=== PATIENT | male | born 1935 | race Caucasian/White ===

== ENCOUNTER 2018-01-30 15:30 | Inpatient (IN) | payer OTHER ==
--- NOTE | 2018-01-30 15:47 | PDOC ---
History of Present Illness - General Stated Complaint: DIFFICULTY BREATHING Time Seen by Provider: 01/30/18 15:40 - History of Present Illness Initial Comments: Osito Herring is an 83yo man with a PMH of HTN, DM2, CAD, CHF, a-fib on xarelto, gout, hypothyroid, BPH who presents from [facility] with 4-5 days of productive cough and difficulty breathing. He reports that he has been coughing up yellow sputum and cannot breath through his nose. EMS reports that he was given cough medicine but no antibiotics, and it unclear whether he was seen by a physician. There is no report of recent fevers. Mr Herring reports that he has felt very thirsty, and he has not been eating or drinking normally for a while. He endorses slight dysuria but no headache, known fever/chills, chest pain, significant SOB, nausea/vomiting, or change in bowel habits. He has not noticed any blood in his sputum. He has no known asthma or COPD but does report a history of smoking 7-8 pipes and cigars per day from age 18 until 2 years ago. EMS noted an O2 sat of 90% on room air when they arrived; other vitals were WNL. He was placed on a non-rebreather mask on route to the hospital due to difficulty breathing through his nose. He received a nebulizer treatment in the ambulance with no noticeable improvement in his breathing or cough. Past History - Past Medical History Allergies/Adverse Reactions: Allergies Allergy/AdvReac Type Severity Reaction Status Date / Time No Known Allergies Allergy Verified 01/30/18 16:59 Review of Systems - Review of Systems Comments:: General: No fevers, no chills, +poor PO intake HEENT: No changes in vision, no changes in hearing. CV: No chest pain, no palpitations, no LE edema Pulm: No SOB, no cough, no wheezing GI: No nausea or vomiting, no change in bowel habits, no melena : No frequency, no urgency, no dysuria Musc: No back pain, no joint swelling, no recent injury Skin: No rash, no lesions, no erythema Endo: No excessive thirst, no heat/cold intolerance Heme: No unusual bruising or bleeding, no swollen glands Neuro: No syncope, no numbness/tingling, no focal weakness Vasc: No claudication Psych: No recent change in mood, no SI or HI *Physical Exam - Physical Exam Comments: General: Comfortable, no acute distress HEENT: PERRL, EOMI, very dry tongue and mouth, mumbled speech, adentulous, normal neck ROM, no LAD. Yellow, crusted mucous in b/l nares. Yellow discharge and erythematous sclera in L eye. Cards: Irregular, normal rate Pulm: Productive cough. Diffuse wheezing, loud upper respiratory noise, no focal Abd: Soft, nontender, nondistended Ext: Atraumatic. Minimal LE edema. ROM intact. Strength 5/5 and equal bilaterally Vasc: Extremities WWP. Skin: Normal color, no rashes or lesions. Several small cuts w/o surrounding erythema or edema on BLE. Neuro: A&Ox3, CN grossly intact, motor/sensory grossly intact and symmetric Psych: Mood appropriate to situation ED Treatment Course - LABORATORY CBC & Chemistry Diagram: 01/30/18 16:40 01/30/18 16:40 Medical Decision Making - Medical Decision Making 01/30/18 17:34 Osito Herring is an 83yo man with a signifcant cardiac history who presents with 4-5 days of productive cough, thick rhinorrhea, and L eye discharge. - Suspected viral v bacterial URI or pneumonia - Sepsis order set initiated due to likely infection - CXR to evaluate for pneumonia - CBC, CMP, trop, lactate - EKG completed on arrival, rate-controlled a-fib, consistent with known cardiac history, no concerns - Appears dehydrated with extremely dry mucous membranes. 1L fluid bolus ordered - IV acetaminophen for mildly elevated rectal temp at 99F - Blood and urine cultures ordered - Erythromycin ointment for L eye conjunctivitis with yellow, thick discharge - Holding IV antibiotics until labs, CXR completed. 01/30/18 18:26 - Labs notable for lack of leukocytosis. - Cr 1.6, no baseline available. Suspected MT given clinical appearance of dehydration and no known kidney issues - Additional 1L IVF for dehydration - CXR without focal abnormalities. Working diagnosis mucopurulent bronchitis. Potential undiagnosed COPD with exacerbation as pt has significant smoking history. 1x dose azithromycin ordered. - Will page hospitalist for admission 01/30/18 19:25 - Discussed with Dr Mario. Will admit to Dr Mcmullen. Seen and discussed with Dr Alfaro. Stephenie Mcclain PGY1 *DC/Admit/Observation/Transfer Diagnosis at time of Disposition: Bronchitis - Discharge Dispostion Decision to Admit order: Yes - Referrals Referrals: Kevon Sibley MD [Primary Care Provider] - - Patient Instructions - Post Discharge Activity
--- NOTE | 2018-01-30 16:14 | PDOC ---
Attending Attestation - HPI HPI: 01/30/18 17:03 The patient is a 83 year old male, with a significant past medical history of HTN, DM, Afib (on Xarelto), CAD, hypothyroidism, and gout, who presents to the emergency department with, productive cough. Patient notes at the long term his cough has gotten progressively worse with associated difficulty breathing. He notes decreased PO intake over the past 2 days. He denies any nausea, vomiting, change in urinary/bowel movements. Flu shot not up to date. Allergies: NKA Past surgical history: None reported. Social history: Nonsmoker. Denies EtOH use and recreational drug use. Primary Care Physician: Dr. Sibley - Physicial Exam PE: 01/30/18 17:04 Constitutional: Awake, alert, oriented. No acute distress. Head: Normocephalic. Atraumatic +Eyes: Conjunctivitis of the left eye with erythema and discharge of the conjuctiva and sclera. +ENT: Mucous membranes are dry. Poor dentition. Neck: Supple. Full ROM. No lymphadenopathy. Cardiovascular: Regular rate. Regular rhythm. S1, S2 regular. Distal pulses are 2+ and symmetric. Pulmonary/Chest: Coarse breath sounds bilaterally with rhonchi on the right. +Abdominal: Mild suprapubic discomfort. Soft and non-distended. No rebound, guarding or rigidity. No organomegaly. No palpable masses. Good bowel sounds. Back: No CVA tenderness. Musculoskeletal: Trace lower extremity edema. No cyanosis. No clubbing. Full range of motion in all extremities. Nocalf tenderness. Radial/pedal pulses are intact and 2+ bilaterally Skin: Skin is warm and dry. No petechiae. No purpura. Neurological: Alert and oriented to person, place, and time. Cranial nerves II -XII are grossly intact. Normal speech. Strength is grossly symmetric. No sensory deficits. Psychiatric: Good eye contact. Normal interaction, affect and behavior. <Allie Kohli - Last Filed: 01/30/18 17:08> - Resident Resident Name: Stephenie Mcclain - ED Attending Attestation I have performed the following: I have examined & evaluated the patient, The case was reviewed & discussed with the resident, I agree w/resident's findings & plan, Exceptions are as noted - Medical Decision Making 01/30/18 16:14 I, Dr. Tashia Alfaro, DO, attest that this document has been prepared under my direction and personally reviewed by me in its entirety. I further attest, that it accurately reflects all work, treatment, procedures and medical decision -making performed by me. 01/30/18 16:36 a/p: 83yo male from [facility] -recently started to reside at [facility] at the beginning of december -docs in [place] -4 days of productive cough, decreased PO intake, no n/v/d -dysuria - seen by Urology at the Assisted living -low grade temp today -cough productive yellow sputum -concern for PNA -will send labs, cultures, will give ivf hydration, oral hydration -will monitor and reassess -pt will most likely need admission for dyspnea and cough 01/30/18 18:18 mucopurulent bronchitis and MT -will admit for ivf hydration 01/30/18 19:44 resident discussed the case with ROLY who accepts pt to service <Tashia Alfaro - Last Filed: 01/30/18 19:44> Heart Score/ECG Review - ECG Intrepretation Comment:: 01/30/18 17:38 afib at 66, rbbb, no acute st/t wave findings <Tashia Alfaro - Last Filed: 01/30/18 19:44> Attestations - Attestations 01/30/18 17:11 Documentation prepared by Allie Kohli, acting as medical record librarians teacher for Tashia Alfaro DO. <Allie Kohli - Last Filed: 01/30/18 17:08>
[2018-01-30] MEDS ORDERED: SODIUM CHLORIDE 0.9% 500 ML INFUS.BAG IV ONE (16:29)
[2018-01-30] MEDS ORDERED: ERYTHROMYCIN 0.5% OPHTHALMIC OINTMENT 3.5 GM TUBE OU ONE (16:30)
[2018-01-30] MEDS ORDERED: ACETAMINOPHEN INJECTION 100 ML IVPB ONE (16:49)
[2018-01-30 16:53] LABS: BASO % 0.6 % (0-2.0); HEMATOCRIT 38.6 % (35.4-49); HEMOGLOBIN 12.7 GM/dL (11.7-16.9); MCH 29.2 pg (25.7-33.7); MEAN CELL VOLUME 88.8 fl (80-96); RBC 4.35 M/mm3 (4.00-5.60)
[2018-01-30 16:55] LABS: EOS % 2.7 % (0-4.5); LYMPH % 19.9 % (8-40); MCHC 32.8 g/dl (32.0-35.9); NEUT % 60.8 % (42.8-82.8); PLATELET COUNT 190 K/MM3 (134-434); RDW 14.7 % (11.9-15.9); WHITE BLOOD COUNT 5.1 K/mm3 (4.0-10.0)
[2018-01-30] MEDS ORDERED: ACETAMINOPHEN 1000 MG/100 ML VIAL (NON FORMULARY) IVPB ONE (16:59)
[2018-01-30 17:05] LABS: INR 1.18 (0.83-1.09)
[2018-01-30 17:28] LABS: ALBUMIN 3.3 g/dl (3.4-5.0); ALK PHOS 76 U/L (45-117); BILIRUBIN,TOTAL 0.6 mg/dL (0.2-1); BLOOD UREA NITROGEN 39 mg/dL (7-18); CALCIUM 8.8 mg/dL (8.5-10.1); CHLORIDE 107 mmol/L (98-107); CO2 25 mmol/L (21-32); CREATININE 1.6 mg/dL (0.55-1.3); GLUCOSE,RANDOM 144 mg/dL (74-106); SGPT/ALT 26 U/L (13-61); SODIUM 140 mmol/L (136-145); TOT PROT 6.6 g/dl (6.4-8.2)
[2018-01-30 17:29] LABS: ANION GAP 9 MMOL/L (8-16); SGOT/AST 24 U/L (15-37)
[2018-01-30] MEDS ORDERED: AZITHROMYCIN IVPB 500 MG in DEXTROSE 5%-WATER - 250 ML IVPB ONE (18:18)
[2018-01-30] MEDS ORDERED: SODIUM CHLORIDE 0.9% 1000 ML INFUS.BAG IV ONE (18:18)
[2018-01-30] MEDS ORDERED: AZITHROMYCIN IVPB 500 MG/250 ML BAG IVPB ONE (19:22)
[2018-01-30] MEDS ORDERED: SODIUM CHLORIDE 1,000 ML IV SCH ×2 (19:30→20:21)
[2018-01-30 19:55] LABS: URINE APPEARANCE CLEAR; URINE BILIRUBIN NEGATIVE (<2.0 mg/dL); URINE COLOR LTYELLOW; URINE GLUCOSE (UA) NEGATIVE (NEGATIVE); URINE KETONE NEGATIVE (NEGATIVE); URINE LEUK ESTERASE NEGATIVE (NEGATIVE); URINE NITRITE NEGATIVE (NEGATIVE); URINE PROTEIN NEGATIVE (NEGATIVE); URINE UROBILINOGEN NEGATIVE mg/dL (0.2-1.0)
--- NOTE | 2018-01-30 20:25 | HP ---
CHIEF COMPLAINT: cough PCP: HISTORY OF PRESENT ILLNESS: 83 yo M with PMhx of CAD, CHF, HTN, DM, HLD,hypothyroidism, Afib(on AC) and gout [facility] with cough and SOB. He states that for the past 5 days he has been experiencing a progressive productive cough of greenish sputum. He states that he has also noticed some conjuctivitis for the same time. Cough is associated with SOB. Denies CP,MATTHEWS, abdominal pain, dysuria, fever, chills nausea or vomiting. ER course was notable for: (1)CXR-showed no acute pathology (2)MT seen on BMP (3)requiring supplemental O2 via [place] Recent Travel: NONE PAST MEDICAL HISTORY:CAD, CHF, HTN, DM, HLD, Afib(on AC) , hypothyroidism and gout PAST SURGICAL HISTORY: He was not sure of his surgical history Social History: Smoking:smoked pipes and cigars daily for most of his life. Alcohol:denies Drugs: denies. Family History: Allergies No Known Allergies Allergy (Verified 01/30/18 16:59) HOME MEDICATIONS: REVIEW OF SYSTEMS CONSTITUTIONAL: Absent: fever, chills, diaphoresis, generalized weakness, malaise, loss of appetite, weight change HEENT: Absent: rhinorrhea, nasal congestion, throat pain, throat swelling, difficulty swallowing, mouth swelling, ear pain, eye pain, visual changes CARDIOVASCULAR: Absent: chest pain, syncope, palpitations, irregular heart rate, lightheadedness , peripheral edema RESPIRATORY: cough, shortness of breath, dyspnea with exertion Absent: , orthopnea, wheezing, stridor, hemoptysis GASTROINTESTINAL: Absent: abdominal pain, abdominal distension, nausea, vomiting, diarrhea, constipation, melena, hematochezia GENITOURINARY: Absent: dysuria, frequency, urgency, hesitancy, hematuria, flank pain, genital pain MUSCULOSKELETAL: Absent: myalgia, arthralgia, joint swelling, back pain, neck pain SKIN: Absent: rash, itching, pallor HEMATOLOGIC/IMMUNOLOGIC: Absent: easy bleeding, easy bruising, lymphadenopathy, frequent infections ENDOCRINE: Absent: unexplained weight gain, unexplained weight loss, heat intolerance, cold intolerance NEUROLOGIC: Absent: headache, focal weakness or paresthesias, dizziness, unsteady gait, seizure, mental status changes, bladder or bowel incontinence PSYCHIATRIC: Absent: anxiety, depression, suicidal or homicidal ideation, hallucinations. PHYSICAL EXAMINATION Vital Signs - 24 hr 01/30/18 01/30/18 15:59 18:00 Temperature 99.2 F Pulse Rate 84 Respiratory 16 Rate Blood Pressure 143/99 O2 Sat by Pulse 100 97 Oximetry (%) GENERAL: awake and alert , Oriented to person and place, NAD HEAD: NCAT EYES: PERRLA, EOMI, green conjunctiva secretions. sclera anicteric, No lid lag. EARS, NOSE, THROAT: nares with green mucous , Dry mucous membranes. NECK: Supple without lymphadenopathy, JVD, or masses. LUNGS: course bilateral breath sounds with scattered Rhonchi. HEART: Irregular, normal S1 and S2 ABDOMEN: Soft, obese, nontender, mildly distended, NABS, no guarding, no rebound , no masses. MUSCULOSKELETAL: No CVA tenderness. UPPER EXTREMITIES: 2+ pulses, warm, well-perfused. No cyanosis. No clubbing. No peripheral edema. LOWER EXTREMITIES: 2+ pulses, warm, well-perfused. No calf tenderness.1+ peripheral edema. NEUROLOGICAL: Cranial nerves II-XII intact. Normal speech.gait not observed. PSYCHIATRIC: Cooperative. Good eye contact. Appropriate mood and affect. Laboratory Results - last 24 hr 01/30/18 01/30/18 01/30/18 16:40 16:40 16:40 WBC 5.1 RBC 4.35 Hgb 12.7 Hct 38.6 MCV 88.8 MCH 29.2 MCHC 32.8 RDW 14.7 Plt Count 190 MPV 9.0 Absolute Neuts (auto) 3.1 Neutrophils % 60.8 Lymphocytes % 19.9 Monocytes % 16.0 H Eosinophils % 2.7 Basophils % 0.6 Nucleated RBC % 0 PT with INR 14.00 H INR 1.18 H PTT (Actin FS) 29.0 Sodium 140 Potassium 5.0 Chloride 107 Carbon Dioxide 25 Anion Gap 9 BUN 39 H Creatinine 1.6 H Creat Clearance w eGFR 41.49 Random Glucose 144 H Lactic Acid Calcium 8.8 Total Bilirubin 0.6 AST 24 ALT 26 Alkaline Phosphatase 76 Troponin I Total Protein 6.6 Albumin 3.3 L Urine Color Urine Appearance Urine pH Ur Specific [place] Urine Protein Urine Glucose (UA) Urine Ketones Urine Blood Urine Nitrite Urine Bilirubin Urine Urobilinogen Ur Leukocyte Esterase 01/30/18 01/30/18 01/30/18 16:40 16:40 19:00 WBC RBC Hgb Hct MCV MCH MCHC RDW Plt Count MPV Absolute Neuts (auto) Neutrophils % Lymphocytes % Monocytes % Eosinophils % Basophils % Nucleated RBC % PT with INR INR PTT (Actin FS) Sodium Potassium Chloride Carbon Dioxide Anion Gap BUN Creatinine Creat Clearance w eGFR Random Glucose Lactic Acid 1.8 Calcium Total Bilirubin AST ALT Alkaline Phosphatase Troponin I < 0.02 Total Protein Albumin Urine Color Ltyellow Urine Appearance Clear Urine pH 5.0 Ur Specific [place] 1.016 Urine Protein Negative Urine Glucose (UA) Negative Urine Ketones Negative Urine Blood Negative Urine Nitrite Negative Urine Bilirubin Negative Urine Urobilinogen Negative Ur Leukocyte Esterase Negative ASSESSMENT/PLAN: 83 yo M with PMhx of CAD, CHF, HTN, DM, HLD,hypothyroidism, Afib(on AC) and gout [facility] from [facility] with cough and SOB. Found to have MT to med-surg for further management. Problem List - Problem (1) Bronchitis Assessment/Plan: * sputum culture * Azithromycin 500mg PO daily * Influenza swab (2) Conjunctivitis Assessment/Plan: most likely bacterial. * Erythromycin OU drops (3) MT (acute kidney injury) Assessment/Plan: Most likely secondary to volume depletion * IVF wiht NS @60ml/hr * repeat BMP in AM * Will check BNP for any component of hypoperfusion from CHF * Serum OSM (4) Afib Assessment/Plan: cont xarelto. (5) CHF (congestive heart failure) Assessment/Plan: continue lasix 20 mg PO. (6) HTN (hypertension) Assessment/Plan: * Amlodipine Besylate (Norvasc -) 5 mg PO DAILY * Metoprolol Succinate (Toprol Xl -) 100 mg PO DAILY (7) DM type 2 (diabetes mellitus, type 2) Assessment/Plan: ADA sodium controlled diet * BGM ACHS * ISS ACHS (8) BPH (benign prostatic hyperplasia) Assessment/Plan: Flomax 0.4mg po daily (9) Gout Visit type - Emergency Visit Emergency Visit: Yes ED Registration Date: 01/30/18 Care time: The patient presented to the Emergency Department on the above date and was hospitalized for further evaluation of their emergent condition. - New Patient This patient is new to me today: Yes Date on this admission: 01/31/18 - Critical Care Critical Care patient: No
[2018-01-30 23:05] LABS: N-TERMINAL BNP 1475.2 pg/ml (5-450)
[2018-01-31 00:51] VITALS: BMI 33.4
[2018-01-31] MEDS ORDERED: FUROSEMIDE 40 MG/4 ML INJECTABLE VIAL IVPUSH ONE (01:41)
--- NOTE | 2018-01-31 01:45 | PN ---
Teaching Attending Note Name of Resident: Kobe Mario ATTENDING PHYSICIAN STATEMENT I saw and evaluated the patient. I reviewed the resident's note and discussed the case with the resident. I agree with the resident's findings and plan as documented. SUBJECTIVE: Seen and examined at bedside; patient is an [facility] resident who is a poor historian. Phoned the [facility] and they state that he is here for SOB and hallucinations, though he cannot tell me why he is here. The individual spoke to at the [facility] by our resident did not know much else historical detail regarding vladimir. He is documented as having a history of Atrial fibrillation , gout, CHF, hypothyroidism, DM, HTN, BPH. He appears to at least have some MCI. He presented afebrile and hemodynamically stable. He was noted to have conjunctival injections with purulent discharge from both eyes; unknown how long that had been present. He was noted to be coughing as well. He has been at [facility] since December. Was accepted during the day by resident team. Will be on the medicine service Couldn't adequately obtain Social or family histories ROS negative aside from HPI PMH as documented PSH could not be obtained at this time OBJECTIVE: VSS, labs and imaging reviewed NAD, resting in bed on O2 via NC Normal HR, no aimee murmurs NT ND +BS What appears to be dependent edema, thick neck makes JVD assessment difficult Difficult body habitus. Upper airway sounds with ? crackles. AAOx2 with some confusion but able to have a conversation. Not actively hallucinating when I saw him. No old cardiovascular studies No old visits CXR with ?LLL PNA? ASSESSMENT AND PLAN: Mr. Da Silva is an 83 y/o CM with a PMH as stated who presents to the ER from [facility] with SOB, cough for nearly a week. We are told he was also hallucinating by the facility when we phoned them tonight. 1) Acute Shortness of Breath -Broad ddx having a generalized lack of history has made this difficult. We are reaching out to [facility] and will attempt to contact the PCP in the morning for old records. Right now we are considering a LLL PNA vs. URI vs. CHF exacerbation. Will be discussed in their respective sections -O2 via NC 2) Elevated BNP, ?CHF exacerbation -Elevated BNP noted; unknown baseline. Cardiomegaly seen on CXR and history of afib on home lasix 20 at [facility]. This would be a potential cause. Should note that when the patient originally was accepted during the daytime hours a BNP hadn't been done yet. He thus got what appears to be at least 1L of fluids in the ER and maintenance fluids by the time I got to adding on BNP. In that interval, according to the computer records, his O2 requirements did increase and his RR increased 2 breaths per minute. Would lead to one questioning if fluids worsened this. As noted, we don't have any echo or prior CV records -Monitor Is and Os, lytes, low Na diet and 2L fluid restrict per day -Giving 1x dose of lasix 40IV. His Cr is slightly elevated but given his multiple comorbidities and his age I feel that the patient does have reason to have CKD and we do not have a baseline Cr. Therefore we will monitor his Cr. He does not appear septic (normal HR, no WBC, no fever, normal BP). 3) ?LLL PNA -Seen on CXR. Difficult to call for certain. Would be a CAP. -Followup blood cultures, followup sputum cultures -Levaquin IV (not active so minimal risk of tendon issues). Consider further imaging with CT scan if not improved or if further data needed as he progresses. -Checking a influenza screen, monitoring for improvement. Wean off O2 as tolerated. 4) Hallucinations -Not actively hallucinating -Check QTc and can do Seroquel if needed. Obtain old records and see if there is any old reasons for him to have this. 5) Afib -Seen on tele and does have an irregular HR. On home metoprolol, no NOAC. ASA only 81. Rate is controlled. Can increase the ASA to 325 but given his fall risk I would not be inclined to place him on any further AC at this juncture. 6) DM -SSI, monitor 7) HTN -Keep <160 while inpatient. 8) BPH -No acute issues, monitor for retention 9) Gout -No flare, continue home meds 10) Hypothyroidism -Continue home meds Code Status is full; should discuss goals of care with family
[2018-01-31] MEDS: LEVOTHYROXINE NA 125 MCG TABLET (FP) PO SCH (06:08)
[2018-01-31] MEDS: HEPARIN NA (PORCINE) 5,000 UNITS/ML 1ML VIAL SQ SCH ×3 (06:09→21:46)
[2018-01-31] MEDS ORDERED: INSULIN (LEVEMIR) 100 UNITS/ML UNITS SQ ONE (06:48)
[2018-01-31 08:23] LABS: BASO % 0.4 % (0-2.0); HEMATOCRIT 37.9 % (35.4-49); HEMOGLOBIN 12.2 GM/dL (11.7-16.9); LYMPH % 17.4 % (8-40); MCH 28.6 pg (25.7-33.7); MCHC 32.3 g/dl (32.0-35.9); MEAN CELL VOLUME 88.7 fl (80-96); MEAN PLT VOLUME 8.6 fl (7.5-11.1); MONO % 15.1 % (3.8-10.2); NEUT % 64.1 % (42.8-82.8); PLATELET COUNT 170 K/MM3 (134-434); RBC 4.27 M/mm3 (4.00-5.60); RDW 14.4 % (11.9-15.9); WHITE BLOOD COUNT 5.3 K/mm3 (4.0-10.0)
[2018-01-31 08:27] LABS: ALBUMIN 3.2 g/dl (3.4-5.0); ALK PHOS 74 U/L (45-117); ANION GAP 9 MMOL/L (8-16); BILIRUBIN,TOTAL 0.7 mg/dL (0.2-1); BLOOD UREA NITROGEN 32 mg/dL (7-18); CALCIUM 8.2 mg/dL (8.5-10.1); CHLORIDE 106 mmol/L (98-107); CO2 27 mmol/L (21-32); CREATININE 1.3 mg/dL (0.55-1.3); GLUCOSE,RANDOM 130 mg/dL (74-106); MAGNESIUM 1.7 mg/dL (1.8-2.4); POTASSIUM 4.4 mmol/L (3.5-5.1); SGOT/AST 13 U/L (15-37); SGPT/ALT 22 U/L (13-61); SODIUM 143 mmol/L (136-145); TOT PROT 6.2 g/dl (6.4-8.2)
[2018-01-31] MEDS: TAMSULOSIN HCL 0.4 MG CAP PO SCH (08:35)
--- NOTE | 2018-01-31 09:34 | EKG ---
Test Reason : Blood Pressure : / mmHG Vent. Rate : 053 BPM Atrial Rate : 049 BPM P-R Int : 000 ms QRS Dur : 172 ms QT Int : 466 ms P-R-T Axes : 000 043 -31 degrees QTc Int : 437 ms ATRIAL FIBRILLATION WITH SLOW VENTRICULAR RESPONSE RIGHT BUNDLE BRANCH BLOCK T WAVE ABNORMALITY, CONSIDER INFERIOR ISCHEMIA ABNORMAL ECG WHEN COMPARED WITH ECG OF 30-JAN-2018 15:50, NO SIGNIFICANT CHANGE WAS FOUND Confirmed by MARLYS BARNEY MD ([id number]) on 01/31/2018 9:33:53 AM Referred By: Confirmed By:MARLYS BARNEY MD
--- NOTE | 2018-01-31 09:40 | EKG ---
Test Reason : Blood Pressure : / mmHG Vent. Rate : 066 BPM Atrial Rate : 234 BPM P-R Int : 000 ms QRS Dur : 166 ms QT Int : 422 ms P-R-T Axes : 000 032 -31 degrees QTc Int : 442 ms ATRIAL FIBRILLATION RIGHT BUNDLE BRANCH BLOCK ABNORMAL ECG NO PREVIOUS ECGS AVAILABLE Confirmed by MARLYS BARNEY MD ([id number]) on 01/31/2018 9:40:02 AM Referred By: Confirmed By:MARLYS BARNEY MD
[2018-01-31] MEDS ORDERED: FUROSEMIDE 20 MG TABLET (FP) PO SCH (10:00)
[2018-01-31] MEDS ORDERED: AZITHROMYCIN IVPB 500 MG/250 ML BAG IVPB SCH (10:00)
[2018-01-31] MEDS ORDERED: ACETAMINOPHEN 325 MG TABLET (FP) PO PRN (10:00)
[2018-01-31] MEDS ORDERED: PT OWN MED DRAWER 7, Y5N ONE (10:05)
[2018-01-31] MEDS: ASPIRIN 81 MG CHEWABLE TABLETS PO SCH (10:07)
[2018-01-31] MEDS: GABAPENTIN 300 MG CAPSULE (FP) PO SCH ×2 (10:07→21:47)
[2018-01-31] MEDS: amLODIPine BESYLATE 5 MG TABLET (FP) PO SCH (10:07)
[2018-01-31] MEDS: ERYTHROMYCIN 0.5% OPHTHALMIC OINTMENT 3.5 GM TUBE OU SCH (11:46)
--- NOTE | 2018-01-31 12:13 | ECHO ---
Name: CORNELIUS RAMIREZ Exam:Adult Echocardiogram Study Date: 01/31/2018 10:53 AM Age: 83 yrs Reason For Study: elevated BNP Height: 68 in Weight: 220 lb BSA: 2.1 m2 MMode/2D Measurements & Calculations IVSd: 1.0 cm Ao root diam: 4.3 cm LVIDd: 5.3 cm LA dimension: 2.8 cm LVIDs: 3.1 cm LVPWd: 0.93 cm IVSs: 1.5 cm LVPWs: 1.4 cm EDV(Teich): 135.3 ml ESV(Teich): 38.2 ml LVOT diam: 2.1 cm Doppler Measurements & Calculations Ao V2 max: 169.4 cm/sec AI max domingo: 477.4 cm/sec Ao max P.6 mmHg AI max P.2 mmHg Ao V2 mean: 117.7 cm/sec Ao mean P.2 mmHg AI dec slope: 189.0 cm/sec2 Ao V2 VTI: 29.2 cm MARU(I,D): 1.6 cm2 AI P1/2t: 739.9 msec MARU(V,D): 1.5 cm2 LV V1 max P.1 mmHg MR max domingo: 404.0 cm/sec LV V1 mean P.1 mmHg MR max P.3 mmHg LV V1 max: 72.5 cm/sec LV V1 mean: 49.5 cm/sec LV V1 VTI: 12.8 cm SV(LVOT): 45.3 ml TR max domingo: 270.3 cm/sec TR max P.4 mmHg Med Peak E' Domingo: 4.9 cm/sec Lat Peak E' Domingo: 10.4 cm/sec Left Ventricle Left ventricular systolic function is normal. Ejection Fraction = 50-55%. Right Ventricle The right ventricle is mildly dilated. The right ventricular systolic function is borderline reduced. Atria Normal left and right atrial size and function. Mitral Valve The mitral valve is grossly normal. There is no mitral valve stenosis. There is mild mitral regurgita tion. Tricuspid Valve The tricuspid valve is not well visualized, but is grossly normal. There is mild tricuspid regurgitat ion. Right ventricular systolic pressure is elevated at 30-40mmHg. Aortic Valve There is mild aortic sclerosis.;. No hemodynamically significant valvular aortic stenosis. Mild aorti c regurgitation. Pulmonic Valve The pulmonic valve is not well seen, but is grossly normal. There is no pulmonic valvular stenosis. T here is no pulmonic valvular regurgitation. Great Vessels The aortic root is normal size. Pericardium/Pleura There is no pericardial effusion. Interpretation Summary Left ventricular systolic function is normal. Ejection Fraction = 50-55%. The right ventricle is mildly dilated. The right ventricular systolic function is borderline reduced. There is mild mitral regurgitation. There is mild tricuspid regurgitation. Right ventricular systolic pressure is elevated at 30-40mmHg. There is mild aortic sclerosis.; Mild aortic regurgitation. There is no pericardial effusion. MD Del Angel *Wilber 01/31/2018 12:12 PM
--- NOTE | 2018-01-31 15:45 | PN ---
Physical Exam: SUBJECTIVE: Patient seen and examined at bedside. States that he is feeling ok minus the barking cough that he has, however, the cough is non-productive. He is no longer experiencing any of the hallucinations that he was previously experiencing in his assisted living facility. He denies any CP/SOB/N/V fevers or chills. OBJECTIVE: Vital Signs Period Temp Pulse Resp BP Sys/Denson Pulse Ox Last 24 Hr 97.5 F-99.2 F 67-87 16-18 122-154/61-99 95-100 GENERAL: The patient is awake, alert, in no acute distress. EYES: no scleral icterus NECK: no JVD appreciated LUNGS: CTA B/L; no rales, rhonchi or wheezing HEART: Regular rate and rhythm, S1, S2 without murmur, rub or gallop. ABDOMEN: Soft, nontender, nondistended, normoactive bowel sounds, no guarding, no rebound, no hepatosplenomegaly, no masses. EXTREMITIES: 2+ pulses, warm, well-perfused, no edema. NEUROLOGICAL: Cranial nerves II through XII grossly intact. Normal speech, gait not observed. PSYCH: Normal mood, normal affect. SKIN: Warm, dry, normal turgor, no rashes or lesions noted Laboratory Results - last 24 hr 01/30/18 01/30/18 01/30/18 16:40 16:40 16:40 WBC 5.1 RBC 4.35 Hgb 12.7 Hct 38.6 MCV 88.8 MCH 29.2 MCHC 32.8 RDW 14.7 Plt Count 190 MPV 9.0 Absolute Neuts (auto) 3.1 Neutrophils % 60.8 Lymphocytes % 19.9 Monocytes % 16.0 H Eosinophils % 2.7 Basophils % 0.6 Nucleated RBC % 0 PT with INR 14.00 H INR 1.18 H PTT (Actin FS) 29.0 Sodium 140 Potassium 5.0 Chloride 107 Carbon Dioxide 25 Anion Gap 9 BUN 39 H Creatinine 1.6 H Creat Clearance w eGFR 41.49 POC Glucometer Random Glucose 144 H Serum Osmolality Lactic Acid Calcium 8.8 Magnesium Total Bilirubin 0.6 AST 24 ALT 26 Alkaline Phosphatase 76 Creatine Kinase Troponin I B-Natriuretic Peptide 1475.2 H Total Protein 6.6 Albumin 3.3 L Prealbumin Urine Color Urine Appearance Urine pH Ur Specific Jeffers Urine Protein Urine Glucose (UA) Urine Ketones Urine Blood Urine Nitrite Urine Bilirubin Urine Urobilinogen Ur Leukocyte Esterase 01/30/18 01/30/18 01/30/18 16:40 16:40 16:40 WBC RBC Hgb Hct MCV MCH MCHC RDW Plt Count MPV Absolute Neuts (auto) Neutrophils % Lymphocytes % Monocytes % Eosinophils % Basophils % Nucleated RBC % PT with INR INR PTT (Actin FS) Sodium Potassium Chloride Carbon Dioxide Anion Gap BUN Creatinine Creat Clearance w eGFR POC Glucometer Random Glucose Serum Osmolality 307 H Lactic Acid 1.8 Calcium Magnesium Total Bilirubin AST ALT Alkaline Phosphatase Creatine Kinase Troponin I < 0.02 B-Natriuretic Peptide Total Protein Albumin Prealbumin Urine Color Urine Appearance Urine pH Ur Specific Jeffers Urine Protein Urine Glucose (UA) Urine Ketones Urine Blood Urine Nitrite Urine Bilirubin Urine Urobilinogen Ur Leukocyte Esterase 01/30/18 01/31/18 01/31/18 19:00 06:07 06:50 WBC RBC Hgb Hct MCV MCH MCHC RDW Plt Count MPV Absolute Neuts (auto) Neutrophils % Lymphocytes % Monocytes % Eosinophils % Basophils % Nucleated RBC % PT with INR INR PTT (Actin FS) Sodium Potassium Chloride Carbon Dioxide Anion Gap BUN Creatinine Creat Clearance w eGFR POC Glucometer 156 Random Glucose Serum Osmolality Lactic Acid Calcium Magnesium Total Bilirubin AST ALT Alkaline Phosphatase Creatine Kinase Troponin I B-Natriuretic Peptide Total Protein Albumin Prealbumin 16.1 L Urine Color Ltyellow Urine Appearance Clear Urine pH 5.0 Ur Specific Jeffers 1.016 Urine Protein Negative Urine Glucose (UA) Negative Urine Ketones Negative Urine Blood Negative Urine Nitrite Negative Urine Bilirubin Negative Urine Urobilinogen Negative Ur Leukocyte Esterase Negative 01/31/18 01/31/18 01/31/18 06:50 06:50 12:16 WBC 5.3 RBC 4.27 Hgb 12.2 Hct 37.9 MCV 88.7 MCH 28.6 MCHC 32.3 RDW 14.4 Plt Count 170 MPV 8.6 Absolute Neuts (auto) 3.4 Neutrophils % 64.1 Lymphocytes % 17.4 Monocytes % 15.1 H Eosinophils % 3.0 Basophils % 0.4 Nucleated RBC % 0 PT with INR INR PTT (Actin FS) Sodium 143 Potassium 4.4 Chloride 106 Carbon Dioxide 27 Anion Gap 9 BUN 32 H Creatinine 1.3 Creat Clearance w eGFR 52.72 POC Glucometer 179 Random Glucose 130 H Serum Osmolality Lactic Acid Calcium 8.2 L Magnesium 1.7 L Total Bilirubin 0.7 AST 13 L ALT 22 Alkaline Phosphatase 74 Creatine Kinase 59 Troponin I < 0.02 B-Natriuretic Peptide Total Protein 6.2 L Albumin 3.2 L Prealbumin Urine Color Urine Appearance Urine pH Ur Specific Jeffers Urine Protein Urine Glucose (UA) Urine Ketones Urine Blood Urine Nitrite Urine Bilirubin Urine Urobilinogen Ur Leukocyte Esterase Active Medications Generic Name Dose Route Start Last Admin Trade Name Freq PRN Reason Stop Dose Admin Acetaminophen 650 mg 01/31/18 10:00 Tylenol - PO Q6H PRN FEVER/PAIN LEVEL 1-5 Amlodipine Besylate 5 mg 01/31/18 10:00 01/31/18 10:07 Norvasc - PO 5 mg DAILY C[facility] Administration Aspirin 81 mg 01/31/18 10:00 01/31/18 10:07 Asa - PO 81 mg DAILY C[facility] Administration Atorvastatin Calcium 20 mg 01/31/18 22:00 Lipitor - PO HS CODY Erythromycin 1 applic 01/31/18 10:00 01/31/18 11:46 Erythromycin 0.5% Eye Ointment OU 1 applic DAILY [facility] Administration Gabapentin 300 mg 01/31/18 10:00 01/31/18 10:07 Neurontin - PO 300 mg BID CODY Administration Heparin Sodium (Porcine) 5,000 unit 01/31/18 06:00 01/31/18 14:18 Heparin - SQ 5,000 unit TID CODY Administration Levothyroxine Sodium 125 mcg 01/31/18 07:00 01/31/18 06:08 Synthroid - PO 125 mcg DAILY@0700 C[facility] Administration Metoprolol Succinate 100 mg 01/31/18 10:00 01/31/18 10:07 Toprol Xl - PO 100 mg DAILY [facility] Administration Tamsulosin HCl 0.4 mg 01/31/18 08:30 01/31/18 08:35 Flomax - PO 0.4 mg DAILY@0830 CODY Administration ASSESSMENT/PLAN: 83 y/o male with PMH of Afib, DM, HTN, BPH presents to the hospital with complaints of cough and shortness of breath found to have a possible LL lobe pneumonia on chest XRAY. #) Acute Bronchitis/possible PNA? patient going for chest CT to further evaluate for any underlying chest pathology -azithromycin 500 - robitussin for cough -cepacol lozenges PRN -follow upblood cx -follow up sputum cx -pending influzenza screen -follow up CT scan results #)Afib -on metoprolol 100 daily, no AC -ASA 81 #) DM -ISS -monitor BGMS #)HTN -amlodipine 5 daily #)Hypothyroidism -c/w synthroid 125mcg daily #) BPH -flomax 0.4 daily F/E/N not on standing fluids replete electrolytes when needed regualar diet DVT PPX: heaprin sq Problem List - Problems (1) BPH (benign prostatic hyperplasia) Code(s): N40.0 - BENIGN PROSTATIC HYPERPLASIA WITHOUT LOWER URINRY TRACT SYMP Qualifiers: Lower urinary tract symptom presence: unspecified whether lower urinary tract symptoms present Qualified Code(s): N40.0 - Benign prostatic hyperplasia without lower urinary tract symptoms (2) Bronchitis Code(s): J40 - BRONCHITIS, NOT SPECIFIED ACUTE OR CHRONIC (3) DM type 2 (diabetes mellitus, type 2) Code(s): E11.9 - TYPE 2 DIABETES MELLITUS WITHOUT COMPLICATIONS Qualifiers: Diabetes mellitus rn long term care insulin use: without rn long term care use Visit type - Emergency Visit Emergency Visit: Yes ED Registration Date: 01/30/18 Care time: The patient presented to the Emergency Department on the above date and was hospitalized for further evaluation of their emergent condition. - New Patient This patient is new to me today: Yes Date on this admission: 01/31/18 - Critical Care Critical Care patient: No
[2018-01-31] MEDS: AZITHROMYCIN 250 MG TABLET PO SCH (17:10)
[2018-01-31] MEDS: guaiFENesin 200 MG/10 ML 10 ML UNIT-DOSE CUPS PO PRN (17:10)
[2018-01-31] MEDS: BENZOCAINE/MENTH/CETYLPYRD CL 1 EACH LOZENGE MM PRN (17:10)
[2018-01-31] MEDS ORDERED: INSULIN (NOVOLOG) ASPART 100 UNITS/ML 10ML VIAL ONE (17:32)
[2018-01-31] MEDS: INSULIN SLIDING SCALE (NOVOLOG) 1 VIAL SQ SCH ×2 (17:34→21:46)
--- NOTE | 2018-01-31 18:04 | PN ---
Teaching Attending Note Name of Resident: Steff Reyes ATTENDING PHYSICIAN STATEMENT I saw and evaluated the patient. I reviewed the resident's note and discussed the case with the resident. I agree with the resident's findings and plan as documented. SUBJECTIVE: in no distress, still complains of cough worse at night, for 1 week OBJECTIVE: patient has been afebrile and saturation fine on RA he was mildly SOB while coming back from the bathroom. obese MMM No ocular discharge CVS:S1S2 LUNG; has mostly upper airways rales ABd: Soft Last Vital Signs Temp Pulse Resp BP Pulse Ox 97.9 F 66 20 141/79 95 01/31/18 17:20 01/31/18 17:20 01/31/18 17:20 01/31/18 17:20 01/31/18 09:00 CBCD WBC 5.3 K/mm3 (4.0-10.0) 01/31/18 06:50 RBC 4.27 M/mm3 (4.00-5.60) 01/31/18 06:50 Hgb 12.2 GM/dL (11.7-16.9) 01/31/18 06:50 Hct 37.9 % (35.4-49) 01/31/18 06:50 MCV 88.7 fl (80-96) 01/31/18 06:50 MCHC 32.3 g/dl (32.0-35.9) 01/31/18 06:50 RDW 14.4 % (11.9-15.9) 01/31/18 06:50 Plt Count 170 K/MM3 (134-434) 01/31/18 06:50 MPV 8.6 fl (7.5-11.1) 01/31/18 06:50 CMP Sodium 143 mmol/L (136-145) 01/31/18 06:50 Potassium 4.4 mmol/L (3.5-5.1) 01/31/18 06:50 Chloride 106 mmol/L (98-107) 01/31/18 06:50 Carbon Dioxide 27 mmol/L (21-32) 01/31/18 06:50 Anion Gap 9 MMOL/L (8-16) 01/31/18 06:50 BUN 32 mg/dL (7-18) H 01/31/18 06:50 Creatinine 1.3 mg/dL (0.55-1.3) 01/31/18 06:50 Creat Clearance w eGFR 52.72 (>60) 01/31/18 06:50 Calcium 8.2 mg/dL (8.5-10.1) L 01/31/18 06:50 Total Bilirubin 0.7 mg/dL (0.2-1) 01/31/18 06:50 AST 13 U/L (15-37) L 01/31/18 06:50 ALT 22 U/L (13-61) 01/31/18 06:50 Alkaline Phosphatase 74 U/L (45-117) 01/31/18 06:50 Total Protein 6.2 g/dl (6.4-8.2) L 01/31/18 06:50 Albumin 3.2 g/dl (3.4-5.0) L 01/31/18 06:50 ASSESSMENT AND PLAN: 83 y/o from assisted living facility walks with a walker,P/W cough and delirium , no other GI/ complaints other than chronic urinary frequency cough/ abnormal CXR: was treated for PNA has been afebrile and zapata no leukocytes and his complains mostly upper airway irritative symptoms PND related, will C/W axithro, Will get chest CT Will CW/ rest of his home medication Dispo: pending results of the chest ct.
[2018-01-31] MEDS: ATORVASTATIN CA 20 MG TABLET (FP) PO SCH (21:47)
[2018-02-01] MEDS: INSULIN SLIDING SCALE (NOVOLOG) 1 VIAL SQ SCH ×4 (06:57→21:54)
[2018-02-01] MEDS: HEPARIN NA (PORCINE) 5,000 UNITS/ML 1ML VIAL SQ SCH ×3 (06:58→21:53)
[2018-02-01] MEDS: LEVOTHYROXINE NA 125 MCG TABLET (FP) PO SCH (06:58)
[2018-02-01 07:30] LABS: HEMATOCRIT 38.5 % (35.4-49); HEMOGLOBIN 12.5 GM/dL (11.7-16.9); MCH 28.9 pg (25.7-33.7); MCHC 32.5 g/dl (32.0-35.9); MEAN CELL VOLUME 88.9 fl (80-96); MEAN PLT VOLUME 8.7 fl (7.5-11.1); PLATELET COUNT 182 K/MM3 (134-434); RBC 4.34 M/mm3 (4.00-5.60); RDW 14.6 % (11.9-15.9); WHITE BLOOD COUNT 4.6 K/mm3 (4.0-10.0)
[2018-02-01 07:57] LABS: ANION GAP 8 MMOL/L (8-16); BLOOD UREA NITROGEN 33 mg/dL (7-18); CALCIUM 8.3 mg/dL (8.5-10.1); CHLORIDE 111 mmol/L (98-107); CO2 26 mmol/L (21-32); CREATININE 1.4 mg/dL (0.55-1.3); GLUCOSE,RANDOM 115 mg/dL (74-106); MAGNESIUM 1.9 mg/dL (1.8-2.4); PHOSPHOROUS 3.6 mg/dL (2.5-4.9); POTASSIUM 4.3 mmol/L (3.5-5.1); SODIUM 145 mmol/L (136-145)
[2018-02-01] MEDS: ASPIRIN 81 MG CHEWABLE TABLETS PO SCH (09:01)
[2018-02-01] MEDS: GABAPENTIN 300 MG CAPSULE (FP) PO SCH ×2 (09:01→21:52)
[2018-02-01] MEDS: TAMSULOSIN HCL 0.4 MG CAP PO SCH (09:01)
[2018-02-01] MEDS: AZITHROMYCIN 250 MG TABLET PO SCH (09:01)
[2018-02-01] MEDS: amLODIPine BESYLATE 5 MG TABLET (FP) PO SCH (09:02)
[2018-02-01] MEDS: ERYTHROMYCIN 0.5% OPHTHALMIC OINTMENT 3.5 GM TUBE OU SCH (09:03)
--- NOTE | 2018-02-01 09:09 | PN ---
Physical Exam: SUBJECTIVE: Patient seen and examined at bedside. No acute events overnight- states that he is feeling better and that his cough/breathing is much better. He feels better with the lozenges and the robitussin. He denies any CP/SOB/N/V fevers or chills. OBJECTIVE: Vital Signs Period Temp Pulse Resp BP Sys/Denson Pulse Ox Last 24 Hr 97.6 F-98.3 F 66-87 18-20 122-147/61-79 95 GENERAL: The patient is awake, alert, resting comfortably, in no acute distress. EYES:no JVD appreciated NECK: Trachea midline, full range of motion, supple. LUNGS: Breath sounds equal, clear to auscultation bilaterally, no wheezes, no crackles, no accessory muscle use. HEART: Regular rate and rhythm, S1, S2 without murmur, rub or gallop. ABDOMEN: Soft, nontender, nondistended, normoactive bowel sounds, no guarding, no rebound, no hepatosplenomegaly, no masses. EXTREMITIES: 2+ pulses, warm, well-perfused, no edema. NEUROLOGICAL: Cranial nerves II through XII grossly intact. Normal speech, gait not observed. PSYCH: Normal mood, normal affect. SKIN: Warm, dry, normal turgor, no rashes or lesions noted Laboratory Results - last 24 hr 01/31/18 01/31/18 01/31/18 06:50 12:16 17:20 WBC RBC Hgb Hct MCV MCH MCHC RDW Plt Count MPV Sodium 143 Potassium 4.4 Chloride 106 Carbon Dioxide 27 Anion Gap 9 BUN 32 H Creatinine 1.3 Creat Clearance w eGFR 52.72 POC Glucometer 179 182 Random Glucose 130 H Calcium 8.2 L Phosphorus Magnesium 1.7 L Total Bilirubin 0.7 AST 13 L ALT 22 Alkaline Phosphatase 74 Creatine Kinase 59 Troponin I < 0.02 Total Protein 6.2 L Albumin 3.2 L 01/31/18 02/01/18 02/01/18 21:44 06:00 06:00 WBC 4.6 RBC 4.34 Hgb 12.5 Hct 38.5 MCV 88.9 MCH 28.9 MCHC 32.5 RDW 14.6 Plt Count 182 MPV 8.7 Sodium 145 Potassium 4.3 Chloride 111 H Carbon Dioxide 26 Anion Gap 8 BUN 33 H Creatinine 1.4 H Creat Clearance w eGFR 48.40 POC Glucometer 174 Random Glucose 115 H Calcium 8.3 L Phosphorus 3.6 Magnesium 1.9 Total Bilirubin AST ALT Alkaline Phosphatase Creatine Kinase Troponin I Total Protein Albumin 02/01/18 06:56 WBC RBC Hgb Hct MCV MCH MCHC RDW Plt Count MPV Sodium Potassium Chloride Carbon Dioxide Anion Gap BUN Creatinine Creat Clearance w eGFR POC Glucometer 129 Random Glucose Calcium Phosphorus Magnesium Total Bilirubin AST ALT Alkaline Phosphatase Creatine Kinase Troponin I Total Protein Albumin Active Medications Generic Name Dose Route Start Last Admin Trade Name Freq PRN Reason Stop Dose Admin Acetaminophen 650 mg 01/31/18 10:00 01/31/18 21:47 Tylenol - PO 650 mg Q6H PRN Administration FEVER/PAIN LEVEL 1-5 Amlodipine Besylate 5 mg 01/31/18 10:00 02/01/18 09:02 Norvasc - PO 5 mg DAILY CODY Administration Aspirin 81 mg 01/31/18 10:00 02/01/18 09:01 Asa - PO 81 mg DAILY [facility] Administration Atorvastatin Calcium 20 mg 01/31/18 22:00 01/31/18 21:47 Lipitor - PO 20 mg HS CODY Administration Azithromycin 500 mg 01/31/18 17:00 02/01/18 09:01 Zithromax - PO 500 mg DAILY CODY Administration Benzocaine/Menthol 1 each 01/31/18 16:31 01/31/18 17:10 Cepacol Lozenge - MM 1 each Q2H PRN Administration SORE THROAT Erythromycin 1 applic 01/31/18 10:00 02/01/18 09:03 Erythromycin 0.5% Eye Ointment OU 1 applic DAILY CODY Administration Gabapentin 300 mg 01/31/18 10:00 02/01/18 09:01 Neurontin - PO 300 mg BID CODY Administration Guaifenesin 10 ml 01/31/18 16:25 01/31/18 17:10 Robitussin - PO 10 ml Q6H PRN Administration COUGH Heparin Sodium (Porcine) 5,000 unit 01/31/18 06:00 02/01/18 06:58 Heparin - SQ 5,000 unit TID CODY Administration Insulin Aspart 1 vial 01/31/18 17:30 02/01/18 06:57 Novolog Vial Sliding Scale - SQ Not Given ACHS [facility] Protocol Levothyroxine Sodium 125 mcg 01/31/18 07:00 02/01/18 06:58 Synthroid - PO 125 mcg DAILY@0700 C[facility] Administration Metoprolol Succinate 100 mg 01/31/18 10:00 02/01/18 09:02 Toprol Xl - PO 100 mg DAILY CODY Administration Tamsulosin HCl 0.4 mg 01/31/18 08:30 02/01/18 09:01 Flomax - PO 0.4 mg DAILY@0830 CODY Administration ASSESSMENT/PLAN: 83 y/o male with PMH of Afib, DM, HTN, BPH presents to the hospital with complaints of cough and shortness of breath found to have a possible LL lobe pneumonia on chest XRAY. #) Acute Bronchitis/possible PNA? -chest CT results showed a left lower lobe consolidations likely atelectasis -azithromycin 500 - robitussin for cough -cepacol lozenges PRN -follow up blood cx -follow up sputum cx -pending influzenza screen #)Afib -on metoprolol 100 daily, no AC -ASA 81 #) DM -ISS -monitor BGMS #)HTN -amlodipine 5 daily #)Hypothyroidism -c/w synthroid 125mcg daily #) BPH -flomax 0.4 daily F/E/N not on standing fluids replete electrolytes when needed regualar diet DVT PPX: heaprin sq Problem List - Problems (1) BPH (benign prostatic hyperplasia) Code(s): N40.0 - BENIGN PROSTATIC HYPERPLASIA WITHOUT LOWER URINRY TRACT SYMP Qualifiers: Lower urinary tract symptom presence: unspecified whether lower urinary tract symptoms present Qualified Code(s): N40.0 - Benign prostatic hyperplasia without lower urinary tract symptoms (2) Bronchitis Code(s): J40 - BRONCHITIS, NOT SPECIFIED ACUTE OR CHRONIC (3) DM type 2 (diabetes mellitus, type 2) Code(s): E11.9 - TYPE 2 DIABETES MELLITUS WITHOUT COMPLICATIONS Qualifiers: Diabetes mellitus [facility] insulin use: without ferry terminal agent use Visit type - Emergency Visit Emergency Visit: Yes ED Registration Date: 01/30/18 Care time: The patient presented to the Emergency Department on the above date and was hospitalized for further evaluation of their emergent condition. - New Patient This patient is new to me today: No - Critical Care Critical Care patient: No
[2018-02-01] MEDS: BENZOCAINE/MENTH/CETYLPYRD CL 1 EACH LOZENGE MM PRN (11:41)
--- NOTE | 2018-02-01 12:58 | PN ---
Teaching Attending Note Name of Resident: Steff Reyes ATTENDING PHYSICIAN STATEMENT I saw and evaluated the patient. I reviewed the resident's note and discussed the case with the resident. I agree with the resident's findings and plan as documented. SUBJECTIVES; He still has the cough also has PND while talking to me. has no other complaints, has been afebrile. had chest CT done yesterday, most likely atelectasia. no more episode of delirium OBJECTIVE: Last Vital Signs Temp Pulse Resp BP Pulse Ox 98.3 F 69 20 147/72 95 02/01/18 05:00 02/01/18 05:00 02/01/18 05:00 02/01/18 05:00 01/31/18 21:00 patient has been afebrile, in exam has no sinus tenderness, has + PND CVS:S1S2 has clear lungs only has some upper airway rales which cleared with cough. Labs: . CBCD WBC 4.6 K/mm3 (4.0-10.0) 02/01/18 06:00 RBC 4.34 M/mm3 (4.00-5.60) 02/01/18 06:00 Hgb 12.5 GM/dL (11.7-16.9) 02/01/18 06:00 Hct 38.5 % (35.4-49) 02/01/18 06:00 MCV 88.9 fl (80-96) 02/01/18 06:00 MCHC 32.5 g/dl (32.0-35.9) 02/01/18 06:00 RDW 14.6 % (11.9-15.9) 02/01/18 06:00 Plt Count 182 K/MM3 (134-434) 02/01/18 06:00 MPV 8.7 fl (7.5-11.1) 02/01/18 06:00 CMP Sodium 145 mmol/L (136-145) 02/01/18 06:00 Potassium 4.3 mmol/L (3.5-5.1) 02/01/18 06:00 Chloride 111 mmol/L (98-107) H 02/01/18 06:00 Carbon Dioxide 26 mmol/L (21-32) 02/01/18 06:00 Anion Gap 8 MMOL/L (8-16) 02/01/18 06:00 BUN 33 mg/dL (7-18) H 02/01/18 06:00 Creatinine 1.4 mg/dL (0.55-1.3) H 02/01/18 06:00 Creat Clearance w eGFR 48.40 (>60) 02/01/18 06:00 Calcium 8.3 mg/dL (8.5-10.1) L 02/01/18 06:00 Total Bilirubin 0.7 mg/dL (0.2-1) 01/31/18 06:50 AST 13 U/L (15-37) L 01/31/18 06:50 ALT 22 U/L (13-61) 01/31/18 06:50 Alkaline Phosphatase 74 U/L (45-117) 01/31/18 06:50 Total Protein 6.2 g/dl (6.4-8.2) L 01/31/18 06:50 Albumin 3.2 g/dl (3.4-5.0) L 01/31/18 06:50 ASSESSMENT AND PLAN: 83 y/o from assisted living facility walks with a walker,P/W cough and delirium , no other GI/ complaints other than chronic urinary frequency cough/ abnormal CXR: was treated for PNA has been afebrile and has no leukocytes and his complains mostly upper airway imitative symptoms PND related , will C/W axithro, CT mpst likely atelectasia. will ask for nursing to help with chest PT. Will start on nasal NS will give flonase for couple of days. Will CW/ rest of his home medication Dispo: pending results of the chest ct.
[2018-02-01] MEDS ORDERED: PT OWN MED DRAWER 7, Y5N ONE (21:51)
[2018-02-01] MEDS: ATORVASTATIN CA 20 MG TABLET (FP) PO SCH (21:52)
[2018-02-01] MEDS: FLUTICASONE PROP 0.05% 16 GM NASAL SPRAY NS SCH (21:53)
[2018-02-02] MEDS: INSULIN SLIDING SCALE (NOVOLOG) 1 VIAL SQ SCH ×4 (06:44→22:19)
[2018-02-02] MEDS: HEPARIN NA (PORCINE) 5,000 UNITS/ML 1ML VIAL SQ SCH (06:44)
[2018-02-02] MEDS: LEVOTHYROXINE NA 125 MCG TABLET (FP) PO SCH (06:44)
[2018-02-02 07:00] LABS: HEMATOCRIT 39.1 % (35.4-49); HEMOGLOBIN 12.6 GM/dL (11.7-16.9); MCH 28.5 pg (25.7-33.7); MCHC 32.1 g/dl (32.0-35.9); MEAN CELL VOLUME 88.9 fl (80-96); PLATELET COUNT 198 K/MM3 (134-434); RDW 14.8 % (11.9-15.9)
[2018-02-02 09:01] LABS: ANION GAP 8 MMOL/L (8-16); BLOOD UREA NITROGEN 35 mg/dL (7-18); CALCIUM 8.8 mg/dL (8.5-10.1); CHLORIDE 110 mmol/L (98-107); CO2 27 mmol/L (21-32); CREATININE 1.6 mg/dL (0.55-1.3); GLUCOSE,RANDOM 125 mg/dL (74-106); MAGNESIUM 2.1 mg/dL (1.8-2.4); PHOSPHOROUS 3.4 mg/dL (2.5-4.9); POTASSIUM 4.5 mmol/L (3.5-5.1); SODIUM 145 mmol/L (136-145)
--- NOTE | 2018-02-02 09:53 | PN ---
Progress Note (short form) - Note Progress Note: states cough has improved. denies Cp, SOB, fever, chills, N /V/C/D Current Medications Generic Name Dose Route Start Last Admin Trade Name Freq PRN Reason Stop Dose Admin Acetaminophen 650 mg 01/31/18 10:00 01/31/18 21:47 Tylenol - PO 650 mg Q6H PRN Administration FEVER/PAIN LEVEL 1-5 Amlodipine Besylate 5 mg 01/31/18 10:00 02/01/18 09:02 Norvasc - PO 5 mg DAILY CODY Administration Aspirin 81 mg 01/31/18 10:00 02/01/18 09:01 Asa - PO 81 mg DAILY C[facility] Administration Aspirin 81 mg 02/02/18 10:00 Asa - PO DAILY CODY Atorvastatin Calcium 20 mg 01/31/18 22:00 02/01/18 21:52 Lipitor - PO 20 mg HS CODY Administration Azithromycin 500 mg 01/31/18 17:00 02/01/18 09:01 Zithromax - PO 500 mg DAILY [facility] Administration Benzocaine/Menthol 1 each 01/31/18 16:31 01/31/18 17:10 Cepacol Lozenge - MM 1 each Q2H PRN Administration SORE THROAT Digoxin 0.125 mg 02/02/18 10:00 Lanoxin - PO DAILY CODY Erythromycin 1 applic 01/31/18 10:00 02/01/18 09:03 Erythromycin 0.5% Eye Ointment OU 1 applic DAILY [facility] Administration Fluticasone Propionate 1 spray 02/01/18 22:00 02/01/18 21:53 Flonase - NS 1 spray BID CODY Administration Gabapentin 300 mg 01/31/18 10:00 02/01/18 21:52 Neurontin - PO 300 mg BID CODY Administration Guaifenesin 10 ml 01/31/18 16:25 01/31/18 17:10 Robitussin - PO 10 ml Q6H PRN Administration COUGH Insulin Aspart 1 vial 01/31/18 17:30 02/02/18 06:44 Novolog Vial Sliding Scale - SQ Not Given ACHS [facility] Protocol Levothyroxine Sodium 125 mcg 01/31/18 07:00 02/02/18 06:44 Synthroid - PO 125 mcg DAILY@0700 CODY Administration Lisinopril 5 mg 02/02/18 10:00 Prinivil PO DAILY CODY Metoprolol Succinate 100 mg 01/31/18 10:00 02/01/18 09:02 Toprol Xl - PO 100 mg DAILY [facility] Administration Rivaroxaban 15 mg 02/02/18 10:00 Xarelto - PO DAILY [facility] Tamsulosin HCl 0.4 mg 01/31/18 08:30 02/01/18 09:01 Flomax - PO 0.4 mg DAILY@0830 CODY Administration Last Vital Signs Temp Pulse Resp BP Pulse Ox 97.9 F 72 20 144/69 95 02/02/18 05:53 02/02/18 05:53 02/02/18 05:53 02/02/18 05:53 02/01/18 20:42 General NAD A&O x3 CV S1 S2 irregular Lungs CTA B/L poor inspiratory effort Abdomen soft NT/ND Extremities no pedal edema CBCD WBC 6.0 K/mm3 (4.0-10.0) 02/02/18 06:45 RBC 4.40 M/mm3 (4.00-5.60) 02/02/18 06:45 Hgb 12.6 GM/dL (11.7-16.9) 02/02/18 06:45 Hct 39.1 % (35.4-49) 02/02/18 06:45 MCV 88.9 fl (80-96) 02/02/18 06:45 MCHC 32.1 g/dl (32.0-35.9) 02/02/18 06:45 RDW 14.8 % (11.9-15.9) 02/02/18 06:45 Plt Count 198 K/MM3 (134-434) 02/02/18 06:45 MPV 8.0 fl (7.5-11.1) 02/02/18 06:45 CMP Sodium 145 mmol/L (136-145) 02/02/18 06:45 Potassium 4.5 mmol/L (3.5-5.1) 02/02/18 06:45 Chloride 110 mmol/L (98-107) H 02/02/18 06:45 Carbon Dioxide 27 mmol/L (21-32) 02/02/18 06:45 Anion Gap 8 MMOL/L (8-16) 02/02/18 06:45 BUN 35 mg/dL (7-18) H 02/02/18 06:45 Creatinine 1.6 mg/dL (0.55-1.3) H 02/02/18 06:45 Creat Clearance w eGFR 41.49 (>60) 02/02/18 06:45 Calcium 8.8 mg/dL (8.5-10.1) 02/02/18 06:45 Total Bilirubin 0.7 mg/dL (0.2-1) 01/31/18 06:50 AST 13 U/L (15-37) L 01/31/18 06:50 ALT 22 U/L (13-61) 01/31/18 06:50 Alkaline Phosphatase 74 U/L (45-117) 01/31/18 06:50 Total Protein 6.2 g/dl (6.4-8.2) L 01/31/18 06:50 Albumin 3.2 g/dl (3.4-5.0) L 01/31/18 06:50 A/P 83yo M with PMH afib on xarelto, DM, HTN, BPH and hypothyroid presented to the ER wtih cough and confusion and found to have LLL PNA 1. LLL PNA- clinically improved. saturating well on RA. on Azithro Day 3. cough suppressants prn. Flu negative 2. MT- unknown baseline. will obtain from facility tomorrow. avoid nephrotoxic agents 3. acute metabolic encephalopathy- currently A&O x3. no reports of hallunciation. liekly induced from infection. appears to be at baseline 4. Afib on Xarelto- unclear why it was held on presentation. re-started xarelto and digoxin. rate is controlled iwth betablocker 5. Elevated BNP - possible falsely elevated in setting of MT. appears euvolemic. cont home medications 6. DM- hold oral agents while hospitalized. cont iss and BGM 7. Hypothyroid- LT4 8. BPH- on flomax 9. DVT ppx- will d/c hep ggt as re-started on anticoagluation 10. PT eval. anticipate discharge in next 24-48H back to Assisted living facility Visit type - Emergency Visit Emergency Visit: Yes ED Registration Date: 01/30/18 Care time: The patient presented to the Emergency Department on the above date and was hospitalized for further evaluation of their emergent condition. - New Patient This patient is new to me today: Yes Date on this admission: 02/02/18 - Critical Care Critical Care patient: No - Discharge Referral Referred to [facility] No
[2018-02-02] MEDS ORDERED: RIVAROXABAN 15 MG TABLET PO SCH (10:00)
[2018-02-02] MEDS: amLODIPine BESYLATE 5 MG TABLET (FP) PO SCH (11:09)
[2018-02-02] MEDS: LISINOPRIL 5 MG TABLET (FP) PO SCH (11:09)
[2018-02-02] MEDS: GABAPENTIN 300 MG CAPSULE (FP) PO SCH ×2 (11:09→22:18)
[2018-02-02] MEDS: DIGOXIN 0.125 MG TABLET (FP) PO SCH (11:10)
[2018-02-02] MEDS: AZITHROMYCIN 250 MG TABLET PO SCH (11:10)
[2018-02-02] MEDS: TAMSULOSIN HCL 0.4 MG CAP PO SCH (11:10)
[2018-02-02] MEDS: ASPIRIN 81 MG CHEWABLE TABLETS PO SCH ×3 (11:10→11:11)
[2018-02-02] MEDS: FLUTICASONE PROP 0.05% 16 GM NASAL SPRAY NS SCH ×2 (11:12→22:19)
[2018-02-02] MEDS: ERYTHROMYCIN 0.5% OPHTHALMIC OINTMENT 3.5 GM TUBE OU SCH (11:12)
[2018-02-02] MEDS: BENZOCAINE/MENTH/CETYLPYRD CL 1 EACH LOZENGE MM PRN (14:40)
[2018-02-02] MEDS: ATORVASTATIN CA 20 MG TABLET (FP) PO SCH (22:18)
[2018-02-03] MEDS: guaiFENesin 200 MG/10 ML 10 ML UNIT-DOSE CUPS PO PRN (02:08)
[2018-02-03] MEDS: LEVOTHYROXINE NA 125 MCG TABLET (FP) PO SCH (06:27)
[2018-02-03 06:42] LABS: ANION GAP 4 MMOL/L (8-16); BLOOD UREA NITROGEN 37 mg/dL (7-18); CALCIUM 8.6 mg/dL (8.5-10.1); CHLORIDE 110 mmol/L (98-107); CO2 26 mmol/L (21-32); CREATININE 1.5 mg/dL (0.55-1.3); GLUCOSE,RANDOM 146 mg/dL (74-106); POTASSIUM 4.6 mmol/L (3.5-5.1); SODIUM 140 mmol/L (136-145)
[2018-02-03] MEDS ORDERED: PT OWN MED DRAWER 7, Y5N ONE ×4 (06:44→21:45)
[2018-02-03] MEDS: INSULIN SLIDING SCALE (NOVOLOG) 1 VIAL SQ SCH ×4 (07:09→21:11)
[2018-02-03] MEDS: ERYTHROMYCIN 0.5% OPHTHALMIC OINTMENT 3.5 GM TUBE OU SCH (10:29)
[2018-02-03] MEDS: ASPIRIN 81 MG CHEWABLE TABLETS PO SCH ×2 (10:29→12:27)
[2018-02-03] MEDS: TAMSULOSIN HCL 0.4 MG CAP PO SCH (10:29)
[2018-02-03] MEDS: FLUTICASONE PROP 0.05% 16 GM NASAL SPRAY NS SCH ×2 (10:30→21:44)
[2018-02-03] MEDS: DIGOXIN 0.125 MG TABLET (FP) PO SCH (10:30)
[2018-02-03] MEDS: GABAPENTIN 300 MG CAPSULE (FP) PO SCH ×2 (10:30→21:10)
[2018-02-03] MEDS: amLODIPine BESYLATE 5 MG TABLET (FP) PO SCH (10:31)
[2018-02-03] MEDS: LISINOPRIL 5 MG TABLET (FP) PO SCH (10:31)
[2018-02-03] MEDS: AZITHROMYCIN 250 MG TABLET PO SCH (10:31)
--- NOTE | 2018-02-03 13:38 | PN ---
Teaching Attending Note Name of Resident: Steff Reyes ATTENDING PHYSICIAN STATEMENT I saw and evaluated the patient. I reviewed the resident's note and discussed the case with the resident. I agree with the resident's findings and plan as documented. SUBJECTIVE:cough improved. denies CP, SOB, fever, chills, N/V/C/D OBJECTIVE: Last Vital Signs Temp Pulse Resp BP Pulse Ox 97.6 F 72 20 122/64 97 02/03/18 10:00 02/03/18 10:30 02/03/18 10:00 02/03/18 10:02/03/18 09:00 General NAD Lungs CTA B/L no wheezing/rales/rhonchi ASSESSMENT AND PLAN: 83yo M with PMH afib on xarelto, DM, HTN, BPH and hypothyroid presented to the ER wtih cough and confusion and found to have LLL PNA 1. LLL PNA- clinically improved. saturating well on RA. on Azithro Day 4. cough suppressants prn. Flu negative 2. MT-unknown baseline. slowly improving avoid nephrotoxic agents 3. acute metabolic encephalopathy- currently A&O x3. no reports of hallunciation. liekly induced from infection. appears to be at baseline 4. Afib on Xarelto-rate controlled. cont xarelto. 5. Elevated BNP - possible falsely elevated in setting of MT. appears euvolemic. cont home medications 6. DM- hold oral agents while hospitalized. cont iss and BGM 7. Hypothyroid- LT4 8. BPH- on flomax 9. DVT ppx- xarelto 10. PT eval ambulated 30 ft. may benefit from BYRON however pt is hesitant in going. wants to go home with home PT. will re-evaluate today and see if pt is requiring BYRON and agreeable to go. pt is medically cleared for discharge.
[2018-02-03] MEDS ORDERED: DOCUSATE SODIUM 100 MG CAPSULE (FP) PO ONE (14:25)
--- NOTE | 2018-02-03 17:40 | PN ---
Physical Exam: SUBJECTIVE: Patient seen and examined at bedside. states he is feeling better- feels his cough is subsiding. he denies any CP/SOB/N/V fevers or chills. OBJECTIVE: Vital Signs Period Temp Pulse Resp BP Sys/Denson Pulse Ox Last 24 Hr 97.3 F-98.5 F 52-72 20-20 119-126/58-71 95-97 GENERAL: The patient is awake, alert, and fully oriented, in no acute distress. EYES: no scleral icterus NECK: no JVD appreciated LUNGS: slight rales B/L HEART: Regular rate and rhythm, S1, S2 without murmur, rub or gallop. ABDOMEN: Soft, nontender, nondistended, normoactive bowel sounds, no guarding, no rebound, no hepatosplenomegaly, no masses. EXTREMITIES: 2+ pulses, warm, well-perfused, no edema. PSYCH: Normal mood, normal affect. SKIN: Warm, dry, normal turgor, no rashes or lesions noted Laboratory Results - last 24 hr 02/02/18 02/02/18 02/03/18 17:54 22:17 05:30 Sodium 140 Potassium 4.6 Chloride 110 H Carbon Dioxide 26 Anion Gap 4 L BUN 37 H Creatinine 1.5 H Creat Clearance w eGFR 44.69 POC Glucometer 215 250 Random Glucose 146 H Calcium 8.6 02/03/18 02/03/18 02/03/18 06:24 12:13 16:56 Sodium Potassium Chloride Carbon Dioxide Anion Gap BUN Creatinine Creat Clearance w eGFR POC Glucometer 159 303 249 Random Glucose Calcium Active Medications Generic Name Dose Route Start Last Admin Trade Name Freq PRN Reason Stop Dose Admin Acetaminophen 650 mg 01/31/18 10:00 01/31/18 21:47 Tylenol - PO 650 mg Q6H PRN Administration FEVER/PAIN LEVEL 1-5 Amlodipine Besylate 5 mg 01/31/18 10:00 02/03/18 10:31 Norvasc - PO 5 mg DAILY CODY Administration Aspirin 81 mg 02/02/18 10:00 02/03/18 12:27 Asa - PO Not Given DAILY CODY Atorvastatin Calcium 20 mg 01/31/18 22:00 02/02/18 22:18 Lipitor - PO 20 mg HS CODY Administration Benzocaine/Menthol 1 each 01/31/18 16:31 02/02/18 14:40 Cepacol Lozenge - MM 1 each Q2H PRN Administration SORE THROAT Digoxin 0.125 mg 02/02/18 10:00 02/03/18 10:30 Lanoxin - PO 0.125 mg DAILY CODY Administration Erythromycin 1 applic 01/31/18 10:00 02/03/18 10:29 Erythromycin 0.5% Eye Ointment OU 1 applic DAILY CODY Administration Fluticasone Propionate 1 spray 02/01/18 22:00 02/03/18 10:30 Flonase - NS 1 spray BID CODY Administration Gabapentin 300 mg 01/31/18 10:00 02/03/18 10:30 Neurontin - PO 300 mg BID CODY Administration Guaifenesin 10 ml 01/31/18 16:25 02/03/18 02:08 Robitussin - PO 10 ml Q6H PRN Administration COUGH Insulin Aspart 1 vial 01/31/18 17:30 02/03/18 16:58 Novolog Vial Sliding Scale - SQ 4 unit ACHS CODY Administration Protocol Levothyroxine Sodium 125 mcg 01/31/18 07:00 02/03/18 06:27 Synthroid - PO 125 mcg DAILY@0700 CODY Administration Lisinopril 5 mg 02/02/18 10:00 02/03/18 10:31 Prinivil PO 5 mg DAILY CODY Administration Metoprolol Succinate 100 mg 01/31/18 10:00 02/03/18 10:31 Toprol Xl - PO 100 mg DAILY CODY Administration Rivaroxaban 15 mg 02/03/18 18:00 02/03/18 17:03 Xarelto - PO 15 mg DAILY@1800 CODY Administration Tamsulosin HCl 0.4 mg 01/31/18 08:30 02/03/18 10:29 Flomax - PO 0.4 mg DAILY@0830 CODY Administration ASSESSMENT/PLAN: 83 y/o male with PMH of Afib, DM, HTN, BPH presents to the hospital with complaints of cough and shortness of breath found to have a possible LL lobe pneumonia on chest XRAY. #) Acute Bronchitis/possible PNA? -chest CT results showed a left lower lobe consolidations likely atelectasis -azithromycin 500 - robitussin for cough -cepacol lozenges PRN -follow up blood cx -follow up sputum cx -pending influzenza screen #)Afib on xarelto and digoxin #) DM -ISS -monitor BGMS #)HTN -amlodipine 5 daily -metoprololl 100 daily #)Hypothyroidism -c/w synthroid 125mcg daily #) BPH -flomax 0.4 daily F/E/N not on standing fluids replete electrolytes when needed regualar diet DVT PPX: xarelto Problem List - Problems (1) BPH (benign prostatic hyperplasia) Code(s): N40.0 - BENIGN PROSTATIC HYPERPLASIA WITHOUT LOWER URINRY TRACT SYMP Qualifiers: Lower urinary tract symptom presence: unspecified whether lower urinary tract symptoms present Qualified Code(s): N40.0 - Benign prostatic hyperplasia without lower urinary tract symptoms (2) Bronchitis Code(s): J40 - BRONCHITIS, NOT SPECIFIED ACUTE OR CHRONIC (3) DM type 2 (diabetes mellitus, type 2) Code(s): E11.9 - TYPE 2 DIABETES MELLITUS WITHOUT COMPLICATIONS Qualifiers: Diabetes mellitus watermelon harvesting supervisor insulin use: without watermelon harvesting supervisor use Visit type - Emergency Visit Emergency Visit: Yes ED Registration Date: 01/30/18 Care time: The patient presented to the Emergency Department on the above date and was hospitalized for further evaluation of their emergent condition. - New Patient This patient is new to me today: No - Critical Care Critical Care patient: No
[2018-02-03] MEDS ORDERED: RIVAROXABAN 15 MG TABLET PO SCH (18:00)
[2018-02-03] MEDS: ATORVASTATIN CA 20 MG TABLET (FP) PO SCH (21:10)
[2018-02-04] MEDS: INSULIN SLIDING SCALE (NOVOLOG) 1 VIAL SQ SCH ×2 (06:02→11:31)
[2018-02-04] MEDS: LEVOTHYROXINE NA 125 MCG TABLET (FP) PO SCH (06:12)
[2018-02-04] MEDS: TAMSULOSIN HCL 0.4 MG CAP PO SCH (08:32)
[2018-02-04] MEDS ORDERED: POLYETHYLENE GLYCOL 3350 119 GM BTL PO ONE (09:30)
[2018-02-04] MEDS ORDERED: PT OWN MED DRAWER 7, Y5N ONE ×2 (10:44→11:04)
[2018-02-04] MEDS: ERYTHROMYCIN 0.5% OPHTHALMIC OINTMENT 3.5 GM TUBE OU SCH (10:51)
[2018-02-04] MEDS: ASPIRIN 81 MG CHEWABLE TABLETS PO SCH (10:51)
[2018-02-04] MEDS: FLUTICASONE PROP 0.05% 16 GM NASAL SPRAY NS SCH (10:52)
[2018-02-04] MEDS: DIGOXIN 0.125 MG TABLET (FP) PO SCH (10:54)
[2018-02-04] MEDS: GABAPENTIN 300 MG CAPSULE (FP) PO SCH (10:55)
[2018-02-04] MEDS: LISINOPRIL 5 MG TABLET (FP) PO SCH (10:56)
[2018-02-04] MEDS: amLODIPine BESYLATE 5 MG TABLET (FP) PO SCH (10:56)
[2018-02-04] MEDS ORDERED: INSULIN (NOVOLOG) ASPART 100 UNITS/ML 10ML VIAL ONE (11:21)
--- NOTE | 2018-02-04 12:36 | PN ---
Teaching Attending Note Name of Resident: Steff Reyes ATTENDING PHYSICIAN STATEMENT I saw and evaluated the patient. I reviewed the resident's note and discussed the case with the resident. I agree with the resident's findings and plan as documented. SUBJECTIVE:clinically improved. denies PC, SOB, fever, chills, N/V/C/D OBJECTIVE: Last Vital Signs Temp Pulse Resp BP Pulse Ox 98.2 F 60 20 112/64 94 L 02/04/18 09:40 02/04/18 10:54 02/04/18 09:40 02/04/18 09:40 02/04/18 09:00 General NAD Lungs CTA B/L no wheezing/rales/rhonchi ASSESSMENT AND PLAN: 83yo M with PMH afib on xarelto, DM, HTN, BPH and hypothyroid presented to the ER wtih cough and confusion and found to have LLL PNA 1. LLL PNA- clinically improved. saturating well on RA. on Azithro Day 5. will complete course today. cough suppressants prn. Flu negative 2. MT-unknown baseline. slowly improving avoid nephrotoxic agents 3. acute metabolic encephalopathy- currently A&O x3. no reports of hallunciation. liekly induced from infection. appears to be at baseline 4. Afib on Xarelto-rate controlled. cont xarelto. 5. Elevated BNP - possible falsely elevated in setting of MT. appears euvolemic. cont home medications 6. DM- hold oral agents while hospitalized. cont iss and BGM 7. Hypothyroid- LT4 8. BPH- on flomax 9. DVT ppx- xarelto 10. PT eval ambulated 60 ft. can d/c back to assisted living advised to use RW
[2018-02-04 15:08] VITALS: BP 141/79; PULSE 63; TEMP 98
--- NOTE | 2018-02-04 16:16 | DS ---
Physical Exam: SUBJECTIVE: Patient seen and examined at bedside. He states that his cough is better and his breathing is better and he is ready to go home- he denies any chest pain/SOB/N/V fevers or chills. OBJECTIVE: Vital Signs Period Temp Pulse Resp BP Sys/Denson Pulse Ox Last 24 Hr 97.5 F-98.2 F 52-67 20-20 112-141/45-79 94-97 PHYSICAL EXAM GENERAL: The patient is awake, alert, in no acute distress. EYES: no scleral icterus NECK: no JVD, no lymphadenopathy LUNGS: slight rhonchi B/L but improving HEART: Regular rate and rhythm, S1, S2 without murmur, rub or gallop. ABDOMEN: Soft, nontender, nondistended, normoactive bowel sounds, no guarding, no rebound, no hepatosplenomegaly, no masses. EXTREMITIES: 2+ pulses, warm, well-perfused, no edema. SKIN: Warm, dry, normal turgor, no rashes or lesions noted. LABS Laboratory Results - last 24 hr 02/03/18 02/03/18 02/04/18 16:56 21:09 06:00 POC Glucometer 249 273 179 02/04/18 11:29 POC Glucometer 297 Microbiology 01/30/18 16:40 Blood - Peripheral Venous Blood Culture - Preliminary NO GROWTH OBTAINED AFTER 96 HOURS, INCUBATION TO CONTINUE FOR 1 DAYS. 01/30/18 16:40 Blood - Peripheral Venous Blood Culture - Preliminary NO GROWTH OBTAINED AFTER 96 HOURS, INCUBATION TO CONTINUE FOR 1 DAYS. Imaging: Chest XRAY: There are no prior studies for comparison. There is a weak inspiration with large heart, unfolded aorta, prominent neel and there may be some atelectasis or infiltrate at the left base. There is calcification seen by the right shoulder. There are degenerative spine and shoulder changes. Correlation recommended. Chest CT scan: IMPRESSION: 1. Area of consolidation/atelectasis within the left lower lobe. The possibility of acute pneumonia cannot be excluded. 2. Moderate chronic lung disease. 3. Mild mediastinal lymphadenopathy. Clinical correlation and follow-up recommended. Please see above discussion. Echo: LVEF 50-55% Mild mitral regurgitation Mild tricuspid regurgitation RV systolic pressure : 30-40 mmHg HOSPITAL COURSE: Date of Admission:01/30/18 83 y/o male with PMH of Afib, DM, HTN, hypothyroidism, BPH presents to the ER with shortness of breath, productive cough found to have a left lower pneumonia on chest XRAY. He was started on azithromycin 500 daily- in addition, patient was given robitussin and cepacol lozenges for his cough. We had physical therapy come and evaluate the patient daily. We had chest physiotherapy done for the patient daily. He completed his course of azithromycin and was stable for [facility] to a [facility]. Since he only walked 60 feet with the PT, it was recommended that the patient be discharged to rehab center. Date of Discharge: 02/04/18 Minutes to complete discharge: 39 Discharge Summary Reason For Visit: MT,BRONCHITIS Condition: Stable - Instructions Diet, Activity, Other Instructions: You came to the hospital with complaints of cough and shortness of breath. We performed an XRAY of your chest which showed a possible pnuemonia in your left lung base. We treated you with an antibiotic called azithromycin which you completed the course of while you were here. In addition, we gave you cough medicine to improve your cough, a spray for your sore throat and a nasal spray to improve your nasal congestion. Your symptoms improved and you were clinically stable for discharge. Ambulate with rolling walker only. Please resume all of your home medications in addition: -please take cepacol throat spray whenever you are experiencing a sore throat Referrals: - we advise you to please see your primary care physician in one week *if you begin to experience any chest pain, shortness of breath, nausea, vomiting fevers or chills please return to the emergency room immediately Referrals: Kevon Sibley MD [Primary Care Provider] - 1 Week [facility]position: [facility] - Home Medications Comprehensive Discharge Medication List: Ambulatory Orders Acetaminophen [Tylenol] 600 mg PO QID 01/30/18 Amlodipine Besylate 5 mg PO DAILY 01/30/18 Aspirin [ASA -] 81 mg PO DAILY 01/30/18 Atorvastatin Calcium [Lipitor] 20 mg PO DAILY 01/30/18 Benzonatate 100 mg PO TID 01/30/18 Cetirizine HCl [Zyrtec -] 10 mg PO DAILY 01/30/18 Cetirizine HCl [Zyrtec -] 10 mg PO DAILY 01/30/18 Colchicine 0.6 mg PO DAILY 01/30/18 Digoxin 125 mcg PO DAILY 01/30/18 Furosemide [Lasix] 20 mg PO DAILY 01/30/18 Gabapentin 300 mg PO BID 01/30/18 Glipizide 10 mg PO DAILY 01/30/18 Hydroxyzine HCl 25 mg PO PRN PRN 01/30/18 Lisinopril 5 mg PO DAILY 01/30/18 Loratadine 10 mg PO DAILY 01/30/18 Metformin HCl [Glucophage] 1,000 mg PO BID 01/30/18 Metoprolol Succinate 100 mg PO DAILY 01/30/18 Mirabegron [Myrbetriq] 25 mg PO DAILY 01/30/18 Rivaroxaban [Xarelto -] 15 mg PO DAILY 01/30/18 Tamsulosin HCl [Flomax] 0.4 mg PO DAILY 01/30/18 Cholecalciferol (Vitamin D3) [Vitamin D3] 2,000 unit PO DAILY 01/31/18 Dextromethorphan/Benzocaine [Cepacol Sorethroat-Cough Charlie] 1 each PO QID PRN Diclofenac Epolamine [Flector] 1 each TD DAILY 01/31/18 Lactulose 20 gm PO PRN PRN 01/31/18 Levothyroxine Sodium [Levoxyl] 125 mcg PO ACBK 01/31/18 Polyethylene Glycol 3350 [Miralax 119 gm Btl -] 17 gm PO DAILY PRN 01/31/18 Psyllium Husk (with Sugar) [Metamucil Packet] 3.4 gm PO HS 01/31/18 Benzocaine/Menth/Cetylpyrd Cl [Actisep Solution] 30 ml MM PRN #1 solution Tamsulosin HCl [Flomax -] 0.4 mg PO DAILY@0830 cap.er.24h 02/03/18 Problem List - Problems (1) BPH (benign prostatic hyperplasia) Code(s): N40.0 - BENIGN PROSTATIC HYPERPLASIA WITHOUT LOWER URINRY TRACT SYMP Qualifiers: Lower urinary tract symptom presence: unspecified whether lower urinary tract symptoms present Qualified Code(s): N40.0 - Benign prostatic hyperplasia without lower urinary tract symptoms (2) Bronchitis Code(s): J40 - BRONCHITIS, NOT SPECIFIED ACUTE OR CHRONIC (3) DM type 2 (diabetes mellitus, type 2) Code(s): E11.9 - TYPE 2 DIABETES MELLITUS WITHOUT COMPLICATIONS Qualifiers: Diabetes mellitus long distance operator insulin use: without long distance operator use This patient is new to me today: No Emergency Visit: Yes ED Registration Date: 01/30/18 Care time: The patient presented to the Emergency Department on the above date and was hospitalized for further evaluation of their emergent condition. Critical Care patient: No - Discharge Referral Referred to [facility] No
== END 2018-02-04 15:53 | DRG 194 ==
LOC: JER 15:30 → JERBED 18:32 → J8W 01-31 00:23
PROVIDERS: ADMIT Internal Medicine; ATTEND Internal Medicine
DX: J18.9 Pneumonia, unspecified organism (principal); N17.9 Acute kidney failure, unspecified; I50.30 Unspecified diastolic (congestive) heart failure; J98.11 Atelectasis; J20.9 Acute bronchitis, unspecified; H10.9 Unspecified conjunctivitis; I48.91 Unspecified atrial fibrillation; I11.0 Hypertensive heart disease with heart failure; E11.9 Type 2 diabetes mellitus without complications; N40.0 Benign prostatic hyperplasia without lower urinary tract symptoms; M10.9 Gout, unspecified; E03.9 Hypothyroidism, unspecified; I25.10 Atherosclerotic heart disease of native coronary artery without angina pectoris; E78.5 Hyperlipidemia, unspecified
CPT/HCPCS: 36415; 71045-TC-FY; 71250-TC; 80048; 80053; 81003; 82550; 82962; 83605; 83735; 83880; 83930; 84100; 84134; 84484; 85025; 85027; 85610; 85730; 87040; 87086; 87804; 93005; 93010; 93306-TC; 97116-GP; 97161-GP; 99284-25; J0131; J1644; J7030

== ENCOUNTER 2018-02-21 16:29 | Inpatient (IN) | payer OTHER ==
--- NOTE | 2018-02-21 16:34 | PDOC ---
History of Present Illness - General Chief Complaint: Bleeding from Anus Stated Complaint: GI BLEED Time Seen by Provider: 02/21/18 16:33 History Source: Patient Exam Limitations: No Limitations - History of Present Illness Initial Comments: 02/21/18 17:29 83 yo M with a hx of CAD, CHF, HTN, DM, HLD, hypothyroidism, afib (on xarelto), and gout who was recently discharged last month for pneumonia presents to the emergency department s/p painless bleeding episode this past afternoon at his nursing facility. Per the patient, he states he noticed blood alongside his stool. There was "more than a cup of red blood" in the bowel. He states he felt weak and flushed after the episode, but denies LOC. He has had these in the past before with the most recent 1 month ago. His last colonoscopy was 7 years ago ([facility] GI physician and results) and last EGD 10 years ago ([facility] physician and results). Per the patient, he is compliant with his medications. Denies the following: fevers, chills, SOB, nausea, vomiting, visual changes, abdominal pain , dysuria, hematuria, melena, and leg pain/swelling. Endorses constipation and performs self-disimpactiono (did not do this today). Pmhx: Refer to above Meds: xarelto, Aspirin 81 mg, amlodipine, digoxin, lasix, glipizide, lisinopril , metformin, levothyroxine, and flomax. atorvastatin. Allergies: NKDA Social: Denies tobacco (uses to smoke cigars up to 2 years ago), alcohol, and substance abuse. Past History - Past Medical History Allergies/Adverse Reactions: Allergies Allergy/AdvReac Type Severity Reaction Status Date / Time Fish Containing Products Allergy Verified 02/21/18 16:34 Home Medications: Ambulatory Orders Acetaminophen [Tylenol] 600 mg PO QID 01/30/18 Amlodipine Besylate 5 mg PO DAILY 01/30/18 Aspirin [ASA -] 81 mg PO DAILY 01/30/18 Atorvastatin Calcium [Lipitor] 20 mg PO DAILY 01/30/18 Benzonatate 100 mg PO TID 01/30/18 Cetirizine HCl [Zyrtec -] 10 mg PO DAILY 01/30/18 Colchicine 0.6 mg PO DAILY 01/30/18 Digoxin 125 mcg PO DAILY 01/30/18 Furosemide [Lasix] 20 mg PO DAILY 01/30/18 Gabapentin 300 mg PO BID 01/30/18 Glipizide 10 mg PO DAILY 01/30/18 Hydroxyzine HCl 25 mg PO PRN PRN 01/30/18 Lisinopril 5 mg PO DAILY 01/30/18 Loratadine 10 mg PO DAILY 01/30/18 Metformin HCl [Glucophage] 1,000 mg PO BID 01/30/18 Metoprolol Succinate 100 mg PO DAILY 01/30/18 Mirabegron [Myrbetriq] 25 mg PO DAILY 01/30/18 Rivaroxaban [Xarelto -] 15 mg PO DAILY 01/30/18 Cholecalciferol (Vitamin D3) [Vitamin D3] 2,000 unit PO DAILY 01/31/18 Dextromethorphan/Benzocaine [Cepacol Sorethroat-Cough Charlie] 1 each PO QID PRN Diclofenac Epolamine [Flector] 1 each TD DAILY 01/31/18 Lactulose 20 gm PO PRN PRN 01/31/18 Levothyroxine Sodium [Levoxyl] 125 mcg PO ACBK 01/31/18 Polyethylene Glycol 3350 [Miralax 119 gm Btl -] 17 gm PO DAILY PRN 01/31/18 Psyllium Husk (with Sugar) [Metamucil Packet] 3.4 gm PO HS 01/31/18 Benzocaine/Menth/Cetylpyrd Cl [Actisep Solution] 30 ml MM PRN #1 solution Tamsulosin HCl [Flomax -] 0.4 mg PO DAILY@0830 cap.er.24h 02/03/18 Cancer: Yes (benign prostate CA) Cardiac Disorders: Yes (atrial fibrillation, coronary artery disease) COPD: No CHF: Yes Diabetes: Yes GI Disorders: Yes (constipation) HTN: Yes Hypercholesterolemia: Yes Thyroid Disease: Yes (hypothyroididsm gout) - Surgical History Abdominal Surgery: No Appendectomy: No Cardiac Surgery: No Cholecystectomy: No Lung Surgery: No Neurologic Surgery: No - Suicide/Smoking/Psychosocial Hx Smoking History: Never smoked Have you smoked in the past 12 months: No Hx Alcohol Use: No Drug/Substance Use Hx: No Substance Use Type: None Review of Systems - Review of Systems Able to Perform ROS?: Yes Is the patient limited [place] proficient: No Constitutional: No: Chills, Diaphoresis, Fever HEENTM: No: Eye Pain, Recent change in vision, Nose Pain, Throat Pain, Mouth Pain Respiratory: No: Shortness of Breath Cardiac (ROS): No: Chest Pain, Lightheadedness, Palpitations, Syncope, Chest Tightness ABD/GI: Yes: Constipated, Rectal Bleeding. No: Diarrhea, Nausea, Vomiting, Abdominal cramping, Tarry Stools : No: Burning, Dysuria, Hematuria Musculoskeletal: No: Back Pain Integumentary: No: Rash Neurological: No: Headache, Numbness, Tingling, Tremors, Weakness, Ataxia Psychiatric: No: Stressors Endocrine: No: Excessive Sweating Hematologic/Lymphatic: No: Anemia *Physical Exam - Physical Exam General Appearance: Yes: Nourished, Appropriately Dressed HEENT: positive: EOMI, MARKY, Normal Voice, Other (dry mucous membranes) Neck: positive: Trachea midline. negative: Lymphadenopathy (R), Lymphadenopathy (L) Respiratory/Chest: positive: Lungs Clear, Normal Breath Sounds. negative: Chest Tender, Respiratory Distress, Accessory Muscle Use, Rhonchi, Stridor, Wheezing, Hyperresonant Cardiovascular: positive: S1, S2, Bradycardia (on exam, he had bradycardia, but would become normocardia and then tachycardia. ), Systolic Murmur (grade 2), Irregularly Irregular Gastrointestinal/Abdominal: positive: Normal Bowel Sounds, Tender (mild tenderness in the LLQ), Flat, Soft. negative: Pulsatile Mass, Rebound Rectal Exam: positive: NL Prostate, normal rectal tone, heme positive stool. negative: decreased tone, hemorrhoids Lymphatic: negative: Adenopathy Musculoskeletal: positive: Normal Inspection. negative: CVA Tenderness Extremity: positive: Normal Capillary Refill, Normal Inspection, Normal Range of Motion. negative: Tender Integumentary: positive: Normal Color, Dry, Warm Neurologic: positive: harness puller II-XII NML intact, Alert, Normal Mood/Affect, Normal Response, Motor Strength 5/5. negative: Fully Oriented (oriented to self and place. did not answer the date correctly (month and day correct)), EOM Palsy, Sensory Deficit Heart Score/ECG Review - ECG Intrepretation Comment:: EKG shows atrial fibrillation with bradycardia. T wave inversion in leads II, Avf, V1, V2, V3, V4. No ST elevations or depressions noted. ED Treatment Course - LABORATORY CBC & Chemistry Diagram: 02/21/18 17:50 02/21/18 20:17 Medical Decision Making - Medical Decision Making 83 yo M with a hx of CAD, CHF, HTN, DM, HLD, hypothyroidism, afib (on xarelto), and gout who was recently discharged last month for pneumonia presents to the emergency department s/p painless bleeding episode this past afternoon at his nursing facility. Initial vitals: Initial Vital Signs Temp Pulse Resp BP Pulse Ox 98 F 110 H 22 H 120/76 96 02/21/18 16:45 02/21/18 16:45 02/21/18 16:45 02/21/18 16:45 02/21/18 16:45 Work up: ddx: GI bleed: diverticulosis vs colonic ca vs internal/external hemorrhoids vs colitis (ischemic vs infectious) vs av malformation vs fissure a fib with bradycardia: digoxin toxicity? cbc, cmp, trops, digoxin levels, ts, pt/inr/aptt, ekg, ct abdomen pelvis with oral contrast (has MT in the past, likely will be present). Laboratory Tests 02/21/18 02/21/18 02/21/18 17:14 17:50 17:50 WBC 5.1 RBC 4.64 Hgb 13.4 Hct 41.2 MCV 88.9 MCH 28.9 MCHC 32.5 RDW 15.5 Plt Count 180 MPV 9.6 D Absolute Neuts (auto) 2.9 Neutrophils % 56.3 Lymphocytes % 27.3 D Monocytes % 11.2 H Eosinophils % 4.3 Basophils % 0.9 Nucleated RBC % 0 PT with INR 20.10 H INR 1.69 H PTT (Actin FS) 32.7 Sodium Potassium Chloride Carbon Dioxide Anion Gap BUN Creatinine Creat Clearance w eGFR Random Glucose Lactic Acid Calcium Total Bilirubin AST ALT Alkaline Phosphatase Creatine Kinase Troponin I Total Protein Albumin TSH Urine Color Urine Appearance Urine pH Ur Specific Thayer Urine Protein Urine Glucose (UA) Urine Ketones Urine Blood Urine Nitrite Urine Bilirubin Urine Urobilinogen Ur Leukocyte Esterase Urine WBC (Auto) Urine RBC (Auto) Ur Epithelial Cells Urine Mucus Stool Occult Blood Positive Digoxin Blood Type Antibody Screen 02/21/18 02/21/18 02/21/18 17:50 17:50 17:54 WBC RBC Hgb Hct MCV MCH MCHC RDW Plt Count MPV Absolute Neuts (auto) Neutrophils % Lymphocytes % Monocytes % Eosinophils % Basophils % Nucleated RBC % PT with INR INR PTT (Actin FS) Sodium Cancelled Potassium Cancelled Chloride Cancelled Carbon Dioxide Cancelled Anion Gap Cancelled BUN Cancelled Creatinine Cancelled Creat Clearance w eGFR Cancelled Random Glucose Cancelled Lactic Acid 1.3 Calcium Cancelled Total Bilirubin Cancelled AST Cancelled ALT Cancelled Alkaline Phosphatase Cancelled Creatine Kinase Cancelled Troponin I Cancelled Total Protein Cancelled Albumin Cancelled TSH Urine Color Urine Appearance Urine pH Ur Specific Thayer Urine Protein Urine Glucose (UA) Urine Ketones Urine Blood Urine Nitrite Urine Bilirubin Urine Urobilinogen Ur Leukocyte Esterase Urine WBC (Auto) Urine RBC (Auto) Ur Epithelial Cells Urine Mucus Stool Occult Blood Digoxin Cancelled Blood Type Cancelled Antibody Screen Cancelled 02/21/18 02/21/18 02/21/18 18:16 18:41 18:54 WBC RBC Hgb Hct MCV MCH MCHC RDW Plt Count MPV Absolute Neuts (auto) Neutrophils % Lymphocytes % Monocytes % Eosinophils % Basophils % Nucleated RBC % PT with INR INR PTT (Actin FS) Sodium Cancelled Potassium Cancelled Chloride Cancelled Carbon Dioxide Cancelled Anion Gap Cancelled BUN Cancelled Creatinine Cancelled Creat Clearance w eGFR Cancelled Random Glucose Cancelled Lactic Acid Calcium Cancelled Total Bilirubin Cancelled AST Cancelled ALT Cancelled Alkaline Phosphatase Cancelled Creatine Kinase Cancelled Troponin I Cancelled Total Protein Cancelled Albumin Cancelled TSH Urine Color Straw Urine Appearance Clear Urine pH 5.0 Ur Specific Thayer 1.010 Urine Protein Negative Urine Glucose (UA) Negative Urine Ketones Negative Urine Blood 2+ H Urine Nitrite Negative Urine Bilirubin Negative Urine Urobilinogen Negative Ur Leukocyte Esterase Negative Urine WBC (Auto) 1 Urine RBC (Auto) 2 Ur Epithelial Cells Rare Urine Mucus Rare Stool Occult Blood Digoxin Cancelled Blood Type O POSITIVE Antibody Screen Negative 02/21/18 02/21/18 20:17 20:17 WBC RBC Hgb Hct MCV MCH MCHC RDW Plt Count MPV Absolute Neuts (auto) Neutrophils % Lymphocytes % Monocytes % Eosinophils % Basophils % Nucleated RBC % PT with INR INR PTT (Actin FS) Sodium 143 Potassium 5.4 H Chloride 111 H Carbon Dioxide 26 Anion Gap 6 L BUN 46 H Creatinine 1.5 H Creat Clearance w eGFR 44.69 Random Glucose 69 L Lactic Acid Calcium 8.6 Total Bilirubin 0.5 AST 13 L ALT 21 Alkaline Phosphatase 67 Creatine Kinase 32 Troponin I < 0.02 Total Protein 6.3 L Albumin 3.5 TSH 1.73 Urine Color Urine Appearance Urine pH Ur Specific Thayer Urine Protein Urine Glucose (UA) Urine Ketones Urine Blood Urine Nitrite Urine Bilirubin Urine Urobilinogen Ur Leukocyte Esterase Urine WBC (Auto) Urine RBC (Auto) Ur Epithelial Cells Urine Mucus Stool Occult Blood Digoxin 1.20 Blood Type O POSITIVE Antibody Screen digoxin level was at an appropriate level. potassium slightly elevated at 5.4. Pt's stool occult was positive. CT abdomen shows "minimal to mild concentric wall thickening along the length of the descending colon - ? ischemic colitis" and "sigmoid diverticulosis without evidence of diverticulitis". Patient was given 1 L of NS. given pts hx, PE, and imaging, will admit to tele due to afib with slow ventricular rate and GI bleed. Dr. Joseph was consulted on phone and stated that the ischemic colitis should be dealt by gastroenterology and not his service. Dispo: Admit *DC/Admit/Observation/Transfer Diagnosis at time of Disposition: Atrial fibrillation with slow ventricular response GI bleed Qualifiers: GI bleed type/associated pathology: unspecified gastrointestinal hemorrhage type Qualified Code(s): K92.2 - Gastrointestinal hemorrhage, unspecified - Referrals - Patient Instructions - Post Discharge Activity
[2018-02-21 16:56] VITALS: BMI 32.8
[2018-02-21] MEDS ORDERED: SODIUM CHLORIDE 1,000 ML IV STA (17:51)
[2018-02-21 17:58] LABS: BASO % 0.9 % (0-2.0); EOS % 4.3 % (0-4.5); HEMATOCRIT 41.2 % (35.4-49); HEMOGLOBIN 13.4 GM/dL (11.7-16.9); LYMPH % 27.3 % (8-40); MCH 28.9 pg (25.7-33.7); MCHC 32.5 g/dl (32.0-35.9); MEAN CELL VOLUME 88.9 fl (80-96); MEAN PLT VOLUME 9.6 fl (7.5-11.1); MONO % 11.2 % (3.8-10.2); NEUT % 56.3 % (42.8-82.8); PLATELET COUNT 180 K/MM3 (134-434); RBC 4.64 M/mm3 (4.00-5.60); RDW 15.5 % (11.9-15.9); WHITE BLOOD COUNT 5.1 K/mm3 (4.0-10.0)
--- NOTE | 2018-02-21 18:07 | PDOC ---
Attending Attestation - HPI HPI: This patient is an 83 year old male with PMHx of CAD, CHF, HTN, DM, HLD, hypothyroidism, Afib(on Xarelto) and gout, presenting from SNF for blood per rectum. Patient was recently admitted and discharged from the hospital on 02/04 for MT and bronchitis. Patient states that today he was having a painless BM when he noticed bright red blood in the toilet. He states that this has happened multiple times in the past. He mentions that he has been having constipation lately and that he usually uses his digit to disimpact himself. He also mentions notable symptoms of being flushed and feeling weak. He states that he does not have a GI doctor. He denies any abdominal pain or tenderness and denies any pain upon defecating. PMD: Dr. Mason Valentine <Aurelia Leonard - Last Filed: 02/21/18 18:14> - Resident Resident Name: Mike Pitts - ED Attending Attestation I have performed the following: I have examined & evaluated the patient, The case was reviewed & discussed with the resident, I agree w/resident's findings & plan, Exceptions are as noted - HPI HPI: 02/21/18 18:02 02/21/18 18:04 - Physicial Exam PE: 02/21/18 18:04 awake alert dry mucous membranes. lungs clear bilaterally heart irreg bradycardia. abd soft mild llq ttp. ext wwp no edema. no calf tenderness. skin warm and dry no rash. - Medical Decision Making 02/21/18 18:04 83 yo male with h/o dm htn afib here from nursing rehab facility with c/o bright red blood per rectum. pt not c/o any abd phone. no cp no sob. denies feeling dizzy. no change to meds. no other complaints. abd soft mild llq ttp., rectal per resident dr. natasha guo. differential diverticular bleed, anemia, renal failure. pt wih afib with slow rate. possible dig toxicity, ischemia, colitis, plan ct a/p hold iv contrast due to concerns for renal failure, iv hydration ct a/p type and screen. will nayely require admission as pt on blood thinners. 02/21/18 23:[address] colitis on ct, possible ischemia. vs. infectious vs. inflammatory. will admit to medicine for repeat cbc, surgery consulted, d/w dr Joseph, d/w medicine resident. will admit to tele afib with svr, gi bleed. <Leticia Barfield - Last Filed: 02/22/18 00:01> Heart Score/ECG Review #1 Compared to previous ECG there are: Other (afib with bradycardia. TWI II, AVF, V1 - V4, no change compare 01/30) <Leticia Barfield - Last Filed: 02/22/18 00:01>
[2018-02-21 18:11] LABS: INR 1.69 (0.83-1.09); PROTHROMBIN TIME (PATIENT) 20.1 SEC (9.7-13.0)
[2018-02-21 18:14] LABS: ACTIVATED PTT 32.7 SECONDS (25.2-36.5)
[2018-02-21 19:17] LABS: URINE APPEARANCE CLEAR; URINE BILIRUBIN NEGATIVE (<2.0 mg/dL); URINE COLOR STRAW; URINE GLUCOSE (UA) NEGATIVE (NEGATIVE); URINE KETONE NEGATIVE (NEGATIVE); URINE LEUK ESTERASE NEGATIVE (NEGATIVE); URINE NITRITE NEGATIVE (NEGATIVE); URINE PROTEIN NEGATIVE (NEGATIVE); URINE UROBILINOGEN NEGATIVE mg/dL (0.2-1.0)
[2018-02-21 21:21] LABS: ANION GAP 6 MMOL/L (8-16); BILIRUBIN,TOTAL 0.5 mg/dL (0.2-1); CALCIUM 8.6 mg/dL (8.5-10.1); CHLORIDE 111 mmol/L (98-107); CO2 26 mmol/L (21-32); CREATININE 1.5 mg/dL (0.55-1.3); GLUCOSE,RANDOM 69 mg/dL (74-106); POTASSIUM 5.4 mmol/L (3.5-5.1); SGOT/AST 13 U/L (15-37); SGPT/ALT 21 U/L (13-61); SODIUM 143 mmol/L (136-145)
[2018-02-21 21:22] LABS: ALBUMIN 3.5 g/dl (3.4-5.0); ALK PHOS 67 U/L (45-117); BLOOD UREA NITROGEN 46 mg/dL (7-18); TOT PROT 6.3 g/dl (6.4-8.2)
[2018-02-21 22:24] LABS: EPI CELLS RARE /HPF (FEW); URINE MUCUS RARE
--- NOTE | 2018-02-22 00:36 | HP ---
CHIEF COMPLAINT: rectal bleed PCP: Dr. Wei from [facility] HISTORY OF PRESENT ILLNESS: patient is an 83 y.o male with PMH of Afib (on xarelto), CAD, CHF, HTN, DM, hypothyroidism, gout who presents to the emergency room after he had an episode of bleeding while going to the bathroom. Patient states that he has been constipated for the past few days, even attempted using his finger to disimpact himself, went to the bathroom and he noticed a little less than a cup of blood in the toilet. He did feel weak after the episode he states, he felt faint, but did not faint. He states that this has happened to him many times before but he never did anything about it. His last colonoscopy was around 7-8 years ago, but he does not remember where or who the doctor was and he had an EGD around 10 years ago. ER course was notable for: (1)vitals stable (2)H/H: 13.4/41.2; +FOBT (3)Ab/pelvis CT: mild concentric wall thickening ? ischemic colitis, sigmoid diverticulosis with no evidence of acute diverticulitis Recent Travel: none PAST MEDICAL HISTORY: see above PAST SURGICAL HISTORY: couldn't recall surgical history Social History: Smoking:use to smoke cigars occasionally; hasn't smoked a cigar in two years Alcohol:denies Drugs: denies Family History: denies Allergies Fish Containing Products Allergy (Verified 02/21/18 16:34) HOME MEDICATIONS: Home Medications Medication Instructions Recorded Acetaminophen [Tylenol] 600 mg PO QID 01/30/18 Amlodipine Besylate 5 mg PO DAILY 01/30/18 Aspirin [ASA -] 81 mg PO DAILY 01/30/18 Atorvastatin Calcium [Lipitor] 20 mg PO DAILY 01/30/18 Benzonatate 100 mg PO TID 01/30/18 Cetirizine HCl [Zyrtec -] 10 mg PO DAILY 01/30/18 Colchicine 0.6 mg PO DAILY 01/30/18 Digoxin 125 mcg PO DAILY 01/30/18 Furosemide [Lasix] 20 mg PO DAILY 01/30/18 Gabapentin 300 mg PO BID 01/30/18 Glipizide 10 mg PO DAILY 01/30/18 Hydroxyzine HCl 25 mg PO PRN PRN 01/30/18 Lisinopril 5 mg PO DAILY 01/30/18 Loratadine 10 mg PO DAILY 01/30/18 Metformin HCl [Glucophage] 1,000 mg PO BID 01/30/18 Metoprolol Succinate 100 mg PO DAILY 01/30/18 Mirabegron [Myrbetriq] 25 mg PO DAILY 01/30/18 Rivaroxaban [Xarelto -] 15 mg PO DAILY 01/30/18 Cholecalciferol (Vitamin D3) 2,000 unit PO DAILY 01/31/18 [Vitamin D3] Dextromethorphan/Benzocaine 1 each PO QID PRN 01/31/18 [Cepacol Sorethroat-Cough Charlie] Diclofenac Epolamine [Flector] 1 each TD DAILY 01/31/18 Lactulose 20 gm PO PRN PRN 01/31/18 Levothyroxine Sodium [Levoxyl] 125 mcg PO ACBK 01/31/18 Polyethylene Glycol 3350 [Miralax 17 gm PO DAILY PRN 01/31/18 119 gm Btl -] Psyllium Husk (with Sugar) 3.4 gm PO HS 01/31/18 [Metamucil Packet] Benzocaine/Menth/Cetylpyrd Cl 30 ml MM PRN #1 solution 02/03/18 [Actisep Solution] Tamsulosin HCl [Flomax -] 0.4 mg PO DAILY@0830 cap.er.24h 02/03/18 REVIEW OF SYSTEMS CONSTITUTIONAL: Present:generalized weakness Absent: fever, chills, diaphoresis,, malaise, loss of appetite, weight change HEENT: Absent: rhinorrhea, nasal congestion, throat pain, throat swelling, difficulty swallowing, mouth swelling, ear pain, eye pain, visual changes CARDIOVASCULAR: Absent: chest pain, syncope, palpitations, irregular heart rate, lightheadedness , peripheral edema RESPIRATORY: Absent: cough, shortness of breath, dyspnea with exertion, orthopnea, wheezing, stridor, hemoptysis GASTROINTESTINAL: Present: blood per rectum Absent: abdominal pain, abdominal distension, nausea, vomiting, diarrhea, constipation, melena, hematochezia GENITOURINARY: Absent: dysuria, frequency, urgency, hesitancy, hematuria, flank pain, genital pain MUSCULOSKELETAL: Absent: myalgia, arthralgia, joint swelling, back pain, neck pain SKIN: Absent: rash, itching, pallor HEMATOLOGIC/IMMUNOLOGIC: Absent: easy bleeding, easy bruising, lymphadenopathy, frequent infections ENDOCRINE: Absent: unexplained weight gain, unexplained weight loss, heat intolerance, cold intolerance NEUROLOGIC: Absent: headache, focal weakness or paresthesias, dizziness, unsteady gait, seizure, mental status changes, bladder or bowel incontinence PSYCHIATRIC: Absent: anxiety, depression, suicidal or homicidal ideation, hallucinations. PHYSICAL EXAMINATION Vital Signs - 24 hr 02/21/18 02/21/18 16:45 19:45 Temperature 98 F 98.0 F Pulse Rate 110 H Pulse Rate [ 43 L Apical] Respiratory 22 H 17 Rate Blood Pressure 120/76 Blood Pressure 123/92 [Left Arm] O2 Sat by Pulse 96 97 Oximetry (%) GENERAL: Awake, alert, and fully oriented, in no acute distress. EYES: no scleral icterus, . NECK: no JVD, no lymphadenopathy. LUNGS: coarse breath sounds, B/L HEART: irregularly irregular , normal S1 and S2 without murmur, rub or gallop. ABDOMEN: Soft, slight LLQ tenderness,, not distended, normoactive bowel sounds, no guarding, no rebound, no masses. No hepatomegaly or splenomegaly. MUSCULOSKELETAL: Normal range of motion at all joints. No bony deformities or tenderness. No CVA tenderness. EXTREMITIES: warm; well-perfused, no clubbing/cyanosis or edema PSYCHIATRIC: Cooperative. Good eye contact. Appropriate mood and affect. SKIN: Warm, dry, normal turgor, no rashes or lesions noted, normal capillary refill. Laboratory Results - last 24 hr 02/21/18 02/21/18 02/21/18 17:14 17:50 17:50 WBC 5.1 RBC 4.64 Hgb 13.4 Hct 41.2 MCV 88.9 MCH 28.9 MCHC 32.5 RDW 15.5 Plt Count 180 MPV 9.6 D Absolute Neuts (auto) 2.9 Neutrophils % 56.3 Lymphocytes % 27.3 D Monocytes % 11.2 H Eosinophils % 4.3 Basophils % 0.9 Nucleated RBC % 0 PT with INR 20.10 H INR 1.69 H PTT (Actin FS) 32.7 Sodium Potassium Chloride Carbon Dioxide Anion Gap BUN Creatinine Creat Clearance w eGFR Random Glucose Lactic Acid Calcium Total Bilirubin AST ALT Alkaline Phosphatase Creatine Kinase Troponin I Total Protein Albumin TSH Urine Color Urine Appearance Urine pH Ur Specific [place] Urine Protein Urine Glucose (UA) Urine Ketones Urine Blood Urine Nitrite Urine Bilirubin Urine Urobilinogen Ur Leukocyte Esterase Urine WBC (Auto) Urine RBC (Auto) Ur Epithelial Cells Urine Mucus Stool Occult Blood Positive Digoxin Blood Type Antibody Screen 02/21/18 02/21/18 02/21/18 17:50 17:50 17:54 WBC RBC Hgb Hct MCV MCH MCHC RDW Plt Count MPV Absolute Neuts (auto) Neutrophils % Lymphocytes % Monocytes % Eosinophils % Basophils % Nucleated RBC % PT with INR INR PTT (Actin FS) Sodium Cancelled Potassium Cancelled Chloride Cancelled Carbon Dioxide Cancelled Anion Gap Cancelled BUN Cancelled Creatinine Cancelled Creat Clearance w eGFR Cancelled Random Glucose Cancelled Lactic Acid 1.3 Calcium Cancelled Total Bilirubin Cancelled AST Cancelled ALT Cancelled Alkaline Phosphatase Cancelled Creatine Kinase Cancelled Troponin I Cancelled Total Protein Cancelled Albumin Cancelled TSH Urine Color Urine Appearance Urine pH Ur Specific [place] Urine Protein Urine Glucose (UA) Urine Ketones Urine Blood Urine Nitrite Urine Bilirubin Urine Urobilinogen Ur Leukocyte Esterase Urine WBC (Auto) Urine RBC (Auto) Ur Epithelial Cells Urine Mucus Stool Occult Blood Digoxin Cancelled Blood Type Cancelled Antibody Screen Cancelled 02/21/18 02/21/18 02/21/18 18:16 18:41 18:54 WBC RBC Hgb Hct MCV MCH MCHC RDW Plt Count MPV Absolute Neuts (auto) Neutrophils % Lymphocytes % Monocytes % Eosinophils % Basophils % Nucleated RBC % PT with INR INR PTT (Actin FS) Sodium Cancelled Potassium Cancelled Chloride Cancelled Carbon Dioxide Cancelled Anion Gap Cancelled BUN Cancelled Creatinine Cancelled Creat Clearance w eGFR Cancelled Random Glucose Cancelled Lactic Acid Calcium Cancelled Total Bilirubin Cancelled AST Cancelled ALT Cancelled Alkaline Phosphatase Cancelled Creatine Kinase Cancelled Troponin I Cancelled Total Protein Cancelled Albumin Cancelled TSH Urine Color Straw Urine Appearance Clear Urine pH 5.0 Ur Specific [place] 1.010 Urine Protein Negative Urine Glucose (UA) Negative Urine Ketones Negative Urine Blood 2+ H Urine Nitrite Negative Urine Bilirubin Negative Urine Urobilinogen Negative Ur Leukocyte Esterase Negative Urine WBC (Auto) 1 Urine RBC (Auto) 2 Ur Epithelial Cells Rare Urine Mucus Rare Stool Occult Blood Digoxin Cancelled Blood Type O POSITIVE Antibody Screen Negative 02/21/18 02/21/18 20:17 20:17 WBC RBC Hgb Hct MCV MCH MCHC RDW Plt Count MPV Absolute Neuts (auto) Neutrophils % Lymphocytes % Monocytes % Eosinophils % Basophils % Nucleated RBC % PT with INR INR PTT (Actin FS) Sodium 143 Potassium 5.4 H Chloride 111 H Carbon Dioxide 26 Anion Gap 6 L BUN 46 H Creatinine 1.5 H Creat Clearance w eGFR 44.69 Random Glucose 69 L Lactic Acid Calcium 8.6 Total Bilirubin 0.5 AST 13 L ALT 21 Alkaline Phosphatase 67 Creatine Kinase 32 Troponin I < 0.02 Total Protein 6.3 L Albumin 3.5 TSH 1.73 Urine Color Urine Appearance Urine pH Ur Specific [place] Urine Protein Urine Glucose (UA) Urine Ketones Urine Blood Urine Nitrite Urine Bilirubin Urine Urobilinogen Ur Leukocyte Esterase Urine WBC (Auto) Urine RBC (Auto) Ur Epithelial Cells Urine Mucus Stool Occult Blood Digoxin 1.20 Blood Type O POSITIVE Antibody Screen ASSESSMENT/PLAN: 83 y/o male with PMH of CAD, CHF, HTN, DM, afib (on xarelto), gout, hypothyroidism who presents to the ED after having an episode of painless bright red blood per rectum. #rectal bleeding possibly 2/2 trauma from disimpaction vs. lower GI bleed -FOBT sent -GI consulted- Dr. Junior -IV protonix 40 BID -NPO for now -holding Xarelto #Afib -holding xarelto in light of bleeding -c/w digoxin 125 mcg #HTN -decreasing metoprolol dose to 25 QID in light of GI bleed -holding lisinopril for now -holding amlodipine #CHF -holding patients lasix for the time being #Hypothyroidism -holding synthroid DVT PPX: SCD's GI PPX: IV protonix 40 BID Visit type - Emergency Visit Emergency Visit: Yes ED Registration Date: 02/21/18 Care time: The patient presented to the Emergency Department on the above date and was hospitalized for further evaluation of their emergent condition. - New Patient This patient is new to me today: Yes Date on this admission: 02/22/18 - Critical Care Critical Care patient: No
[2018-02-22] MEDS ORDERED: INSULIN REGULAR HUMAN 100 UNITS/ML *VIAL IVPUSH ONE (02:40)
--- NOTE | 2018-02-22 02:48 | PN ---
Teaching Attending Note Name of Resident: Stoney Fox ATTENDING PHYSICIAN STATEMENT I saw and evaluated the patient. I reviewed the resident's note and discussed the case with the resident. I agree with the resident's findings and plan as documented. CC: Brought in from long-term for blood in toilet. SUBJECTIVE: Seen and examined; please see resident note for further historical details. Patient is known to me from prior admission and is poor historian at baseline and is a resident of [facility]. Today they found blood in his toilet and sent him to the ER. Patient states that this happens constantly and he has had blood in his stools prior. He tells us that he is chronically constipated and that he tried laxatives sevral days ago to no relief so yesterday he tried to manually disimpact himself with his finger. He offers no other complaints tonight and denies any abdominal pain, nausea, hemetemesis, or vomitting non-bloody contents. He does not regularly see a GI doctor, estimating his last scope to be 8-9 years ago and his last EGD to be ~10 years ago. He is on Xarelto for his Afib. In the ER they obtained a CT which shows concentric wall thickening of the descending colon which was suspicious for colitis (?ischemic colitis). For this, surgery was called by the ER who informed our service that they state this is an GI issue. GI will be consulted and awaiting surgical note; monitor the patient on the medicine service. Earlier in the night he was less upset; when I went back to see him he is awake, alert, orientated, knows he is in a hospital and not his facility, now he is unsure of why he is here. Either he wont or he refuses to discuss the risks of leaving AMA and says he will alvin and take down everyone present and used extremely vulgar language and was not redirectable. The last time he was here there was quesiton of hallucinations, MCI, etc. Due to all the aforementioned I have a suspicion that this patient may lack competency to leave 10 sys ROS done and negative aside from HPI PMH significant for Afib on xarelto/dig, CAD, CHF, HTN, DM, Gout, Hypothyroidism. PSH per chart FH asked and noncontributory Social is positive for [facility] resident and likely MCI. No current EtOH or tobacco use. OBJECTIVE: VSS, labs and imaging reviewed NAD, AAO, abdomen was nontender but he became upset and wouldn't permit a full GI exam. He tells us that he has been in the ER "forever" He refused the rest of PE CT with concentric wall thickening along the length of the descending colon; ? ischemic colitis Labs show Hb at baseline of 12-13; INR 1.69, K 5.4, BUN/Cr 46/1.5, glucose 69. CBC unremarkable. ASSESSMENT AND PLAN: Mr. Herring is an 83 y/o CM presenting back to the hospital for bloody stool found to have bowel wall thickening in his descending colon. 1) Bloody Stool -Has been a recurring issue for patient with no recent colonoscopy/EGD. BUN slightly elevated off his baseline. Not tachycardic but on digoxin and metoprolol. Hb at his baseline; repeat is pending. Etiology can be diverticular vs. traumatic from the attempted self-manual disimpaction. He c/o constipation and hasn't had further BM but must of course consider brisk UGIB -IV BID Protonix, Q6H H/H, monitor for BM. Consulting GI -Hold antihypertensives, keep NPO, as he has a h/o documented CHF will hold his lasix and go very gently with fluids, DCing as soon as we can. -Hold Xarelto 2) Bowel Wall Thickening in Descending Colon -ER spoke with surgery who recommended GI see the paitent for this issue; the fact he has been on xarelto for some time and his exam is without abdominal pain out of proportion to findings alongside his negative lactate and CK argues against ischemic colitis. He has no WBC count and no fever; checking ESR/CRP and will empirically cover with metronidazole until further information regarding this can be ascertained. If clinically appears not infectious can DC abx. Will keep vigilant for surgical process with the original concern for ischemic gut and if anything starts suggesting this again will have a very low threshold to recall sugery. Recheck CK and lactate. 3) Elevated INR -1.69; slight elevations can be seen in patients taking Xarelto. Can repeat and monitor as OP. 4) Afib with RVR -Given the potential GIB we want to ensure we are not suppressing a tachycardic response, but his Afib appears to require large amount of medicaitons. Therefore we will fraction his MS to QID dosing with MT and we will proceed to continue the dig (level normal). Should he decompensate we will need to reevaluate. Hold his xarelto; discuss restarting it with GI. 5) CHF -No exacerbation; on 20 Lasix at home; echo reviewed from prior admit -Hold lasix for now and gently hydrate. As soon as off fluids restart his home lasix. He is NPO now. 6) Gout -No exacerbation, monitor 7) Hypoglycemia -Glucose 69 on admit; likely due to glipizide use in elderly. giving insulin/ d50 for the hyperK and rechecking. Check q4h fingersticks and replete with PRN IV glucose, starting on D5 containing fluid if needed. 8) Hyperkalemia -No EKG changes; did get LR after this value of 5.4. It is quite a low rise in the K but still will treat and repeat AM labs. 9) CKD -Cr at baseline; monitor UOP 10) Hyperlipidemia -Continue lipitor 11) DM -SSI; DC glipizide due to hypoglycemia and age and evidence PHILLIPS's are poor choice in these geriatric pateints. 12) Questionable lack of capacity/competency -Obtaining psych referral; I am concerned given his history of hallucinations, suspected cognative impairment, the fact he was unsure of where he was or why he was here followed by a very labile emotional affect concerns me that if he leaves AMA he may not be acting in his best interest. He was awake and alert. He says he plans to alvin the hospital as he was upset he was in the ER for so long. When I tried to ask him more questions to further ascertain competency he became extraordinarily vulgar with myself and the resident and refused to answer more. Pending psych; informed nurse apartment house manager regarding patient status and she will speak with him. DVT px: SCDs Consults: anton (called by ER), GI
[2018-02-22] MEDS ORDERED: DEXTROSE 50%-WATER - 25 GM/50 ML VIAL IVPUSH ONE (02:58)
[2018-02-22] MEDS ORDERED: DEXTROSE 50%-WATER 25 GM/50 ML DISP.SYRIN ONE (03:24)
[2018-02-22] MEDS ORDERED: PANTOPRAZOLE SODIUM 40 MG VIAL ONE (03:24)
[2018-02-22] MEDS ORDERED: INSULIN (NOVOLOG) ASPART 100 UNITS/ML 10ML VIAL ONE (03:26)
[2018-02-22] MEDS: PANTOPRAZOLE SODIUM 40 MG VIAL IVPUSH SCH ×3 (03:39→22:30)
[2018-02-22] MEDS: SODIUM CHLORIDE 1,000 ML IV SCH (03:48)
[2018-02-22] MEDS ORDERED: metoPROLOL SUCCINATE 25 MG TAB.SR.24H (FP) PO SCH ×2 (06:00→10:00)
[2018-02-22 07:26] LABS: HEMATOCRIT 39.4 % (35.4-49); HEMOGLOBIN 12.5 GM/dL (11.7-16.9); MCH 28.3 pg (25.7-33.7); MCHC 31.8 g/dl (32.0-35.9); MEAN CELL VOLUME 88.9 fl (80-96); PLATELET COUNT 154 K/MM3 (134-434); RBC 4.43 M/mm3 (4.00-5.60); RDW 15.1 % (11.9-15.9); WHITE BLOOD COUNT 6.1 K/mm3 (4.0-10.0)
[2018-02-22] MEDS: INSULIN SLIDING SCALE (NOVOLOG) 1 VIAL SQ SCH ×3 (07:35→17:22)
[2018-02-22 08:16] LABS: ALBUMIN 3.7 g/dl (3.4-5.0); ALK PHOS 67 U/L (45-117); ANION GAP 7 MMOL/L (8-16); BILIRUBIN,TOTAL 0.9 mg/dL (0.2-1); BLOOD UREA NITROGEN 41 mg/dL (7-18); CALCIUM 8.7 mg/dL (8.5-10.1); CHLORIDE 108 mmol/L (98-107); CO2 26 mmol/L (21-32); CREATININE 1.4 mg/dL (0.55-1.3); GLUCOSE,RANDOM 110 mg/dL (74-106); MAGNESIUM 2.1 mg/dL (1.8-2.4); PHOSPHOROUS 2.7 mg/dL (2.5-4.9); POTASSIUM 4.9 mmol/L (3.5-5.1); SGOT/AST 18 U/L (15-37); SGPT/ALT 21 U/L (13-61); SODIUM 141 mmol/L (136-145); TOT PROT 6.6 g/dl (6.4-8.2)
[2018-02-22] MEDS: METOPROLOL TARTRATE 25 MG TABLET (FP) PO SCH ×2 (10:10→22:30)
[2018-02-22] MEDS: DIGOXIN 0.125 MG TABLET (FP) PO SCH (10:10)
--- NOTE | 2018-02-22 13:06 | CON.GI ---
Consult Consult Specialty:: GI Referred by:: Dr Yates Reason for Consultation:: Lower GI bleed - History of Present Illness Chief Complaint: Lower GI bleed History of Present Illness: 83 y.o. man on dual antiplatelet therapy, also on diclofenac patch at [place], had episode of rectal bleeding prompting ER transfer. Pt cannot give a coherent history. CT scan reviewed, shows thickened sigmoid colon with diverticulosis, otherwise fairly unremarkable. Labs indicate well preservered Hgb: CBC, BMP 02/22/18 06:59 02/22/18 06:59 - History Source History Provided By: Medical Record - Past Medical History Cardio/Vascular: Yes: AFIB Gastrointestinal: Yes: Constipation Rheumatology: Yes: Gout Endocrine: Yes: Diabetes Mellitus, Hypothyroidism - Alcohol/Substance Use Hx Alcohol Use: No - Smoking History Smoking history: Never smoked Have you smoked in the past 12 months: No - Social History Usual [facility]ement[facility] Home Medications - Allergies Allergies/Adverse Reactions: Allergies Allergy/AdvReac Type Severity Reaction Status Date / Time Fish Containing Products Allergy Verified 02/21/18 16:34 - Home Medications Home Medications: Ambulatory Orders Acetaminophen [Tylenol] 600 mg PO QID 01/30/18 Amlodipine Besylate 5 mg PO DAILY 01/30/18 Aspirin [ASA -] 81 mg PO DAILY 01/30/18 Atorvastatin Calcium [Lipitor] 20 mg PO DAILY 01/30/18 Benzonatate 100 mg PO TID 01/30/18 Cetirizine HCl [Zyrtec -] 10 mg PO DAILY 01/30/18 Colchicine 0.6 mg PO DAILY 01/30/18 Digoxin 125 mcg PO DAILY 01/30/18 Furosemide [Lasix] 20 mg PO DAILY 01/30/18 Gabapentin 300 mg PO BID 01/30/18 Glipizide 10 mg PO DAILY 01/30/18 Hydroxyzine HCl 25 mg PO PRN PRN 01/30/18 Lisinopril 5 mg PO DAILY 01/30/18 Loratadine 10 mg PO DAILY 01/30/18 Metformin HCl [Glucophage] 1,000 mg PO BID 01/30/18 Metoprolol Succinate 100 mg PO DAILY 01/30/18 Mirabegron [Myrbetriq] 25 mg PO DAILY 01/30/18 Rivaroxaban [Xarelto -] 15 mg PO DAILY 01/30/18 Cholecalciferol (Vitamin D3) [Vitamin D3] 2,000 unit PO DAILY 01/31/18 Dextromethorphan/Benzocaine [Cepacol Sorethroat-Cough Charlie] 1 each PO QID PRN Diclofenac Epolamine [Flector] 1 each TD DAILY 01/31/18 Lactulose 20 gm PO PRN PRN 01/31/18 Levothyroxine Sodium [Levoxyl] 125 mcg PO ACBK 01/31/18 Polyethylene Glycol 3350 [Miralax 119 gm Btl -] 17 gm PO DAILY PRN 01/31/18 Psyllium Husk (with Sugar) [Metamucil Packet] 3.4 gm PO HS 01/31/18 Benzocaine/Menth/Cetylpyrd Cl [Actisep Solution] 30 ml MM PRN #1 solution Tamsulosin HCl [Flomax -] 0.4 mg PO DAILY@0830 cap.er.24h 02/03/18 Physical Exam-GI Vital Signs: Vital Signs Temperature 97.7 F 02/22/18 10:10 Pulse Rate 65 02/22/18 10:10 Respiratory Rate 18 02/22/18 10:10 Blood Pressure 145/68 02/22/18 10:10 O2 Sat by Pulse Oximetry (%) 98 02/22/18 10:10 Constitutional: Yes: Well Nourished ...Rectal Exam: Yes: Guaiac Positive Labs: CBC, BMP 02/22/18 06:59 02/22/18 06:59 INR, PTT INR 1.69 (0.83-1.09) H 02/21/18 17:50 Imaging - Results Cat Scan: Report Reviewed, Image Reviewed Problem List - Problems (1) GI bleed Code(s): K92.2 - GASTROINTESTINAL HEMORRHAGE, UNSPECIFIED Qualifiers: GI bleed type/associated pathology: unspecified gastrointestinal hemorrhage type Qualified Code(s): K92.2 - Gastrointestinal hemorrhage, unspecified Assessment/Plan Painless lower GI bleed without significant drop in Hgb. The most likely causes are either a diverticular bleed or ischemic colitis. Based on the CT images, ischemic colitis is more likely. Bleeding may have been made worse by the coadministration of an NSAID ( diclofenac patch) along with the two antiplatelet drugs. Recommend: Hold Xarelto. No need to continue antibiotics. Begin full liquid diet and advance if Hgb stable. Resume Xarelto at discharge. Avoid adding NSAIDs to his regimen at home. Consider colonoscopy in 6 weeks if patient will agree.
--- NOTE | 2018-02-22 13:35 | HOSP ---
Subjective - Review of Symptoms Subjective: currently endorses no symptoms. denies CP, SOB, fever, chills, N/V/C/D, BRBPR, melena Current Medications Generic Name Dose Route Start Last Admin Trade Name Cole PRN Reason Stop Dose Admin Digoxin 0.125 mg 02/22/18 10:00 02/22/18 10:10 Lanoxin - PO 0.125 mg DAILY CODY Administration Metronidazole 500 mg in 100 mls @ 100 mls/hr 02/22/18 03:00 02/22/18 10:10 Flagyl 500mg Premixed Ivpb - IVPB 100 mls/hr Q8H-IV CODY Administration Sodium Chloride 1,000 mls @ 60 mls/hr 02/22/18 03:00 02/22/18 03:48 Normal Saline - IV 60 mls/hr ASDIR CODY Administration Insulin Aspart 1 vial 02/22/18 07:00 02/22/18 11:25 Novolog Vial Sliding Scale - SQ Not Given TIDAC [facility] Protocol Metoprolol Tartrate 25 mg 02/22/18 10:00 02/22/18 10:10 Lopressor - PO 25 mg BID CODY Administration Pantoprazole Sodium 40 mg 02/22/18 02:41 02/22/18 10:23 Protonix Iv IVPUSH 40 mg BID CODY Administration Last Vital Signs Temp Pulse Resp BP Pulse Ox 97.7 F 65 18 145/68 98 02/22/18 10:10 02/22/18 10:10 02/22/18 10:10 02/22/18 10:10 02/22/18 10:10 General NAD A&O x3 however confused CV S1 s2 irregular Lungs CTA B/l no wheezing/rales/rhonchi Abdomen soft, slightly distended. dull to percussion. normoactive BS, obese Extremities no pedal edema refused rectal exam CBCD WBC 6.1 K/mm3 (4.0-10.0) 02/22/18 06:59 RBC 4.43 M/mm3 (4.00-5.60) 02/22/18 06:59 Hgb 12.5 GM/dL (11.7-16.9) 02/22/18 06:59 Hct 39.4 % (35.4-49) 02/22/18 06:59 MCV 88.9 fl (80-96) 02/22/18 06:59 MCHC 31.8 g/dl (32.0-35.9) L 02/22/18 06:59 RDW 15.1 % (11.9-15.9) 02/22/18 06:59 Plt Count 154 K/MM3 (134-434) 02/22/18 06:59 MPV 9.0 fl (7.5-11.1) 02/22/18 06:59 CMP Sodium 141 mmol/L (136-145) 02/22/18 06:59 Potassium 4.9 mmol/L (3.5-5.1) 02/22/18 06:59 Chloride 108 mmol/L (98-107) H 02/22/18 06:59 Carbon Dioxide 26 mmol/L (21-32) 02/22/18 06:59 Anion Gap 7 MMOL/L (8-16) L 02/22/18 06:59 BUN 41 mg/dL (7-18) H 02/22/18 06:59 Creatinine 1.4 mg/dL (0.55-1.3) H 02/22/18 06:59 Creat Clearance w eGFR 48.40 (>60) 02/22/18 06:59 Calcium 8.7 mg/dL (8.5-10.1) 02/22/18 06:59 Total Bilirubin 0.9 mg/dL (0.2-1) 02/22/18 06:59 AST 18 U/L (15-37) 02/22/18 06:59 ALT 21 U/L (13-61) 02/22/18 06:59 Alkaline Phosphatase 67 U/L (45-117) 02/22/18 06:59 Total Protein 6.6 g/dl (6.4-8.2) 02/22/18 06:59 Albumin 3.7 g/dl (3.4-5.0) 02/22/18 06:59 A/P 83yo M with PMH afib on xarelto, CHF, CKD, CAD, HTN, gout, hypothyroid presented to the ER with BRBPR and found to have ischemic colitis on imaging 1. BRBPR-possible hemrrhoids. unlikley upper GI as BUN is not elevated. on NOAC and multiple NSAID medications. hemodynamically stable. as per aid there has been no witnessed BRBPR or melena since arrival. Hgb has been stable. diet advance to liquids. cont PPI IV BID. would cont to hold diuretic. on low dose IVF. would monitor volume status closely for signs of volume overload. GI on board. hold NSAIDS and NOAC 2. Colitis- ischemic vs infectious. no signs of infections. lactate negative. will d/c abx at this time. as per surgeon not ischemic. no abdominal pain, no leukocytosis. will need colonoscopy in 6-8 weeks. 3. hyperkalemia- resolved 4. agitation- was placed on 1:1 observation overnight as pt was aggressive. pt is no longer aggressive. has attempted to get out of bed, can place matias vest for now for safetly. will d/c 1:1 5. Bradycardia- HR 55 at this time. unable to assess if improved with activity. metoprolol dose was decreased. will cont cardiac monitoring. check EKG for signs of heart block. troponins neg x2. 6. Hypogylcemia- now resolved. probably induced from oral agents. hold for now. bgm and iss 7. Afib 8. CHF 9. CKD- at baseline 10. HTN- currently normotensive 11. Hypothyroid 12. DVT ppx- SCD Physical Examination Vital Signs: Vital Signs Temperature 97.7 F 02/22/18 10:10 Pulse Rate 65 02/22/18 10:10 Respiratory Rate 18 02/22/18 10:10 Blood Pressure 145/68 02/22/18 10:10 O2 Sat by Pulse Oximetry (%) 98 02/22/18 10:10 Labs: CBC, BMP 02/22/18 06:59 02/22/18 06:59
[2018-02-22] MEDS ORDERED: HALOPERIDOL LACTATE 5 MG/ML IM PRN (17:00)
[2018-02-22] MEDS ORDERED: HALOPERIDOL LACTATE 5 MG/ML ONE (17:03)
[2018-02-23] MEDS: SODIUM CHLORIDE 1,000 ML IV SCH (03:11)
[2018-02-23] MEDS ORDERED: cloNIDine HCL 0.1 MG TABLET PO ONE (04:15)
[2018-02-23] MEDS ORDERED: ACETAMINOPHEN 500 MG TABLET (FP) PO ONE (04:15)
--- NOTE | 2018-02-23 04:20 | PN ---
Progress Note (short form) - Note Progress Note: Paged to Pt. for elevated BP to 150s/80s with HR in 50s. Decision was made to hold Lopressor given bradycardia. Rpt. BP was 163/80s. Manual BP was then taken and found to be 160/92. Pt. stated that he had a headache and was able to point to the bilateral temporal lobes as the area of pain. Pt. denied chest pain or sudden vision change. Decision was made to give 1g Tylenol PO for headache and 0.1mg Clonidine for BP.
[2018-02-23] MEDS: INSULIN SLIDING SCALE (NOVOLOG) 1 VIAL SQ SCH ×3 (06:52→17:04)
[2018-02-23 07:20] LABS: HEMATOCRIT 36.8 % (35.4-49); HEMOGLOBIN 11.9 GM/dL (11.7-16.9); MCH 28.8 pg (25.7-33.7); MCHC 32.3 g/dl (32.0-35.9); MEAN CELL VOLUME 89.1 fl (80-96); MEAN PLT VOLUME 8.8 fl (7.5-11.1); PLATELET COUNT 137 K/MM3 (134-434); RBC 4.13 M/mm3 (4.00-5.60); RDW 15.1 % (11.9-15.9); WHITE BLOOD COUNT 3.9 K/mm3 (4.0-10.0)
[2018-02-23 07:45] LABS: ANION GAP 8 MMOL/L (8-16); BLOOD UREA NITROGEN 23 mg/dL (7-18); CALCIUM 8.6 mg/dL (8.5-10.1); CHLORIDE 110 mmol/L (98-107); CO2 24 mmol/L (21-32); CREATININE 1.2 mg/dL (0.55-1.3); GLUCOSE,RANDOM 125 mg/dL (74-106); POTASSIUM 4.4 mmol/L (3.5-5.1); SODIUM 142 mmol/L (136-145)
--- NOTE | 2018-02-23 07:58 | PN ---
Physical Exam: SUBJECTIVE: Patient seen and examined at bedside. No overnight events. No new complaints. No bleeding. Wishes to go home. Denies CP,MATTHEWS, SOB, abdominal pain, nausea or vomiting. OBJECTIVE: Vital Signs Period Temp Pulse Resp BP Sys/Denson Pulse Ox Last 24 Hr 97.7 F-98.4 F 54-76 18-20 145-163/62-90 96-98 GENERAL:awake and alert. EYES: PERRL, EOMI, sclera anicteric, conjunctiva clear. No ptosis. ENT: moist mucous membranes. NECK: supple, no jvd or lad LUNGS:CTAB, no wheezing or rales. HEART: RRR, S1, S2 without murmur, rub or gallop. ABDOMEN: Soft, NTND,NABS, no guarding, no rebound, no hepatosplenomegaly, no masses. EXTREMITIES: 2+ pulses, warm, well-perfused, no edema. NEUROLOGICAL: Cranial nerves II through XII grossly intact. Normal speech, gait not observed. PSYCH: Normal mood, normal affect. SKIN: Warm, dry, normal turgor, no rashes or lesions noted Laboratory Results - last 24 hr 02/22/18 02/22/18 02/22/18 06:59 06:59 06:59 WBC RBC Hgb Hct MCV MCH MCHC RDW Plt Count MPV ESR 8 Sodium 141 Potassium 4.9 Chloride 108 H Carbon Dioxide 26 Anion Gap 7 L BUN 41 H Creatinine 1.4 H Creat Clearance w eGFR 48.40 POC Glucometer Random Glucose 110 H Lactic Acid 1.2 Calcium 8.7 Phosphorus 2.7 Magnesium 2.1 Total Bilirubin 0.9 AST 18 ALT 21 Alkaline Phosphatase 67 Creatine Kinase 40 Troponin I < 0.02 Total Protein 6.6 Albumin 3.7 Digoxin 1.09 02/22/18 02/23/18 02/23/18 17:19 05:30 05:30 WBC 3.9 L RBC 4.13 Hgb 11.9 Hct 36.8 MCV 89.1 MCH 28.8 MCHC 32.3 RDW 15.1 Plt Count 137 MPV 8.8 ESR Sodium 142 Potassium 4.4 Chloride 110 H Carbon Dioxide 24 Anion Gap 8 BUN 23 H Creatinine 1.2 Creat Clearance w eGFR 57.82 POC Glucometer [id number] Random Glucose 125 H Lactic Acid Calcium 8.6 Phosphorus Magnesium Total Bilirubin AST ALT Alkaline Phosphatase Creatine Kinase Troponin I Total Protein Albumin Digoxin 02/23/18 06:49 WBC RBC Hgb Hct MCV MCH MCHC RDW Plt Count MPV ESR Sodium Potassium Chloride Carbon Dioxide Anion Gap BUN Creatinine Creat Clearance w eGFR POC Glucometer 140 Random Glucose Lactic Acid Calcium Phosphorus Magnesium Total Bilirubin AST ALT Alkaline Phosphatase Creatine Kinase Troponin I Total Protein Albumin Digoxin Active Medications Generic Name Dose Route Start Last Admin Trade Name Freq PRN Reason Stop Dose Admin Digoxin 0.125 mg 02/22/18 10:00 02/22/18 10:10 Lanoxin - PO 0.125 mg DAILY CODY Administration Haloperidol 2 mg 02/22/18 17:00 02/22/18 17:15 Haldol Injection (Fast Acting) - IM 2 mg Q4H PRN Administration AGITATION Sodium Chloride 1,000 mls @ 60 mls/hr 02/22/18 03:00 02/23/18 03:11 Normal Saline - IV 60 mls/hr ASDIR CODY Administration Insulin Aspart 1 vial 02/22/18 07:00 02/23/18 06:52 Novolog Vial Sliding Scale - SQ Not Given TIDAC [facility] Protocol Metoprolol Tartrate 25 mg 02/22/18 10:00 02/22/18 22:30 Lopressor - PO Not Given BID CODY Pantoprazole Sodium 40 mg 02/22/18 02:41 02/22/18 22:30 Protonix Iv IVPUSH 40 mg BID CODY Administration ASSESSMENT/PLAN: 83yo M with PMH afib on xarelto, CHF, CKD, CAD, HTN, gout, hypothyroid presented to the ER with BRBPR and found to have colitis on imaging. Problem List - Problems (1) Bright red blood per rectum Assessment/Plan: possible hemrrhoids vs colitis. * No further bleeding. * Hgb is stable * advance to regular diet. * d/c PPI and IVF. * hold NSAIDS. * colonoscopy as outpatient. (2) Colitis Assessment/Plan: schemic vs infectious. * no signs of infections. * lactate negative. * as per surgeon not ischemic. * no abdominal pain, no leukocytosis. will need colonoscopy in 6-8 weeks (3) Acute on chronic kidney failure (4) CHF (congestive heart failure) Assessment/Plan: no signs of overload. * d/c IVF. * restart lasix tomorrow. * cont statin (5) DM type 2 (diabetes mellitus, type 2) Assessment/Plan: * ADA diet. * BGM ACHS * ISS ACHS (6) HTN (hypertension) Assessment/Plan: * Amlodipine Besylate (Norvasc -) 5 mg PO DAILY * Lisinopril (Prinivil) 5 mg PO DAILY (7) Hypothyroid Assessment/Plan: continue synthroid. (8) BPH (benign prostatic hyperplasia) Assessment/Plan: cont. flomax. Visit type - Emergency Visit Emergency Visit: Yes ED Registration Date: 02/21/18 Care time: The patient presented to the Emergency Department on the above date and was hospitalized for further evaluation of their emergent condition. - New Patient This patient is new to me today: Yes Date on this admission: 02/23/18 - Critical Care Critical Care patient: No
[2018-02-23] MEDS: DIGOXIN 0.125 MG TABLET (FP) PO SCH (09:53)
[2018-02-23] MEDS: PANTOPRAZOLE SODIUM 40 MG VIAL IVPUSH SCH (09:53)
[2018-02-23] MEDS: METOPROLOL TARTRATE 25 MG TABLET (FP) PO SCH ×2 (09:54→21:01)
--- NOTE | 2018-02-23 11:06 | PN ---
Teaching Attending Note Name of Resident: Kobe Mario ATTENDING PHYSICIAN STATEMENT I saw and evaluated the patient. I reviewed the resident's note and discussed the case with the resident. I agree with the resident's findings and plan as documented. SUBJECTIVE:asymptomatic. requesting to return home. denies Cp, SOB, fever, chills, N/V/C/D OBJECTIVE: Last Vital Signs Temp Pulse Resp BP Pulse Ox 98.4 F 67 18 145/80 98 02/23/18 05:57 02/23/18 09:53 02/23/18 05:57 02/23/18 05:57 02/22/18 18:55 General NAD, A&O x3 but easily confused, repeats questions CV S1 S2 RRR no murmur/rub/gallops Lungs CTA anteriorly Abdomen soft NT/ND ASSESSMENT AND PLAN: 83yo M with PMH afib on xarelto, CHF, CKD, CAD, HTN, gout, hypothyroid presented to the ER with BRBPR and found to have ischemic colitis on imaging 1. BRBPR-possible hemrrhoids vs colitis. as per RN no repeat episdoes. Hgb is stable. advance to regular diet. d/c PPI and IVF. hold NSAIDS. will need colonoscopy as outpatient. 2. Colitis- ischemic vs infectious. no signs of infections. lactate negative. as per surgeon not ischemic. no abdominal pain, no leukocytosis. will need colonoscopy in 6-8 weeks. 3. hyperkalemia- resolved 4. Acute on CKD- due to hypovolemia. npow resolved. d/c IVF. 5. agitation- is oriented but easily confused. attempted to get out of bed several times through the night. received haldol x1. matias vest for safety 6. Bradycardia- now improved. will reduce metoprolol 12.5mg BID. cont dig. f/u EKG 7. Hypogylcemia- now resolved. probably induced from oral agents. hold for now, may not require on discharge. bgm and iss 8. Afib- rate is slow, metoprolol reduced. dig level therapeutic. cont for now. will re-start xarelto tomorrow if hgb remains stable. 9. CHF- no signs of overload. willl d/c IVF. restart lasix tomorrow. cont statin. 10. CKD- at baseline. restart asa tomorrow 11. HTN- above goal. re-start antihypertensives. 12. Hypothyroid- cont LT4 13. DVT ppx- SCD 14. clinically stable. [facility] assisted [facility] unable to accept return today. will arrange for d/c tomorrow if Hgb stable
[2018-02-23] MEDS ORDERED: INSULIN (NOVOLOG) ASPART 100 UNITS/ML 10ML VIAL ONE (11:25)
[2018-02-23] MEDS: LISINOPRIL 5 MG TABLET (FP) PO SCH (11:40)
--- NOTE | 2018-02-23 12:51 | PN ---
Progress Note (short form) - Note Progress Note: Hgb down slightly today but no further bleeding noted. Denies abdominal pain, patient's only complaint is boredom. Abdomen soft, nontender. Pt tolerating diet. No objection to discharge tomorrow. Problem List - Problems (1) GI bleed Code(s): K92.2 - GASTROINTESTINAL HEMORRHAGE, UNSPECIFIED Qualifiers: GI bleed type/associated pathology: unspecified gastrointestinal hemorrhage type Qualified Code(s): K92.2 - Gastrointestinal hemorrhage, unspecified
[2018-02-23] MEDS ORDERED: ATORVASTATIN CA 20 MG TABLET (FP) PO SCH (22:00)
[2018-02-24] MEDS: INSULIN SLIDING SCALE (NOVOLOG) 1 VIAL SQ SCH ×3 (06:06→17:56)
[2018-02-24 06:52] LABS: BASO % 0.7 % (0-2.0); HEMATOCRIT 38.4 % (35.4-49); HEMOGLOBIN 12.2 GM/dL (11.7-16.9); LYMPH % 26.7 % (8-40); MCH 28.2 pg (25.7-33.7); MCHC 31.9 g/dl (32.0-35.9); MEAN CELL VOLUME 88.5 fl (80-96); MEAN PLT VOLUME 8.6 fl (7.5-11.1); MONO % 13.1 % (3.8-10.2); NEUT % 53.5 % (42.8-82.8); PLATELET COUNT 142 K/MM3 (134-434); RBC 4.34 M/mm3 (4.00-5.60); RDW 15.1 % (11.9-15.9)
[2018-02-24] MEDS ORDERED: LEVOTHYROXINE NA 125 MCG TABLET (FP) PO SCH (07:00)
[2018-02-24 07:26] LABS: ALBUMIN 3.6 g/dl (3.4-5.0); ALK PHOS 70 U/L (45-117); ANION GAP 9 MMOL/L (8-16); BILIRUBIN,TOTAL 0.8 mg/dL (0.2-1); BLOOD UREA NITROGEN 21 mg/dL (7-18); CALCIUM 9.2 mg/dL (8.5-10.1); CHLORIDE 107 mmol/L (98-107); CO2 26 mmol/L (21-32); CREATININE 1.3 mg/dL (0.55-1.3); GLUCOSE,RANDOM 140 mg/dL (74-106); POTASSIUM 4.4 mmol/L (3.5-5.1); SGOT/AST 17 U/L (15-37); SGPT/ALT 23 U/L (13-61); SODIUM 141 mmol/L (136-145); TOT PROT 6.3 g/dl (6.4-8.2)
[2018-02-24] MEDS ORDERED: TAMSULOSIN HCL 0.4 MG CAP PO SCH (08:30)
[2018-02-24] MEDS: DIGOXIN 0.125 MG TABLET (FP) PO SCH (09:17)
[2018-02-24] MEDS: LISINOPRIL 5 MG TABLET (FP) PO SCH (09:18)
[2018-02-24] MEDS: METOPROLOL TARTRATE 25 MG TABLET (FP) PO SCH (09:18)
[2018-02-24] MEDS ORDERED: amLODIPine BESYLATE 5 MG TABLET (FP) PO SCH (10:00)
[2018-02-24] MEDS ORDERED: RIVAROXABAN 15 MG TABLET PO ONE (12:43)
[2018-02-24] MEDS ORDERED: FUROSEMIDE 20 MG TABLET (FP) PO ONE (12:48)
--- NOTE | 2018-02-24 12:48 | PN ---
Teaching Attending Note Name of Resident: Steff Reyes ATTENDING PHYSICIAN STATEMENT I saw and evaluated the patient. I reviewed the resident's note and discussed the case with the resident. I agree with the resident's findings and plan as documented. SUBJECTIVE:asymptomatic. denies Cp, SOB, fever, chills, N/V/C/D, no melena or BRBPR OBJECTIVE: Last Vital Signs Temp Pulse Resp BP Pulse Ox 98.0 F 70 20 165/65 96 02/24/18 05:19 02/24/18 09:17 02/24/18 05:19 02/24/18 05:19 02/24/18 09:00 General NAD, A&O x3 but easily confused, repeats questions CV S1 S2 RRR no murmur/rub/gallops Lungs CTA anteriorly Abdomen soft NT/ND ASSESSMENT AND PLAN: 83yo M with PMH afib on xarelto, CHF, CKD, CAD, HTN, gout, hypothyroid presented to the ER with BRBPR and found to have ischemic colitis on imaging 1. BRBPR-possible hemrrhoids vs colitis. Hgb is stable. tolerating diet. hold NSAIDS. will need colonoscopy as outpatient. 2. Colitis- ischemic vs infectious. no signs of infections. lactate negative. as per surgeon not ischemic. no abdominal pain, no leukocytosis. will need colonoscopy in 6-8 weeks. 3. hyperkalemia- resolved 4. Acute on CKD- due to hypovolemia. now resolved. 5. agitation- is oriented but easily confused. has not required chemical/ physical restraints 6. Bradycardia- now improved. cont metoprolol at reduced dose. cont dig. 7. Hypogylcemia- now resolved. probably induced from oral agents. would hold hypoglycemics on dischrage. cont to monitor sugars. can re-start if needed. 8. Afib- rate is slow, metoprolol reduced. dig level therapeutic. cont for now. will re-start xarelto today 9. CHF- no signs of overload. restart lasix today. cont statin. 10. CKD- at baseline. restart asa today 11. HTN- above goal. re-starting lasix. resume home medications. 12. Hypothyroid- cont LT4 13. DVT ppx- SCD 14. clinically stable. was actually at [facility] prior to arrival not [place]. will return to [place]
--- NOTE | 2018-02-24 13:24 | CON.PSY ---
Psychiatry Consult Chief Complaint: 83 year old white male seen for psych eval for confusion. History of Many medical conditiond. apparanrly became agitated onm Saturday but beenm better since then. Symptoms: reports: Irritability - Previous Psychiatric Treatment Outpatient: None Inpatient: None - Previous Substance Abuse Treatment Outpatient: None Inpatient: None - Current Medications Current Medications: Active Medications Amlodipine Besylate (Norvasc -) 5 mg PO DAILY [facility] Last Admin: 02/24/18 09:18 Dose: 5 mg Atorvastatin Calcium (Lipitor -) 20 mg PO HS [facility] Last Admin: 02/23/18 21:01 Dose: 20 mg Digoxin (Lanoxin -) 0.125 mg PO DAILY [facility] Last Admin: 02/24/18 09:17 Dose: 0.125 mg Haloperidol (Haldol Injection (Fast Acting) -) 2 mg IM Q4H PRN PRN Reason: AGITATION Last Admin: 02/22/18 17:15 Dose: 2 mg Insulin Aspart (Novolog Vial Sliding Scale -) 1 vial SQ TIDAC [facility]; Protocol Last Admin: 02/24/18 12:21 Dose: 4 units Levothyroxine Sodium (Synthroid -) 125 mcg PO ACBK [facility] Last Admin: 02/24/18 06:06 Dose: 125 mcg Lisinopril (Prinivil) 5 mg PO DAILY [facility] Last Admin: 02/24/18 09:18 Dose: 5 mg Metoprolol Tartrate (Lopressor -) 12.5 mg PO BID [facility] Last Admin: 02/24/18 09:18 Dose: 12.5 mg Tamsulosin HCl (Flomax -) 0.4 mg PO DAILY@0830 [facility] Last Admin: 02/24/18 09:17 Dose: 0.4 mg - Allergies Allergies: Allergies Allergy/AdvReac Type Severity Reaction Status Date / Time Fish Containing Products Allergy Verified 02/21/18 16:34 - Current Living Status Usual Living Arrangement: Alone - Current Mental Status Evaluation Appearance: Disheveled Attitude: Cooperative - Affect Affect: Constrictive Appropriateness: Appropriate to Content - Speech/Language Expressive: Delayed - Psychomotor Activity Psychomotor Activity: Slowed - Thought Process Thought Process: Intact - Thought Content Hallucinations: Absent Delusions: Absent - Self Perception Self Perception: No Impairment - Cognition Attention: Alert Orientation: Time Memory, Immediate Recall: Intact Memory, Short Term: 2/3 Memory, Remote with Promptin/3 - Concentration Serial Sevens Intact: No Simple Calculations Intact: Yes - Abstraction Proverb Interpretation: Intact Judgement: Minimally Impaired - Insight Insight: Intact - Impulse Control Impulse Control: Minimally Impaired - Suicidal Ideation Suicidal Ideation: No - Homicidal Ideation Homicidal Ideation: No Assessment/Plan 1) No need for ongoing Psych meds. 2) Give Haldol PRN
[2018-02-24 14:50] VITALS: BP 131/60; PULSE 82; TEMP 98
--- NOTE | 2018-02-24 17:25 | DS ---
Physical Exam: SUBJECTIVE: Patient seen and examined at bedside.no acute events overnight- patient is no longer having any bloody bowel movements- he denies any CP/SOB/N/ V fevers or chills OBJECTIVE: Vital Signs Period Temp Pulse Resp BP Sys/Denson Pulse Ox Last 24 Hr 97.7 F-98.3 F 46-82 18-20 131-171/60-80 96-96 PHYSICAL EXAM GENERAL: The patient is awake, alert, and fully oriented, in no acute distress. EYES: no scleral icterus NECK: no JVD, no lypmhadenopathy LUNGS: CTA B/L; no rales, rhonchi or wheezing. HEART: irregularly irregular, S1, S2 without murmur, rub or gallop. ABDOMEN: Soft, nontender, nondistended, normoactive bowel sounds, no guarding, no rebound, no hepatosplenomegaly, no masses. EXTREMITIES: 2+ pulses, warm, well-perfused, no edema. PSYCH: Normal mood, normal affect. SKIN: Warm, dry, normal turgor, no rashes or lesions noted. LABS Laboratory Results - last 24 hr 02/24/18 02/24/18 02/24/18 05:27 05:30 05:30 WBC 5.0 RBC 4.34 Hgb 12.2 Hct 38.4 MCV 88.5 MCH 28.2 MCHC 31.9 L RDW 15.1 Plt Count 142 MPV 8.6 Absolute Neuts (auto) 2.7 Neutrophils % 53.5 Lymphocytes % 26.7 Monocytes % 13.1 H Eosinophils % 6.0 H Basophils % 0.7 Nucleated RBC % 0 Sodium 141 Potassium 4.4 Chloride 107 Carbon Dioxide 26 Anion Gap 9 BUN 21 H Creatinine 1.3 Creat Clearance w eGFR 52.72 POC Glucometer 153 Random Glucose 140 H Calcium 9.2 Total Bilirubin 0.8 AST 17 ALT 23 Alkaline Phosphatase 70 Total Protein 6.3 L Albumin 3.6 02/24/18 02/24/18 10:43 16:48 WBC RBC Hgb Hct MCV MCH MCHC RDW Plt Count MPV Absolute Neuts (auto) Neutrophils % Lymphocytes % Monocytes % Eosinophils % Basophils % Nucleated RBC % Sodium Potassium Chloride Carbon Dioxide Anion Gap BUN Creatinine Creat Clearance w eGFR POC Glucometer 228 198 Random Glucose Calcium Total Bilirubin AST ALT Alkaline Phosphatase Total Protein Albumin Imaging: AB/pelvis CT There is apparent minimal to mild concentric wall thickening along the length of the descending colon - ? ischemic colitis. Sigmoid diverticulosis without CT evidence of acute diverticulitis. Cardiomegaly. Dilated main pulmonary artery suggestive of increased pulmonary arterial pressure. Mild left lower lobe bronchiectasis with associated bronchial wall thickening and adjacent mild atelectasis/scarring. HOSPITAL COURSE: Date of Admission:02/21/18 83 y/o male with PMH of afib, CHF, HTN, hypothyroidism presented [facility] the ED [facility] they noticed blood per rectum. Patient had been constipated for a few days and tried to manually disimpact himself and the next day noticed that there was blood in the toilet and when he wiped. He felt dizzy after he saw the blood in the toilet, and then was sent here. ON arrival his Hgb was stable at 13 his FOBT was positive. They did an abdominal/pelvis CT which showed some ? colitis . Surgery was consulted and no intervention was necessary- GI saw the patient and did not think any intervention was necessary ad that he should follow up in 6-8 weeks for colonoscopy. Patients hemoglobin remained stable throughtut his admission and he was discharged back to the rehab facility with strict follow-up to see a gastroenterologsit . Date of Discharge: 02/24/18 Minutes to complete discharge: 39 Discharge Summary Reason For Visit: A FIB GASTROINTESTINAL HEMORRHAGE Condition: Stable - Instructions Diet, Activity, Other Instructions: You came to the emergency room after you were found to have bleeding when you went to the bathroom so you were sent [facility] the [facility] your [facility]. We had the wet cotton feeder come and evaluate you who suggested that you get a colonoscopy as an outpatient in 6 weeks; he did not think there was anything emergent that needed to be done while you were in the hospital. We measured your blood hemoglobin levels each day that you were here and your number stayed stable. We also held your xarelto ,the blood thinner, while you were here, in addition to your anti-inflammatory medications. You improved and were stable enough to be discharged back to the rehab facility, and we will be restarting you back on the xarelto. Please resume all home medications except: -please do not take any NSAIDs such as: the diclofenac patch, advil, ibuprofen, in addition to your oral hypoglycemic medications. -we are reducing your metoprolol to 12.5 Referrals: -we advise that you follow up with your primary care physician in one week -we advise that you follow up with the wet cotton feeder, Dr. Junior in two weeks. You should have a colonosocpy done *if you begin to experience anymore bleeding episodes, any chest pain, shortness of breath, fevers or vomiting please return to the emergency room immediately. Referrals: Osbaldo Junior MD [Staff Physician] - Disposition: [facility]ILITY - Home Medications Comprehensive Discharge Medication List: Ambulatory Orders Acetaminophen [Tylenol] 600 mg PO QID 01/30/18 Amlodipine Besylate 5 mg PO DAILY 01/30/18 Aspirin [ASA -] 81 mg PO DAILY 01/30/18 Atorvastatin Calcium [Lipitor] 20 mg PO DAILY 01/30/18 Benzonatate 100 mg PO TID 01/30/18 Cetirizine HCl [Zyrtec -] 10 mg PO DAILY 01/30/18 Colchicine 0.6 mg PO DAILY 01/30/18 Digoxin 125 mcg PO DAILY 01/30/18 Furosemide [Lasix] 20 mg PO DAILY 01/30/18 Gabapentin 300 mg PO BID 01/30/18 Hydroxyzine HCl 25 mg PO PRN PRN 01/30/18 Lisinopril 5 mg PO DAILY 01/30/18 Loratadine 10 mg PO DAILY 01/30/18 Metoprolol Succinate 100 mg PO DAILY 01/30/18 Mirabegron [Myrbetriq] 25 mg PO DAILY 01/30/18 Rivaroxaban [Xarelto -] 15 mg PO DAILY 01/30/18 Cholecalciferol (Vitamin D3) [Vitamin D3] 2,000 unit PO DAILY 01/31/18 Dextromethorphan/Benzocaine [Cepacol Sorethroat-Cough Charlie] 1 each PO QID PRN Lactulose 20 gm PO PRN PRN 01/31/18 Levothyroxine Sodium [Levoxyl] 125 mcg PO ACBK 01/31/18 Polyethylene Glycol 3350 [Miralax 119 gm Btl -] 17 gm PO DAILY PRN 01/31/18 Psyllium Husk (with Sugar) [Metamucil Packet] 3.4 gm PO HS 01/31/18 Benzocaine/Menth/Cetylpyrd Cl [Actisep Solution] 30 ml MM PRN #1 solution Tamsulosin HCl [Flomax -] 0.4 mg PO DAILY@0830 cap.er.24h 02/03/18 Metoprolol Tartrate [Lopressor -] 12.5 mg PO BID 30 Days #60 tablet 02/24/18 Problem List - Problems (1) Afib Code(s): I48.91 - UNSPECIFIED ATRIAL FIBRILLATION Qualifiers: Atrial fibrillation type: unspecified Qualified Code(s): I48.91 - Unspecified atrial fibrillation (2) BPH (benign prostatic hyperplasia) Code(s): N40.0 - BENIGN PROSTATIC HYPERPLASIA WITHOUT LOWER URINRY TRACT SYMP Qualifiers: Lower urinary tract symptom presence: unspecified whether lower urinary tract symptoms present Qualified Code(s): N40.0 - Benign prostatic hyperplasia without lower urinary tract symptoms (3) Bright red blood per rectum Code(s): K62.5 - HEMORRHAGE OF ANUS AND RECTUM This patient is new to me today: No Emergency Visit: Yes ED Registration Date: 02/21/18 Care time: The patient presented to the Emergency Department on the above date and was hospitalized for further evaluation of their emergent condition. Critical Care patient: No - Discharge Referral Referred to [facility] Yes Physician Referral: Mohit Aponte DO (GI)
--- NOTE | 2018-02-24 18:36 | EKG ---
Test Reason : Blood Pressure : / mmHG Vent. Rate : 045 BPM Atrial Rate : 045 BPM P-R Int : 000 ms QRS Dur : 170 ms QT Int : 482 ms P-R-T Axes : 000 047 000 degrees QTc Int : 416 ms UNDETERMINED RHYTHM PROBABLE ATRIAL FIBRILLATION WITH SLOW VENTRICULAR RESPONSE RIGHT BUNDLE BRANCH BLOCK ABNORMAL ECG WHEN COMPARED WITH ECG OF 30-JAN-2018 20:19, VENT. RATE HAS DECREASED Confirmed by GREGORIO ENG MD ([id number]) on 02/24/2018 6:35:57 PM Referred By: Confirmed By:GREGORIO ENG MD
== END 2018-02-24 16:55 | DRG 394 ==
LOC: JER 16:29 → JERBED 23:31 → UNDOADMIN 02-22 00:57 → J4W 02-22 19:16
PROVIDERS: ADMIT Internal Medicine; ATTEND Internal Medicine
DX: K55.9 Vascular disorder of intestine, unspecified (principal); K92.2 Gastrointestinal hemorrhage, unspecified; I13.0 Hypertensive heart and chronic kidney disease with heart failure and stage 1 through stage 4 chronic kidney disease, or unspecified chronic kidney disease; N17.9 Acute kidney failure, unspecified; J98.11 Atelectasis; I25.10 Atherosclerotic heart disease of native coronary artery without angina pectoris; E03.9 Hypothyroidism, unspecified; I48.91 Unspecified atrial fibrillation; M10.9 Gout, unspecified; E78.5 Hyperlipidemia, unspecified; E87.5 Hyperkalemia; K57.30 Diverticulosis of large intestine without perforation or abscess without bleeding; K59.00 Constipation, unspecified; R00.1 Bradycardia, unspecified; R45.1 Restlessness and agitation; E11.22 Type 2 diabetes mellitus with diabetic chronic kidney disease; N18.9 Chronic kidney disease, unspecified; I50.9 Heart failure, unspecified; J47.9 Bronchiectasis, uncomplicated; K64.9 Unspecified hemorrhoids; K52.9 Noninfective gastroenteritis and colitis, unspecified; E11.649 Type 2 diabetes mellitus with hypoglycemia without coma
CPT/HCPCS: 36415; 71045-TC-FY; 74176-TC; 80048; 80053; 80162; 81003; 81015; 82272; 82550; 82962; 83605; 83735; 84100; 84443; 84484; 85025; 85027; 85610; 85651; 85730; 86140; 86850; 86900; 86901; 87086; 93005; 93010; 99285-25; J0735; J7030; Q9967

== ENCOUNTER 2018-04-07 21:20 | Inpatient (IN) | payer OTHER ==
--- NOTE | 2018-04-07 21:34 | PDOC ---
History of Present Illness - General Chief Complaint: Injury Stated Complaint: FALL Time Seen by Provider: 04/07/18 21:34 History Source: Patient Exam Limitations: No Limitations - History of Present Illness Initial Comments: 04/07/18 22:00 83 year old male with PMH atrial fibrillation on xarelto, CHF, HTN, BPH, GIB, hypothyroidism sent to ED from [facility] for mechanical fall. Pt stated he was leaning forward, lost his balance, and fell forward onto his knees and left face. He denied LOC or vomiting. He stated he remembered all events leading up to fall. He denied chest pain, shortness of breath, palpitations, lightheadedness, fever, chills, nausea, vomiting, diarrhea, abdominal pain. Allergies: NKDA Past History - Past Medical History Allergies/Adverse Reactions: Allergies Allergy/AdvReac Type Severity Reaction Status Date / Time Fish Containing Products Allergy Verified 02/21/18 16:34 Home Medications: Ambulatory Orders Acetaminophen [Tylenol] 600 mg PO QID 01/30/18 Amlodipine Besylate 5 mg PO DAILY 01/30/18 Aspirin [ASA -] 81 mg PO DAILY 01/30/18 Atorvastatin Calcium [Lipitor] 20 mg PO DAILY 01/30/18 Cetirizine HCl [Zyrtec -] 10 mg PO DAILY 01/30/18 Colchicine 0.6 mg PO DAILY 01/30/18 Digoxin 125 mcg PO DAILY 01/30/18 Furosemide [Lasix] 20 mg PO DAILY 01/30/18 Gabapentin 300 mg PO BID 01/30/18 Lisinopril 5 mg PO DAILY 01/30/18 Rivaroxaban [Xarelto] 15 mg PO DAILY 01/30/18 Cholecalciferol (Vitamin D3) [Vitamin D3] 2,000 unit PO DAILY 01/31/18 Lactulose 20 gm PO PRN PRN 01/31/18 Levothyroxine Sodium [Levoxyl] 125 mcg PO ACBK 01/31/18 Polyethylene Glycol 3350 [Miralax 119 gm Btl -] 17 gm PO DAILY PRN 01/31/18 Psyllium Husk (with Sugar) [Metamucil Packet] 3.4 gm PO HS 01/31/18 Tamsulosin HCl [Flomax -] 0.4 mg PO DAILY@0830 cap.er.24h 02/03/18 Metoprolol Tartrate [Lopressor -] 12.5 mg PO BID 30 Days #60 tablet 02/24/18 Metoprolol Tartrate 12.5 mg PO BID 04/08/18 Oxybutynin Chloride [Oxybutynin Chloride ER] 10 mg PO DAILY 04/08/18 Pantoprazole Sodium [Protonix] 40 mg PO DAILY 04/08/18 Cancer: Yes (benign prostate CA) Cardiac Disorders: Yes (atrial fibrillation, coronary artery disease) COPD: No CHF: Yes Diabetes: Yes GI Disorders: Yes (constipation) HTN: Yes Hypercholesterolemia: Yes Thyroid Disease: Yes (hypothyroididsm gout) - Surgical History Abdominal Surgery: No Appendectomy: No Cardiac Surgery: No Cholecystectomy: No Lung Surgery: No Neurologic Surgery: No - Suicide/Smoking/Psychosocial Hx Smoking History: Unknown if ever smoked Have you smoked in the past 12 months: No Cigars Per Day: 1 Hx Alcohol Use: No Drug/Substance Use Hx: No Substance Use Type: None Review of Systems - Review of Systems Able to Perform ROS?: Yes Comments:: 04/07/18 22:13 General: denied fever, chills, night sweats, generalized weakness. HEENT: admitted to left infraorbital facial pain. denied sore throat, rhinorrhea , ear pain. Heart: denied chest pain, palpitations, syncope, lower extremity swelling, diaphoresis. Respiratory: denied shortness of breath, cough, sputum production, hemoptysis. Abdomen: denied abdominal pain, nausea, vomiting, diarrhea, constipation, blood in stool. : denied dysuria, increased urinary frequency, hematuria, urinary incontinence , flank pain. Back: denied back pain. Hips: denied hip pain Musculoskeletal: admitted to bilateral knee pain. Neurological: denied headache, dizziness, numbness, tingling, weakness. Skin: admitted to abrasion to bilateral knee. *Physical Exam - Vital Signs Last Vital Signs Temp Pulse Resp BP Pulse Ox 97.4 F L 52 L 20 145/75 99 04/07/18 21:21 04/07/18 21:21 04/07/18 21:21 04/07/18 21:21 04/07/18 21:21 - Physical Exam Comments: 04/07/18 22:15 Constitutional: Well-nourished, Well-developed, appearing stated age. HEENT: head is normocephalic. no scalp hematomas. ecchymoses and swelling to left infraorbital area. EOMI. PERRLA. Neck: supple. Full ROM. Heart: regular rhythm. no murmurs, rubs or gallops. Lungs: clear to auscultation bilaterally. no crackles, rhonchi or wheezing. no stridor. Abdomen: soft, nontender. normal bowel sounds. no rebound, guarding, masses. Knees: abrasions bilaterally. mild tenderness to palpation of right patella. no tenderness to palpation of left patella. no swelling bilaterally. Back: no midline c-spine/t-spine/L-spine tenderness. Hips: no hip tenderness bilaterally. pelvis stable. LE equal in length. Extremities: Peripheral pulses intact. No lower extremity edema. Neurological: CN 2-12 grossly intact. Moves all four extremities. Psych: awake, alert, oriented x3. Follows commands. Answers questions appropriately. Skin: no heel diabetic ulcers bilaterally. Moderate Sedation - Procedure Monitoring Vital Signs: Procedure Monitoring Vital Signs Temperature 97.4 F L 04/07/18 21:21 Pulse Rate 52 L 04/07/18 21:21 Respiratory Rate 20 04/07/18 21:21 Blood Pressure 145/75 04/07/18 21:21 O2 Sat by Pulse Oximetry (%) 99 04/07/18 21:21 ED Treatment Course - LABORATORY CBC & Chemistry Diagram: 04/09/18 12:45 04/09/18 12:45 Medical Decision Making - Medical Decision Making 04/07/18 22:18 83 year old male with above PMH sent to ED from [place] for fall. Pt complained of bilateral knee pain, left facial pain. Initial Vital Signs Temp Pulse Resp BP Pulse Ox 97.4 F L 52 L 20 145/75 99 04/07/18 21:21 04/07/18 21:21 04/07/18 21:21 04/07/18 21:21 04/07/18 21:21 Afebrile. Mild bradycardia. No tachypnea. Mild hypertension. - History of HTN No hypoxia on room air. EKG performed at Imaging ordered: CT head, CT c-spine, CXR, pelvis XR, right knee XR Labs ordered: CBC, CMP, troponin Medications ordered: tylenol 04/07/18 22:35 CBC WBC 4.0 K/mm3 (4.0-10.0) 04/07/18 21:50 RBC 4.52 M/mm3 (4.00-5.60) 04/07/18 21:50 Hgb 12.6 GM/dL (11.7-16.9) 04/07/18 21:50 Hct 39.6 % (35.4-49) 04/07/18 21:50 MCV 87.8 fl (80-96) 04/07/18 21:50 MCH 28.0 pg (25.7-33.7) 04/07/18 21:50 MCHC 31.8 g/dl (32.0-35.9) L 04/07/18 21:50 RDW 14.9 % (11.9-15.9) 04/07/18 21:50 Plt Count 172 K/MM3 (134-434) D 04/07/18 21:50 MPV 8.8 fl (7.5-11.1) 04/07/18 21:50 Absolute Neuts (auto) 2.5 K/mm3 (1.5-8.0) 04/07/18 21:50 Neutrophils % 62.5 % (42.8-82.8) 04/07/18 21:50 Lymphocytes % 22.2 % (8-40) 04/07/18 21:50 Monocytes % 12.4 % (3.8-10.2) H 04/07/18 21:50 Eosinophils % 2.3 % (0-4.5) 04/07/18 21:50 Basophils % 0.6 % (0-2.0) 04/07/18 21:50 Nucleated RBC % 2 % (0-0) H 04/07/18 21:50 No leukocytosis. No anemia. CMP Sodium 133 mmol/L (136-145) L 04/07/18 21:50 Potassium 4.8 mmol/L (3.5-5.1) 04/07/18 21:50 Chloride 98 mmol/L (98-107) 04/07/18 21:50 Carbon Dioxide 26 mmol/L (21-32) 04/07/18 21:50 Anion Gap 9 MMOL/L (8-16) 04/07/18 21:50 BUN 36 mg/dL (7-18) H 04/07/18 21:50 Creatinine 2.3 mg/dL (0.55-1.3) H 04/07/18 21:50 Creat Clearance w eGFR 27.29 (>60) 04/07/18 21:50 Random Glucose 518 mg/dL (74-106) H* 04/07/18 21:50 Calcium 8.7 mg/dL (8.5-10.1) 04/07/18 21:50 Total Bilirubin 0.7 mg/dL (0.2-1) 04/07/18 21:50 AST 27 U/L (15-37) 04/07/18 21:50 ALT 47 U/L (13-61) 04/07/18 21:50 Alkaline Phosphatase 155 U/L (45-117) H 04/07/18 21:50 Troponin I < 0.02 ng/ml (0.00-0.05) 04/07/18 21:50 Total Protein 6.7 g/dl (6.4-8.2) 04/07/18 21:50 Albumin 3.8 g/dl (3.4-5.0) 04/07/18 21:50 Corrected sodium = 140 BUN/Cr = 15 - MT Hyperglycemia Mild elevation of ALP. Normal troponin Medications ordered: - 500 cc bolus normal saline 04/07/18 22:59 CT head report report: no acute intracranial pathology. Ct cervical spine report: no acute pathology. CT facial bones report: subcutaneous edema along left mid face. no fracture identified. 0.7 cm perforation of cartiliginous nasal septum. 04/07/18 23:36 Pt signed out to Dr. Reich. Pending XR reads, EKG, disposition. 04/10/18 06:54 Imaging reports reviewed: no evidence of acute pathology. *DC/Admit/Observation/Transfer Diagnosis at time of Disposition: MT (acute kidney injury), Fall - Discharge Dispostion Condition at time of disposition: Improved - Referrals - Patient Instructions - Post Discharge Activity
[2018-04-07] MEDS ORDERED: ACETAMINOPHEN 325 MG TABLET (FP) PO ONE (21:59)
--- NOTE | 2018-04-07 22:02 | PDOC ---
Attending Attestation - HPI HPI: 04/07/18 23:16 The patient is a 83 year old male with a significant past medical history of CAD , CHF, hypertension, diabetes, hyperlipidemia, hyperthyroidism, afib( on Xarelto ), and Gout who presents to the emergency department via EMS from [facility] s /p a fall earlier this evening. The patient reports that he was at home earlier this evening when he was leaning forward and lost his balance. The patient states that he fell to his knees and then hit his face on the floor. He reports some associated left cheek bruising and pain. The patient denies any loc. He states that he usually ambulates with a walker at baseline. He states that when he fell, he was unable to get up on his own. The patient denies any other symptoms. He denies any fever, chills, nausea, vomiting, diarrhea, constipation or urinary symptoms. He denies any chest pain shortness of breath headache or dizziness. The patient denies any other complaints. Documentation prepared by Chance Tang, acting as medical services manager for May Linares MD. <Chance Tang - Last Filed: 04/07/18 23:16> - Resident Resident Name: Berna Steele - ED Attending Attestation I have performed the following: I have examined & evaluated the patient, The case was reviewed & discussed with the resident, I agree w/resident's findings & plan, Exceptions are as noted - Physicial Exam PE: 04/08/18 01:15 elderly 83 yo male presents after falling forward while bending over he is alert and conversant upon arrival 04/08/18 01:18 head : no scalp lacerations,no scalp hematomas Facial exam: left zygomatic ecchymosis , no facial lacerations no mandibular pinpoint tenderness,reproducible occlusion,no dental fractures eyes :wesley eomi neck no cervical midline tenderness lungs cta b/l cvs [id number] abd protuberant,nontender no cva tenderness extremities b/l knee abrasions, rt knee has mild tenderness, left knee has no patellar ballotment,no hip pain neuro alert and conversant,can move all extremities,able to lift both legs off the gurney skin warm and dry musculoskeletal :no lumbar or thoracic midline tenderness 04/08/18 01:42 04/08/18 01:43 - Medical Decision Making 04/07/18 23:41 CAT scan of his facial bones without contrast shows no fracture, subcutaneous edema along the left mid face and a 0.7 cm perforation within the cartilaginous nasal septum CAT scan of the C-spine is negative for any fracture or malalignment, there is degenerative disc disease. CAT scan of the head without contrast no evidence of any acute intracranial pathology. Small bowel mucosal thickening and possibly fluid within the right sphenoid sinus 04/08/18 01:50 pt has MT Prior cr=1.08 Feb 2018 today's kny=286 when previous lxh=574 . No acidosis pt has mechanical and sustained facial;l trauma while on anticoag,ct head negative pt to be admitted <May Linares - Last Filed: 04/08/18 01:53>
[2018-04-07 22:03] LABS: BASO % 0.6 % (0-2.0); EOS % 2.3 % (0-4.5); HEMATOCRIT 39.6 % (35.4-49); HEMOGLOBIN 12.6 GM/dL (11.7-16.9); LYMPH % 22.2 % (8-40); MCHC 31.8 g/dl (32.0-35.9); MEAN CELL VOLUME 87.8 fl (80-96); MEAN PLT VOLUME 8.8 fl (7.5-11.1); MONO % 12.4 % (3.8-10.2); NEUT % 62.5 % (42.8-82.8); PLATELET COUNT 172 K/MM3 (134-434); RBC 4.52 M/mm3 (4.00-5.60); RDW 14.9 % (11.9-15.9)
[2018-04-07 22:11] LABS: INR 1.3 (0.83-1.09); PROTHROMBIN TIME (PATIENT) 15.4 SEC (9.7-13.0)
[2018-04-07 22:13] LABS: ACTIVATED PTT 30.5 SECONDS (25.2-36.5)
[2018-04-07 22:29] LABS: ALBUMIN 3.8 g/dl (3.4-5.0); ALK PHOS 155 U/L (45-117); ANION GAP 9 MMOL/L (8-16); BILIRUBIN,TOTAL 0.7 mg/dL (0.2-1); BLOOD UREA NITROGEN 36 mg/dL (7-18); CALCIUM 8.7 mg/dL (8.5-10.1); CHLORIDE 98 mmol/L (98-107); CO2 26 mmol/L (21-32); CREATININE 2.3 mg/dL (0.55-1.3); POTASSIUM 4.8 mmol/L (3.5-5.1); SGOT/AST 27 U/L (15-37); SGPT/ALT 47 U/L (13-61); SODIUM 133 mmol/L (136-145); TOT PROT 6.7 g/dl (6.4-8.2)
[2018-04-07 22:34] LABS: GLUCOSE,RANDOM 518 mg/dL (74-106)
[2018-04-07] MEDS ORDERED: SODIUM CHLORIDE 1,000 ML IV STA (22:38)
[2018-04-07] MEDS ORDERED: ACETAMINOPHEN 325 MG TABLET (FP) ONE (23:17)
--- NOTE | 2018-04-08 01:14 | PDOC ---
*Physical Exam - Vital Signs Last Vital Signs Temp Pulse Resp BP Pulse Ox 97.5 F L 60 20 145/75 99 04/07/18 21:35 04/07/18 21:35 04/07/18 21:35 04/07/18 21:35 04/07/18 21:35 - Physical Exam Comments: 04/08/18 01:13 GENERAL: Awake, alert, and fully oriented, in no acute distress HEAD: No signs of trauma, normocephalic, atraumatic EYES: PERRLA, EOMI, sclera anicteric, conjunctiva clear ENT: Auricles normal inspection, hearing grossly normal, nares patent, oropharynx clear without exudates. Moist mucosa NECK: Normal ROM, supple, no lymphadenopathy, JVD, or masses LUNGS: No distress, speaks full sentences, clear to auscultation bilaterally HEART: Regular rate and rhythm, normal S1 and S2, no murmurs, rubs or gallops, peripheral pulses normal and equal bilaterally. ABDOMEN: Soft, nontender, normoactive bowel sounds. No guarding, no rebound. No masses EXTREMITIES : + BL Knee abrasions. Normal inspection, Normal range of motion, no edema. No clubbing or cyanosis. NEUROLOGICAL: Cranial nerves II through XII grossly intact. No focal sensorimotor deficits SKIN: Warm, Dry, normal turgor, no rashes or lesions noted ED Treatment Course - LABORATORY CBC & Chemistry Diagram: 04/07/18 21:50 04/07/18 21:50 - ADDITIONAL ORDERS Additional order review: Laboratory Results 04/07/18 04/07/18 04/07/18 21:50 21:50 21:50 PT with INR 15.40 H INR 1.30 H PTT (Actin FS) 30.5 Sodium 133 L Potassium 4.8 Chloride 98 Carbon Dioxide 26 Anion Gap 9 BUN 36 H Creatinine 2.3 H Creat Clearance w eGFR 27.29 Random Glucose 518 H* Calcium 8.7 Total Bilirubin 0.7 AST 27 ALT 47 Alkaline Phosphatase 155 H Troponin I < 0.02 Total Protein 6.7 Albumin 3.8 Blood Type O POSITIVE Antibody Screen Negative 04/07/18 21:50 RBC 4.52 MCV 87.8 MCHC 31.8 L RDW 14.9 MPV 8.8 Neutrophils % 62.5 Lymphocytes % 22.2 Monocytes % 12.4 H Eosinophils % 2.3 Basophils % 0.6 - RADIOLOGY Radiology Studies Ordered: Category Date Time Status KNEE 3 POS-LEFT [RAD] Stat Radiology 04/07/18 23:40 Taken - Medications Given in the ED: ED Medications Discontinued Medications Generic Name Dose Route Start Last Admin Trade Name Cole PRN Reason Stop Dose Admin Acetaminophen 975 mg 04/07/18 21:59 04/07/18 22:00 Tylenol - PO 04/07/18 22:00 975 mg ONCE ONE Administration Sodium Chloride 1,000 mls @ 500 mls/hr 04/07/18 22:38 04/07/18 22:30 Normal Saline - IV 04/08/18 00:37 500 mls/hr ASDIR STA Administration Medical Decision Making - Medical Decision Making 04/08/18 01:09 83 yo M with h/o A-fib ( on Xarelto), CHF, HTN, GIB, BIBA from [facility] ( [facility] ) s/p fall when leaning forward. Fell on BL hands and knees, and face. Now with facial and BL knee pain. HR 52, vitals otherwise wnl. Denies LOC.Received signout from Dr. Steele. Patient with unremarkable CTH, C-SPINE CT. CT FACIAL BONES: Left midface subcutaneous edema. Pending BL KNEE RAD, EKG. Glu: 518, nml anion gap, and HCO3. BUN/CR: 36/2.3 (1.6 ), labs otherwise wnl. ED Course: 04/08/18 01:13 EKG: A-fib with HR 45, absent acute ZENAIDA, STD. + RBBB .Nml Qt/Qtc interval. Nml axis. 04/08/18 01:14 trop: Neg NS 500 ml 04/08/18 01:26 Will admit to med/surg MT 04/08/18 02:20 Patient admitted to med/surg Ifudu Endorsed to medicine *DC/Admit/Observation/Transfer Diagnosis at time of Disposition: MT (acute kidney injury) Fall Qualifiers: Encounter type: initial encounter Qualified Code(s): W19.XXXA - Unspecified fall, initial encounter - Discharge Dispostion Condition at time of disposition: Stable Decision to Admit order: Yes - Referrals - Patient Instructions - Post Discharge Activity
--- NOTE | 2018-04-08 03:20 | PN ---
Teaching Attending Note Name of Resident: Williams Uriostegui ATTENDING PHYSICIAN STATEMENT I saw and evaluated the patient. I reviewed the resident's note and discussed the case with the resident. I agree with the resident's findings and plan as documented. SUBJECTIVE: Patient is an 83 year old man with PMH of atrial fibrillation on xarelto, CHF, diet controlled DM, HTN, BPH, GIB, hypothyroidism sent to ER from [facility] for mechanical fall. Says he was leaning forward, lost his balance, and fell forward onto his knees and left face. He denied LOC or vomiting. He has an unclear recall of events surrounding his fall. He denied chest pain, shortness of breath, palpitations, lightheadedness, fever, chills, nausea, vomiting, diarrhea or abdominal pain. OBJECTIVE: Alert but sluggish and intermittently confused Vital Signs Period Temp Pulse Resp BP Sys/Denson Pulse Ox Last 24 Hr 97.4 F-97.5 F 52-60 20-20 145-145/75-75 99-99 HEENT: No Jaundice, eye redness or discharge, Facial asymmetry with right side droop; PERRLA, EOMI. Ecchymoses and swelling in left infraorbital area; Normocephalic, atraumatic. External ears are normal and hearing is grossly intact. No nasal discharge. Neck: Supple, nontender. No palpable adenopathy or thyromegaly. No JVD Chest: Good effort. Clear to auscultation and percussion. Heart: Bradycardia. No S3, rub or murmur Abdomen: Not distended, soft, nontender and no HSM. No rebound or guarding. Normoactive bowel sounds. Ext: Peripheral pulses intact. No leg edema. Knee abrasions and tender knees. Skin: Warm and dry. No petechiae, rash or ecchymosis. Neuro: Alert. Oriented to person and place. CN 2-12 grossly intact. Sensation grossly intact in all four extremities and DTR are symmetric. Home Medications Medication Instructions Recorded Acetaminophen [Tylenol] 600 mg PO QID 01/30/18 Amlodipine Besylate 5 mg PO DAILY 01/30/18 Aspirin [ASA -] 81 mg PO DAILY 01/30/18 Atorvastatin Calcium [Lipitor] 20 mg PO DAILY 01/30/18 Benzonatate 100 mg PO TID 01/30/18 Cetirizine HCl [Zyrtec -] 10 mg PO DAILY 01/30/18 Colchicine 0.6 mg PO DAILY 01/30/18 Digoxin 125 mcg PO DAILY 01/30/18 Furosemide [Lasix] 20 mg PO DAILY 01/30/18 Gabapentin 300 mg PO BID 01/30/18 Hydroxyzine HCl 25 mg PO PRN PRN 01/30/18 Lisinopril 5 mg PO DAILY 01/30/18 Loratadine 10 mg PO DAILY 01/30/18 Metoprolol Succinate 100 mg PO DAILY 01/30/18 Mirabegron [Myrbetriq] 25 mg PO DAILY 01/30/18 Rivaroxaban [Xarelto] 15 mg PO DAILY 01/30/18 Cholecalciferol (Vitamin D3) 2,000 unit PO DAILY 01/31/18 [Vitamin D3] Dextromethorphan/Benzocaine 1 each PO QID PRN 01/31/18 [Cepacol Sorethroat-Cough Charlie] Lactulose 20 gm PO PRN PRN 01/31/18 Levothyroxine Sodium [Levoxyl] 125 mcg PO ACBK 01/31/18 Polyethylene Glycol 3350 [Miralax 17 gm PO DAILY PRN 01/31/18 119 gm Btl -] Psyllium Husk (with Sugar) 3.4 gm PO HS 01/31/18 [Metamucil Packet] Benzocaine/Menth/Cetylpyrd Cl 30 ml MM PRN #1 solution 02/03/18 [Actisep Solution] Tamsulosin HCl [Flomax -] 0.4 mg PO DAILY@0830 cap.er.24h 02/03/18 Metoprolol Tartrate [Lopressor -] 12.5 mg PO BID 30 Days #60 tablet 02/24/18 Abnormal Lab Results 04/07/18 04/07/18 04/07/18 21:50 21:50 21:50 MCHC 31.8 L Monocytes % 12.4 H Nucleated RBC % 2 H PT with INR 15.40 H INR 1.30 H Sodium 133 L BUN 36 H Creatinine 2.3 H Random Glucose 518 H* Alkaline Phosphatase 155 H ASSESSMENT AND PLAN: 1. Mechanical fall - Severe bradycardia and poor glycemic control may be contributing to what is described as "Mechanical" fall. EKG shows bradycardia with nonspecific ST-T wave changes. Will hold metoprolol, monitor on telemetry and consult cardiology. Radiologic studies show nasal septum perforation but no new intracranial pathology or bone fracture. Get urine toxicology. Bradycardia was a concern during his recent admission Feb 2018 - beta locker dose was reduced then but unclear if the facility is giving him the new dose. Will monitor on telemetry. Will continue Xarelto for Afib, check digoxin level, and hold digoxin until serum level is known. Continue fall precautions and neurochecks (facial droop chronic?) and repeat head CT in 24 to 36 hours. Will address polypharmacy with his caregivers at the Assisted Living Facility. 2. MT - Has risk factors for CKD, but may be dehydrated from osmotic diureses induced by hyperglycemia. Will get UA, CPK and kidney sonogram. Correct hyperglycemia, hold lasix/ACEI and hydrate gently. Avoid nephrotoxic agents such as NSAIDS, aminoglycosides, contrast dyes and certain Alternative medicine products. 3. Diet controlled DM - Was on glipizide which was discontinued during his recent admission on 02/22/18 for possible symptomatic hypoglycemia. Will implement sliding scale insulin regimen and consult Endocrine to craft the optimal diabetes regimen for him. Provide comprehensive diabetes care with patient teaching and counseling about the importance of euglycemia, eye care and foot care. 4. Obesity - Will provide patient all the necessary assistance, counseling and positive reinforcement to facilitate weight loss. Consult cable tower operator. 5. DVT prophylaxis - On Xarelto 6. Advance directives - Full code
--- NOTE | 2018-04-08 03:44 | HP ---
CHIEF COMPLAINT: PCP: HISTORY OF PRESENT ILLNESS: pt may be unreliable historian 83 yo M PMH atrial fibrillation on xarelto, CAD, CHF, HTN, DM, HLD, BPH, GIB , hypothyroidism sent to ED from [facility] for mechanical fall earlier this evening. Pt stated he was at home earlier this evening when he was leaning forward, lost his balance, and fell forward onto his knees and left face, was unable to get up on his own after the fall. He reports some associated left cheek bruising and pain. He denied LOC or vomiting. He stated he remembered all events leading up to fall. He states that he usually ambulates with a walker at baseline. He denied cp, sob, MATTHEWS, palpitations, lightheadedness, fever, chills, n/v/d, abdominal pain, urinary sxs pt says he takes whatever meds he is given my [facility]. does not recall if he went to f/u w/ GI doc about GIB ER course was notable for: (1)CT head, CT c-spine, CXR, pelvis XR, right knee XR (2)tylenol, 500 cc bolus normal saline (3) BUN/Cr 36/2.3, glucose 518 Recent Travel: none PAST MEDICAL HISTORY: see above echo 01/2018: EF 50-55%, RV 30-40mmHg PAST SURGICAL HISTORY: couldn't recall surgical history Social History: Smoking:use to smoke cigars occasionally; hasn't smoked a cigar in two years Alcohol:denies Drugs: denies Family History: denies Allergies Fish Containing Products Allergy (Verified 02/21/18 16:34) HOME MEDICATIONS: Home Medications Medication Instructions Recorded Acetaminophen [Tylenol] 600 mg PO QID 01/30/18 Amlodipine Besylate 5 mg PO DAILY 01/30/18 Aspirin [ASA -] 81 mg PO DAILY 01/30/18 Atorvastatin Calcium [Lipitor] 20 mg PO DAILY 01/30/18 Benzonatate 100 mg PO TID 01/30/18 Cetirizine HCl [Zyrtec -] 10 mg PO DAILY 01/30/18 Colchicine 0.6 mg PO DAILY 01/30/18 Digoxin 125 mcg PO DAILY 01/30/18 Furosemide [Lasix] 20 mg PO DAILY 01/30/18 Gabapentin 300 mg PO BID 01/30/18 Hydroxyzine HCl 25 mg PO PRN PRN 01/30/18 Lisinopril 5 mg PO DAILY 01/30/18 Loratadine 10 mg PO DAILY 01/30/18 Metoprolol Succinate 100 mg PO DAILY 01/30/18 Mirabegron [Myrbetriq] 25 mg PO DAILY 01/30/18 Rivaroxaban [Xarelto] 15 mg PO DAILY 01/30/18 Cholecalciferol (Vitamin D3) 2,000 unit PO DAILY 01/31/18 [Vitamin D3] Dextromethorphan/Benzocaine 1 each PO QID PRN 01/31/18 [Cepacol Sorethroat-Cough Charlie] Lactulose 20 gm PO PRN PRN 01/31/18 Levothyroxine Sodium [Levoxyl] 125 mcg PO ACBK 01/31/18 Polyethylene Glycol 3350 [Miralax 17 gm PO DAILY PRN 01/31/18 119 gm Btl -] Psyllium Husk (with Sugar) 3.4 gm PO HS 01/31/18 [Metamucil Packet] Benzocaine/Menth/Cetylpyrd Cl 30 ml MM PRN #1 solution 02/03/18 [Actisep Solution] Tamsulosin HCl [Flomax -] 0.4 mg PO DAILY@0830 cap.er.24h 02/03/18 Metoprolol Tartrate [Lopressor -] 12.5 mg PO BID 30 Days #60 tablet 02/24/18 REVIEW OF SYSTEMS as per hpi PHYSICAL EXAMINATION Vital Signs - 24 hr 04/07/18 04/07/18 21:21 21:35 Temperature 97.4 F L 97.5 F L Pulse Rate 52 L Pulse Rate [ 60 Left Radial] Respiratory 20 20 Rate Blood Pressure 145/75 Blood Pressure 145/75 [Left Arm] O2 Sat by Pulse 99 99 Oximetry (%) GENERAL: AOX3, NAD HEAD: no scalp lacerations,no scalp hematomas. left zygomatic ecchymosis , no facial lacerations EYES: extraocular movements intact, sclera anicteric, conjunctiva clear. No lid lag. EARS, NOSE, THROAT: Ears normal, nares patent, oropharynx clear without exudates. MMM NECK: Normal range of motion, supple without lymphadenopathy, JVD, or masses. LUNGS: CTAB HEART: Bradycardia. , normal S1 and S2 without murmur, rub or gallop. ABDOMEN: Soft, ntnd, normoactive bowel sounds, no guarding, no rebound, no masses. MUSCULOSKELETAL: Normal range of motion at all joints. No bony deformities or tenderness. UPPER EXTREMITIES: 2+ pulses, warm, well-perfused. No cyanosis. No clubbing. No peripheral edema. LOWER EXTREMITIES: 2+ pulses, warm, well-perfused. No calf tenderness. No peripheral edema. b/l knee abrasions, rt knee has mild tenderness NEUROLOGICAL: Cranial nerves II-XII intact. Normal speech. can move all extremities,able to lift both legs PSYCHIATRIC: Cooperative. Good eye contact. Appropriate mood and affect. SKIN: Warm, dry, normal turgor, no rashes or lesions noted, normal capillary refill. Laboratory Results - last 24 hr 04/07/18 04/07/18 04/07/18 21:50 21:50 21:50 WBC 4.0 RBC 4.52 Hgb 12.6 Hct 39.6 MCV 87.8 MCH 28.0 MCHC 31.8 L RDW 14.9 Plt Count 172 D MPV 8.8 Absolute Neuts (auto) 2.5 Neutrophils % 62.5 Lymphocytes % 22.2 Monocytes % 12.4 H Eosinophils % 2.3 Basophils % 0.6 Nucleated RBC % 2 H PT with INR 15.40 H INR 1.30 H PTT (Actin FS) 30.5 Sodium Potassium Chloride Carbon Dioxide Anion Gap BUN Creatinine Creat Clearance w eGFR Random Glucose Calcium Total Bilirubin AST ALT Alkaline Phosphatase Troponin I Total Protein Albumin Blood Type O POSITIVE Antibody Screen Negative 04/07/18 21:50 WBC RBC Hgb Hct MCV MCH MCHC RDW Plt Count MPV Absolute Neuts (auto) Neutrophils % Lymphocytes % Monocytes % Eosinophils % Basophils % Nucleated RBC % PT with INR INR PTT (Actin FS) Sodium 133 L Potassium 4.8 Chloride 98 Carbon Dioxide 26 Anion Gap 9 BUN 36 H Creatinine 2.3 H Creat Clearance w eGFR 27.29 Random Glucose 518 H* Calcium 8.7 Total Bilirubin 0.7 AST 27 ALT 47 Alkaline Phosphatase 155 H Troponin I < 0.02 Total Protein 6.7 Albumin 3.8 Blood Type Antibody Screen CT head report report: no acute intracranial pathology. Ct cervical spine report: no acute pathology. there is degenerative disc disease. CT facial bones report: subcutaneous edema along left mid face. no fracture identified. 0.7 cm perforation of cartiliginous nasal septum. ASSESSMENT/PLAN: 83 yo M PMH atrial fibrillation on xarelto, CAD, CHF, HTN, DM, HLD, BPH, GIB , gout, hypothyroidism sent to ED from [facility] for mechanical fall, found to have MT and hyperglycemia to 518 Mechanical fall - pt is now jovon HR 45 on EKG, may have contribute to fall. Bradycardia was a concern during his recent admission Feb 2018 - beta locker dose was reduced then but unclear if the facility is giving him the new dose. Will address polypharmacy with his care givers at the [facility]. check digoxin level, and hold digoxin until serum level is known telemetry CT head report report: no acute intracranial pathology. Ct cervical spine report: no acute pathology. there is degenerative disc disease. CT facial bones report: subcutaneous edema along left mid face. no fracture identified. 0.7 cm perforation of cartiliginous nasal septum. knee XR appear to show no frx on my read. f/u on official read pain ctl PT eval fall precautions neurochecks repeat head CT in 24 to 36 hours Utox hold BB consider cardio consult EKG: A-fib with HR 45, absent acute ZENAIDA. + RBBB .Nml Qt interval. Qtc 413. TWI V5-6, changed from last EKG 02/2018 MT - likely prerenal 2/2 hyperglycemic osmotic diureses. Also has risk factors for CKD. s/p 500cc NS in ED Order UA, CPK and kidney U/S ISS for hyperglycemia hold lasix, ACEi in setting of MT monitor BMPs and response to fluid challenge hydrate gently w/ PO Avoid nephrotoxic agents such as NSAIDS, aminoglycosides, contrast dyes gout home dose colchicine hypothyroidism home dose synthroid CAD,HLD statin ASA HTN amlodipine BPH home dose meds A-fib continue Xarelto for Afib hold bb in setting bradycardia hold dig until level drawn DM - Unctl, hyperglycemic 500s. Was on glipizide which was discontinue during his recent admission on 02/22/18 for possible symptomatic hypoglycemia. BGM ACHS ISS endo consult for labile sugars FEN s/p 500cc NS, c/w PO hydration replete prn low sodium DM, low choles diet ppx On Xarelto Full code Dispo tele obs Visit type - Emergency Visit Emergency Visit: Yes ED Registration Date: 04/08/18 Care time: The patient presented to the Emergency Department on the above date and was hospitalized for further evaluation of their emergent condition. - New Patient This patient is new to me today: Yes Date on this admission: 04/08/18 - Critical Care Critical Care patient: No
[2018-04-08] MEDS ORDERED: ACETAMINOPHEN 325 MG TABLET (FP) PO PRN (04:53)
[2018-04-08] MEDS ORDERED: hydrOXYzine HCL 25 MG TABLET (FP) PO PRN (05:06)
[2018-04-08] MEDS ORDERED: [UNRECOGNIZED DRUG - OTHER] MM SCH (05:15)
[2018-04-08] MEDS ORDERED: MENTHOL MM SCH (05:15)
[2018-04-08] MEDS ORDERED: BENZOCAINE MM SCH (05:15)
[2018-04-08] MEDS ORDERED: PHENOL 177 ML SPRAY BOTTLE MM PRN (05:30)
[2018-04-08] MEDS ORDERED: PATIENT'S OWN MEDICATION (NON-FORMULARY) (Benzonatate [Benzonatate] 100 MG) PO SCH (06:00)
[2018-04-08] MEDS: INSULIN SLIDING SCALE (NOVOLOG) 1 VIAL SQ SCH ×4 (06:07→21:11)
[2018-04-08] MEDS: LEVOTHYROXINE NA 125 MCG TABLET (FP) PO SCH (06:07)
[2018-04-08 06:22] LABS: ALBUMIN 3.7 g/dl (3.4-5.0); ALK PHOS 141 U/L (45-117); ANION GAP 8 MMOL/L (8-16); BILIRUBIN,TOTAL 0.8 mg/dL (0.2-1); BLOOD UREA NITROGEN 32 mg/dL (7-18); CALCIUM 8.5 mg/dL (8.5-10.1); CHLORIDE 101 mmol/L (98-107); CO2 26 mmol/L (21-32); CREATININE 1.9 mg/dL (0.55-1.3); PHOSPHOROUS 3.3 mg/dL (2.5-4.9); POTASSIUM 4.3 mmol/L (3.5-5.1); SGOT/AST 27 U/L (15-37); SGPT/ALT 46 U/L (13-61); SODIUM 135 mmol/L (136-145); TOT PROT 6.6 g/dl (6.4-8.2)
[2018-04-08 06:28] LABS: GLUCOSE,RANDOM 400 mg/dL (74-106)
[2018-04-08 06:47] VITALS: BMI 31.2
[2018-04-08 06:53] LABS: BASO % 0.7 % (0-2.0); EOS % 3.5 % (0-4.5); HEMATOCRIT 39.9 % (35.4-49); HEMOGLOBIN 12.7 GM/dL (11.7-16.9); LYMPH % 32.5 % (8-40); MCH 27.9 pg (25.7-33.7); MCHC 31.9 g/dl (32.0-35.9); MEAN CELL VOLUME 87.6 fl (80-96); MEAN PLT VOLUME 9.2 fl (7.5-11.1); MONO % 12.3 % (3.8-10.2); PLATELET COUNT 179 K/MM3 (134-434); RBC 4.56 M/mm3 (4.00-5.60); RDW 14.9 % (11.9-15.9); WHITE BLOOD COUNT 4.8 K/mm3 (4.0-10.0)
[2018-04-08] MEDS: TAMSULOSIN HCL 0.4 MG CAP PO SCH (08:07)
[2018-04-08] MEDS ORDERED: INSULIN (LEVEMIR) 100 UNITS/ML UNITS SQ ONE (08:51)
[2018-04-08] MEDS: COLCHICINE 0.6 MG TABLET (FP) PO SCH (09:03)
[2018-04-08] MEDS: amLODIPine BESYLATE 5 MG TABLET (FP) PO SCH (09:03)
[2018-04-08] MEDS: GABAPENTIN 300 MG CAPSULE (FP) PO SCH ×2 (09:03→21:11)
[2018-04-08] MEDS: CHOLECALCIFEROL (VITAMIN D3) 1,000 UNIT TABLET (FP) PO SCH (09:04)
[2018-04-08] MEDS: LORATADINE 10 MG TABLET PO SCH (09:05)
[2018-04-08] MEDS ORDERED: ASPIRIN 81 MG CHEWABLE TABLETS PO SCH (10:00)
[2018-04-08] MEDS ORDERED: PATIENT'S OWN MEDICATION (NON-FORMULARY) (Cetirizine Hcl 10 MG) PO SCH (10:00)
[2018-04-08 10:03] LABS: URINE APPEARANCE CLEAR; URINE BILIRUBIN NEGATIVE (<2.0 mg/dL); URINE COLOR LTYELLOW; URINE GLUCOSE (UA) 3+ (NEGATIVE); URINE KETONE NEGATIVE (NEGATIVE); URINE LEUK ESTERASE NEGATIVE (NEGATIVE); URINE NITRITE NEGATIVE (NEGATIVE); URINE PROTEIN NEGATIVE (NEGATIVE); URINE UROBILINOGEN NEGATIVE mg/dL (0.2-1.0)
[2018-04-08 10:13] LABS: COCAINE, UR NEGATIVE ng/ml (CUTOFF=300); METHADONE, UR NEGATIVE ng/ml (CUTOFF=300); OPIATES, URI NEGATIVE ng/ml (CUTOFF=300); PHENCYCLIDINE,URINE NEGATIVE ng/ml (CUTOFF=25); URINE AMPHETAMINES NEGATIVE ng/ml (CUTOFF=500); URINE BARBITURATES NEGATIVE ng/ml (CUTOFF=200); URINE BENZODIAZEPINES NEGATIVE ng/ml (CUTOFF=200)
--- NOTE | 2018-04-08 12:21 | CONSULT ---
Consult Consult Specialty:: Endocrinology Referred by:: Williams Uriostegui MD Reason for Consultation:: Hyperglycemia - History of Present Illness Chief Complaint: Fall History of Present Illness: This is an 83 y/o man with h/o atrial fibrillation on xarelto, CAD, CHF, HTN, T2DM for about 15 years, never on Insulin, HLD, BPH, GIB, hypothyroidism sent to ED from [facility] for mechanical fall. Pt stated he was at home earlier this evening when he was leaning forward, lost his balance, and fell forward onto his knees and left face, was unable to get up on his own after the fall. He reports some associated left cheek bruising and pain. He denied LOC or vomiting. He stated he remembered all events leading up to fall. He stated that he usually ambulates with a walker at baseline. He denied cp, sob , MATTHEWS, palpitations, lightheadedness, fever, chills, n/v/d, abdominal pain,. Has nocturia 3 to 4 times. No visual symptoms. No paresthesia of feet. No family h/ o DM. Pt found to have hyperglycemia and referred for management. Pt was on Glipizide during last admission in February. He did get Novolog coverage during the period. - History Source History Provided By: Patient, Medical Record Limitations to Obtaining History: Poor Historian - Past Medical History Cardio/Vascular: Yes: AFIB Gastrointestinal: Yes: Constipation Rheumatology: Yes: Gout Endocrine: Yes: Diabetes Mellitus, Hypothyroidism - Alcohol/Substance Use Hx Alcohol Use: No - Smoking History Smoking history: Unknown if ever smoked Have you smoked in the past 12 months: No - Social History Usual Living Arrangement: Alone Home Medications - Allergies Allergies/Adverse Reactions: Allergies Allergy/AdvReac Type Severity Reaction Status Date / Time Fish Containing Products Allergy Verified 02/21/18 16:34 - Home Medications Home Medications: Ambulatory Orders Acetaminophen [Tylenol] 600 mg PO QID 01/30/18 Amlodipine Besylate 5 mg PO DAILY 01/30/18 Aspirin [ASA -] 81 mg PO DAILY 01/30/18 Atorvastatin Calcium [Lipitor] 20 mg PO DAILY 01/30/18 Benzonatate 100 mg PO TID 01/30/18 Cetirizine HCl [Zyrtec -] 10 mg PO DAILY 01/30/18 Colchicine 0.6 mg PO DAILY 01/30/18 Digoxin 125 mcg PO DAILY 01/30/18 Furosemide [Lasix] 20 mg PO DAILY 01/30/18 Gabapentin 300 mg PO BID 01/30/18 Hydroxyzine HCl 25 mg PO PRN PRN 01/30/18 Lisinopril 5 mg PO DAILY 01/30/18 Loratadine 10 mg PO DAILY 01/30/18 Metoprolol Succinate 100 mg PO DAILY 01/30/18 Mirabegron [Myrbetriq] 25 mg PO DAILY 01/30/18 Rivaroxaban [Xarelto] 15 mg PO DAILY 01/30/18 Cholecalciferol (Vitamin D3) [Vitamin D3] 2,000 unit PO DAILY 01/31/18 Dextromethorphan/Benzocaine [Cepacol Sorethroat-Cough Charlie] 1 each PO QID PRN Lactulose 20 gm PO PRN PRN 01/31/18 Levothyroxine Sodium [Levoxyl] 125 mcg PO ACBK 01/31/18 Polyethylene Glycol 3350 [Miralax 119 gm Btl -] 17 gm PO DAILY PRN 01/31/18 Psyllium Husk (with Sugar) [Metamucil Packet] 3.4 gm PO HS 01/31/18 Benzocaine/Menth/Cetylpyrd Cl [Actisep Solution] 30 ml MM PRN #1 solution Tamsulosin HCl [Flomax -] 0.4 mg PO DAILY@0830 cap.er.24h 02/03/18 Metoprolol Tartrate [Lopressor -] 12.5 mg PO BID 30 Days #60 tablet 02/24/18 Family Disease History - Family Disease History Other Family History: No family h/o DM Review of Systems - Review of Systems Constitutional: reports: Malaise Eyes: reports: No Symptoms HENT: reports: No Symptoms Neck: reports: No Symptoms Cardiovascular: reports: No Symptoms Respiratory: reports: No Symptoms Gastrointestinal: reports: No Symptoms Genitourinary: reports: Other (Nocturia) Musculoskeletal: reports: No Symptoms Neurological: reports: No Symptoms Endocrine: reports: No Symptoms Physical Exam Vital Signs: Vital Signs Temperature 97.9 F 04/08/18 11:25 Pulse Rate 52 L 04/08/18 11:25 Respiratory Rate 20 04/08/18 11:25 Blood Pressure 128/66 04/08/18 11:25 O2 Sat by Pulse Oximetry (%) 96 04/08/18 10:53 Constitutional: Yes: No Distress, Calm Eyes: Yes: Conjunctiva Clear, EOM Intact HENT: Yes: Atraumatic, Normocephalic Neck: Yes: Supple, Trachea Midline Respiratory: Yes: Regular, CTA Bilaterally Gastrointestinal: Yes: Normal Bowel Sounds, Soft Musculoskeletal: Yes: WNL Extremities: Yes: WNL Edema: No Neurological: Yes: Alert, Facial Droop Labs: CBC, BMP 04/08/18 05:13 04/08/18 05:13 Imaging - Results Cat Scan: Report Reviewed Assessment/Plan AP; S/P Fall T2DM Uncontrolled MT Gout Hypothyroidism CAD,HLD HTN A-fib BGM QACHS Continue Novolog SS coverage Monitor Renal function: Cr 1.2 to 1.6 during previous admissions, 2.3 and 1.9 during this admission Will start oral hypoglycemics once renal funtion is stable. Continue LT4 125mcg QD HbA1c Will f/u
--- NOTE | 2018-04-08 13:00 | HOSP ---
Subjective - Review of Symptoms Events since last encounter: Pt seen and examined. No fever or chills. no cp or SOB. No abd pain. exam : VS reviewed. NAD . awake CV:: RRR. 3/6 sm at [facility] Lngs: [facility] abd: sfot, NT, ND , NL BS Ext : no edema plan : 83 y/o man with h/p afib, CHF, CKD, CAD, HTN, gout, hypothyroid, ischemic colitis , and RBBB, and bradycardia who presented to the ER after a mechanical fall 1- Mechanical fall : no fractures 2- bradycardia. hold metoprolol and dig . monitor . 3- Dm with severe hyperglycemia. not on any meds at [facility]. - suagar 500 , I gave levemir and SSI . - will check A1c . if very high will continue insulin treatment ( long and short acting) . if acceptable, can do out patient po meds 4- A fib with bradycardia . per MT records he is on dig and lopressor. will hold now , card eval. cont xarelto 5- MT : likely prerenal. start IVF. renal us reviewed. Physical Examination Vital Signs: Vital Signs Temperature 97.9 F 04/08/18 11:25 Pulse Rate 52 L 04/08/18 11:25 Respiratory Rate 20 04/08/18 11:25 Blood Pressure 128/66 04/08/18 11:25 O2 Sat by Pulse Oximetry (%) 96 04/08/18 10:53 Labs: CBC, BMP 04/08/18 05:13 04/08/18 05:13
[2018-04-08] MEDS ORDERED: SODIUM CHLORIDE 1,000 ML IV SCH (13:15)
--- NOTE | 2018-04-08 13:54 | CON.CARD ---
Consult Consult Specialty:: Cardiology Referred by:: Hospitalist service Reason for Consultation:: Cardiac evaluation - History of Present Illness Chief Complaint: Mechanical fall History of Present Illness: Patient is an 83 year old male with underlying history of AF on NOAC (Xarelto), history of LV dysfunction and CHF, DM, HTN, BPH, hypothyroidism and GI bleed who presents from [facility] after a mechanical fall. As he was trying to reach for the walker, he fell forward after losing balance and fell onto his knees and left side of his face. He denies LOC. He denies chest pain, SOB or palpitations. He denies paroxysmal nocturnal dyspnea or orthopnea. He denies fever or chills. He denies headache or lightheadedness. He denies nausea, vomiting, diarrhea or abdominal pain. - History Source History Provided By: Patient, Medical Record Limitations to Obtaining History: No Limitations - Past Medical History Cardio/Vascular: Yes: AFIB, HTN Gastrointestinal: Yes: Constipation Rheumatology: Yes: Gout Endocrine: Yes: Diabetes Mellitus, Hypothyroidism - Past Surgical History Past Surgical History: Yes: Hernia Repair - Alcohol/Substance Use Hx Alcohol Use: No - Smoking History Smoking history: Former smoker Have you smoked in the past 12 months: No - Social History Usual Living Arrangement: Alone Home Medications - Allergies Allergies/Adverse Reactions: Allergies Allergy/AdvReac Type Severity Reaction Status Date / Time Fish Containing Products Allergy Verified 02/21/18 16:34 - Home Medications Home Medications: Ambulatory Orders Acetaminophen [Tylenol] 600 mg PO QID 01/30/18 Amlodipine Besylate 5 mg PO DAILY 01/30/18 Aspirin [ASA -] 81 mg PO DAILY 01/30/18 Atorvastatin Calcium [Lipitor] 20 mg PO DAILY 01/30/18 Cetirizine HCl [Zyrtec -] 10 mg PO DAILY 01/30/18 Colchicine 0.6 mg PO DAILY 01/30/18 Digoxin 125 mcg PO DAILY 01/30/18 Furosemide [Lasix] 20 mg PO DAILY 01/30/18 Gabapentin 300 mg PO BID 01/30/18 Hydroxyzine HCl 25 mg PO PRN PRN 01/30/18 Lisinopril 5 mg PO DAILY 01/30/18 Rivaroxaban [Xarelto] 15 mg PO DAILY 01/30/18 Cholecalciferol (Vitamin D3) [Vitamin D3] 2,000 unit PO DAILY 01/31/18 Lactulose 20 gm PO PRN PRN 01/31/18 Levothyroxine Sodium [Levoxyl] 125 mcg PO ACBK 01/31/18 Polyethylene Glycol 3350 [Miralax 119 gm Btl -] 17 gm PO DAILY PRN 01/31/18 Psyllium Husk (with Sugar) [Metamucil Packet] 3.4 gm PO HS 01/31/18 Tamsulosin HCl [Flomax -] 0.4 mg PO DAILY@0830 cap.er.24h 02/03/18 Metoprolol Tartrate [Lopressor -] 12.5 mg PO BID 30 Days #60 tablet 02/24/18 Metoprolol Tartrate 12.5 mg PO BID 04/08/18 Oxybutynin Chloride [Oxybutynin Chloride ER] 10 mg PO DAILY 04/08/18 Pantoprazole Sodium [Protonix] 40 mg PO DAILY 04/08/18 Family Disease History - Family Disease History Other Family History: No family h/o DM Review of Systems - Review of Systems Constitutional: denies: Chills, Fever Cardiovascular: denies: Chest Pain, Palpitations, Shortness of Breath Respiratory: denies: Cough, Hemoptysis, Orthopnea, PND, SOB, SOB on Exertion Gastrointestinal: denies: Abdominal Pain, Constipation, Diarrhea, Melena, Nausea , Rectal Bleeding, Vomiting Genitourinary: denies: Dysuria, Hematuria Musculoskeletal: reports: Joint Pain Neurological: denies: Dizziness, Headache, Seizure, Syncope Vital Signs: Vital Signs Temperature 97.9 F 04/08/18 11:25 Pulse Rate 52 L 04/08/18 11:25 Respiratory Rate 20 04/08/18 11:25 Blood Pressure 128/66 04/08/18 11:25 O2 Sat by Pulse Oximetry (%) 96 04/08/18 10:53 HENT: Yes: Atraumatic Neck: Yes: Supple Respiratory: Yes: CTA Bilaterally Gastrointestinal: Yes: Normal Bowel Sounds, Soft. No: Tenderness Cardiovascular: Yes: Pulse Irregular JVD: No Carotid Bruit: No PMI: Non-Displaced Heart Sounds: Yes: S1, S2 Murmur: Yes: Systolic Murmur, Grade 1 Edema: No - Other Data Labs, Other Data: CBC, BMP 04/08/18 05:13 04/08/18 05:13 INR, PTT INR 1.30 (0.83-1.09) H 04/07/18 21:50 Troponin, BNP 04/07/18 21:50 Troponin I < 0.02 Laboratory Results - last 24 hr 04/07/18 04/07/18 04/07/18 21:50 21:50 21:50 WBC 4.0 RBC 4.52 Hgb 12.6 Hct 39.6 MCV 87.8 MCH 28.0 MCHC 31.8 L RDW 14.9 Plt Count 172 D MPV 8.8 Absolute Neuts (auto) 2.5 Neutrophils % 62.5 Lymphocytes % 22.2 Monocytes % 12.4 H Eosinophils % 2.3 Basophils % 0.6 Nucleated RBC % 2 H PT with INR 15.40 H INR 1.30 H PTT (Actin FS) 30.5 Sodium Potassium Chloride Carbon Dioxide Anion Gap BUN Creatinine Creat Clearance w eGFR POC Glucometer Random Glucose Calcium Phosphorus Magnesium Total Bilirubin AST ALT Alkaline Phosphatase Creatine Kinase Troponin I Total Protein Albumin Urine Color Urine Appearance Urine pH Ur Specific [place] Urine Protein Urine Glucose (UA) Urine Ketones Urine Blood Urine Nitrite Urine Bilirubin Urine Urobilinogen Ur Leukocyte Esterase Digoxin Opiates Screen Methadone Screen Barbiturate Screen Phencyclidine Screen Ur Amphetamines Screen MDMA (Ecstasy) Screen Benzodiazepines Screen Cocaine Screen U Marijuana (THC) Screen Blood Type O POSITIVE Antibody Screen Negative 04/07/18 04/08/18 04/08/18 21:50 05:13 05:13 WBC RBC Hgb Hct MCV MCH MCHC RDW Plt Count MPV Absolute Neuts (auto) Neutrophils % Lymphocytes % Monocytes % Eosinophils % Basophils % Nucleated RBC % PT with INR INR PTT (Actin FS) Sodium 133 L 135 L Potassium 4.8 4.3 Chloride 98 101 Carbon Dioxide 26 26 Anion Gap 9 8 BUN 36 H 32 H Creatinine 2.3 H 1.9 H Creat Clearance w eGFR 27.29 34.02 POC Glucometer Random Glucose 518 H* 400 H* Calcium 8.7 8.5 Phosphorus 3.3 Magnesium 2.0 Total Bilirubin 0.7 0.8 AST 27 27 ALT 47 46 Alkaline Phosphatase 155 H 141 H Creatine Kinase 41 Troponin I < 0.02 Total Protein 6.7 6.6 Albumin 3.8 3.7 Urine Color Urine Appearance Urine pH Ur Specific [place] Urine Protein Urine Glucose (UA) Urine Ketones Urine Blood Urine Nitrite Urine Bilirubin Urine Urobilinogen Ur Leukocyte Esterase Digoxin 1.14 Opiates Screen Methadone Screen Barbiturate Screen Phencyclidine Screen Ur Amphetamines Screen MDMA (Ecstasy) Screen Benzodiazepines Screen Cocaine Screen U Marijuana (THC) Screen Blood Type Antibody Screen 04/08/18 04/08/18 04/08/18 05:13 05:13 09:06 WBC 4.8 RBC 4.56 Hgb 12.7 Hct 39.9 MCV 87.6 MCH 27.9 MCHC 31.9 L RDW 14.9 Plt Count 179 MPV 9.2 Absolute Neuts (auto) 2.5 Neutrophils % 51.0 Lymphocytes % 32.5 D Monocytes % 12.3 H Eosinophils % 3.5 Basophils % 0.7 Nucleated RBC % 0 PT with INR INR PTT (Actin FS) Sodium Cancelled Potassium Cancelled Chloride Cancelled Carbon Dioxide Cancelled Anion Gap Cancelled BUN Cancelled Creatinine Cancelled Creat Clearance w eGFR Cancelled POC Glucometer Random Glucose Cancelled Calcium Cancelled Phosphorus Cancelled Magnesium Cancelled Total Bilirubin Cancelled AST Cancelled ALT Cancelled Alkaline Phosphatase Cancelled Creatine Kinase Troponin I Total Protein Cancelled Albumin Cancelled Urine Color Ltyellow Urine Appearance Clear Urine pH 5.0 Ur Specific [place] 1.016 Urine Protein Negative Urine Glucose (UA) 3+ H Urine Ketones Negative Urine Blood Negative Urine Nitrite Negative Urine Bilirubin Negative Urine Urobilinogen Negative Ur Leukocyte Esterase Negative Digoxin Opiates Screen Methadone Screen Barbiturate Screen Phencyclidine Screen Ur Amphetamines Screen MDMA (Ecstasy) Screen Benzodiazepines Screen Cocaine Screen U Marijuana (THC) Screen Blood Type Antibody Screen Atrial fibrillation RBBB, T abnormality Imaging - Results Chest X-ray: Report Reviewed (Lungs Clear) X-ray: Report Reviewed (Knee Xray no fracture) Cat Scan: Report Reviewed (Head CT unremarkable Facial CT no fracture) EKG: Report Reviewed Problem List - Problems (1) Hypercholesterolemia Code(s): E78.00 - PURE HYPERCHOLESTEROLEMIA, UNSPECIFIED (2) Fall Code(s): W19.XXXA - UNSPECIFIED FALL, INITIAL ENCOUNTER Qualifiers: Encounter type: initial encounter Qualified Code(s): W19.XXXA - Unspecified fall, initial encounter (3) Acute on chronic kidney failure Code(s): N17.9 - ACUTE KIDNEY FAILURE, UNSPECIFIED; N18.9 - CHRONIC KIDNEY DISEASE, UNSPECIFIED (4) Atrial fibrillation with slow ventricular response Code(s): I48.91 - UNSPECIFIED ATRIAL FIBRILLATION (5) BPH (benign prostatic hyperplasia) Code(s): N40.0 - BENIGN PROSTATIC HYPERPLASIA WITHOUT LOWER URINRY TRACT SYMP Qualifiers: Lower urinary tract symptom presence: unspecified whether lower urinary tract symptoms present Qualified Code(s): N40.0 - Benign prostatic hyperplasia without lower urinary tract symptoms (6) DM type 2 (diabetes mellitus, type 2) Code(s): E11.9 - TYPE 2 DIABETES MELLITUS WITHOUT COMPLICATIONS Qualifiers: Diabetes mellitus group home insulin use: without group home use Diabetes mellitus complication status: with unspecified complications Qualified Code(s) : E11.8 - Type 2 diabetes mellitus with unspecified complications (7) HTN (hypertension) Code(s): I10 - ESSENTIAL (PRIMARY) HYPERTENSION Qualifiers: Hypertension type: essential hypertension Qualified Code(s): I10 - Essential (primary) hypertension (8) Hypothyroid Code(s): E03.9 - HYPOTHYROIDISM, UNSPECIFIED Qualifiers: Hypothyroidism type: acquired Qualified Code(s): E03.9 - Hypothyroidism, unspecified Assessment/Plan 1. Mechanical fall with no LOC 2. HTN 3. AF on NOAC 4. Hypercholesterolemia 5. DM 6. Acute on chronic LV failure ? systolic +/- diastolic 7. Hypothyroidism 8. CKD PLAN: 1. Transthoracic echocardiography to assess LV/RV and valvular function 2. Continue Amlodipine 3. Continue Xarelto 15 mg QD 4. Consider stopping ASA 5. Metoprolol at a low dose may be considered once HR permissible. Agree stopping Digoxin Further plans are to follow Wero Shelby MD
[2018-04-08] MEDS: RIVAROXABAN 15 MG TABLET PO SCH (17:42)
[2018-04-08] MEDS ORDERED: INSULIN (NOVOLOG) ASPART 100 UNITS/ML 10ML VIAL ONE (21:05)
[2018-04-08] MEDS: ATORVASTATIN CA 20 MG TABLET (FP) PO SCH (21:11)
[2018-04-09] MEDS: LEVOTHYROXINE NA 125 MCG TABLET (FP) PO SCH (06:24)
[2018-04-09] MEDS: INSULIN SLIDING SCALE (NOVOLOG) 1 VIAL SQ SCH ×4 (06:24→21:28)
[2018-04-09] MEDS ORDERED: INSULIN (LEVEMIR) 100 UNITS/ML UNITS SQ SCH (07:00)
[2018-04-09] MEDS: TAMSULOSIN HCL 0.4 MG CAP PO SCH (08:02)
[2018-04-09] MEDS: GABAPENTIN 300 MG CAPSULE (FP) PO SCH ×2 (10:15→21:25)
[2018-04-09] MEDS: LORATADINE 10 MG TABLET PO SCH (10:15)
[2018-04-09] MEDS: CHOLECALCIFEROL (VITAMIN D3) 1,000 UNIT TABLET (FP) PO SCH (10:15)
[2018-04-09] MEDS: COLCHICINE 0.6 MG TABLET (FP) PO SCH (10:15)
[2018-04-09] MEDS: amLODIPine BESYLATE 5 MG TABLET (FP) PO SCH (10:15)
--- NOTE | 2018-04-09 10:48 | PN ---
Physical Exam: SUBJECTIVE: Patient seen and examined at bedside. No acute events overnight. Pt seen comfortable. OBJECTIVE: Vital Signs Temperature 98.0 F 04/09/18 06:00 Pulse Rate 75 04/09/18 10:00 Respiratory Rate 20 04/09/18 10:00 Blood Pressure 144/87 04/09/18 10:00 O2 Sat by Pulse Oximetry (%) 95 04/09/18 04:00 GENERAL: AOX3, NAD HEAD: no scalp lacerations,no scalp hematomas. left zygomatic ecchymosis , no facial lacerations EYES: EOMI, sclera anicteric, conjunctiva clear. No lid lag. EARS, NOSE, THROAT: Ears normal, nares patent, oropharynx clear without exudates. MMM NECK: Normal range of motion, supple without lymphadenopathy, JVD, or masses. LUNGS: CTAB HEART: Irregularly irregular. Normal S1 and S2 without murmur, rub or gallop. ABDOMEN: Soft, ntnd, normoactive bowel sounds, no guarding, no rebound, no masses. MUSCULOSKELETAL: Normal range of motion at all joints. No bony deformities or tenderness. UPPER EXTREMITIES: 2+ pulses, warm, well-perfused. No cyanosis. No clubbing. No peripheral edema. LOWER EXTREMITIES: 2+ pulses, warm, well-perfused. No calf tenderness. No peripheral edema. b/l knee abrasions, rt knee has mild tenderness NEUROLOGICAL: Cranial nerves II-XII intact. Normal speech. can move all extremities,able to lift both legs PSYCHIATRIC: Cooperative. Good eye contact. Appropriate mood and affect. SKIN: Warm, dry, normal turgor, no rashes or lesions noted, normal capillary refill. CBCD WBC 4.8 K/mm3 (4.0-10.0) 04/08/18 05:13 RBC 4.56 M/mm3 (4.00-5.60) 04/08/18 05:13 Hgb 12.7 GM/dL (11.7-16.9) 04/08/18 05:13 Hct 39.9 % (35.4-49) 04/08/18 05:13 MCV 87.6 fl (80-96) 04/08/18 05:13 MCHC 31.9 g/dl (32.0-35.9) L 04/08/18 05:13 RDW 14.9 % (11.9-15.9) 04/08/18 05:13 Plt Count 179 K/MM3 (134-434) 04/08/18 05:13 MPV 9.2 fl (7.5-11.1) 04/08/18 05:13 CMP Sodium 135 mmol/L (136-145) L 04/08/18 05:13 Potassium 4.3 mmol/L (3.5-5.1) 04/08/18 05:13 Chloride 101 mmol/L (98-107) 04/08/18 05:13 Carbon Dioxide 26 mmol/L (21-32) 04/08/18 05:13 Anion Gap 8 MMOL/L (8-16) 04/08/18 05:13 BUN 32 mg/dL (7-18) H 04/08/18 05:13 Creatinine 1.9 mg/dL (0.55-1.3) H 04/08/18 05:13 Creat Clearance w eGFR 34.02 (>60) 04/08/18 05:13 Calcium 8.5 mg/dL (8.5-10.1) 04/08/18 05:13 Total Bilirubin 0.8 mg/dL (0.2-1) 04/08/18 05:13 AST 27 U/L (15-37) 04/08/18 05:13 ALT 46 U/L (13-61) 04/08/18 05:13 Alkaline Phosphatase 141 U/L (45-117) H 04/08/18 05:13 Total Protein 6.6 g/dl (6.4-8.2) 04/08/18 05:13 Albumin 3.7 g/dl (3.4-5.0) 04/08/18 05:13 Active Medications Acetaminophen (Tylenol -) 650 mg PO Q4H PRN PRN Reason: PAIN LEVEL 6-10 Last Admin: 04/08/18 09:04 Dose: 650 mg Amlodipine Besylate (Norvasc -) 5 mg PO DAILY [facility] Last Admin: 04/09/18 10:15 Dose: 5 mg Atorvastatin Calcium (Lipitor -) 20 mg PO HS [facility] Last Admin: 04/08/18 21:11 Dose: 20 mg Cholecalciferol (Vitamin D3 -) 2,000 unit PO DAILY [facility] Last Admin: 04/09/18 10:15 Dose: 2,000 unit Colchicine (Colcrys -) 0.6 mg PO DAILY [facility] Last Admin: 04/09/18 10:15 Dose: 0.6 mg Gabapentin (Neurontin -) 300 mg PO BID [facility] Last Admin: 04/09/18 10:15 Dose: 300 mg Hydroxyzine HCl (Atarax -) 25 mg PO Q8H PRN PRN Reason: FOR ITCHING Sodium Chloride (Normal Saline -) 1,000 mls @ 75 mls/hr IV ASDIR [facility] Last Admin: 04/08/18 14:04 Dose: 75 mls/hr Insulin Aspart (Novolog Vial Sliding Scale -) 1 vial SQ HS [facility]; Protocol Last Admin: 04/08/18 21:11 Dose: Not Given Insulin Aspart (Novolog Vial Sliding Scale -) 1 vial SQ TIDAC [facility]; Protocol Last Admin: 04/09/18 06:24 Dose: 2 units Insulin Detemir (Levemir Vial) 15 units SQ AM [facility] Last Admin: 04/09/18 06:23 Dose: 15 units Levothyroxine Sodium (Synthroid -) 125 mcg PO ACBK [facility] Last Admin: 04/09/18 06:24 Dose: 125 mcg Loratadine (Claritin -) 10 mg PO DAILY [facility] Last Admin: 04/09/18 10:15 Dose: 10 mg Phenol/Menthol (Chloraseptic -) 2 spray MM Q6H PRN PRN Reason: SORE THROAT Rivaroxaban (Xarelto) 15 mg PO DAILY@1800 [facility] Last Admin: 04/08/18 17:42 Dose: 15 mg Tamsulosin HCl (Flomax -) 0.4 mg PO DAILY@0830 [facility] Last Admin: 04/09/18 08:02 Dose: 0.4 mg IMAGING: * Head CT (04/07/18): no acute intracranial pathology. * CT C-spine: no acute pathology. there is degenerative disc disease. * CT facial bones: subcutaneous edema along left mid face. No fracture identified. 0.7 cm perforation of cartiliginous nasal septum. * CXR: Lungs are clear. Acute process not seen. * L/R knee xray: No acute pathology. * Renal U/S: B/l renal cysts. No hydronephrosis or acute pathology. * Head CT (04/08/18): No acute pathology. * Kidney U/S: B/L renal cysts with no hydronephrosis. * Echo: pending ASSESSMENT/PLAN: 83 yo M PMH atrial fibrillation on xarelto, CAD, CHF, HTN, DM, HLD, BPH, GIB , gout, hypothyroidism sent to ED from [facility] for mechanical fall, found to have MT and hyperglycemia to 518 #S/P Mechanical fall; On initial exam, pt jovon at 45 on EKG. -EKG: A-fib with HR 45, absent acute ZENAIDA. + RBBB. Nml Qt interval. Qtc 413. TWI V5-6, changed from last EKG 02/2018 -Head CT neg x2 -Will address polypharmacy with his care givers at the [facility]isted [facility]. -Per cardio, stop digoxin. (Digoxin 1.14) Low dose Metoprolol may be considered once HR permissible. -Echo ordered -PT/fall precautions/neuro checks -Acetaminophen 650 Q4H PRN Cont home meds: -Amlodipine 5 mg PO QD -Xarelto 15 mg PO QD #MT - likely prerenal 2/2 hyperglycemic osmotic diureses. Also has risk factors for CKD. -Monitor renal fxn: on previous admission Cr 1.2 to 1.6, now 1.9 to 2.3 on this admission. -Hydrate gently with PO fluids -NS @ 50 -U/A 3+ Glu, CPK normal, Kidney U/S showed no evidence of hydronephrosis -Hold Lasix, PAMELA inhibitor -monitor BMPs and response to fluid challenge -Avoid nephrotoxic agents such as NSAIDS, aminoglycosides, contrast dyes #DM; hyperglycemic 500s. Was on glipizide which was discontinue during his recent admission on 02/22/18 for possible symptomatic hypoglycemia. -Levemir 15U AM, ISS HS, ISS TIDAC -BGMs ACHS -Hgb A1c 11.5 -Per endo, will start oral hypoglycemics once renal fxn is stable. #Pharyngitis -Phenol spray Q6H PRN #Gout Cont home med: -Colchicine 0.6 mg PO QD #Hypothyroidism Cont home med: -Synthroid 125 mcg PO QD #CAD, HLD Cont home meds: -Lipitor 20 mg PO HS #HTN Cont home meds: -Amlodipine 5 mg PO QD #BPH Cont home meds: -Flomax 0.4 mg PO QD #A-fib -hold BB in setting bradycardia -Stop Digoxin Cont home med: -Xarelto 15 mg PO QD #Ppx -DVT: Xarelto 15 mg PO QD #FEN -NS @ 75 -recheck lytes in AM, replete PRN -low sodium/low chol/diabetic diet Dispo -cont to monitor med-surg -full code Visit type - Emergency Visit Emergency Visit: Yes ED Registration Date: 04/09/18 Care time: The patient presented to the Emergency Department on the above date and was hospitalized for further evaluation of their emergent condition. - New Patient This patient is new to me today: No - Critical Care Critical Care patient: No
[2018-04-09] MEDS ORDERED: INSULIN (NOVOLOG) ASPART 100 UNITS/ML 10ML VIAL ONE ×2 (11:10→21:14)
--- NOTE | 2018-04-09 12:09 | CONSULT ---
Consultation: REQUESTING PROVIDER: CONSULT REQUEST: We have been asked to medically evaluate this patient for MT on CKD. HISTORY OF PRESENT ILLNESS: Pt was uncooperative for H&P. Limited hist from patient supplemented by chart. Pt is an 83 y/o M with PMH atrial fibrillation on xarelto, CAD, CHF, HTN, DM , HLD, BPH, GIB, hypothyroidism who was sent from [place] [facility] because of a fall. Pt stated he got up quickly, felt dizzy, and fell on his face. He states he remembered the fall. Denies loc. Denies loss of bowel/bladder control , confusion. No other complaints. Pt denies any medical history. Admits to hernia surgery. Denies family history. Denies medications. Denies allergies. Denies smoking/drinking/drugs. Chart review reveals he used to smoke cigars. Nephrology was called to assess for MT on CKD. REVIEW OF SYSTEMS: CONSTITUTIONAL: Absent: fever, chills, diaphoresis, generalized weakness, malaise, loss of appetite, weight change HEENT: Absent: rhinorrhea, nasal congestion, throat pain, throat swelling, difficulty swallowing, mouth swelling, ear pain, eye pain, visual changes CARDIOVASCULAR: ?syncope Absent: chest pain, , palpitations, irregular heart rate, lightheadedness, peripheral edema RESPIRATORY: Absent: cough, shortness of breath, dyspnea with exertion, orthopnea, wheezing, stridor, hemoptysis GASTROINTESTINAL: Absent: abdominal pain, abdominal distension, nausea, vomiting, diarrhea, constipation, melena, hematochezia GENITOURINARY: Absent: dysuria, frequency, urgency, hesitancy, hematuria, flank pain, genital pain MUSCULOSKELETAL: Absent: myalgia, arthralgia, joint swelling, back pain, neck pain SKIN: Absent: rash, itching, pallor HEMATOLOGIC/IMMUNOLOGIC: Absent: easy bleeding, easy bruising, lymphadenopathy, frequent infections ENDOCRINE: Absent: unexplained weight gain, unexplained weight loss, heat intolerance, cold intolerance NEUROLOGIC: Absent: headache, focal weakness or paresthesias, dizziness, unsteady gait, seizure, mental status changes, bladder or bowel incontinence PSYCHIATRIC: Absent: anxiety, depression, suicidal or homicidal ideation, hallucinations. PHYSICAL EXAMINATION Vital Signs - 24 hr 04/08/18 04/08/18 04/08/18 14:54 20:00 22:00 Temperature 98.1 F 98 F Pulse Rate 56 L 56 L Respiratory 20 20 20 Rate Blood Pressure 125/65 128/66 O2 Sat by Pulse 96 Oximetry (%) 04/08/18 04/09/18 04/09/18 23:24 04:00 05:00 Temperature 97.8 F 97.9 F Pulse Rate 51 L 70 Respiratory 20 20 20 Rate Blood Pressure 135/77 143/68 O2 Sat by Pulse 95 Oximetry (%) 04/09/18 04/09/18 06:00 10:00 Temperature 98.0 F Pulse Rate 74 75 Respiratory 20 20 Rate Blood Pressure 165/69 144/87 O2 Sat by Pulse Oximetry (%) Unable to perform exam as pt refused. Laboratory Results - last 24 hr 04/08/18 04/08/18 04/08/18 05:56 11:45 16:02 POC Glucometer 436 322 190 Hemoglobin A1c % 04/08/18 04/09/18 04/09/18 21:10 06:22 06:30 POC Glucometer 180 184 Hemoglobin A1c % 11.5 H 04/09/18 11:07 POC Glucometer 276 Hemoglobin A1c % Active Medications Generic Name Dose Route Start Last Admin Trade Name Freq PRN Reason Stop Dose Admin Acetaminophen 650 mg 04/08/18 04:53 04/08/18 09:04 Tylenol - PO 650 mg Q4H PRN Administration PAIN LEVEL 6-10 Amlodipine Besylate 5 mg 04/08/18 10:00 04/09/18 10:15 Norvasc - PO 5 mg DAILY [facility] Administration Atorvastatin Calcium 20 mg 04/08/18 22:00 04/08/18 21:11 Lipitor - PO 20 mg HS [facility] Administration Cholecalciferol 2,000 unit 04/08/18 10:00 04/09/18 10:15 Vitamin D3 - PO 2,000 unit DAILY [facility] Administration Colchicine 0.6 mg 04/08/18 10:00 04/09/18 10:15 Colcrys - PO 0.6 mg DAILY [facility] Administration Gabapentin 300 mg 04/08/18 10:00 04/09/18 10:15 Neurontin - PO 300 mg BID [facility] Administration Hydroxyzine HCl 25 mg 04/08/18 05:06 Atarax - PO Q8H PRN FOR ITCHING Sodium Chloride 1,000 mls @ 75 mls/hr 04/08/18 13:15 04/08/18 14:04 Normal Saline - IV 75 mls/hr ASDIR [facility] Administration Insulin Aspart 1 vial 04/08/18 22:00 04/08/18 21:11 Novolog Vial Sliding Scale - SQ Not Given HS [facility] Protocol Insulin Aspart 1 vial 04/08/18 16:30 04/09/18 11:15 Novolog Vial Sliding Scale - SQ 6 units TIDAC [facility] Administration Protocol Insulin Detemir 15 units 04/09/18 07:00 04/09/18 06:23 Levemir Vial SQ 15 units AM [facility] Administration Levothyroxine Sodium 125 mcg 04/08/18 07:00 04/09/18 06:24 Synthroid - PO 125 mcg ACBK [facility] Administration Loratadine 10 mg 04/08/18 10:00 04/09/18 10:15 Claritin - PO 10 mg DAILY [facility] Administration Phenol/Menthol 2 spray 04/08/18 05:30 Chloraseptic - MM Q6H PRN SORE THROAT Rivaroxaban 15 mg 04/08/18 18:00 04/08/18 17:42 Xarelto PO 15 mg DAILY@1800 [facility] Administration Tamsulosin HCl 0.4 mg 04/08/18 08:30 04/09/18 08:02 Flomax - PO 0.4 mg DAILY@0830 [facility] Administration ASSESSMENT/PLAN: Pt is an 83 y/o M with PMH atrial fibrillation on xarelto, CAD, CHF, HTN, DM , HLD, BPH, GIB (on xarelto), hypothyroidism who was sent from [facility] facility for a fall. Nephrology was consulted to assess for MT on CKD. #MT -Hospitalist Physician 1.2 on 02/23. 2.3 this visit -monitor BMP -UA -Urine lytes -urine protein:Hospitalist Physician -renal u/s shows b/l renal cysts #AF -c/w xarelto #CAD -f/u outpt #CHF -unable to assess volume status of the patient -cardio planning for possible echo #HTN -c/w norvasc #DM -poorly controlled -A1C 11 -c/w ISS -seen by endocrine #HLD -c/w lipitor #BPH -c/w flomax #Hypothyroid -c/w synthroid Armand Mckee MD PGY-2 IM - Nephrology Dispo: We will continue to follow the patient. Thank you for this consultative opportunity. Visit type - Emergency Visit Emergency Visit: No - New Patient This patient is new to me today: Yes Date on this admission: 04/09/18 - Critical Care Critical Care patient: No
[2018-04-09 13:04] LABS: BASO % 0.6 % (0-2.0); HEMATOCRIT 38.6 % (35.4-49); HEMOGLOBIN 12.3 GM/dL (11.7-16.9); LYMPH % 19.3 % (8-40); MCH 28.1 pg (25.7-33.7); MCHC 31.9 g/dl (32.0-35.9); MEAN CELL VOLUME 88.2 fl (80-96); MEAN PLT VOLUME 8.5 fl (7.5-11.1); NEUT % 68.1 % (42.8-82.8); PLATELET COUNT 162 K/MM3 (134-434); RBC 4.37 M/mm3 (4.00-5.60); RDW 14.9 % (11.9-15.9); WHITE BLOOD COUNT 4.3 K/mm3 (4.0-10.0)
[2018-04-09 13:39] LABS: ALBUMIN 3.2 g/dl (3.4-5.0); ALK PHOS 116 U/L (45-117); ANION GAP 7 MMOL/L (8-16); BILIRUBIN,TOTAL 0.5 mg/dL (0.2-1); BLOOD UREA NITROGEN 21 mg/dL (7-18); CALCIUM 8.3 mg/dL (8.5-10.1); CHLORIDE 109 mmol/L (98-107); CO2 24 mmol/L (21-32); CREATININE 1.6 mg/dL (0.55-1.3); MAGNESIUM 1.7 mg/dL (1.8-2.4); PHOSPHOROUS 2.8 mg/dL (2.5-4.9); POTASSIUM 4.6 mmol/L (3.5-5.1); SGOT/AST 28 U/L (15-37); SGPT/ALT 44 U/L (13-61); SODIUM 140 mmol/L (136-145); TOT PROT 5.9 g/dl (6.4-8.2)
--- NOTE | 2018-04-09 13:49 | PN ---
Teaching Attending Note Name of Resident: Armand Mckee (Nephrology) ATTENDING PHYSICIAN STATEMENT I saw and evaluated the patient. I reviewed the resident's note and discussed the case with the resident. I agree with the resident's findings and plan as documented. Nephrology Pt is an 83 year old male with pmhx of chf, a-fib, dm, htn, and hypothyroidism. He presented after a fall. he was found to be in renal failure. He remembers falling but is a poor historian. pmhx htn dm chf hypothyroidism allergies fish family hx denies ros denies Laboratory Tests 02/24/18 04/07/18 04/08/18 05:30 21:50 05:13 Creatinine 1.3 2.3 H 1.9 H 04/09/18 12:45 Creatinine 1.6 H Current Medications Generic Name Dose Route Start Last Admin Trade Name Freq PRN Reason Stop Dose Admin Acetaminophen 650 mg 04/08/18 04:53 04/08/18 09:04 Tylenol - PO 650 mg Q4H PRN Administration PAIN LEVEL 6-10 Amlodipine Besylate 5 mg 04/08/18 10:00 04/09/18 10:15 Norvasc - PO 5 mg DAILY [facility] Administration Atorvastatin Calcium 20 mg 04/08/18 22:00 04/08/18 21:11 Lipitor - PO 20 mg HS [facility] Administration Cholecalciferol 2,000 unit 04/08/18 10:00 04/09/18 10:15 Vitamin D3 - PO 2,000 unit DAILY [facility] Administration Colchicine 0.6 mg 04/08/18 10:00 04/09/18 10:15 Colcrys - PO 0.6 mg DAILY [facility] Administration Gabapentin 300 mg 04/08/18 10:00 04/09/18 10:15 Neurontin - PO 300 mg BID [facility] Administration Hydroxyzine HCl 25 mg 04/08/18 05:06 Atarax - PO Q8H PRN FOR ITCHING Sodium Chloride 1,000 mls @ 75 mls/hr 04/08/18 13:15 04/08/18 14:04 Normal Saline - IV 75 mls/hr ASDIR [facility] Administration Insulin Aspart 1 vial 04/08/18 22:00 04/08/18 21:11 Novolog Vial Sliding Scale - SQ Not Given HS [facility] Protocol Insulin Aspart 1 vial 04/08/18 16:30 04/09/18 11:15 Novolog Vial Sliding Scale - SQ 6 units TIDAC [facility] Administration Protocol Insulin Detemir 15 units 04/09/18 07:00 04/09/18 06:23 Levemir Vial SQ 15 units AM [facility] Administration Levothyroxine Sodium 125 mcg 04/08/18 07:00 04/09/18 06:24 Synthroid - PO 125 mcg ACBK [facility] Administration Loratadine 10 mg 04/08/18 10:00 04/09/18 10:15 Claritin - PO 10 mg DAILY [facility] Administration Phenol/Menthol 2 spray 04/08/18 05:30 Chloraseptic - MM Q6H PRN SORE THROAT Rivaroxaban 15 mg 04/08/18 18:00 04/08/18 17:42 Xarelto PO 15 mg DAILY@1800 [facility] Administration Tamsulosin HCl 0.4 mg 04/08/18 08:30 04/09/18 08:02 Flomax - PO 0.4 mg DAILY@0830 [facility] Administration Last Vital Signs Temp Pulse Resp BP Pulse Ox 98.5 F 76 18 125/57 L 95 04/09/18 13:37 04/09/18 13:37 04/09/18 13:37 04/09/18 13:37 04/09/18 04:00 cardio s1s2 pulm clear GI soft ext neg edema neuro awake Impression 1. MT resolving 2. likely ckd 3. dm 4. htn 5. s/p fall 6. hypothryoidism 7. bilateral renal cyts 8. CHF Plan - check ua - renal function is improving - elevated blood sugar likely contibuted to dehydration - repeat labs in am - can start to decrease amount of saline as he has history of chf
[2018-04-09 13:53] LABS: GLUCOSE,RANDOM 308 mg/dL (74-106)
[2018-04-09] MEDS: SODIUM CHLORIDE 1,000 ML IV SCH (15:24)
[2018-04-09 15:46] LABS: URINE APPEARANCE CLEAR; URINE BILIRUBIN NEGATIVE (<2.0 mg/dL); URINE COLOR LTYELLOW; URINE GLUCOSE (UA) 3+ (NEGATIVE); URINE KETONE NEGATIVE (NEGATIVE); URINE LEUK ESTERASE NEGATIVE (NEGATIVE); URINE NITRITE NEGATIVE (NEGATIVE); URINE PROTEIN NEGATIVE (NEGATIVE); URINE UROBILINOGEN NEGATIVE mg/dL (0.2-1.0)
[2018-04-09] MEDS: RIVAROXABAN 15 MG TABLET PO SCH (17:04)
--- NOTE | 2018-04-09 17:43 | PN ---
Progress Note (short form) - Note Progress Note: Denies any complaints Ate half of food on his plate Vital Signs Period Temp Pulse Resp BP Sys/Denson Pulse Ox Last 24 Hr 97.8 F-98.5 F 51-76 18-20 125-165/57-87 95-96 PE: Awake, alert Neck: Supple, No JVD HEENT: EOMI Lungs: CTA CVS: S1S2 Abd: Benign Ext: No edema CMP Sodium 140 mmol/L (136-145) 04/09/18 12:45 Potassium 4.6 mmol/L (3.5-5.1) 04/09/18 12:45 Chloride 109 mmol/L (98-107) H 04/09/18 12:45 Carbon Dioxide 24 mmol/L (21-32) 04/09/18 12:45 Anion Gap 7 MMOL/L (8-16) L 04/09/18 12:45 BUN 21 mg/dL (7-18) H 04/09/18 12:45 Creatinine 1.6 mg/dL (0.55-1.3) H 04/09/18 12:45 Creat Clearance w eGFR 41.49 (>60) 04/09/18 12:45 POC Glucometer 235 UNITS (80-120) 04/09/18 17:02 Random Glucose 308 mg/dL (74-106) H* 04/09/18 12:45 Hemoglobin A1c % 11.5 % (4.2-6.3) H 04/09/18 06:30 Calcium 8.3 mg/dL (8.5-10.1) L 04/09/18 12:45 Phosphorus 2.8 mg/dL (2.5-4.9) 04/09/18 12:45 Magnesium 1.7 mg/dL (1.8-2.4) L 04/09/18 12:45 Total Bilirubin 0.5 mg/dL (0.2-1) 04/09/18 12:45 AST 28 U/L (15-37) 04/09/18 12:45 ALT 44 U/L (13-61) 04/09/18 12:45 Alkaline Phosphatase 116 U/L (45-117) 04/09/18 12:45 Creatine Kinase 41 IU/L (26-308) 04/08/18 05:13 Troponin I < 0.02 ng/ml (0.00-0.05) 04/07/18 21:50 Total Protein 5.9 g/dl (6.4-8.2) L 04/09/18 12:45 Albumin 3.2 g/dl (3.4-5.0) L 04/09/18 12:45 Current Medications Generic Name Dose Route Start Last Admin Trade Name Freq PRN Reason Stop Dose Admin Acetaminophen 650 mg 04/08/18 04:53 04/08/18 09:04 Tylenol - PO 650 mg Q4H PRN Administration PAIN LEVEL 6-10 Amlodipine Besylate 5 mg 04/08/18 10:00 04/09/18 10:15 Norvasc - PO 5 mg DAILY [facility] Administration Atorvastatin Calcium 20 mg 04/08/18 22:00 04/08/18 21:11 Lipitor - PO 20 mg HS [facility] Administration Cholecalciferol 2,000 unit 04/08/18 10:00 04/09/18 10:15 Vitamin D3 - PO 2,000 unit DAILY [facility] Administration Colchicine 0.6 mg 04/08/18 10:00 04/09/18 10:15 Colcrys - PO 0.6 mg DAILY [facility] Administration Gabapentin 300 mg 04/08/18 10:00 04/09/18 10:15 Neurontin - PO 300 mg BID [facility] Administration Hydroxyzine HCl 25 mg 04/08/18 05:06 Atarax - PO Q8H PRN FOR ITCHING Sodium Chloride 1,000 mls @ 50 mls/hr 04/09/18 13:49 04/09/18 15:24 Normal Saline - IV 50 mls/hr ASDIR [facility] Administration Insulin Aspart 1 vial 04/08/18 22:00 04/08/18 21:11 Novolog Vial Sliding Scale - SQ Not Given HS [facility] Protocol Insulin Aspart 1 vial 04/08/18 16:30 04/09/18 17:04 Novolog Vial Sliding Scale - SQ 4 units TIDAC [facility] Administration Protocol Insulin Detemir 15 units 04/09/18 07:00 04/09/18 06:23 Levemir Vial SQ 15 units AM [facility] Administration Levothyroxine Sodium 125 mcg 04/08/18 07:00 04/09/18 06:24 Synthroid - PO 125 mcg ACBK [facility] Administration Loratadine 10 mg 04/08/18 10:00 04/09/18 10:15 Claritin - PO 10 mg DAILY [facility] Administration Phenol/Menthol 2 spray 04/08/18 05:30 Chloraseptic - MM Q6H PRN SORE THROAT Rivaroxaban 15 mg 04/08/18 18:00 04/09/18 17:04 Xarelto PO 15 mg DAILY@1800 [facility] Administration Tamsulosin HCl 0.4 mg 04/08/18 08:30 04/09/18 08:02 Flomax - PO 0.4 mg DAILY@0830 [facility] Administration AP; S/P Fall T2DM Uncontrolled MT Gout Hypothyroidism CAD,HLD HTN A-fib BGM QACHS Continue Novolog SS coverage Increase Levemir 18 units daily Monitor Renal function: Cr 1.2 to 1.6 during previous admissions, 2.3 and 1.9 during this admission. 1.6 today Will start oral hypoglycemics once renal funtion is stable. Continue LT4 125mcg QD HbA1c 11.5 Will f/u
[2018-04-09 17:46] LABS: RATIO URIN PROTEIN/URIN CREAT 0.222 MG/DL
--- NOTE | 2018-04-09 19:07 | EKG ---
Test Reason : Blood Pressure : / mmHG Vent. Rate : 045 BPM Atrial Rate : 045 BPM P-R Int : 000 ms QRS Dur : 164 ms QT Int : 478 ms P-R-T Axes : 000 039 -37 degrees QTc Int : 413 ms UNDETERMINED RHYTHM RIGHT BUNDLE BRANCH BLOCK T WAVE ABNORMALITY, CONSIDER INFEROLATERAL ISCHEMIA ABNORMAL ECG WHEN COMPARED WITH ECG OF 21-FEB-2018 16:54, CURRENT UNDETERMINED RHYTHM PRECLUDES RHYTHM COMPARISON, NEEDS REVIEW T WAVE INVERSION MORE EVIDENT IN INFERIOR LEADS T WAVE INVERSION MORE EVIDENT IN ANTERIOR LEADS Confirmed by JESSICA CARTY MD ([id number]) on 04/09/2018 7:07:41 PM Referred By: Confirmed By:JESSICA CARTY MD
--- NOTE | 2018-04-09 19:52 | PN ---
Teaching Attending Note Name of Resident: Lolita Baker ATTENDING PHYSICIAN STATEMENT I saw and evaluated the patient. I reviewed the resident's note and discussed the case with the resident. I agree with the resident's findings and plan as documented. SUBJECTIVE: Patient is comfortable with no acute distress. OBJECTIVE: Vital Signs Temperature 98.5 F 04/09/18 13:37 Pulse Rate 76 04/09/18 13:37 Respiratory Rate 18 04/09/18 13:37 Blood Pressure 125/57 L 04/09/18 13:37 O2 Sat by Pulse Oximetry (%) 95 04/09/18 04:00 GENERAL: AOX3, NAD HEAD: no scalp lacerations or scalp hematomas. left zygomatic ecchymosis , no facial lacerations EYES: EOMI, sclera anicteric, conjunctiva clear. EARS, NOSE, THROAT: Ears normal,oropharynx clear without exudates. MMM NECK: supple, no JVD, or masses. LUNGS: CTAB HEART: Irregularly irregular. Normal S1 and S2 without murmur, rub or gallop. ABDOMEN: Soft, nt, nd, normoactive bowel sounds, no guarding, no rebound, no masses. MUSCULOSKELETAL: Normal range of motion at all joints. No bony deformities or tenderness. EXTREMITIES: 2+ pulses, warm, well-perfused. No calf tenderness. No peripheral edema. b/l knee abrasions, rt knee has mild tenderness NEUROLOGICAL: Cranial nerves II-XII intact. Normal speech. can move all extremities, able to lift both legs PSYCHIATRIC: Cooperative. Good eye contact. Appropriate mood and affect. SKIN: Warm, dry, normal turgor, no rashes or lesions noted, normal capillary refill. CBCD WBC 4.3 K/mm3 (4.0-10.0) 04/09/18 12:45 RBC 4.37 M/mm3 (4.00-5.60) 04/09/18 12:45 Hgb 12.3 GM/dL (11.7-16.9) 04/09/18 12:45 Hct 38.6 % (35.4-49) 04/09/18 12:45 MCV 88.2 fl (80-96) 04/09/18 12:45 MCHC 31.9 g/dl (32.0-35.9) L 04/09/18 12:45 RDW 14.9 % (11.9-15.9) 04/09/18 12:45 Plt Count 162 K/MM3 (134-434) 04/09/18 12:45 MPV 8.5 fl (7.5-11.1) 04/09/18 12:45 CMP Sodium 140 mmol/L (136-145) 04/09/18 12:45 Potassium 4.6 mmol/L (3.5-5.1) 04/09/18 12:45 Chloride 109 mmol/L (98-107) H 04/09/18 12:45 Carbon Dioxide 24 mmol/L (21-32) 04/09/18 12:45 Anion Gap 7 MMOL/L (8-16) L 04/09/18 12:45 BUN 21 mg/dL (7-18) H 04/09/18 12:45 Creatinine 1.6 mg/dL (0.55-1.3) H 04/09/18 12:45 Creat Clearance w eGFR 41.49 (>60) 04/09/18 12:45 Random Glucose 308 mg/dL (74-106) H* 04/09/18 12:45 Calcium 8.3 mg/dL (8.5-10.1) L 04/09/18 12:45 Total Bilirubin 0.5 mg/dL (0.2-1) 04/09/18 12:45 AST 28 U/L (15-37) 04/09/18 12:45 ALT 44 U/L (13-61) 04/09/18 12:45 Alkaline Phosphatase 116 U/L (45-117) 04/09/18 12:45 Total Protein 5.9 g/dl (6.4-8.2) L 04/09/18 12:45 Albumin 3.2 g/dl (3.4-5.0) L 04/09/18 12:45 CARDIAC ENZYMES Creatine Kinase 41 IU/L (26-308) 04/08/18 05:13 Troponin I < 0.02 ng/ml (0.00-0.05) 04/07/18 21:50 Current Medications Generic Name Dose Route Start Last Admin Trade Name Freq PRN Reason Stop Dose Admin Acetaminophen 650 mg 04/08/18 04:53 04/08/18 09:04 Tylenol - PO 650 mg Q4H PRN Administration PAIN LEVEL 6-10 Amlodipine Besylate 5 mg 04/08/18 10:00 04/09/18 10:15 Norvasc - PO 5 mg DAILY [facility] Administration Atorvastatin Calcium 20 mg 04/08/18 22:00 04/08/18 21:11 Lipitor - PO 20 mg HS C[facility] Administration Cholecalciferol 2,000 unit 04/08/18 10:00 04/09/18 10:15 Vitamin D3 - PO 2,000 unit DAILY [facility] Administration Colchicine 0.6 mg 04/08/18 10:00 04/09/18 10:15 Colcrys - PO 0.6 mg DAILY [facility] Administration Gabapentin 300 mg 04/08/18 10:00 04/09/18 10:15 Neurontin - PO 300 mg BID C[facility] Administration Hydroxyzine HCl 25 mg 04/08/18 05:06 Atarax - PO Q8H PRN FOR ITCHING Sodium Chloride 1,000 mls @ 50 mls/hr 04/09/18 13:49 04/09/18 15:24 Normal Saline - IV 50 mls/hr ASDIR [facility] Administration Insulin Aspart 1 vial 04/08/18 22:00 04/08/18 21:11 Novolog Vial Sliding Scale - SQ Not Given HS REPLACED BY [facility] Protocol Insulin Aspart 1 vial 04/08/18 16:30 04/09/18 17:04 Novolog Vial Sliding Scale - SQ 4 units TIDAC REPLACED BY [facility] Administration Protocol Insulin Detemir 18 units 04/10/18 07:00 Levemir Vial SQ AM REPLACED BY [facility] Levothyroxine Sodium 125 mcg 04/08/18 07:00 04/09/18 06:24 Synthroid - PO 125 mcg ACBK [facility] Administration Loratadine 10 mg 04/08/18 10:00 04/09/18 10:15 Claritin - PO 10 mg DAILY REPLACED BY [facility] Administration Phenol/Menthol 2 spray 04/08/18 05:30 Chloraseptic - MM Q6H PRN SORE THROAT Rivaroxaban 15 mg 04/08/18 18:00 04/09/18 17:04 Xarelto PO 15 mg DAILY@1800 REPLACED BY [facility] Administration Tamsulosin HCl 0.4 mg 04/08/18 08:30 04/09/18 08:02 Flomax - PO 0.4 mg DAILY@0830 [facility] Administration Home Medications Medication Instructions Recorded Acetaminophen [Tylenol] 600 mg PO QID 01/30/18 Amlodipine Besylate 5 mg PO DAILY 01/30/18 Aspirin [ASA -] 81 mg PO DAILY 01/30/18 Atorvastatin Calcium [Lipitor] 20 mg PO DAILY 01/30/18 Cetirizine HCl [Zyrtec -] 10 mg PO DAILY 01/30/18 Colchicine 0.6 mg PO DAILY 01/30/18 Digoxin 125 mcg PO DAILY 01/30/18 Furosemide [Lasix] 20 mg PO DAILY 01/30/18 Gabapentin 300 mg PO BID 01/30/18 Lisinopril 5 mg PO DAILY 01/30/18 Rivaroxaban [Xarelto] 15 mg PO DAILY 01/30/18 Cholecalciferol (Vitamin D3) 2,000 unit PO DAILY 01/31/18 [Vitamin D3] Lactulose 20 gm PO PRN PRN 01/31/18 Levothyroxine Sodium [Levoxyl] 125 mcg PO ACBK 01/31/18 Polyethylene Glycol 3350 [Miralax 17 gm PO DAILY PRN 01/31/18 119 gm Btl -] Psyllium Husk (with Sugar) 3.4 gm PO HS 01/31/18 [Metamucil Packet] Tamsulosin HCl [Flomax -] 0.4 mg PO DAILY@0830 cap.er.24h 02/03/18 Metoprolol Tartrate [Lopressor -] 12.5 mg PO BID 30 Days #60 tablet 02/24/18 Metoprolol Tartrate 12.5 mg PO BID 04/08/18 Oxybutynin Chloride [Oxybutynin 10 mg PO DAILY 04/08/18 Chloride ER] Pantoprazole Sodium [Protonix] 40 mg PO DAILY 04/08/18 Laboratory Tests 04/07/18 04/08/18 04/09/18 21:50 05:13 12:45 Creatinine 2.3 H 1.9 H 1.6 H ASSESSMENT AND PLAN: Patient is a 83 y/o man with h/p afib, CHF, CKD, CAD, HTN, gout, hypothyroid, ischemic colitis , and RBBB, and bradycardia who presented to the ED after a mechanical fall # S/p Mechanical fall wit no fractures # T2DM uncontrolled with ss with coverage , on Levemir continue , hypoglycemics are on hold due to ARF. Hash Slinger on the case appreciated. # Acute Bradycardia. will hold metoprolol and dig for now, cardio consult appreciated. # A fib with slow ventricular rate : dig and lopressor on hold. on xarelto, cardio on consults appreciated. # MT : will monitor, improving. DVt px: xarelto
[2018-04-09] MEDS: ATORVASTATIN CA 20 MG TABLET (FP) PO SCH (21:25)
[2018-04-10] MEDS: LEVOTHYROXINE NA 125 MCG TABLET (FP) PO SCH (06:31)
[2018-04-10] MEDS: INSULIN SLIDING SCALE (NOVOLOG) 1 VIAL SQ SCH ×4 (06:31→22:40)
[2018-04-10] MEDS ORDERED: INSULIN (LEVEMIR) 100 UNITS/ML UNITS SQ SCH (07:00)
--- NOTE | 2018-04-10 09:46 | PN ---
Teaching Attending Note Name of Resident: Lolita Baker ATTENDING PHYSICIAN STATEMENT I saw and evaluated the patient. I reviewed the resident's note and discussed the case with the resident. I agree with the resident's findings and plan as documented. SUBJECTIVE: Patient is feeling better. OBJECTIVE: Vital Signs Temperature 98.1 F 04/10/18 06:20 Pulse Rate 75 04/10/18 06:20 Respiratory Rate 20 04/10/18 06:20 Blood Pressure 154/72 04/10/18 06:20 O2 Sat by Pulse Oximetry (%) 95 04/10/18 04:00 GENERAL: AOX3, NAD HEAD: no scalp lacerations or scalp hematomas. left zygomatic ecchymosis , no facial lacerations EYES: EOMI, sclera anicteric, conjunctiva clear. No lid lag. EARS, NOSE, THROAT: Ears normal, nares patent, oropharynx clear without exudates. MMM NECK: supple, no JVD, or masses. LUNGS: CTAB HEART: Irregularly irregular. Normal S1 and S2 without murmur, rub or gallop. ABDOMEN: Soft, ntnd, normoactive bowel sounds, no guarding, no rebound, no masses. MUSCULOSKELETAL: Normal range of motion at all joints. No bony deformities or tenderness. UPPER EXTREMITIES: 2+ pulses, warm, well-perfused. No cyanosis. No clubbing. No peripheral edema. LOWER EXTREMITIES: 2+ pulses, warm, well-perfused. No calf tenderness. No peripheral edema. b/l knee abrasions, rt knee has mild tenderness NEUROLOGICAL: Cranial nerves II-XII intact. Normal speech. can move all extremities,able to lift both legs PSYCHIATRIC: Cooperative. Good eye contact. Appropriate mood and affect. SKIN: Warm, dry, normal turgor, no rashes or lesions noted, normal capillary refill. CBCD WBC 4.3 K/mm3 (4.0-10.0) 04/09/18 12:45 RBC 4.37 M/mm3 (4.00-5.60) 04/09/18 12:45 Hgb 12.3 GM/dL (11.7-16.9) 04/09/18 12:45 Hct 38.6 % (35.4-49) 04/09/18 12:45 MCV 88.2 fl (80-96) 04/09/18 12:45 MCHC 31.9 g/dl (32.0-35.9) L 04/09/18 12:45 RDW 14.9 % (11.9-15.9) 04/09/18 12:45 Plt Count 162 K/MM3 (134-434) 04/09/18 12:45 MPV 8.5 fl (7.5-11.1) 04/09/18 12:45 CMP Sodium 140 mmol/L (136-145) 04/09/18 12:45 Potassium 4.6 mmol/L (3.5-5.1) 04/09/18 12:45 Chloride 109 mmol/L (98-107) H 04/09/18 12:45 Carbon Dioxide 24 mmol/L (21-32) 04/09/18 12:45 Anion Gap 7 MMOL/L (8-16) L 04/09/18 12:45 BUN 21 mg/dL (7-18) H 04/09/18 12:45 Creatinine 1.6 mg/dL (0.55-1.3) H 04/09/18 12:45 Creat Clearance w eGFR 41.49 (>60) 04/09/18 12:45 Random Glucose 308 mg/dL (74-106) H* 04/09/18 12:45 Calcium 8.3 mg/dL (8.5-10.1) L 04/09/18 12:45 Total Bilirubin 0.5 mg/dL (0.2-1) 04/09/18 12:45 AST 28 U/L (15-37) 04/09/18 12:45 ALT 44 U/L (13-61) 04/09/18 12:45 Alkaline Phosphatase 116 U/L (45-117) 04/09/18 12:45 Total Protein 5.9 g/dl (6.4-8.2) L 04/09/18 12:45 Albumin 3.2 g/dl (3.4-5.0) L 04/09/18 12:45 CARDIAC ENZYMES Creatine Kinase 41 IU/L (26-308) 04/08/18 05:13 Troponin I < 0.02 ng/ml (0.00-0.05) 04/07/18 21:50 Current Medications Generic Name Dose Route Start Last Admin Trade Name Freq PRN Reason Stop Dose Admin Acetaminophen 650 mg 04/08/18 04:53 04/08/18 09:04 Tylenol - PO 650 mg Q4H PRN Administration PAIN LEVEL 6-10 Amlodipine Besylate 5 mg 04/08/18 10:00 04/09/18 10:15 Norvasc - PO 5 mg DAILY [facility] Administration Atorvastatin Calcium 20 mg 04/08/18 22:00 04/09/18 21:25 Lipitor - PO 20 mg HS CODY Administration Cholecalciferol 2,000 unit 04/08/18 10:00 04/09/18 10:15 Vitamin D3 - PO 2,000 unit DAILY [facility] Administration Colchicine 0.6 mg 04/08/18 10:00 04/09/18 10:15 Colcrys - PO 0.6 mg DAILY [facility] Administration Gabapentin 300 mg 04/08/18 10:00 04/09/18 21:25 Neurontin - PO 300 mg BID [facility] Administration Hydroxyzine HCl 25 mg 04/08/18 05:06 Atarax - PO Q8H PRN FOR ITCHING Sodium Chloride 1,000 mls @ 50 mls/hr 04/09/18 13:49 04/09/18 15:24 Normal Saline - IV 50 mls/hr ASDIR [facility] Administration Insulin Aspart 1 vial 04/08/18 22:00 04/09/18 21:28 Novolog Vial Sliding Scale - SQ 6 units HS [facility] Administration Protocol Insulin Aspart 1 vial 04/08/18 16:30 04/10/18 06:31 Novolog Vial Sliding Scale - SQ 4 units TIDAC [facility] Administration Protocol Insulin Detemir 18 units 04/10/18 07:00 04/10/18 06:30 Levemir Vial SQ 18 unit AM [facility] Administration Levothyroxine Sodium 125 mcg 04/08/18 07:00 04/10/18 06:31 Synthroid - PO 125 mcg ACBK [facility] Administration Loratadine 10 mg 04/08/18 10:00 04/09/18 10:15 Claritin - PO 10 mg DAILY [facility] Administration Phenol/Menthol 2 spray 04/08/18 05:30 Chloraseptic - MM Q6H PRN SORE THROAT Rivaroxaban 15 mg 04/08/18 18:00 04/09/18 17:04 Xarelto PO 15 mg DAILY@1800 [facility] Administration Tamsulosin HCl 0.4 mg 04/08/18 08:30 04/09/18 08:02 Flomax - PO 0.4 mg DAILY@0830 [facility] Administration Home Medications Medication Instructions Recorded Acetaminophen [Tylenol] 600 mg PO QID 01/30/18 Amlodipine Besylate 5 mg PO DAILY 01/30/18 Aspirin [ASA -] 81 mg PO DAILY 01/30/18 Atorvastatin Calcium [Lipitor] 20 mg PO DAILY 01/30/18 Cetirizine HCl [Zyrtec -] 10 mg PO DAILY 01/30/18 Colchicine 0.6 mg PO DAILY 01/30/18 Digoxin 125 mcg PO DAILY 01/30/18 Furosemide [Lasix] 20 mg PO DAILY 01/30/18 Gabapentin 300 mg PO BID 01/30/18 Lisinopril 5 mg PO DAILY 01/30/18 Rivaroxaban [Xarelto] 15 mg PO DAILY 01/30/18 Cholecalciferol (Vitamin D3) 2,000 unit PO DAILY 01/31/18 [Vitamin D3] Lactulose 20 gm PO PRN PRN 01/31/18 Levothyroxine Sodium [Levoxyl] 125 mcg PO ACBK 01/31/18 Polyethylene Glycol 3350 [Miralax 17 gm PO DAILY PRN 01/31/18 119 gm Btl -] Psyllium Husk (with Sugar) 3.4 gm PO HS 01/31/18 [Metamucil Packet] Tamsulosin HCl [Flomax -] 0.4 mg PO DAILY@0830 cap.er.24h 02/03/18 Metoprolol Tartrate [Lopressor -] 12.5 mg PO BID 30 Days #60 tablet 02/24/18 Metoprolol Tartrate 12.5 mg PO BID 04/08/18 Oxybutynin Chloride [Oxybutynin 10 mg PO DAILY 04/08/18 Chloride ER] Pantoprazole Sodium [Protonix] 40 mg PO DAILY 04/08/18 ASSESSMENT AND PLAN: Patient is a 83 y/o man with h/p afib, CHF, CKD, CAD, HTN, gout, hypothyroid, ischemic colitis , and RBBB, and bradycardia who presented to the ER after a mechanical fall. # S/p Mechanical fall wit no fractures # T2DM uncontrolled with ss with coverage , on Levemir continue, hypoglycemics are on hold due to ARF. will monitor kidney function, once improves will place the patient back to oral hypoglycemics. Polystyrene Bead Molder on the case appreciated. # Acute Bradycardia improved post holding metoprolol and digoxin , jony check with cardio to place the patient back on low dose BB. # A fib with slow ventricular rate :improved post holding dig and lopressor, on xarelto, cardio on consults appreciated. # MT : will monitor, improving. DVt px: xarelto
[2018-04-10] MEDS: TAMSULOSIN HCL 0.4 MG CAP PO SCH (10:03)
[2018-04-10] MEDS: CHOLECALCIFEROL (VITAMIN D3) 1,000 UNIT TABLET (FP) PO SCH (10:03)
[2018-04-10] MEDS: GABAPENTIN 300 MG CAPSULE (FP) PO SCH ×2 (10:03→22:39)
[2018-04-10] MEDS: LORATADINE 10 MG TABLET PO SCH (10:03)
[2018-04-10] MEDS: amLODIPine BESYLATE 5 MG TABLET (FP) PO SCH (10:03)
[2018-04-10] MEDS: COLCHICINE 0.6 MG TABLET (FP) PO SCH (10:03)
[2018-04-10 11:11] LABS: ANION GAP 4 MMOL/L (8-16); BLOOD UREA NITROGEN 17 mg/dL (7-18); CALCIUM 8.4 mg/dL (8.5-10.1); CHLORIDE 107 mmol/L (98-107); CO2 28 mmol/L (21-32); CREATININE 1.4 mg/dL (0.55-1.3); GLUCOSE,RANDOM 253 mg/dL (74-106); POTASSIUM 4.3 mmol/L (3.5-5.1); SODIUM 139 mmol/L (136-145)
[2018-04-10] MEDS ORDERED: INSULIN (NOVOLOG) ASPART 100 UNITS/ML 10ML VIAL ONE ×2 (11:17→17:30)
--- NOTE | 2018-04-10 14:04 | ECHO ---
Name: CORNELIUS RAMIREZ Exam:Adult Echocardiogram Study Date: 04/10/2018 07:50 AM Age: 83 yrs Reason For Study: HTN Height: 68 in Weight: 205 lb BSA: 2.1 m2 MMode/2D Measurements & Calculations IVSd: 1.1 cm Ao root diam: 3.8 cm LVIDd: 5.0 cm LA dimension: 4.8 cm LVIDs: 2.8 cm LVPWd: 1.3 cm EDV(Teich): 119.8 ml LVOT diam: 2.0 cm ESV(Teich): 30.0 ml LAV (MOD-bp): 91.0 ml Doppler Measurements & Calculations MV E max dennis: 113.0 cm/sec AI P1/2t: 1269 msec MV dec time: 0.09 sec AI max dennis: 416.0 cm/sec MR max dennis: 417.7 cm/sec AI max P.2 mmHg MR max P.2 mmHg AI dec slope: 96.0 cm/sec2 TR max dennis: 277.0 cm/sec Med Peak E' Dennis: 6.5 cm/sec TR max P.0 mmHg Med E/e': 17.3 Lat Peak E' Dennis: 9.1 cm/sec Lat E/e': 12.4 Procedure A complete two-dimensional transthoracic echocardiogram was performed (2D, M-mode, Doppler and color flow Doppler). Left Ventricle The left ventricular size, thickness and function are normal. The left ventricular ejection fraction is normal. Ejection Fraction = 60-65%. The left ventricular wall motion is normal. Right Ventricle The right ventricle is normal in size and function. Atria The left atrium is mildly dilated. Right atrial size is normal. Mitral Valve There is mild mitral regurgitation. Tricuspid Valve There is mild tricuspid regurgitation. Right ventricular systolic pressure is normal. Aortic Valve No hemodynamically significant valvular aortic stenosis. Mild aortic regurgitation. Pulmonic Valve There is no pulmonic valvular regurgitation. Great Vessels Mild aortic root dilatation. Pericardium/Pleura There is no pericardial effusion. Interpretation Summary The left ventricular size, thickness and function are normal The right ventricle is normal in size and function. The left atrium is mildly dilated. There is mild mitral regurgitation. There is mild tricuspid regurgitation. Mild aortic regurgitation. Mild aortic root dilatation. MD Urbano Doll 04/10/2018 02:03 PM
--- NOTE | 2018-04-10 14:48 | PN ---
Progress Note (short form) - Note Progress Note: Denies any complaints Vital Signs Period Temp Pulse Resp BP Sys/Denson Pulse Ox Last 24 Hr 98.0 F-98.7 F 71-80 18-20 140-154/67-87 92-95 PE: Awake, alert Neck: Supple, No JVD HEENT: EOMI Lungs: CTA CVS: S1S2 Abd: Benign Ext: No edema CMP Sodium 139 mmol/L (136-145) 04/10/18 10:36 Potassium 4.3 mmol/L (3.5-5.1) 04/10/18 10:36 Chloride 107 mmol/L (98-107) 04/10/18 10:36 Carbon Dioxide 28 mmol/L (21-32) 04/10/18 10:36 Anion Gap 4 MMOL/L (8-16) L 04/10/18 10:36 BUN 17 mg/dL (7-18) 04/10/18 10:36 Creatinine 1.4 mg/dL (0.55-1.3) H 04/10/18 10:36 Creat Clearance w eGFR 48.40 (>60) 04/10/18 10:36 POC Glucometer 286 UNITS (80-120) 04/10/18 11:10 Random Glucose 253 mg/dL (74-106) H 04/10/18 10:36 Hemoglobin A1c % 11.5 % (4.2-6.3) H 04/09/18 06:30 Calcium 8.4 mg/dL (8.5-10.1) L 04/10/18 10:36 Phosphorus 2.8 mg/dL (2.5-4.9) 04/09/18 12:45 Magnesium 1.7 mg/dL (1.8-2.4) L 04/09/18 12:45 Total Bilirubin 0.5 mg/dL (0.2-1) 04/09/18 12:45 AST 28 U/L (15-37) 04/09/18 12:45 ALT 44 U/L (13-61) 04/09/18 12:45 Alkaline Phosphatase 116 U/L (45-117) 04/09/18 12:45 Creatine Kinase 41 IU/L (26-308) 04/08/18 05:13 Troponin I < 0.02 ng/ml (0.00-0.05) 04/07/18 21:50 Total Protein 5.9 g/dl (6.4-8.2) L 04/09/18 12:45 Albumin 3.2 g/dl (3.4-5.0) L 04/09/18 12:45 Current Medications Generic Name Dose Route Start Last Admin Trade Name Freq PRN Reason Stop Dose Admin Acetaminophen 650 mg 04/08/18 04:53 04/08/18 09:04 Tylenol - PO 650 mg Q4H PRN Administration PAIN LEVEL 6-10 Amlodipine Besylate 5 mg 04/08/18 10:00 04/10/18 10:03 Norvasc - PO 5 mg DAILY [facility] Administration Atorvastatin Calcium 20 mg 04/08/18 22:00 04/09/18 21:25 Lipitor - PO 20 mg HS [facility] Administration Cholecalciferol 2,000 unit 04/08/18 10:00 04/10/18 10:03 Vitamin D3 - PO 2,000 unit DAILY [facility] Administration Colchicine 0.6 mg 04/08/18 10:00 04/10/18 10:03 Colcrys - PO 0.6 mg DAILY [facility] Administration Gabapentin 300 mg 04/08/18 10:00 04/10/18 10:03 Neurontin - PO 300 mg BID [facility] Administration Hydroxyzine HCl 25 mg 04/08/18 05:06 Atarax - PO Q8H PRN FOR ITCHING Sodium Chloride 1,000 mls @ 50 mls/hr 04/09/18 13:49 04/09/18 15:24 Normal Saline - IV 50 mls/hr ASDIR [facility] Administration Insulin Aspart 1 vial 04/08/18 22:00 04/09/18 21:28 Novolog Vial Sliding Scale - SQ 6 units HS [facility] Administration Protocol Insulin Aspart 1 vial 04/08/18 16:30 04/10/18 11:21 Novolog Vial Sliding Scale - SQ 6 units TIDAC [facility] Administration Protocol Insulin Detemir 18 units 04/10/18 07:00 04/10/18 06:30 Levemir Vial SQ 18 unit AM [facility] Administration Levothyroxine Sodium 125 mcg 04/08/18 07:00 04/10/18 06:31 Synthroid - PO 125 mcg ACBK [facility] Administration Loratadine 10 mg 04/08/18 10:00 04/10/18 10:03 Claritin - PO 10 mg DAILY [facility] Administration Phenol/Menthol 2 spray 04/08/18 05:30 Chloraseptic - MM Q6H PRN SORE THROAT Rivaroxaban 15 mg 04/08/18 18:00 04/09/18 17:04 Xarelto PO 15 mg DAILY@1800 [facility] Administration Tamsulosin HCl 0.4 mg 04/08/18 08:30 04/10/18 10:03 Flomax - PO 0.4 mg DAILY@0830 [facility] Administration AP; S/P Fall T2DM Uncontrolled MT Gout Hypothyroidism CAD,HLD HTN A-fib BGM QACHS Increase Novolog SS coverage Increase Levemir 20 units daily Monitor Renal function: Cr 1.2 to 1.6 during previous admissions, 2.3 and 1.9 during this admission. 1.6 today Will start oral hypoglycemics once renal funtion is stable. Continue LT4 125mcg QD HbA1c 11.5 Will f/u
--- NOTE | 2018-04-10 15:43 | PN ---
Progress Note, Physician Chief Complaint: Not in distress History of Present Illness: Patient was seen and examined. Awake and alert. Chart was reviewed Denies chest pain, SOB or palpitations - Current Medication List Current Medications: Active Medications Acetaminophen (Tylenol -) 650 mg PO Q4H PRN PRN Reason: PAIN LEVEL 6-10 Last Admin: 04/08/18 09:04 Dose: 650 mg Amlodipine Besylate (Norvasc -) 5 mg PO DAILY [facility] Last Admin: 04/10/18 10:03 Dose: 5 mg Atorvastatin Calcium (Lipitor -) 20 mg PO HS [facility] Last Admin: 04/09/18 21:25 Dose: 20 mg Cholecalciferol (Vitamin D3 -) 2,000 unit PO DAILY [facility] Last Admin: 04/10/18 10:03 Dose: 2,000 unit Colchicine (Colcrys -) 0.6 mg PO DAILY [facility] Last Admin: 04/10/18 10:03 Dose: 0.6 mg Gabapentin (Neurontin -) 300 mg PO BID [facility] Last Admin: 04/10/18 10:03 Dose: 300 mg Hydroxyzine HCl (Atarax -) 25 mg PO Q8H PRN PRN Reason: FOR ITCHING Sodium Chloride (Normal Saline -) 1,000 mls @ 50 mls/hr IV ASDIR [facility] Last Admin: 04/09/18 15:24 Dose: 50 mls/hr Insulin Aspart (Novolog Vial Sliding Scale -) 1 vial SQ HS [facility]; Protocol Last Admin: 04/09/18 21:28 Dose: 6 units Insulin Aspart (Novolog Vial Sliding Scale -) 1 vial SQ TIDAC [facility]; Protocol Insulin Detemir (Levemir Vial) 20 units SQ AM [facility] Levothyroxine Sodium (Synthroid -) 125 mcg PO ACBK [facility] Last Admin: 04/10/18 06:31 Dose: 125 mcg Loratadine (Claritin -) 10 mg PO DAILY [facility] Last Admin: 04/10/18 10:03 Dose: 10 mg Phenol/Menthol (Chloraseptic -) 2 spray MM Q6H PRN PRN Reason: SORE THROAT Rivaroxaban (Xarelto) 15 mg PO DAILY@1800 [facility] Last Admin: 04/09/18 17:04 Dose: 15 mg Tamsulosin HCl (Flomax -) 0.4 mg PO DAILY@0830 [facility] Last Admin: 04/10/18 10:03 Dose: 0.4 mg - Objective Vital Signs: Vital Signs Temperature 98.5 F 04/10/18 14:16 Pulse Rate 71 04/10/18 14:16 Respiratory Rate 18 04/10/18 10:00 Blood Pressure 147/87 04/10/18 14:16 O2 Sat by Pulse Oximetry (%) 92 L 04/10/18 12:00 Eyes: Yes: PERRL HENT: Yes: Atraumatic Neck: Yes: Supple Cardiovascular: Yes: Pulse Irregular, S1, S2 Respiratory: Yes: CTA Bilaterally Gastrointestinal: Yes: Normal Bowel Sounds, Soft. No: Tenderness Edema: No Labs: CBC, BMP 04/09/18 12:45 04/10/18 10:36 Problem List - Problems (1) Hypercholesterolemia Code(s): E78.00 - PURE HYPERCHOLESTEROLEMIA, UNSPECIFIED (2) Fall Code(s): W19.XXXA - UNSPECIFIED FALL, INITIAL ENCOUNTER Qualifiers: Encounter type: initial encounter Qualified Code(s): W19.XXXA - Unspecified fall, initial encounter (3) Acute on chronic kidney failure Code(s): N17.9 - ACUTE KIDNEY FAILURE, UNSPECIFIED; N18.9 - CHRONIC KIDNEY DISEASE, UNSPECIFIED (4) Atrial fibrillation with slow ventricular response Code(s): I48.91 - UNSPECIFIED ATRIAL FIBRILLATION (5) BPH (benign prostatic hyperplasia) Code(s): N40.0 - BENIGN PROSTATIC HYPERPLASIA WITHOUT LOWER URINRY TRACT SYMP Qualifiers: Lower urinary tract symptom presence: unspecified whether lower urinary tract symptoms present Qualified Code(s): N40.0 - Benign prostatic hyperplasia without lower urinary tract symptoms (6) DM type 2 (diabetes mellitus, type 2) Code(s): E11.9 - TYPE 2 DIABETES MELLITUS WITHOUT COMPLICATIONS Qualifiers: Diabetes mellitus assisted insulin use: without exterminator helper use Diabetes mellitus complication status: with unspecified complications Qualified Code(s) : E11.8 - Type 2 diabetes mellitus with unspecified complications (7) HTN (hypertension) Code(s): I10 - ESSENTIAL (PRIMARY) HYPERTENSION Qualifiers: Hypertension type: essential hypertension Qualified Code(s): I10 - Essential (primary) hypertension (8) Hypothyroid Code(s): E03.9 - HYPOTHYROIDISM, UNSPECIFIED Qualifiers: Hypothyroidism type: acquired Qualified Code(s): E03.9 - Hypothyroidism, unspecified Assessment/Plan 1. Mechanical fall with no LOC 2. HTN 3. AF on NOAC 4. Hypercholesterolemia 5. DM 6. Acute on chronic LV failure ? systolic +/- diastolic 7. Hypothyroidism 8. CKD PLAN: 1. Transthoracic echocardiography to assess LV/RV and valvular function 2. Continue Amlodipine 3. Continue Xarelto 15 mg QD 4. Metoprolol at a low dose may be considered once HR permissible. Off Digoxin Further plans are to follow Wero Shelby MD
--- NOTE | 2018-04-10 16:32 | PN ---
Physical Exam: SUBJECTIVE: Patient seen and examined at bedside. No acute events overnight. Pt has no complaints and would like to go back home. OBJECTIVE: Vital Signs Temperature 98.5 F 04/10/18 14:16 Pulse Rate 71 04/10/18 14:16 Respiratory Rate 18 04/10/18 10:00 Blood Pressure 147/87 04/10/18 14:16 O2 Sat by Pulse Oximetry (%) 92 L 04/10/18 12:00 GENERAL: AOX3, NAD HEAD: no scalp lacerations,no scalp hematomas. left zygomatic ecchymosis , no facial lacerations EYES: EOMI, sclera anicteric, conjunctiva clear. No lid lag. EARS, NOSE, THROAT: Ears normal, nares patent, oropharynx clear without exudates. MMM NECK: Normal range of motion, supple without lymphadenopathy, JVD, or masses. LUNGS: CTAB HEART: Irregularly irregular. Normal S1 and S2 without murmur, rub or gallop. ABDOMEN: Soft, ntnd, normoactive bowel sounds, no guarding, no rebound, no masses. MUSCULOSKELETAL: Normal range of motion at all joints. No bony deformities or tenderness. UPPER EXTREMITIES: 2+ pulses, warm, well-perfused. No cyanosis. No clubbing. No peripheral edema. LOWER EXTREMITIES: 2+ pulses, warm, well-perfused. No calf tenderness. No peripheral edema. b/l knee abrasions, rt knee has mild tenderness NEUROLOGICAL: Cranial nerves II-XII intact. Normal speech. can move all extremities,able to lift both legs PSYCHIATRIC: Cooperative. Good eye contact. Appropriate mood and affect. SKIN: Warm, dry, normal turgor, no rashes or lesions noted, normal capillary refill. CBCD WBC 4.3 K/mm3 (4.0-10.0) 04/09/18 12:45 RBC 4.37 M/mm3 (4.00-5.60) 04/09/18 12:45 Hgb 12.3 GM/dL (11.7-16.9) 04/09/18 12:45 Hct 38.6 % (35.4-49) 04/09/18 12:45 MCV 88.2 fl (80-96) 04/09/18 12:45 MCHC 31.9 g/dl (32.0-35.9) L 04/09/18 12:45 RDW 14.9 % (11.9-15.9) 04/09/18 12:45 Plt Count 162 K/MM3 (134-434) 04/09/18 12:45 MPV 8.5 fl (7.5-11.1) 04/09/18 12:45 CMP Sodium 139 mmol/L (136-145) 04/10/18 10:36 Potassium 4.3 mmol/L (3.5-5.1) 04/10/18 10:36 Chloride 107 mmol/L (98-107) 04/10/18 10:36 Carbon Dioxide 28 mmol/L (21-32) 04/10/18 10:36 Anion Gap 4 MMOL/L (8-16) L 04/10/18 10:36 BUN 17 mg/dL (7-18) 04/10/18 10:36 Creatinine 1.4 mg/dL (0.55-1.3) H 04/10/18 10:36 Creat Clearance w eGFR 48.40 (>60) 04/10/18 10:36 Calcium 8.4 mg/dL (8.5-10.1) L 04/10/18 10:36 Total Bilirubin 0.5 mg/dL (0.2-1) 04/09/18 12:45 AST 28 U/L (15-37) 04/09/18 12:45 ALT 44 U/L (13-61) 04/09/18 12:45 Alkaline Phosphatase 116 U/L (45-117) 04/09/18 12:45 Total Protein 5.9 g/dl (6.4-8.2) L 04/09/18 12:45 Albumin 3.2 g/dl (3.4-5.0) L 04/09/18 12:45 Active Medications Acetaminophen (Tylenol -) 650 mg PO Q4H PRN PRN Reason: PAIN LEVEL 6-10 Last Admin: 04/08/18 09:04 Dose: 650 mg Amlodipine Besylate (Norvasc -) 5 mg PO DAILY [facility] Last Admin: 04/10/18 10:03 Dose: 5 mg Atorvastatin Calcium (Lipitor -) 20 mg PO HS [facility] Last Admin: 04/09/18 21:25 Dose: 20 mg Cholecalciferol (Vitamin D3 -) 2,000 unit PO DAILY [facility] Last Admin: 04/10/18 10:03 Dose: 2,000 unit Colchicine (Colcrys -) 0.6 mg PO DAILY [facility] Last Admin: 04/10/18 10:03 Dose: 0.6 mg Gabapentin (Neurontin -) 300 mg PO BID [facility] Last Admin: 04/10/18 10:03 Dose: 300 mg Hydroxyzine HCl (Atarax -) 25 mg PO Q8H PRN PRN Reason: FOR ITCHING Sodium Chloride (Normal Saline -) 1,000 mls @ 50 mls/hr IV ASDIR [facility] Last Admin: 04/09/18 15:24 Dose: 50 mls/hr Insulin Aspart (Novolog Vial Sliding Scale -) 1 vial SQ HS [facility]; Protocol Last Admin: 04/09/18 21:28 Dose: 6 units Insulin Aspart (Novolog Vial Sliding Scale -) 1 vial SQ TIDAC [facility]; Protocol Insulin Detemir (Levemir Vial) 20 units SQ AM [facility] Levothyroxine Sodium (Synthroid -) 125 mcg PO ACBK [facility] Last Admin: 04/10/18 06:31 Dose: 125 mcg Loratadine (Claritin -) 10 mg PO DAILY [facility] Last Admin: 04/10/18 10:03 Dose: 10 mg Metoprolol Succinate (Toprol Xl -) 25 mg PO DAILY [facility] Phenol/Menthol (Chloraseptic -) 2 spray MM Q6H PRN PRN Reason: SORE THROAT Rivaroxaban (Xarelto) 15 mg PO DAILY@1800 [facility] Last Admin: 04/09/18 17:04 Dose: 15 mg Tamsulosin HCl (Flomax -) 0.4 mg PO DAILY@0830 [facility] Last Admin: 04/10/18 10:03 Dose: 0.4 mg IMAGING: * Head CT (04/07/18): no acute intracranial pathology. * CT C-spine: no acute pathology. there is degenerative disc disease. * CT facial bones: subcutaneous edema along left mid face. No fracture identified. 0.7 cm perforation of cartiliginous nasal septum. * CXR: Lungs are clear. Acute process not seen. * L/R knee xray: No acute pathology. * Renal U/S: B/l renal cysts. No hydronephrosis or acute pathology. * Head CT (04/08/18): No acute pathology. * Kidney U/S: B/L renal cysts with no hydronephrosis. * Echo: LA mildly dilated. Mild MR/TR. Mild aortic regurg. Mild aortic root dilatation. EF 60-65%. ASSESSMENT/PLAN: 83 yo M PMH atrial fibrillation on xarelto, CAD, CHF, HTN, DM, HLD, BPH, GIB , gout, hypothyroidism sent to ED from [facility] for mechanical fall, found to have MT and hyperglycemia to 518. #S/P Mechanical fall; On initial exam, pt jovon at 45 on EKG. -EKG: A-fib with HR 45, absent acute ZENAIDA. + RBBB. Nml Qt interval. Qtc 413. TWI V5-6, changed from last EKG 02/2018 -Head CT neg x2 -Will address polypharmacy with his care givers at the Assisted Living [facility]. -Per cardio, stop digoxin. (Digoxin 1.14) May continue with Metoprolol 25 mg PO QD. -Echo noted above. Per cardio, may follow up outpatient. -PT/fall precautions/neuro checks -Acetaminophen 650 Q4H PRN Cont home meds: -Amlodipine 5 mg PO QD -Xarelto 15 mg PO QD #MT - likely prerenal 2/2 hyperglycemic osmotic diureses. Also has risk factors for CKD. -Monitor renal fxn: on previous admission Cr 1.2 to 1.6, now 1.9 to 2.3 on this admission. -Hydrate gently with PO fluids -NS @ 50 -U/A 3+ Glu, CPK normal, Kidney U/S showed no evidence of hydronephrosis -Hold Lasix, PAMELA inhibitor -monitor BMPs and response to fluid challenge -Avoid nephrotoxic agents such as NSAIDS, aminoglycosides, contrast dyes #DM; hyperglycemic 500s. Was on glipizide which was discontinued during his recent admission on 02/22/18 for possible symptomatic hypoglycemia. -Per endo, increase Levemir to 20U AM, ISS HS, ISS TIDAC -BGMs ACHS -Hgb A1c 11.5 -Per endo, will start oral hypoglycemics once renal fxn is stable. F/u endo recs. #Pharyngitis -Phenol spray Q6H PRN #Gout Cont home med: -Colchicine 0.6 mg PO QD #Hypothyroidism Cont home med: -Synthroid 125 mcg PO QD #CAD, HLD Cont home meds: -Lipitor 20 mg PO HS #HTN Cont home meds: -Amlodipine 5 mg PO QD #BPH Cont home meds: -Flomax 0.4 mg PO QD #A-fib -Per cardio, may continue with Metoprolol Succinate 25 mg PO QD -Stop Digoxin Cont home med: -Xarelto 15 mg PO QD #Ppx -DVT: Xarelto 15 mg PO QD #FEN -NS @ 75 -recheck lytes in AM, replete PRN -low sodium/low chol/diabetic diet Dispo -cont to monitor med-surg -full code -dc planning back to [facility] assisted living facility Visit type - Emergency Visit Emergency Visit: Yes ED Registration Date: 04/09/18 Care time: The patient presented to the Emergency Department on the above date and was hospitalized for further evaluation of their emergent condition. - New Patient This patient is new to me today: No - Critical Care Critical Care patient: No
--- NOTE | 2018-04-10 16:50 | PN ---
Progress Note, Physician History of Present Illness: Pt seen and examined. He is agitated. - Current Medication List Current Medications: Active Medications Acetaminophen (Tylenol -) 650 mg PO Q4H PRN PRN Reason: PAIN LEVEL 6-10 Last Admin: 04/08/18 09:04 Dose: 650 mg Amlodipine Besylate (Norvasc -) 5 mg PO DAILY [facility] Last Admin: 04/10/18 10:03 Dose: 5 mg Atorvastatin Calcium (Lipitor -) 20 mg PO HS [facility] Last Admin: 04/09/18 21:25 Dose: 20 mg Cholecalciferol (Vitamin D3 -) 2,000 unit PO DAILY [facility] Last Admin: 04/10/18 10:03 Dose: 2,000 unit Colchicine (Colcrys -) 0.6 mg PO DAILY [facility] Last Admin: 04/10/18 10:03 Dose: 0.6 mg Gabapentin (Neurontin -) 300 mg PO BID [facility] Last Admin: 04/10/18 10:03 Dose: 300 mg Hydroxyzine HCl (Atarax -) 25 mg PO Q8H PRN PRN Reason: FOR ITCHING Sodium Chloride (Normal Saline -) 1,000 mls @ 50 mls/hr IV ASDIR [facility] Last Admin: 04/09/18 15:24 Dose: 50 mls/hr Insulin Aspart (Novolog Vial Sliding Scale -) 1 vial SQ HS [facility]; Protocol Last Admin: 04/09/18 21:28 Dose: 6 units Insulin Aspart (Novolog Vial Sliding Scale -) 1 vial SQ TIDAC [facility]; Protocol Insulin Detemir (Levemir Vial) 20 units SQ AM [facility] Levothyroxine Sodium (Synthroid -) 125 mcg PO ACBK [facility] Last Admin: 04/10/18 06:31 Dose: 125 mcg Loratadine (Claritin -) 10 mg PO DAILY [facility] Last Admin: 04/10/18 10:03 Dose: 10 mg Metoprolol Succinate (Toprol Xl -) 25 mg PO DAILY [facility] Phenol/Menthol (Chloraseptic -) 2 spray MM Q6H PRN PRN Reason: SORE THROAT Rivaroxaban (Xarelto) 15 mg PO DAILY@1800 [facility] Last Admin: 04/09/18 17:04 Dose: 15 mg Tamsulosin HCl (Flomax -) 0.4 mg PO DAILY@0830 [facility] Last Admin: 04/10/18 10:03 Dose: 0.4 mg - Objective Vital Signs: Vital Signs Temperature 98.5 F 04/10/18 14:16 Pulse Rate 71 04/10/18 14:16 Respiratory Rate 18 04/10/18 10:00 Blood Pressure 147/87 04/10/18 14:16 O2 Sat by Pulse Oximetry (%) 92 L 04/10/18 12:00 Eyes: Yes: Conjunctiva Clear Cardiovascular: Yes: S1, S2 Respiratory: Yes: CTA Bilaterally Gastrointestinal: Yes: Soft Genitourinary: Yes: WNL Edema: No Neurological: Yes: Confusion Psychiatric: Yes: Agitated Labs: CBC, BMP 04/09/18 12:45 04/10/18 10:36 INR, PTT INR 1.30 (0.83-1.09) H 04/07/18 21:50 Assessment/Plan Current Medications Generic Name Dose Route Start Last Admin Trade Name Freq PRN Reason Stop Dose Admin Acetaminophen 650 mg 04/08/18 04:53 04/08/18 09:04 Tylenol - PO 650 mg Q4H PRN Administration PAIN LEVEL 6-10 Amlodipine Besylate 5 mg 04/08/18 10:00 04/10/18 10:03 Norvasc - PO 5 mg DAILY [facility] Administration Atorvastatin Calcium 20 mg 04/08/18 22:00 04/09/18 21:25 Lipitor - PO 20 mg HS [facility] Administration Cholecalciferol 2,000 unit 04/08/18 10:00 04/10/18 10:03 Vitamin D3 - PO 2,000 unit DAILY [facility] Administration Colchicine 0.6 mg 04/08/18 10:00 04/10/18 10:03 Colcrys - PO 0.6 mg DAILY [facility] Administration Gabapentin 300 mg 04/08/18 10:00 04/10/18 10:03 Neurontin - PO 300 mg BID [facility] Administration Hydroxyzine HCl 25 mg 04/08/18 05:06 Atarax - PO Q8H PRN FOR ITCHING Sodium Chloride 1,000 mls @ 50 mls/hr 04/09/18 13:49 04/09/18 15:24 Normal Saline - IV 50 mls/hr ASDIR [facility] Administration Insulin Aspart 1 vial 04/08/18 22:00 04/09/18 21:28 Novolog Vial Sliding Scale - SQ 6 units HS [facility] Administration Protocol Insulin Aspart 1 vial 04/10/18 14:48 Novolog Vial Sliding Scale - SQ TIDAC [facility] Protocol Insulin Detemir 20 units 04/11/18 07:00 Levemir Vial SQ AM [facility] Levothyroxine Sodium 125 mcg 04/08/18 07:00 04/10/18 06:31 Synthroid - PO 125 mcg ACBK [facility] Administration Loratadine 10 mg 04/08/18 10:00 04/10/18 10:03 Claritin - PO 10 mg DAILY [facility] Administration Metoprolol Succinate 25 mg 04/10/18 15:45 Toprol Xl - PO DAILY [facility] Phenol/Menthol 2 spray 04/08/18 05:30 Chloraseptic - MM Q6H PRN SORE THROAT Rivaroxaban 15 mg 04/08/18 18:00 04/09/18 17:04 Xarelto PO 15 mg DAILY@1800 [facility] Administration Tamsulosin HCl 0.4 mg 04/08/18 08:30 04/10/18 10:03 Flomax - PO 0.4 mg DAILY@0830 [facility] Administration Impression 1. MT resolving 2. likely ckd 3. dm 4. htn 5. s/p fall 6. hypothryoidism 7. bilateral renal cyts 8. CHF Plan - ua neg for blood or protein - mt likely from dehydration - cont fluids - repeat labs in am - renal function is improving
[2018-04-10] MEDS ORDERED: PT OWN MED DRAWER 7, Y5N ONE (17:20)
[2018-04-10] MEDS: RIVAROXABAN 15 MG TABLET PO SCH (17:25)
[2018-04-10] MEDS: metoPROLOL SUCCINATE 25 MG TAB.SR.24H (FP) PO SCH (17:25)
[2018-04-10] MEDS: SODIUM CHLORIDE 1,000 ML IV SCH (17:25)
[2018-04-10 20:53] VITALS: TEMP 98.3
[2018-04-10] MEDS: ATORVASTATIN CA 20 MG TABLET (FP) PO SCH (22:39)
[2018-04-11] MEDS: LEVOTHYROXINE NA 125 MCG TABLET (FP) PO SCH (06:44)
[2018-04-11] MEDS: INSULIN SLIDING SCALE (NOVOLOG) 1 VIAL SQ SCH ×3 (06:44→16:38)
[2018-04-11] MEDS ORDERED: INSULIN (LEVEMIR) 100 UNITS/ML UNITS SQ SCH (07:00)
[2018-04-11] MEDS ORDERED: PT OWN MED DRAWER 7, Y5N ONE ×2 (09:01→18:00)
[2018-04-11] MEDS: LORATADINE 10 MG TABLET PO SCH (09:24)
[2018-04-11] MEDS: GABAPENTIN 300 MG CAPSULE (FP) PO SCH (09:25)
[2018-04-11] MEDS: COLCHICINE 0.6 MG TABLET (FP) PO SCH (09:25)
[2018-04-11] MEDS: CHOLECALCIFEROL (VITAMIN D3) 1,000 UNIT TABLET (FP) PO SCH (09:25)
[2018-04-11] MEDS: amLODIPine BESYLATE 5 MG TABLET (FP) PO SCH (09:25)
[2018-04-11] MEDS: TAMSULOSIN HCL 0.4 MG CAP PO SCH (09:25)
[2018-04-11] MEDS: metoPROLOL SUCCINATE 25 MG TAB.SR.24H (FP) PO SCH (09:25)
[2018-04-11] MEDS ORDERED: LISINOPRIL 5 MG TABLET (FP) PO SCH (10:00)
[2018-04-11] MEDS ORDERED: FUROSEMIDE 20 MG TABLET (FP) PO SCH (10:00)
--- NOTE | 2018-04-11 10:55 | DS ---
Physical Exam: SUBJECTIVE: Patient seen and examined OBJECTIVE: Vital Signs Temperature 98.3 F 04/11/18 05:57 Pulse Rate 54 L 04/11/18 05:57 Respiratory Rate 20 04/10/18 21:00 Blood Pressure 156/78 04/11/18 05:57 O2 Sat by Pulse Oximetry (%) 95 04/10/18 21:00 PHYSICAL EXAM GENERAL: The patient is awake, alert, and fully oriented, in no acute distress. HEAD: Normal with no signs of trauma. EYES: PERRL, extraocular movements intact, sclera anicteric, conjunctiva clear. ENT: Ears normal, oropharynx clear without exudates, moist mucous membranes. NECK: Trachea midline, full range of motion, supple. LUNGS: Breath sounds equal, clear to auscultation bilaterally, no wheezes, no crackles, no accessory muscle use. HEART: Regular rate and rhythm, S1, S2 without murmur, rub or gallop. ABDOMEN: Soft, nontender, nondistended, normoactive bowel sounds, no guarding, no rebound, no hepatosplenomegaly, no masses. EXTREMITIES: 2+ pulses, warm, well-perfused, no edema. NEUROLOGICAL: Cranial nerves II through XII grossly intact. Normal speech, gait not observed. PSYCH: Normal mood, normal affect. SKIN: Warm, dry, normal turgor, no rashes or lesions noted. LABS Laboratory Results - last 24 hr 04/10/18 04/10/18 04/10/18 10:36 11:10 17:24 Sodium 139 Potassium 4.3 Chloride 107 Carbon Dioxide 28 Anion Gap 4 L BUN 17 Creatinine 1.4 H Creat Clearance w eGFR 48.40 POC Glucometer 286 209 Random Glucose 253 H Calcium 8.4 L 04/10/18 04/11/18 20:52 05:59 Sodium Potassium Chloride Carbon Dioxide Anion Gap BUN Creatinine Creat Clearance w eGFR POC Glucometer 228 165 Random Glucose Calcium HOSPITAL COURSE: Date of Admission:04/09/18 IMAGING: * Head CT (04/07/18): no acute intracranial pathology. * CT C-spine: no acute pathology. there is degenerative disc disease. * CT facial bones: subcutaneous edema along left mid face. No fracture identified. 0.7 cm perforation of cartiliginous nasal septum. * CXR: Lungs are clear. Acute process not seen. * L/R knee xray: No acute pathology. * Renal U/S: B/l renal cysts. No hydronephrosis or acute pathology. * Head CT (04/08/18): No acute pathology. * Kidney U/S: B/L renal cysts with no hydronephrosis. * Echo: LA mildly dilated. Mild MR/TR. Mild aortic regurg. Mild aortic root dilatation. EF 60-65%. 83M PMH atrial fibrillation on xarelto, CAD, CHF, HTN, DM, HLD, BPH, GIB, gout, hypothyroidism sent to ED from [facility] for mechanical fall, found to have MT and hyperglycemia to 518. Head CT, CT C-spine, b/l knee x-ray , CT facial bones were done that showed no acute pathology related the fall. Pt was seen and evaluated by cardio with recommendation to stop taking digoxin and aspirin. An echo was done that showed mildly dilated LA, mild MR/TR, mild aortic regurg, mild aortic root dilatation, and an EF 60-65%. Upon cardiac eval , pt was found to have no acute cardiac condition. Date of Discharge: 04/11/18 Discharge Summary Reason For Visit: ACUTE RENAL FAILURESUPERIMPOSES ON CHRONIC KIDNEY Condition: Improved - Instructions Diet, Activity, Other Instructions: You were seen in the hospital after a fall at home. In the hospital, imaging studies were done that did not show any acute condition related to the fall. Additionally, you were seen by a oyster bed worker and an echocardiogram was done. You were not to found to have an acute heart condition. Blood work was done and you were found to have high blood sugars. You were seen by an marketing operations analyst due to your fluctuating blood sugar levels. During your hospital stay, your symptoms improved. You are being discharged home. MEDICAL RECOMMENDATIONS Please start taking Levemir 20U by subcutaneous injection once in the morning. Please STOP taking Digoxin. Please continue taking the rest of your home medications as directed. CONSULT RECOMMENDATIONS Please follow up with your marketing operations analyst, Dr. Olivas, within 1 week. Please also follow up with your oyster bed worker, Dr. Shelby, within 1 week. If you experience worsening shortness of breath, chest pain, difficulty breathing, difficulty walking, mental status changes, another fall or lower extremity weakness, please proceed to your nearest emergency room immediately. Referrals: Wero Shelby MD [Staff Physician] - 1 Week Marleni Olivas MD [Staff Physician] - 1 Week Disposition: HOME - Home Medications Comprehensive Discharge Medication List: Ambulatory Orders Amlodipine Besylate 5 mg PO DAILY 01/30/18 Aspirin [ASA -] 81 mg PO DAILY 01/30/18 Atorvastatin Calcium [Lipitor] 20 mg PO DAILY 01/30/18 Cetirizine HCl [Zyrtec -] 10 mg PO DAILY 01/30/18 Colchicine 0.6 mg PO DAILY 01/30/18 Furosemide [Lasix] 20 mg PO DAILY 01/30/18 Gabapentin 300 mg PO BID 01/30/18 Lisinopril 5 mg PO DAILY 01/30/18 Rivaroxaban [Xarelto] 15 mg PO DAILY 01/30/18 Cholecalciferol (Vitamin D3) [Vitamin D3] 2,000 unit PO DAILY 01/31/18 Lactulose 20 gm PO PRN PRN 01/31/18 Levothyroxine Sodium [Levoxyl] 125 mcg PO ACBK 01/31/18 Polyethylene Glycol 3350 [Miralax 119 gm Btl -] 17 gm PO DAILY PRN 01/31/18 Psyllium Husk (with Sugar) [Metamucil Packet] 3.4 gm PO HS 01/31/18 Tamsulosin HCl [Flomax -] 0.4 mg PO DAILY@0830 cap.er.24h 02/03/18 Oxybutynin Chloride [Oxybutynin Chloride ER] 10 mg PO DAILY 04/08/18 Pantoprazole Sodium [Protonix] 40 mg PO DAILY 04/08/18 Insulin (Levemir) [Levemir Vial] 20 unit SQ AM #1 vial 04/10/18 Metoprolol Succinate [Toprol XL -] 25 mg PO DAILY tab.sr.24h 04/10/18
[2018-04-11] MEDS ORDERED: INSULIN (NOVOLOG) ASPART 100 UNITS/ML 10ML VIAL ONE (11:40)
--- NOTE | 2018-04-11 12:24 | PN ---
Progress Note (short form) - Note Progress Note: Denies any complaints Vital Signs Period Temp Pulse Resp BP Sys/Denson Pulse Ox Last 24 Hr 98.3 F-98.5 F 54-71 18-21 147-156/78-87 94-95 PE: Awake, alert Neck: Supple, No JVD HEENT: EOMI Lungs: CTA CVS: S1S2 Abd: Benign Ext: No edema CMP Sodium 139 mmol/L (136-145) 04/10/18 10:36 Potassium 4.3 mmol/L (3.5-5.1) 04/10/18 10:36 Chloride 107 mmol/L (98-107) 04/10/18 10:36 Carbon Dioxide 28 mmol/L (21-32) 04/10/18 10:36 Anion Gap 4 MMOL/L (8-16) L 04/10/18 10:36 BUN 17 mg/dL (7-18) 04/10/18 10:36 Creatinine 1.4 mg/dL (0.55-1.3) H 04/10/18 10:36 Creat Clearance w eGFR 48.40 (>60) 04/10/18 10:36 POC Glucometer 237 UNITS (80-120) 04/11/18 11:34 Random Glucose 253 mg/dL (74-106) H 04/10/18 10:36 Hemoglobin A1c % 11.5 % (4.2-6.3) H 04/09/18 06:30 Calcium 8.4 mg/dL (8.5-10.1) L 04/10/18 10:36 Phosphorus 2.8 mg/dL (2.5-4.9) 04/09/18 12:45 Magnesium 1.7 mg/dL (1.8-2.4) L 04/09/18 12:45 Total Bilirubin 0.5 mg/dL (0.2-1) 04/09/18 12:45 AST 28 U/L (15-37) 04/09/18 12:45 ALT 44 U/L (13-61) 04/09/18 12:45 Alkaline Phosphatase 116 U/L (45-117) 04/09/18 12:45 Creatine Kinase 41 IU/L (26-308) 04/08/18 05:13 Troponin I < 0.02 ng/ml (0.00-0.05) 04/07/18 21:50 Total Protein 5.9 g/dl (6.4-8.2) L 04/09/18 12:45 Albumin 3.2 g/dl (3.4-5.0) L 04/09/18 12:45 Current Medications Generic Name Dose Route Start Last Admin Trade Name Freq PRN Reason Stop Dose Admin Acetaminophen 650 mg 04/08/18 04:53 04/08/18 09:04 Tylenol - PO 650 mg Q4H PRN Administration PAIN LEVEL 6-10 Amlodipine Besylate 5 mg 04/08/18 10:00 04/11/18 09:25 Norvasc - PO 5 mg DAILY [facility] Administration Atorvastatin Calcium 20 mg 04/08/18 22:00 04/10/18 22:39 Lipitor - PO 20 mg HS [facility] Administration Cholecalciferol 2,000 unit 04/08/18 10:00 04/11/18 09:25 Vitamin D3 - PO 2,000 unit DAILY [facility] Administration Colchicine 0.6 mg 04/08/18 10:00 04/11/18 09:25 Colcrys - PO 0.6 mg DAILY [facility] Administration Furosemide 20 mg 04/11/18 10:00 04/11/18 09:25 Lasix - PO 20 mg DAILY [facility] Administration Gabapentin 300 mg 04/08/18 10:00 04/11/18 09:25 Neurontin - PO 300 mg BID [facility] Administration Hydroxyzine HCl 25 mg 04/08/18 05:06 Atarax - PO Q8H PRN FOR ITCHING Sodium Chloride 1,000 mls @ 50 mls/hr 04/09/18 13:49 04/10/18 17:25 Normal Saline - IV 50 mls/hr ASDIR [facility] Administration Insulin Aspart 1 vial 04/08/18 22:00 04/10/18 22:40 Novolog Vial Sliding Scale - SQ 2 units HS [facility] Administration Protocol Insulin Aspart 1 vial 04/10/18 14:48 04/11/18 11:43 Novolog Vial Sliding Scale - SQ 6 units TIDAC [facility] Administration Protocol Insulin Detemir 20 units 04/11/18 07:00 04/11/18 06:44 Levemir Vial SQ 20 units AM [facility] Administration Levothyroxine Sodium 125 mcg 04/08/18 07:00 04/11/18 06:44 Synthroid - PO 125 mcg ACBK [facility] Administration Lisinopril 5 mg 04/11/18 10:00 04/11/18 09:25 Prinivil PO 5 mg DAILY [facility] Administration Loratadine 10 mg 04/08/18 10:00 04/11/18 09:24 Claritin - PO 10 mg DAILY [facility] Administration Metoprolol Succinate 25 mg 04/10/18 15:45 04/11/18 09:25 Toprol Xl - PO 25 mg DAILY [facility] Administration Phenol/Menthol 2 spray 04/08/18 05:30 Chloraseptic - MM Q6H PRN SORE THROAT Rivaroxaban 15 mg 04/08/18 18:00 04/10/18 17:25 Xarelto PO 15 mg DAILY@1800 [facility] Administration Tamsulosin HCl 0.4 mg 04/08/18 08:30 04/11/18 09:25 Flomax - PO 0.4 mg DAILY@0830 [facility] Administration AP; S/P Fall T2DM Uncontrolled MT Gout Hypothyroidism CAD,HLD HTN A-fib BGM QACHS Novolog SS coverage Continue Levemir 20 units daily Monitor Renal function: Cr 1.2 to 1.6 during previous admissions, 2.3 and 1.9 during this admission. 1.6 today No oral hypoglycemics for now. May add as outpt if creatinine remains stable and blood sugar is suboptimal on Levemir Continue LT4 125mcg QD HbA1c 11.5 Will f/u
--- NOTE | 2018-04-11 14:22 | DS ---
Physical Exam: SUBJECTIVE: Patient seen and examined. No acute events overnight. OBJECTIVE: Vital Signs Period Temp Pulse Resp BP Sys/Denson Pulse Ox Last 24 Hr 98.3 F-98.3 F 54-66 18-21 156-156/78-83 94-95 PHYSICAL EXAM GENERAL: AOX3, NAD HEAD: no scalp lacerations,no scalp hematomas. left zygomatic ecchymosis , no facial lacerations EYES: EOMI, sclera anicteric, conjunctiva clear. No lid lag. EARS, NOSE, THROAT: Ears normal, nares patent, oropharynx clear without exudates. MMM NECK: Normal range of motion, supple without lymphadenopathy, JVD, or masses. LUNGS: CTAB HEART: Irregularly irregular. Normal S1 and S2 without murmur, rub or gallop. ABDOMEN: Soft, ntnd, normoactive bowel sounds, no guarding, no rebound, no masses. MUSCULOSKELETAL: Normal range of motion at all joints. No bony deformities or tenderness. UPPER EXTREMITIES: 2+ pulses, warm, well-perfused. No cyanosis. No clubbing. No peripheral edema. LOWER EXTREMITIES: 2+ pulses, warm, well-perfused. No calf tenderness. No peripheral edema. b/l knee abrasions, rt knee has mild tenderness NEUROLOGICAL: Cranial nerves II-XII intact. Normal speech. can move all extremities,able to lift both legs PSYCHIATRIC: Cooperative. Good eye contact. Appropriate mood and affect. SKIN: Warm, dry, normal turgor, no rashes or lesions noted, normal capillary refill. LABS Laboratory Results - last 24 hr 04/10/18 04/10/18 04/11/18 17:24 20:52 05:59 POC Glucometer 209 228 165 04/11/18 11:34 POC Glucometer 237 HOSPITAL COURSE: Date of Admission:04/09/18 IMAGING: * Head CT (04/07/18): no acute intracranial pathology. * CT C-spine: no acute pathology. there is degenerative disc disease. * CT facial bones: subcutaneous edema along left mid face. No fracture identified. 0.7 cm perforation of cartiliginous nasal septum. * CXR: Lungs are clear. Acute process not seen. * L/R knee xray: No acute pathology. * Renal U/S: B/l renal cysts. No hydronephrosis or acute pathology. * Head CT (04/08/18): No acute pathology. * Kidney U/S: B/L renal cysts with no hydronephrosis. * Echo: LA mildly dilated. Mild MR/TR. Mild aortic regurg. Mild aortic root dilatation. EF 60-65%. 83M PMH atrial fibrillation on xarelto, CAD, CHF, HTN, DM, HLD, BPH, GIB, gout, hypothyroidism sent to ED from [facility] for mechanical fall, found to have MT and hyperglycemia to 518. Head CT, CT C-spine, b/l knee x-ray , CT facial bones were done that showed no acute pathology related the fall. Pt was seen and evaluated by cardio with recommendation to stop taking digoxin and aspirin. An echo was done that showed mildly dilated LA, mild MR/TR, mild aortic regurg, mild aortic root dilatation, and an EF 60-65%. Upon cardiac eval , pt was found to have no acute cardiac condition. Additionally, urine culture was done that was + for Strep agalactiae group B. Pt had no symptoms throughout hospital stay and was discharged home to assisted living facility with recommendation to stop taking Digoxin and Aspirin and to continue taking all home meds as directed. Pt was also prescribed Levaquin for treatment of his UTI. Date of Discharge: 04/11/18 Minutes to complete discharge: 40 Discharge Summary Reason For Visit: ACUTE RENAL FAILURESUPERIMPOSES ON CHRONIC KIDNEY Condition: Improved - Instructions Diet, Activity, Other Instructions: You were seen in the hospital after a fall at home. In the hospital, imaging studies were done that did not show any acute condition related to the fall. Additionally, you were seen by a fastener sewing machine operator and an echocardiogram was done. You were not to found to have an acute heart condition. Blood work was done and you were found to have high blood sugars. You were seen by an clean out driller due to your fluctuating blood sugar levels. During your hospital stay, your symptoms improved. You are being discharged home. MEDICAL RECOMMENDATIONS Please start taking Levemir 20U by subcutaneous injection once in the morning. Please STOP taking Digoxin. Please STOP taking Aspirin. Please also take Levaquin 250 mg by mouth once a day for 5 days for your positive UTI found on your urine culture. Please continue taking the rest of your home medications as directed. CONSULT RECOMMENDATIONS Please follow up with your clean out driller, Dr. Olivas, within 1 week. Please also follow up with your fastener sewing machine operator, Dr. Shelby, within 1 week. If you experience worsening shortness of breath, chest pain, difficulty breathing, difficulty walking, mental status changes, another fall or lower extremity weakness, please proceed to your nearest emergency room immediately. Referrals: Wero Shelby MD [Staff Physician] - 1 Week Marleni Olivas MD [Staff Physician] - 1 Week Disposition: HOME - Home Medications Comprehensive Discharge Medication List: Ambulatory Orders Amlodipine Besylate 5 mg PO DAILY 01/30/18 Atorvastatin Calcium [Lipitor] 20 mg PO DAILY 01/30/18 Cetirizine HCl [Zyrtec -] 10 mg PO DAILY 01/30/18 Colchicine 0.6 mg PO DAILY 01/30/18 Furosemide [Lasix] 20 mg PO DAILY 01/30/18 Gabapentin 300 mg PO BID 01/30/18 Lisinopril 5 mg PO DAILY 01/30/18 Rivaroxaban [Xarelto] 15 mg PO DAILY 01/30/18 Cholecalciferol (Vitamin D3) [Vitamin D3] 2,000 unit PO DAILY 01/31/18 Lactulose 20 gm PO PRN PRN 01/31/18 Levothyroxine Sodium [Levoxyl] 125 mcg PO ACBK 01/31/18 Polyethylene Glycol 3350 [Miralax 119 gm Btl -] 17 gm PO DAILY PRN 01/31/18 Psyllium Husk (with Sugar) [Metamucil Packet] 3.4 gm PO HS 01/31/18 Tamsulosin HCl [Flomax -] 0.4 mg PO DAILY@0830 cap.er.24h 02/03/18 Pantoprazole Sodium [Protonix] 40 mg PO DAILY 04/08/18 Insulin (Levemir) [Levemir Vial] 20 unit SQ AM #1 vial 04/10/18 Metoprolol Tartrate [Lopressor] 12.5 mg PO BID 04/11/18 This patient is new to me today: No Emergency Visit: Yes ED Registration Date: 04/09/18 Care time: The patient presented to the Emergency Department on the above date and was hospitalized for further evaluation of their emergent condition. Critical Care patient: No - Discharge Referral Referred to [facility] Med P.C.: No
--- NOTE | 2018-04-11 14:31 | PN ---
Progress Note, Physician History of Present Illness: Pt agitated. He is refusing exam. - Current Medication List Current Medications: Active Medications Acetaminophen (Tylenol -) 650 mg PO Q4H PRN PRN Reason: PAIN LEVEL 6-10 Last Admin: 04/08/18 09:04 Dose: 650 mg Amlodipine Besylate (Norvasc -) 5 mg PO DAILY [facility] Last Admin: 04/11/18 09:25 Dose: 5 mg Atorvastatin Calcium (Lipitor -) 20 mg PO HS [facility] Last Admin: 04/10/18 22:39 Dose: 20 mg Cholecalciferol (Vitamin D3 -) 2,000 unit PO DAILY [facility] Last Admin: 04/11/18 09:25 Dose: 2,000 unit Colchicine (Colcrys -) 0.6 mg PO DAILY [facility] Last Admin: 04/11/18 09:25 Dose: 0.6 mg Furosemide (Lasix -) 20 mg PO DAILY [facility] Last Admin: 04/11/18 09:25 Dose: 20 mg Gabapentin (Neurontin -) 300 mg PO BID [facility] Last Admin: 04/11/18 09:25 Dose: 300 mg Hydroxyzine HCl (Atarax -) 25 mg PO Q8H PRN PRN Reason: FOR ITCHING Sodium Chloride (Normal Saline -) 1,000 mls @ 50 mls/hr IV ASDIR [facility] Last Admin: 04/10/18 17:25 Dose: 50 mls/hr Insulin Aspart (Novolog Vial Sliding Scale -) 1 vial SQ HS [facility]; Protocol Last Admin: 04/10/18 22:40 Dose: 2 units Insulin Aspart (Novolog Vial Sliding Scale -) 1 vial SQ TIDAC [facility]; Protocol Last Admin: 04/11/18 11:43 Dose: 6 units Insulin Detemir (Levemir Vial) 20 units SQ AM [facility] Last Admin: 04/11/18 06:44 Dose: 20 units Levothyroxine Sodium (Synthroid -) 125 mcg PO ACBK [facility] Last Admin: 04/11/18 06:44 Dose: 125 mcg Lisinopril (Prinivil) 5 mg PO DAILY [facility] Last Admin: 04/11/18 09:25 Dose: 5 mg Loratadine (Claritin -) 10 mg PO DAILY [facility] Last Admin: 04/11/18 09:24 Dose: 10 mg Metoprolol Succinate (Toprol Xl -) 25 mg PO DAILY [facility] Last Admin: 04/11/18 09:25 Dose: 25 mg Phenol/Menthol (Chloraseptic -) 2 spray MM Q6H PRN PRN Reason: SORE THROAT Rivaroxaban (Xarelto) 15 mg PO DAILY@1800 [facility] Last Admin: 04/10/18 17:25 Dose: 15 mg Tamsulosin HCl (Flomax -) 0.4 mg PO DAILY@0830 [facility] Last Admin: 04/11/18 09:25 Dose: 0.4 mg - Objective Vital Signs: Vital Signs Temperature 98.3 F 04/11/18 05:57 Pulse Rate 54 L 04/11/18 05:57 Respiratory Rate 20 04/10/18 21:00 Blood Pressure 156/78 04/11/18 05:57 O2 Sat by Pulse Oximetry (%) 95 04/10/18 21:00 Constitutional: Yes: Well Nourished, Anxious Labs: CBC, BMP 04/09/18 12:45 04/10/18 10:36 INR, PTT INR 1.30 (0.83-1.09) H 04/07/18 21:50 Assessment/Plan Current Medications Generic Name Dose Route Start Last Admin Trade Name Freq PRN Reason Stop Dose Admin Acetaminophen 650 mg 04/08/18 04:53 04/08/18 09:04 Tylenol - PO 650 mg Q4H PRN Administration PAIN LEVEL 6-10 Amlodipine Besylate 5 mg 04/08/18 10:00 04/11/18 09:25 Norvasc - PO 5 mg DAILY [facility] Administration Atorvastatin Calcium 20 mg 04/08/18 22:00 04/10/18 22:39 Lipitor - PO 20 mg HS [facility] Administration Cholecalciferol 2,000 unit 04/08/18 10:00 04/11/18 09:25 Vitamin D3 - PO 2,000 unit DAILY [facility] Administration Colchicine 0.6 mg 04/08/18 10:00 04/11/18 09:25 Colcrys - PO 0.6 mg DAILY [facility] Administration Furosemide 20 mg 04/11/18 10:00 04/11/18 09:25 Lasix - PO 20 mg DAILY [facility] Administration Gabapentin 300 mg 04/08/18 10:00 04/11/18 09:25 Neurontin - PO 300 mg BID [facility] Administration Hydroxyzine HCl 25 mg 04/08/18 05:06 Atarax - PO Q8H PRN FOR ITCHING Sodium Chloride 1,000 mls @ 50 mls/hr 04/09/18 13:49 04/10/18 17:25 Normal Saline - IV 50 mls/hr ASDIR [facility] Administration Insulin Aspart 1 vial 04/08/18 22:00 04/10/18 22:40 Novolog Vial Sliding Scale - SQ 2 units HS [facility] Administration Protocol Insulin Aspart 1 vial 04/10/18 14:48 04/11/18 11:43 Novolog Vial Sliding Scale - SQ 6 units TIDAC [facility] Administration Protocol Insulin Detemir 20 units 04/11/18 07:00 04/11/18 06:44 Levemir Vial SQ 20 units AM [facility] Administration Levothyroxine Sodium 125 mcg 04/08/18 07:00 04/11/18 06:44 Synthroid - PO 125 mcg ACBK [facility] Administration Lisinopril 5 mg 04/11/18 10:00 04/11/18 09:25 Prinivil PO 5 mg DAILY [facility] Administration Loratadine 10 mg 04/08/18 10:00 04/11/18 09:24 Claritin - PO 10 mg DAILY [facility] Administration Metoprolol Succinate 25 mg 04/10/18 15:45 04/11/18 09:25 Toprol Xl - PO 25 mg DAILY [facility] Administration Phenol/Menthol 2 spray 04/08/18 05:30 Chloraseptic - MM Q6H PRN SORE THROAT Rivaroxaban 15 mg 04/08/18 18:00 04/10/18 17:25 Xarelto PO 15 mg DAILY@1800 [facility] Administration Tamsulosin HCl 0.4 mg 04/08/18 08:30 04/11/18 09:25 Flomax - PO 0.4 mg DAILY@0830 [facility] Administration Impression 1. MT resolving 2. likely ckd 3. dm 4. htn 5. s/p fall 6. hypothryoidism 7. bilateral renal cyts 8. CHF Plan - monitor renal function - will need tighter glucose control - check labs if he agrees - mt likely from dehydration - will follow PRN
[2018-04-11] MEDS: SODIUM CHLORIDE 1,000 ML IV SCH (15:28)
[2018-04-11 15:41] VITALS: BP 159/92; PULSE 71
--- NOTE | 2018-04-11 16:28 | PN ---
Teaching Attending Note Name of Resident: Lolita Baker ATTENDING PHYSICIAN STATEMENT I saw and evaluated the patient. I reviewed the resident's note and discussed the case with the resident. I agree with the resident's findings and plan as documented. SUBJECTIVE: Patient is feeling better. NAD. OBJECTIVE: Vital Signs Temperature 98.3 F 04/11/18 15:39 Pulse Rate 71 04/11/18 15:39 Respiratory Rate 20 04/11/18 15:39 Blood Pressure 159/92 04/11/18 15:39 O2 Sat by Pulse Oximetry (%) 95 04/11/18 08:00 GENERAL: AOX3, NAD HEAD: no scalp lacerations or scalp hematomas. left zygomatic ecchymosis , no facial lacerations EYES: EOMI, sclera anicteric, conjunctiva clear. EARS, NOSE, THROAT: Ears normal, oropharynx clear without exudates. MMM NECK: supple, no JVD, or masses. LUNGS: CTAB HEART: Irregularly irregular. Normal S1 and S2 without murmur, rub or gallop. ABDOMEN: Soft, nt, nd, normoactive bowel sounds, no guarding, no rebound, no masses. EXTREMITIES: 2+ pulses, warm, well-perfused. No calf tenderness. No peripheral edema. b/l knee abrasions. NEUROLOGICAL: Cranial nerves II-XII intact. Normal speech. can move all extremities, able to lift both legs PSYCHIATRIC: Cooperative. Good eye contact. Appropriate mood and affect. SKIN: Warm, dry, normal turgor, no rashes or lesions noted, normal capillary refill. CBCD WBC 4.3 K/mm3 (4.0-10.0) 04/09/18 12:45 RBC 4.37 M/mm3 (4.00-5.60) 04/09/18 12:45 Hgb 12.3 GM/dL (11.7-16.9) 04/09/18 12:45 Hct 38.6 % (35.4-49) 04/09/18 12:45 MCV 88.2 fl (80-96) 04/09/18 12:45 MCHC 31.9 g/dl (32.0-35.9) L 04/09/18 12:45 RDW 14.9 % (11.9-15.9) 04/09/18 12:45 Plt Count 162 K/MM3 (134-434) 04/09/18 12:45 MPV 8.5 fl (7.5-11.1) 04/09/18 12:45 CMP Sodium 139 mmol/L (136-145) 04/10/18 10:36 Potassium 4.3 mmol/L (3.5-5.1) 04/10/18 10:36 Chloride 107 mmol/L (98-107) 04/10/18 10:36 Carbon Dioxide 28 mmol/L (21-32) 04/10/18 10:36 Anion Gap 4 MMOL/L (8-16) L 04/10/18 10:36 BUN 17 mg/dL (7-18) 04/10/18 10:36 Creatinine 1.4 mg/dL (0.55-1.3) H 04/10/18 10:36 Creat Clearance w eGFR 48.40 (>60) 04/10/18 10:36 Random Glucose 253 mg/dL (74-106) H 04/10/18 10:36 Calcium 8.4 mg/dL (8.5-10.1) L 04/10/18 10:36 Total Bilirubin 0.5 mg/dL (0.2-1) 04/09/18 12:45 AST 28 U/L (15-37) 04/09/18 12:45 ALT 44 U/L (13-61) 04/09/18 12:45 Alkaline Phosphatase 116 U/L (45-117) 04/09/18 12:45 Total Protein 5.9 g/dl (6.4-8.2) L 04/09/18 12:45 Albumin 3.2 g/dl (3.4-5.0) L 04/09/18 12:45 CARDIAC ENZYMES Creatine Kinase 41 IU/L (26-308) 04/08/18 05:13 Troponin I < 0.02 ng/ml (0.00-0.05) 04/07/18 21:50 Current Medications Generic Name Dose Route Start Last Admin Trade Name Freq PRN Reason Stop Dose Admin Acetaminophen 650 mg 04/08/18 04:53 04/08/18 09:04 Tylenol - PO 650 mg Q4H PRN Administration PAIN LEVEL 6-10 Amlodipine Besylate 5 mg 04/08/18 10:00 04/11/18 09:25 Norvasc - PO 5 mg DAILY [facility] Administration Atorvastatin Calcium 20 mg 04/08/18 22:00 04/10/18 22:39 Lipitor - PO 20 mg HS [facility] Administration Cholecalciferol 2,000 unit 04/08/18 10:00 04/11/18 09:25 Vitamin D3 - PO 2,000 unit DAILY [facility] Administration Colchicine 0.6 mg 04/08/18 10:00 04/11/18 09:25 Colcrys - PO 0.6 mg DAILY [facility] Administration Furosemide 20 mg 04/11/18 10:00 04/11/18 09:25 Lasix - PO 20 mg DAILY [facility] Administration Gabapentin 300 mg 04/08/18 10:00 04/11/18 09:25 Neurontin - PO 300 mg BID [facility] Administration Hydroxyzine HCl 25 mg 04/08/18 05:06 Atarax - PO Q8H PRN FOR ITCHING Sodium Chloride 1,000 mls @ 50 mls/hr 04/09/18 13:49 04/11/18 15:28 Normal Saline - IV Not Given [facility] Insulin Aspart 1 vial 04/08/18 22:00 04/10/18 22:40 Novolog Vial Sliding Scale - SQ 2 units HS [facility] Administration Protocol Insulin Aspart 1 vial 04/10/18 14:48 04/11/18 11:43 Novolog Vial Sliding Scale - SQ 6 units TIDAC [facility] Administration Protocol Insulin Detemir 20 units 04/11/18 07:00 04/11/18 06:44 Levemir Vial SQ 20 units AM [facility] Administration Levothyroxine Sodium 125 mcg 04/08/18 07:00 04/11/18 06:44 Synthroid - PO 125 mcg ACBK [facility] Administration Lisinopril 5 mg 04/11/18 10:00 04/11/18 09:25 Prinivil PO 5 mg DAILY [facility] Administration Loratadine 10 mg 04/08/18 10:00 04/11/18 09:24 Claritin - PO 10 mg DAILY [facility] Administration Metoprolol Succinate 25 mg 04/10/18 15:45 04/11/18 09:25 Toprol Xl - PO 25 mg DAILY [facility] Administration Phenol/Menthol 2 spray 04/08/18 05:30 Chloraseptic - MM Q6H PRN SORE THROAT Rivaroxaban 15 mg 04/08/18 18:00 04/10/18 17:25 Xarelto PO 15 mg DAILY@1800 [facility] Administration Tamsulosin HCl 0.4 mg 04/08/18 08:30 04/11/18 09:25 Flomax - PO 0.4 mg DAILY@0830 [facility] Administration Home Medications Medication Instructions Recorded Amlodipine Besylate 5 mg PO DAILY 01/30/18 Atorvastatin Calcium [Lipitor] 20 mg PO DAILY 01/30/18 Cetirizine HCl [Zyrtec -] 10 mg PO DAILY 01/30/18 Colchicine 0.6 mg PO DAILY 01/30/18 Furosemide [Lasix] 20 mg PO DAILY 01/30/18 Gabapentin 300 mg PO BID 01/30/18 Lisinopril 5 mg PO DAILY 01/30/18 Rivaroxaban [Xarelto] 15 mg PO DAILY 01/30/18 Cholecalciferol (Vitamin D3) 2,000 unit PO DAILY 01/31/18 [Vitamin D3] Lactulose 20 gm PO PRN PRN 01/31/18 Levothyroxine Sodium [Levoxyl] 125 mcg PO ACBK 01/31/18 Polyethylene Glycol 3350 [Miralax 17 gm PO DAILY PRN 01/31/18 119 gm Btl -] Psyllium Husk (with Sugar) 3.4 gm PO HS 01/31/18 [Metamucil Packet] Tamsulosin HCl [Flomax -] 0.4 mg PO DAILY@0830 cap.er.24h 02/03/18 Pantoprazole Sodium [Protonix] 40 mg PO DAILY 04/08/18 Insulin (Levemir) [Levemir Vial] 20 unit SQ AM #1 vial 04/10/18 Metoprolol Tartrate [Lopressor] 12.5 mg PO BID 04/11/18 levoFLOXacin [Levaquin -] 250 mg PO DAILY #5 tablet 04/11/18 Microbiology 04/08/18 09:06 Urine - Urine Clean Catch Urine Culture - Final Strep Agalactiae Group B Lactobacillus Species ASSESSMENT AND PLAN: Patient is a 83 y/o man with h/p afib, CHF, CKD, CAD, HTN, gout, hypothyroid, ischemic colitis , and RBBB, and bradycardia who presented to the ER after a mechanical fall. # s/p Mechanical fall with no fractures # T2DM better controlled needs to follow up with concrete block plant supervisor , continue Levemir . Gas Compressor Operator on the case appreciated. # Acute Bradycardia improved , will continue to hold digoxin but continue metoprolol. # A fib with slow ventricular rate :improved post holding dig and lopressor, stable now on xarelto continue # MT : improved . # urine culture growing Strep Agalactiae Group B sensitive to levaquin , will treat him for 5 days renally dosed. DVt px: xarelto
--- NOTE | 2018-04-11 16:45 | PN ---
Progress Note, Physician History of Present Illness: HR response improved, denies chest pain, dyspnea, palpitations. - Current Medication List Current Medications: Active Medications Acetaminophen (Tylenol -) 650 mg PO Q4H PRN PRN Reason: PAIN LEVEL 6-10 Last Admin: 04/08/18 09:04 Dose: 650 mg Amlodipine Besylate (Norvasc -) 5 mg PO DAILY [facility] Last Admin: 04/11/18 09:25 Dose: 5 mg Atorvastatin Calcium (Lipitor -) 20 mg PO HS [facility] Last Admin: 04/10/18 22:39 Dose: 20 mg Cholecalciferol (Vitamin D3 -) 2,000 unit PO DAILY [facility] Last Admin: 04/11/18 09:25 Dose: 2,000 unit Colchicine (Colcrys -) 0.6 mg PO DAILY [facility] Last Admin: 04/11/18 09:25 Dose: 0.6 mg Furosemide (Lasix -) 20 mg PO DAILY [facility] Last Admin: 04/11/18 09:25 Dose: 20 mg Gabapentin (Neurontin -) 300 mg PO BID [facility] Last Admin: 04/11/18 09:25 Dose: 300 mg Hydroxyzine HCl (Atarax -) 25 mg PO Q8H PRN PRN Reason: FOR ITCHING Sodium Chloride (Normal Saline -) 1,000 mls @ 50 mls/hr IV ASDIR [facility] Last Admin: 04/11/18 15:28 Dose: Not Given Insulin Aspart (Novolog Vial Sliding Scale -) 1 vial SQ HS [facility]; Protocol Last Admin: 04/10/18 22:40 Dose: 2 units Insulin Aspart (Novolog Vial Sliding Scale -) 1 vial SQ TIDAC [facility]; Protocol Last Admin: 04/11/18 16:38 Dose: 4 units Insulin Detemir (Levemir Vial) 20 units SQ AM [facility] Last Admin: 04/11/18 06:44 Dose: 20 units Levothyroxine Sodium (Synthroid -) 125 mcg PO ACBK [facility] Last Admin: 04/11/18 06:44 Dose: 125 mcg Lisinopril (Prinivil) 5 mg PO DAILY [facility] Last Admin: 04/11/18 09:25 Dose: 5 mg Loratadine (Claritin -) 10 mg PO DAILY [facility] Last Admin: 04/11/18 09:24 Dose: 10 mg Metoprolol Succinate (Toprol Xl -) 25 mg PO DAILY [facility] Last Admin: 04/11/18 09:25 Dose: 25 mg Phenol/Menthol (Chloraseptic -) 2 spray MM Q6H PRN PRN Reason: SORE THROAT Rivaroxaban (Xarelto) 15 mg PO DAILY@1800 [facility] Last Admin: 04/10/18 17:25 Dose: 15 mg Tamsulosin HCl (Flomax -) 0.4 mg PO DAILY@0830 [facility] Last Admin: 04/11/18 09:25 Dose: 0.4 mg - Objective Vital Signs: Vital Signs Temperature 98.3 F 04/11/18 15:39 Pulse Rate 71 04/11/18 15:39 Respiratory Rate 20 04/11/18 15:39 Blood Pressure 159/92 04/11/18 15:39 O2 Sat by Pulse Oximetry (%) 95 04/11/18 08:00 Constitutional: Yes: No Distress, Calm Neck: Yes: Supple Cardiovascular: Yes: Pulse Irregular Respiratory: Yes: Regular, CTA Bilaterally Gastrointestinal: Yes: Normal Bowel Sounds, Soft Edema: No Labs: CBC, BMP 04/09/18 12:45 04/10/18 10:36 INR, PTT INR 1.30 (0.83-1.09) H 04/07/18 21:50 Assessment/Plan Problem List - Problems (1) Hypercholesterolemia Code(s): E78.00 - PURE HYPERCHOLESTEROLEMIA, UNSPECIFIED (2) Fall Code(s): W19.XXXA - UNSPECIFIED FALL, INITIAL ENCOUNTER Qualifiers: Encounter type: initial encounter Qualified Code(s): W19.XXXA - Unspecified fall, initial encounter (3) Acute on chronic kidney failure Code(s): N17.9 - ACUTE KIDNEY FAILURE, UNSPECIFIED; N18.9 - CHRONIC KIDNEY DISEASE, UNSPECIFIED (4) Atrial fibrillation with slow ventricular response Code(s): I48.91 - UNSPECIFIED ATRIAL FIBRILLATION (5) BPH (benign prostatic hyperplasia) Code(s): N40.0 - BENIGN PROSTATIC HYPERPLASIA WITHOUT LOWER URINRY TRACT SYMP Qualifiers: Lower urinary tract symptom presence: unspecified whether lower urinary tract symptoms present Qualified Code(s): N40.0 - Benign prostatic hyperplasia without lower urinary tract symptoms (6) DM type 2 (diabetes mellitus, type 2) Code(s): E11.9 - TYPE 2 DIABETES MELLITUS WITHOUT COMPLICATIONS Qualifiers: Diabetes mellitus nursing home insulin use: without terminal superintendent use Diabetes mellitus complication status: with unspecified complications Qualified Code(s) : E11.8 - Type 2 diabetes mellitus with unspecified complications (7) HTN (hypertension) Code(s): I10 - ESSENTIAL (PRIMARY) HYPERTENSION Qualifiers: Hypertension type: essential hypertension Qualified Code(s): I10 - Essential (primary) hypertension (8) Hypothyroid Code(s): E03.9 - HYPOTHYROIDISM, UNSPECIFIED Qualifiers: Hypothyroidism type: acquired Qualified Code(s): E03.9 - Hypothyroidism, unspecified Assessment/Plan 04/10/2018 Echo: Normal biventricular size and fxn, mild LAE, mild MR, TR, AR 1. Mechanical fall with no LOC 2. HTN 3. AF on NOAC 4. Hypercholesterolemia 5. DM 6. Diastolic dysfunction 7. Hypothyroidism 8. Acute on CKD improved 9. Strep Agalactiae Group B UTI PLAN: 1. Continue Amlodipine 5 qd, Lipitor 20 qd, Lasix 20 qd, lisinopril 5 qd, Toprol XL 25 qd 2. Continue Xarelto 15 mg QD 3. Complete empiric abx course
[2018-04-11] MEDS: RIVAROXABAN 15 MG TABLET PO SCH (18:04)
--- NOTE | 2018-04-13 17:00 | EKG ---
Test Reason : Blood Pressure : / mmHG Vent. Rate : 048 BPM Atrial Rate : 326 BPM P-R Int : 000 ms QRS Dur : 166 ms QT Int : 508 ms P-R-T Axes : 000 056 -42 degrees QTc Int : 453 ms ATRIAL FIBRILLATION WITH SLOW VENTRICULAR RESPONSE RIGHT BUNDLE BRANCH BLOCK T WAVE ABNORMALITY, CONSIDER INFERIOR ISCHEMIA OLD SEPTAL INFARCT ABNORMAL ECG Confirmed by MD TORRES MOYSES ([id number]) on 04/13/2018 5:00:19 PM Referred By: Confirmed By:ANTOLIN TORRES MD
== END 2018-04-11 18:23 | disposition home or self-care (01) | DRG 683 ==
LOC: JER 21:20 → JERBED 04-08 01:17 → J6S 04-08 05:24 → OBSVTOIN 04-09 10:44
PROVIDERS: ADMIT Internal Medicine; ATTEND Internal Medicine
DX: N17.9 Acute kidney failure, unspecified (principal); I13.0 Hypertensive heart and chronic kidney disease with heart failure and stage 1 through stage 4 chronic kidney disease, or unspecified chronic kidney disease; N39.0 Urinary tract infection, site not specified; I50.30 Unspecified diastolic (congestive) heart failure; E11.65 Type 2 diabetes mellitus with hyperglycemia; E66.9 Obesity, unspecified; E86.0 Dehydration; R00.1 Bradycardia, unspecified; Z68.31 Body mass index [BMI] 31.0-31.9, adult; I48.91 Unspecified atrial fibrillation; Z79.01 Long term (current) use of anticoagulants; I25.10 Atherosclerotic heart disease of native coronary artery without angina pectoris; N40.0 Benign prostatic hyperplasia without lower urinary tract symptoms; E03.9 Hypothyroidism, unspecified; E78.5 Hyperlipidemia, unspecified; M10.9 Gout, unspecified; I45.10 Unspecified right bundle-branch block; E11.22 Type 2 diabetes mellitus with diabetic chronic kidney disease; N18.9 Chronic kidney disease, unspecified; J02.9 Acute pharyngitis, unspecified; N28.1 Cyst of kidney, acquired; I36.1 Nonrheumatic tricuspid (valve) insufficiency; I34.0 Nonrheumatic mitral (valve) insufficiency; I35.1 Nonrheumatic aortic (valve) insufficiency; B95.1 Streptococcus, group B, as the cause of diseases classified elsewhere; Z79.4 Long term (current) use of insulin
CPT/HCPCS: 36415; 70450-TC; 70486-TC; 71046-TC-FY; 72125-TC; 73562-TC-LT-FY; 73562-TC-RT-FY; 76775-TC; 80048; 80053; 80162; 80307; 81003; 82436; 82550; 82570; 82962; 83036; 83735; 84100; 84133; 84156; 84300; 84484; 85025; 85610; 85730; 86850; 86900; 86901; 87077; 87086; 87186; 93005; 93010; 93306-TC; 97116-GP; 97162-GP; 99283-25; G0378; J7030

== ENCOUNTER 2018-05-23 13:25 | Emergency (ER) | payer OTHER ==
[2018-05-23 13:43] VITALS: BMI 27.8
--- NOTE | 2018-05-23 14:17 | PDOC ---
History of Present Illness - General Chief Complaint: Rash Stated Complaint: SCABIES Time Seen by Provider: 05/23/18 14:17 History Source: Patient, Old Records Exam Limitations: No Limitations - History of Present Illness Initial Comments: HPI: 83 y/o male presenting to [facility] ER from [facility] complaining of rash to forearms and lower legs. Pt reports the rash started about a month ago on both of his shins and spread to his forearms a few days ago. Rash described as red and pruritic, which is worse at night. Pt endorses scratching to the point of bleeding. Caregivers at center have applied unknown creams and lotions that have not provided any relief. Pt is unable to identify eliciting factor. Denies history of previous symptoms. Denies recent travel. PCP: Dr. Sibley Social Hx: - Former smoker, quit 2 years ago - Non-drinker Medical Hx: - Atrial fibrillation on xarelto - CAD - CHF - HTN - DM - HLD - BPH - GIB - Gout - Hypothyroidism Past History - Past Medical History Allergies/Adverse Reactions: Allergies Allergy/AdvReac Type Severity Reaction Status Date / Time Fish Containing Products Allergy Verified 05/23/18 14:57 Home Medications: Ambulatory Orders Amlodipine Besylate 5 mg PO DAILY 01/30/18 Atorvastatin Calcium [Lipitor] 20 mg PO DAILY 01/30/18 Cetirizine HCl [Zyrtec -] 10 mg PO DAILY 01/30/18 Colchicine 0.6 mg PO DAILY 01/30/18 Furosemide [Lasix] 20 mg PO DAILY 01/30/18 Gabapentin 300 mg PO BID 01/30/18 Lisinopril 5 mg PO DAILY 01/30/18 Rivaroxaban [Xarelto] 15 mg PO DAILY 01/30/18 Cholecalciferol (Vitamin D3) [Vitamin D3] 2,000 unit PO DAILY 01/31/18 Lactulose 20 gm PO PRN PRN 01/31/18 Levothyroxine Sodium [Levoxyl] 125 mcg PO ACBK 01/31/18 Polyethylene Glycol 3350 [Miralax 119 gm Btl -] 17 gm PO DAILY PRN 01/31/18 Psyllium Husk (with Sugar) [Metamucil Packet] 3.4 gm PO HS 01/31/18 Tamsulosin HCl [Flomax -] 0.4 mg PO DAILY@0830 cap.er.24h 02/03/18 Pantoprazole Sodium [Protonix] 40 mg PO DAILY 04/08/18 Insulin (Levemir) [Levemir Vial] 20 unit SQ AM #1 vial 04/10/18 Metoprolol Tartrate [Lopressor] 12.5 mg PO BID 04/11/18 levoFLOXacin [Levaquin -] 250 mg PO DAILY #5 tablet 04/11/18 Cancer: Yes (benign prostate CA) Cardiac Disorders: Yes (atrial fibrillation, coronary artery disease) COPD: No CHF: Yes Diabetes: Yes GI Disorders: Yes (constipation) HTN: Yes Hypercholesterolemia: Yes Thyroid Disease: Yes (hypothyroididsm gout) - Surgical History Abdominal Surgery: No Appendectomy: No Cardiac Surgery: No Cholecystectomy: No Lung Surgery: No Neurologic Surgery: No - Suicide/Smoking/Psychosocial Hx Smoking History: Never smoked Have you smoked in the past 12 months: No Cigars Per Day: 1 Hx Alcohol Use: No Drug/Substance Use Hx: No Substance Use Type: None Hx Substance Use Treatment: No Review of Systems - Review of Systems Able to Perform ROS?: Yes Comments:: In addition to that documented in the HPI above, the additional ROS was obtained : Constitutional: Denies fevers or chills ENMT: Denies sore throat CV: Denies chest pain Resp: Denies SOB GI: Denies vomiting or diarrhea Skin: Per HPI *Physical Exam - Vital Signs Last Vital Signs Temp Pulse Resp BP Pulse Ox 98.8 F 83 16 160/100 98 05/23/18 13:37 05/23/18 13:37 05/23/18 13:37 05/23/18 13:37 05/23/18 13:37 - Physical Exam Comments: Constitutional: Non-toxic obese elderly adult male in no acute distress or obvious discomfort. Found semi-fowlers on hospital bed. Alert and oriented x4. Answered all questions appropriately and completely. Speech was non-labored, non -pressured. Head: Normocephalic. No obvious external signs of trauma. Eyes: Sclerae white. Ears: Hearing grossly intact. Nose: No nasal discharge. Throat: Oral cavity and pharynx normal. No inflammation, swelling, exudate, or lesions. Neck: Supple, trachea is midline. Cardiovascular / Chest: Regular rate and regular rhythm. No murmur, rubs, clicks, or gallops. Peripheral pulses: radial pulses full. Respiratory: Breathing unlabored. Equal chest rise and fall. Clear to auscultation bilaterally. No stridor, no wheezing, no rhonchi. Gastrointestinal: abdomen is soft, non-tender, non-distended. Neuro: Alert and oriented. Moving all four extremities spontaneously. Skin: Warm and dry. Non-raised, excoriated lesion overlying mild erythema more prominent on bilateral lower extremities and forearms. Few lesions to abdomen. Spares palms, chest, and back. No intra-oral lesions. No cellulitic lesions. No purulent discharge. Psych: Affect: appropriate. Mood: normal. Moderate Sedation - Procedure Monitoring Vital Signs: Procedure Monitoring Vital Signs Temperature 98.8 F 05/23/18 13:37 Pulse Rate 83 05/23/18 13:37 Respiratory Rate 16 05/23/18 13:37 Blood Pressure 160/100 05/23/18 13:37 O2 Sat by Pulse Oximetry (%) 98 05/23/18 13:37 Medical Decision Making - Medical Decision Making *Reviewed vital signs, nursing notes, and prior visit documentation (if available). 83 y/o male with pruritic rash for one month. Distribution, duration, and worsening at night suggestive for scabies. Ordered Benadryl for symptom relief. Will prescribe outpatient prescription for both PO ivermectin and topical permethrin. ED Attending provided verbal instructions to [facility] correctional case manager. *DC/Admit/Observation/Transfer Diagnosis at time of Disposition: Scabies - Discharge Dispostion Disposition: HOME Condition at time of disposition: Good Decision to Admit order: No - Referrals Referrals: Kevon Sibley MD [Primary Care Provider] - - Patient Instructions Printed Discharge Instructions: DI for Scabies Additional Instructions: Your rash is likely Scabies based on the distribution and your other symptoms. I have sent a prescription for both Ivermectin and Permethrin. The Ivermectin is a pill you should take once. The Permethrin is a cream. Apply as directed on the bottle. You can use over the counter Benadryl to help with itching. Wash sheets and bedding. You will not be contagious after 24 hours following application of the Permethrin cream. Follow up with your primary care doctor within the next 3-4 days. Go to the nearest emergency department if your condition worsens or you feel like you need additional emergency evaluation. - Post Discharge Activity
[2018-05-23] MEDS ORDERED: diphenhydrAMINE HCL 25 MG CAPSULE (FP) PO ONE ×2 (15:28→15:58)
[2018-05-23] MEDS ORDERED: HYDROCORTISONE 2.5% LOTION - 1 BOTTLE TP ONE (15:29)
[2018-05-23] MEDS ORDERED: PERMETHRIN 5% TOPICAL CREAM 60 GM TUBE TP ONE (15:51)
[2018-05-23] MEDS ORDERED: IVERMECTIN 3 MG TABLET PO ONE (15:53)
--- NOTE | 2018-05-23 17:52 | PDOC ---
Attending Attestation - Resident Resident Name: [facility], [place], [facility] ED Attending Attestation I have performed the following: I have examined & evaluated the patient, The case was reviewed & discussed with the resident, I agree w/resident's findings & plan, Exceptions are as noted - HPI HPI: 05/23/18 17:51 Reviewed Residents HPI - Physicial Exam PE: 05/23/18 17:51 Reviewed Residents PE - Medical Decision Making 05/23/18 17:51 History and examination consistent with scabies we'll treat with permethrin and ivermectin by mouth findings isolation precautions and needed treatment discussed with patient's resident facility Findings, the need for follow-up and strict return instructions discussed with patient. 05/23/18 18:53
[2018-05-23 19:04] VITALS: BP 123/78; PULSE 82; TEMP 98.3
== END 2018-05-23 20:37 ==
LOC: JER 13:25
DX: B86 Scabies (principal); I25.10 Atherosclerotic heart disease of native coronary artery without angina pectoris; I11.0 Hypertensive heart disease with heart failure; I50.9 Heart failure, unspecified; I48.91 Unspecified atrial fibrillation; Z79.01 Long term (current) use of anticoagulants; E78.00 Pure hypercholesterolemia, unspecified; M10.9 Gout, unspecified; Z85.46 Personal history of malignant neoplasm of prostate; E03.9 Hypothyroidism, unspecified; K59.00 Constipation, unspecified
CPT/HCPCS: 99282-25

== ENCOUNTER 2018-06-20 15:47 | Emergency (ER) | payer OTHER ==
[2018-06-20 16:29] VITALS: BMI 30.1
--- NOTE | 2018-06-20 17:00 | PDOC ---
History of Present Illness - General Chief Complaint: Injury Stated Complaint: FALL Time Seen by Provider: 06/20/18 16:56 - History of Present Illness Initial Comments: 06/20/18 16:57 83 yo M with h/o HTN, DM, BPH, CAD, CHF, HLD, GOUT, Hypothyroidism [facility] from [facility] ( [facility]) with closed head injury s/p fall. Patient reports having BM in bathroom and attempting to stand up on tile floor with his walker when he slipped and fell backwards landing onto toilet seat and hitting the back of his head on the toilet. Denies LOC, MATTHEWS, neck stiffness/injury, or back pain. Patient was ambulatory following event. States that floor was wet because the staff had mopped the floor. Denies AC use. Patient denies MATTHEWS, vision change, palpitations, cough, wheezing, orthopena, PND , leg swelling/pain, N/V, F,C, CP, SOB, urinary complaints, hematuria, BPR, abdominal pain, diarrhea, constipation, lightheadedness, weakness, sensory changes. PMHx: as noted above ROS: as noted SHx: Fromer smoker ( cessation x 2 years ago). Denies Etoh Allergies: NKDA PMD: Dr. Sibley Past History - Past Medical History Allergies/Adverse Reactions: Allergies Allergy/AdvReac Type Severity Reaction Status Date / Time Fish Containing Products Allergy Verified 05/23/18 14:57 Home Medications: Ambulatory Orders Amlodipine Besylate 5 mg PO DAILY 01/30/18 Atorvastatin Calcium [Lipitor] 20 mg PO DAILY 01/30/18 Cetirizine HCl [Zyrtec -] 10 mg PO DAILY 01/30/18 Colchicine 0.6 mg PO DAILY 01/30/18 Furosemide [Lasix] 20 mg PO DAILY 01/30/18 Gabapentin 300 mg PO BID 01/30/18 Lisinopril 5 mg PO DAILY 01/30/18 Rivaroxaban [Xarelto] 15 mg PO DAILY 01/30/18 Cholecalciferol (Vitamin D3) [Vitamin D3] 2,000 unit PO DAILY 01/31/18 Lactulose 20 gm PO PRN PRN 01/31/18 Levothyroxine Sodium [Levoxyl] 125 mcg PO ACBK 01/31/18 Polyethylene Glycol 3350 [Miralax 119 gm Btl -] 17 gm PO DAILY PRN 01/31/18 Psyllium Husk (with Sugar) [Metamucil Packet] 3.4 gm PO HS 01/31/18 Tamsulosin HCl [Flomax -] 0.4 mg PO DAILY@0830 cap.er.24h 02/03/18 Pantoprazole Sodium [Protonix] 40 mg PO DAILY 04/08/18 Insulin (Levemir) [Levemir Vial] 20 unit SQ AM #1 vial 04/10/18 Metoprolol Tartrate [Lopressor] 12.5 mg PO BID 04/11/18 levoFLOXacin [Levaquin -] 250 mg PO DAILY #5 tablet 04/11/18 Ivermectin [Stromectol [NF] -] 18 mg PO ONCE #6 tablet 05/23/18 Permethrin 5% Topical Cream [Elimite -] 2 applic TP ASDIR #1 tube 05/23/18 Cancer: Yes (benign prostate CA) Cardiac Disorders: Yes (atrial fibrillation, coronary artery disease) COPD: No CHF: Yes Diabetes: Yes GI Disorders: Yes (constipation) HTN: Yes Hypercholesterolemia: Yes Thyroid Disease: Yes (hypothyroididsm gout) - Surgical History Abdominal Surgery: No Appendectomy: No Cardiac Surgery: No Cholecystectomy: No Lung Surgery: No Neurologic Surgery: No - Suicide/Smoking/Psychosocial Hx Smoking History: Unknown if ever smoked Have you smoked in the past 12 months: No Cigars Per Day: 1 Hx Alcohol Use: No Drug/Substance Use Hx: No Substance Use Type: None Hx Substance Use Treatment: No Review of Systems - Review of Systems Comments:: 06/20/18 16:58 GENERAL/CONSTITUTIONAL: No fever or chills. No weakness. HEAD, EYES, EARS, NOSE AND THROAT: No change in vision. No ear pain or discharge. No sore throat. CARDIOVASCULAR: No chest pain or shortness of breath RESPIRATORY: No cough, wheezing, or hemoptysis. GASTROINTESTINAL: No nausea, vomiting, diarrhea or constipation. GENITOURINARY: No dysuria, frequency, or change in urination. MUSCULOSKELETAL: No joint or muscle swelling or pain. No neck or back pain. SKIN: No rash NEUROLOGIC: No headache, vertigo, loss of consciousness, or change in strength/ sensation. ENDOCRINE: No increased thirst. No abnormal weight change HEMATOLOGIC/LYMPHATIC: No anemia, easy bleeding, or history of blood clots. ALLERGIC/IMMUNOLOGIC: No hives or skin allergy. *Physical Exam - Vital Signs Last Vital Signs Temp Pulse Resp BP Pulse Ox 97.8 F 85 16 141/76 99 06/20/18 16:26 06/20/18 16:26 06/20/18 16:26 06/20/18 16:26 06/20/18 16:26 - Physical Exam Comments: 06/20/18 16:59 GENERAL: Awake, alert, and fully oriented, in no acute distress HEAD: No signs of trauma, normocephalic, atraumatic EYES: PERRLA, EOMI, sclera anicteric, conjunctiva clear ENT: Auricles normal inspection, hearing grossly normal, nares patent, oropharynx clear without exudates. Moist mucosa NECK: Normal ROM, supple, no lymphadenopathy, JVD, or masses LUNGS: No distress, speaks full sentences, clear to auscultation bilaterally HEART: Regular rate and rhythm, normal S1 and S2, no murmurs, rubs or gallops, peripheral pulses normal and equal bilaterally. ABDOMEN: Soft, nontender, normoactive bowel sounds. No guarding, no rebound. No masses EXTREMITIES : Normal inspection, Normal range of motion, no edema. No clubbing or cyanosis. NEUROLOGICAL: Slurred speech ( baseline). Cranial nerves II through XII grossly intact. Gait nml with assistive device, no focal sensorimotor deficits SKIN: Warm, Dry, normal turgor, no rashes or lesions noted Moderate Sedation - Procedure Monitoring Vital Signs: Procedure Monitoring Vital Signs Temperature 97.8 F 06/20/18 16:26 Pulse Rate 85 06/20/18 16:26 Respiratory Rate 16 06/20/18 16:26 Blood Pressure 141/76 06/20/18 16:26 O2 Sat by Pulse Oximetry (%) 99 06/20/18 16:26 Medical Decision Making - Medical Decision Making 06/20/18 16:59 83 yo M with h/o HTN, DM, BPH, CAD, CHF, HLD, GOUT, Hypothyroidism BIBA from [facility] ( [facility]) with closed head injury s/p mechanical slip and fall. Vitals wnl, AF, A&Ox3, GCS 15. No LOC. Denies MATTHEWS, vision change, N/V, F,C , CP, SOB, urinary complaints, hematuria, BPR, abdominal pain, diarrhea, constipation, lightheadedness, weakness, sensory changes.Physical exam unremarkable. C-spine neg per NEXUS. No evidence of basilar skull fracture. No obvious bony deformity or evidence of blunt/penetrating trauma. CTH r/o hemorrhage, hematoma, skull fracture. Pt. does not endorse pain. Ed Course: 06/20/18 18:47 CTH: No acute change, chronic microvascular changes noted. Stable for d/c with return precautions. *DC/Admit/Observation/Transfer Diagnosis at time of Disposition: Fall Qualifiers: Encounter type: initial encounter Qualified Code(s): W19.XXXA - Unspecified fall, initial encounter Closed head injury Qualifiers: Encounter type: initial encounter Qualified Code(s): S09.90XA - Unspecified injury of head, initial encounter - Referrals Referrals: Summer Edwards MD [Primary Care Provider] - - Patient Instructions Printed Discharge Instructions: How to Prevent Falls, DI for Closed Head Injury Additional Instructions: Please return to the emergency department with any new or worsening symptoms or concerns. Please follow up with your primary care physician within 72 hours. - Post Discharge Activity - Attestations Physician Attestion: 06/20/18 16:59 I attest to the information provided in this note.
--- NOTE | 2018-06-20 19:03 | PDOC ---
Attending Attestation - Medical Decision Making EXAM#: TYPE/EXAM: RESULT: [id number] CT/HEAD CT WITHOUT CONTRAST Cranial CT without contrast Clinical information: status post fall, head injury Impression: No CT evidence of acute intracranial pathology. Mild to moderate periventricular and subcortical chronic microvascular changes are noted. There has been no definite interval change in comparison to a prior CT study of 2018. Reported By: Aashish Blevins MD 06/20/18 18:36 Documentation prepared by KENNY Dyson, acting as medical receptionist assistant for Mary Gomez MD. 06/20/18 19:59 <Jeanne Zeng - Last Filed: 06/20/18 19:59> - Resident Resident Name: Nicholas Reich - ED Attending Attestation I have performed the following: I have examined & evaluated the patient, The case was reviewed & discussed with the resident, I agree w/resident's findings & plan, Exceptions are as noted - HPI HPI: 06/20/18 19:03 Mr. Herring is an 83 yo M h/o HTN, DM, BPH, CAD, CHF, HLD, GOUT, Hypothyroidism BIBA from [facility]) with closed head injury s/p fall. Pt states that he was having a bowel movement in the bathroom, he stood up, slipped falling onto the toilet and struck the back of his head. Denies LOC, MATTHEWS, neck stiffness/injury, or back pain. Patient was ambulatory following event. No AC use per medication list Pt is very upset that he is still in the ER - Physicial Exam PE: 06/20/18 19:14 GENERAL: Awake, alert, angry that he is still in the ER HEAD: No signs of trauma, atraumatic EYES: PERRLA, EOMI, sclera anicteric, conjunctiva clear ENT: Auricles normal inspection, hearing grossly normal, nares patent, oropharynx clear without exudates. Moist mucosa, edentuous NECK: Normal ROM, supple,no midline tenderness to palpation LUNGS: No distress, speaks full sentences, clear to auscultation bilaterally HEART: Regular rate and rhythm, normal S1 and S2, no murmurs, rubs or gallops, peripheral pulses normal and equal bilaterally. ABDOMEN: Soft, nontender, normoactive bowel sounds. EXTREMITIES : Normal inspection, Normal range of motion NEUROLOGICAL: Cranial nerves II through XII grossly intact. No focal sensorimotor deficits SKIN: Warm, Dry, normal turgor, no rashes or lesions noted Bleeding noted at right thumb around the nail bed - Medical Decision Making 06/20/18 19:16 82 yo M s/p mechanical fall Presenting to the ER for evaluation s/p fall Pt is awake and alert Angry and demanding to return home CT demonstrates no acute intracranial pathology Will plan to discharge to home <Mary Gomez - Last Filed: 06/22/18 00:03>
[2018-06-20 19:34] VITALS: BP 142/74; PULSE 78; TEMP 98.2
== END 2018-06-20 21:44 ==
LOC: JER 15:47
DX: S09.8XXA Other specified injuries of head, initial encounter (principal); W18.12XA Fall from or off toilet with subsequent striking against object, initial encounter; Y93.89 Activity, other specified; Y92.121 Bathroom in nursing home as the place of occurrence of the external cause; Y99.8 Other external cause status; I25.10 Atherosclerotic heart disease of native coronary artery without angina pectoris; I11.0 Hypertensive heart disease with heart failure; E11.9 Type 2 diabetes mellitus without complications; Z79.4 Long term (current) use of insulin; E03.9 Hypothyroidism, unspecified; E78.00 Pure hypercholesterolemia, unspecified; M10.9 Gout, unspecified; I48.91 Unspecified atrial fibrillation; Z79.01 Long term (current) use of anticoagulants; N40.0 Benign prostatic hyperplasia without lower urinary tract symptoms
CPT/HCPCS: 70450-TC; 99281-25

== ENCOUNTER 2018-07-12 12:54 | Inpatient (IN) | payer OTHER ==
--- NOTE | 2018-07-12 13:19 | PDOC ---
History of Present Illness - General Chief Complaint: Rectal Bleed Stated Complaint: RECTAL BLEEDING Time Seen by Provider: 07/12/18 12:58 History Source: Patient, Old Records Exam Limitations: No Limitations - History of Present Illness Initial Comments: HPI: 83 y/o male BIBEMS to [facility] ER from [facility] complaining of painless rectal bleeding since this morning. Noticed the blood after having a bowel movement. Estimates approx. 9oz of blood in the toilet. Denies straining. Denies lightheadedness, dizziness, chest pain, or SOB. Pt is anticoagulated on Rivaroxaban (Xarelto). Also takes ASA daily. Pt has a h/o of similar symptoms. Pt was discharged on 02/2018 for painless GI bleed. Dr. Junior was consulted. Suspected diverticular bleed or ischemic colitis. Recommended outpatient colonoscopy. Pt is unable to recall if this was performed. PCP: Dr. Sibley Social Hx: - Former smoker, quit 2 years ago - Non-drinker Medical Hx: - Atrial fibrillation on xarelto - CAD - CHF - HTN - DM - HLD - BPH - GIB - Gout - Hypothyroidism Past History - Past Medical History Allergies/Adverse Reactions: Allergies Allergy/AdvReac Type Severity Reaction Status Date / Time Fish Containing Products Allergy Verified 07/12/18 13:15 Home Medications: Ambulatory Orders Amlodipine Besylate 5 mg PO DAILY 01/30/18 Atorvastatin Calcium [Lipitor] 20 mg PO DAILY 01/30/18 Cetirizine HCl [Zyrtec -] 10 mg PO DAILY 01/30/18 Colchicine 0.6 mg PO DAILY 01/30/18 Furosemide [Lasix] 20 mg PO DAILY 01/30/18 Gabapentin 300 mg PO BID 01/30/18 Lisinopril 5 mg PO DAILY 01/30/18 Rivaroxaban [Xarelto] 15 mg PO DAILY 01/30/18 Cholecalciferol (Vitamin D3) [Vitamin D3] 2,000 unit PO DAILY 01/31/18 Lactulose 20 gm PO PRN PRN 01/31/18 Levothyroxine Sodium [Levoxyl] 125 mcg PO ACBK 01/31/18 Polyethylene Glycol 3350 [Miralax 119 gm Btl -] 17 gm PO DAILY PRN 01/31/18 Tamsulosin HCl [Flomax -] 0.4 mg PO DAILY@0830 cap.er.24h 02/03/18 Pantoprazole Sodium [Protonix] 40 mg PO DAILY 04/08/18 Metoprolol Tartrate [Lopressor] 12.5 mg PO BID 04/11/18 Aspirin [ASA -] 81 mg PO DAILY 07/12/18 Glimepiride [Amaryl -] 1 mg PO DAILY 07/12/18 Insulin (Levemir) [Levemir Vial] 28 unit SQ AM 07/12/18 Oxybutynin Chloride [Ditropan Xl] 10 mg PO DAILY 07/12/18 Repaglinide [Prandin -] 1 mg PO TID 07/12/18 Cancer: Yes (benign prostate CA) Cardiac Disorders: Yes (atrial fibrillation, coronary artery disease) COPD: No CHF: Yes Diabetes: Yes GI Disorders: Yes (constipation) HTN: Yes Hypercholesterolemia: Yes Thyroid Disease: Yes (hypothyroididsm gout) - Surgical History Abdominal Surgery: No Appendectomy: No Cardiac Surgery: No Cholecystectomy: No Lung Surgery: No Neurologic Surgery: No - Immunization History Immunization Up to Date: (Unknown) - Suicide/Smoking/Psychosocial Hx Smoking History: Former smoker Have you smoked in the past 12 months: No Cigars Per Day: 1 Information on smoking cessation initiated: No Hx Alcohol Use: No Drug/Substance Use Hx: No Substance Use Type: None Hx Substance Use Treatment: No Review of Systems - Review of Systems Able to Perform ROS?: Yes Comments:: In addition to that documented in the HPI above, the additional ROS was obtained : Constitutional: Denies fevers or chills Head: Denies vision changes ENMT: Denies sore throat CV: Denies chest pain Resp: Denies SOB GI: Denies vomiting or diarrhea : Denies painful urination or hematuria MSK: Denies recent trauma Skin: Denies new rashes Neuro: Denies new numbness or tingling or weakness Endocrine: Denies polyuria Heme: Per HPI *Physical Exam - Vital Signs Last Vital Signs Temp Pulse Resp BP Pulse Ox 98.7 F 83 18 152/82 97 07/12/18 13:11 07/12/18 13:11 07/12/18 13:11 07/12/18 13:11 07/12/18 13:11 - Physical Exam Comments: Constitutional: Well-developed, well-nourished, nontoxic elderly adult male in no acute distress or obvious discomfort. Obese body habitus. Found semi-fowlers on hospital bed. Alert and oriented x4. Answered all questions appropriately and completely. Speech was non-labored, non-pressured. Head: Normocephalic. No obvious external signs of trauma. Eyes: Sclerae white. Conjunctiva pink and moist. Ears: Hearing grossly intact. Nose: No nasal discharge. Neck: Supple, trachea is midline. Cardiovascular / Chest: Regular rate and regular rhythm. No murmur, rubs, clicks, or gallops. Peripheral pulses: radial pulses full. Respiratory: Breathing unlabored. Equal chest rise and fall. Clear to auscultation bilaterally. No stridor, no wheezing, no rhonchi. Gastrointestinal: abdomen is soft, non-tender, non-distended. Exam technically limited by large pannus. Neuro: Alert and oriented. Moving all four extremities spontaneously. Skin: [place], warm, dry, and intact. Psych: Affect: appropriate. Mood: normal. Male Rectal: Dried blood noted perirectally without obvious bleeding lesion. No bleeding external hemorrhoids. No engorged internal hemorrhoids palpated. Light brown stool with bright red blood on glove. Med Student chaperoned exam. ED Treatment Course - LABORATORY CBC & Chemistry Diagram: 07/12/18 14:30 07/12/18 14:30 Medical Decision Making - Medical Decision Making *Reviewed vital signs, nursing notes, and prior visit documentation (if available). 83 y/o male presenting with BRBPR since this morning. H/o of similar suspected to be secondary to diverticular bleeding. Unsure if outpatient colonoscopy was performed. On Rivaroxaban and ASA. No reported systemic symptoms. No anemic findings on physical exam. Vitals unremarkable for hypotension or tachycardia. Will obtain CBC, CMP, coags, and T/S. Ordered EKG and CXR with anticipation of admission. SFOB cancelled given rectal exam findings. CBC revealed anemia and a downtrend from previous H/H. Not considering transfusion given current H/H and lack of symptoms. Considered CTA of abdomen to help identify source of bleeding, however pts BUN/Cr were found to be elevated. Will defer imaging to medicine team. Will admit for likely lower GI bleeding on anticoagulants. 15:29 Microblog sent to [facility] for admission. Awaiting call back. 15:35 Telephone consultation with resident Dr. Reyes. Verbally appraised of the pts HPI, ED course, and current plan of management. Will admit pt to med/surg on inpatient status for attending Dr. Angulo. *DC/Admit/Observation/Transfer Diagnosis at time of Disposition: Bright red blood per rectum Anemia Qualifiers: Anemia type: unspecified type Qualified Code(s): D64.9 - Anemia, unspecified - Discharge Dispostion Condition at time of disposition: Stable Decision to Admit order: Yes - Referrals - Patient Instructions - Post Discharge Activity
--- NOTE | 2018-07-12 13:55 | PDOC ---
Attending Attestation - HPI HPI: The patient is an 83 year old male, with a significant PMH of HTN, DM, BPH, CAD , CHF, A-fib, HLD, GOUT, hypothyroid, benign prostate cancer, and chronic constipation, who presents to the emergency department today complaining of rectal bleeding for one day. Patient notes the bleed began earlier this morning , when he passed a normal, painless bowel movement. He reports both the stool and the toilet bowl were stained with blood. He denies any symptoms at this time. Patient was previously seen in the ED 5 months ago for the same issue, but never obtained a colonoscopy. The patient denies chest pain, shortness of breath, headache and dizziness. Denies fever, chills, nausea, vomit, diarrhea and constipation. Denies dysuria, frequency, urgency and hematuria. Allergies: Fish containing products Past surgical history: None reported Social history: Former smoker (cessation 2 years) PCP: Dr. Kevon Sibley 07/12/18 14:35 - Physicial Exam PE: GENERAL: The patient is in no acute distress. HEAD: Normal with no signs of trauma. EYES: PERRLA, EOMI, sclera anicteric, conjunctiva clear. ENT: Ears normal, nares patent, oropharynx clear without exudates. Moist mucous membranes. NECK: Normal range of motion, supple without lymphadenopathy, JVD, or masses. LUNGS: Breath sounds equal, clear to auscultation bilaterally. No wheezes, and no crackles. HEART:Regular rate and rhythm, normal S1 and S2 without murmur, rub or gallop. ABDOMEN: +Protruded abdomen. Nontender, normoactive bowel sounds. No guarding, no rebound. No masses palpable. EXTREMITIES: Normal range of motion, no edema. No clubbing or cyanosis. No erythema, or tenderness. NEUROLOGICAL: Cranial nerves II through XII grossly intact. Normal speech. No focal neurological deficits. MUSCULOSKELETAL: Back non-tender to palpation, no CVA tenderness SKIN: Warm, Dry, normal turgor, no rashes or lesions noted. 07/12/18 14:36 - Medical Decision Making Documentation prepared by KENNY Dyson, acting as medical stenographer for Mary Gomez MD. 07/12/18 14:36 <Jeanne Zeng - Last Filed: 07/12/18 14:35> - Resident Resident Name: BishopJarrett - ED Attending Attestation I have performed the following: I have examined & evaluated the patient, The case was reviewed & discussed with the resident, I agree w/resident's findings & plan, Exceptions are as noted - Medical Decision Making 07/12/18 18:22 83 yo M presenting to the ER with rectal bleed Pt states he was in his usual state of health, had a bowel movement this morning , was not straining and noted BRBPR He estimated 8 oz No abdominal pain No fevers Pt had similar presentation last year Was supposed to follow up for Colonoscopy but did not No vomiting No hematuria Pt takes aspirin and Xeralto 07/12/18 18:24 EKG : Afib rate of 74 bpm, axis nml, intervals nml, no st elevation or depression, RBBB 07/16/18 13:42 Laboratory Tests 07/12/18 07/12/18 14:30 14:30 WBC 4.0 Hgb 9.5 L Hct 29.9 L D Plt Count 174 BUN 28 H Creatinine 1.4 H 07/16/18 13:42 Hgb drop in the setting of rectal bleed Will admit GI consult <Mary Gomez - Last Filed: 07/16/18 13:42>
[2018-07-12 14:37] LABS: BASO % 0.6 % (0-2.0); HEMATOCRIT 29.9 % (35.4-49); HEMOGLOBIN 9.5 GM/dL (11.7-16.9); LYMPH % 21.3 % (8-40); MCH 26.1 pg (25.7-33.7); MCHC 31.7 g/dl (32.0-35.9); MEAN CELL VOLUME 82.3 fl (80-96); MEAN PLT VOLUME 7.9 fl (7.5-11.1); MONO % 10.8 % (3.8-10.2); NEUT % 64.3 % (42.8-82.8); PLATELET COUNT 174 K/MM3 (134-434); RBC 3.63 M/mm3 (4.00-5.60); RDW 16.4 % (11.9-15.9)
[2018-07-12 14:48] LABS: INR 1.74 (0.83-1.09); PROTHROMBIN TIME (PATIENT) 20.6 SEC (9.7-13.0)
[2018-07-12 14:57] LABS: ALBUMIN 3.4 g/dl (3.4-5.0); ALK PHOS 96 U/L (45-117); ANION GAP 5 MMOL/L (8-16); BILIRUBIN,TOTAL 0.6 mg/dL (0.2-1); BLOOD UREA NITROGEN 28 mg/dL (7-18); CALCIUM 8.2 mg/dL (8.5-10.1); CHLORIDE 110 mmol/L (98-107); CO2 29 mmol/L (21-32); CREATININE 1.4 mg/dL (0.55-1.3); GLUCOSE,RANDOM 134 mg/dL (74-106); POTASSIUM 4.5 mmol/L (3.5-5.1); SGOT/AST 32 U/L (15-37); SGPT/ALT 39 U/L (13-61); SODIUM 145 mmol/L (136-145)
--- NOTE | 2018-07-12 17:06 | HP ---
Addendum entered and electronically signed by Steff Reyes, RESIDENT 18:03: diet order update: NPO for now Original Note: CHIEF COMPLAINT:painless rectal bleeding PCP:Dr. Tirado (from [facility]) HISTORY OF PRESENT ILLNESS: 83 y/o male with PMH of afib (on xarelto)m CAD, CHF, HTN, HLD, DM, hypothyroidism, gout who presents to the ED with painless rectal bleeding. Patient states that he noticed when he wiped this morning there was blood on his toilet paper as well as in the toilet; per patient "if I had to put a cup in I'd say there was about 7 ounces in the toilet bowel. " patient was here back in february of 2018 with the same complaint; he was told to get a colonoscopy on that outpatient however he never followed up. Patient states that he always has had a hard time moving his bowels, to the point where sometimes he has to manually extract his own stool, states he has to take laxatives regularly. he denies any recent illness or recent travel. This AM was the first time the bleeding was seen by the patient in a few months. ER course was notable for: (1)HGb 9.5 (down from 12 back in jan) (2) (3) Recent Travel: none PAST MEDICAL HISTORY: see above PAST SURGICAL HISTORY: denies Social History: Smoking:former smoker; quit 3 years ago Alcohol:denies Drugs: denies Family History: no known family histroy of colon ca or any other cancers Allergies Fish Containing Products Allergy (Verified 07/12/18 13:15) HOME MEDICATIONS: Home Medications Medication Instructions Recorded Amlodipine Besylate 5 mg PO DAILY 01/30/18 Atorvastatin Calcium [Lipitor] 20 mg PO DAILY 01/30/18 Cetirizine HCl [Zyrtec -] 10 mg PO DAILY 01/30/18 Colchicine 0.6 mg PO DAILY 01/30/18 Furosemide [Lasix] 20 mg PO DAILY 01/30/18 Gabapentin 300 mg PO BID 01/30/18 Lisinopril 5 mg PO DAILY 01/30/18 Rivaroxaban [Xarelto] 15 mg PO DAILY 01/30/18 Cholecalciferol (Vitamin D3) 2,000 unit PO DAILY 01/31/18 [Vitamin D3] Lactulose 20 gm PO PRN PRN 01/31/18 Levothyroxine Sodium [Levoxyl] 125 mcg PO ACBK 01/31/18 Polyethylene Glycol 3350 [Miralax 17 gm PO DAILY PRN 01/31/18 119 gm Btl -] Tamsulosin HCl [Flomax -] 0.4 mg PO DAILY@0830 cap.er.24h 02/03/18 Pantoprazole Sodium [Protonix] 40 mg PO DAILY 04/08/18 Metoprolol Tartrate [Lopressor] 12.5 mg PO BID 04/11/18 Aspirin [ASA -] 81 mg PO DAILY 07/12/18 Glimepiride [Amaryl -] 1 mg PO DAILY 07/12/18 Insulin (Levemir) [Levemir Vial] 28 unit SQ AM 07/12/18 Oxybutynin Chloride [Ditropan Xl] 10 mg PO DAILY 07/12/18 Repaglinide [Prandin -] 1 mg PO TID 07/12/18 REVIEW OF SYSTEMS CONSTITUTIONAL: Absent: fever, chills, diaphoresis, generalized weakness, malaise, loss of appetite, weight change HEENT: Absent: rhinorrhea, nasal congestion, throat pain, throat swelling, difficulty swallowing, mouth swelling, ear pain, eye pain, visual changes CARDIOVASCULAR: Absent: chest pain, syncope, palpitations, irregular heart rate, lightheadedness , peripheral edema RESPIRATORY: Absent: cough, shortness of breath, dyspnea with exertion, orthopnea, wheezing, stridor, hemoptysis GASTROINTESTINAL: Absent: abdominal pain, abdominal distension, nausea, vomiting, diarrhea, constipation, melena, hematochezia GENITOURINARY: Absent: dysuria, frequency, urgency, hesitancy, hematuria, flank pain, genital pain MUSCULOSKELETAL: Absent: myalgia, arthralgia, joint swelling, back pain, neck pain SKIN: Absent: rash, itching, pallor HEMATOLOGIC/IMMUNOLOGIC: Absent: easy bleeding, easy bruising, lymphadenopathy, frequent infections ENDOCRINE: Absent: unexplained weight gain, unexplained weight loss, heat intolerance, cold intolerance NEUROLOGIC: Absent: headache, focal weakness or paresthesias, dizziness, unsteady gait, seizure, mental status changes, bladder or bowel incontinence PSYCHIATRIC: Absent: anxiety, depression, suicidal or homicidal ideation, hallucinations. PHYSICAL EXAMINATION Vital Signs - 24 hr 07/12/18 07/12/18 13:11 16:59 Temperature 98.7 F 98.3 F Pulse Rate 83 Pulse Rate [ 68 Apical] Respiratory 18 18 Rate Blood Pressure 152/82 Blood Pressure 150/82 [Right Arm] O2 Sat by Pulse 97 98 Oximetry (%) GENERAL: Awake, alert, and fully oriented, in no acute distress.. EYES:PEERLA; EOMI; no scleral icterus NECK: no JVD; no lmyphadeopathy LUNGS: CTA B/L; no rales, rhonchi or wheezing. HEART: irregularly irregular, normal S1 and S2 without murmur, rub or gallop. ABDOMEN: distended; +BS in all 4 quadrant; no tenderness upon palpation RECTAL: no external hemorrhoids; brihgt red blood on gloce; no fissures/mass no internal hemorrhoids MUSCULOSKELETAL: Normal range of motion at all joints. No bony deformities or tenderness. No CVA tenderness. EXTREMITIES: warm; well-perfused; no clubbing/cyansois trace edema NEUROLOGICAL: Cranial nerves II-XII intact. Normal speech. Normal gait. PSYCHIATRIC: Cooperative. Good eye contact. Appropriate mood and affect. SKIN: Warm, dry, normal turgor, no rashes or lesions noted, normal capillary refill. Laboratory Results - last 24 hr 07/12/18 07/12/18 07/12/18 14:30 14:30 14:30 WBC 4.0 RBC 3.63 L Hgb 9.5 L Hct 29.9 L D MCV 82.3 MCH 26.1 MCHC 31.7 L RDW 16.4 H Plt Count 174 MPV 7.9 Absolute Neuts (auto) 2.6 Neutrophils % 64.3 Lymphocytes % 21.3 Monocytes % 10.8 H Eosinophils % 3.0 Basophils % 0.6 Nucleated RBC % 0 PT with INR 20.60 H INR 1.74 H PTT (Actin FS) 39.0 H Sodium 145 Potassium 4.5 Chloride 110 H Carbon Dioxide 29 Anion Gap 5 L BUN 28 H Creatinine 1.4 H Creat Clearance w eGFR 48.40 Random Glucose 134 H Calcium 8.2 L Total Bilirubin 0.6 AST 32 ALT 39 Alkaline Phosphatase 96 Total Protein 6.0 L Albumin 3.4 Blood Type Antibody Screen 07/12/18 14:30 WBC RBC Hgb Hct MCV MCH MCHC RDW Plt Count MPV Absolute Neuts (auto) Neutrophils % Lymphocytes % Monocytes % Eosinophils % Basophils % Nucleated RBC % PT with INR INR PTT (Actin FS) Sodium Potassium Chloride Carbon Dioxide Anion Gap BUN Creatinine Creat Clearance w eGFR Random Glucose Calcium Total Bilirubin AST ALT Alkaline Phosphatase Total Protein Albumin Blood Type O POSITIVE Antibody Screen Negative ASSESSMENT/PLAN: 83 y/o male with PMH of Afib (on xarelto)m, CAD,CHF, HTN, HLD, hypothyroidism, gout presents to the ED with a one day history of painless rectal bleed #Rectal Bleed rectal exam showed bright red blood per rectum Hgb was 9.5 on arrival -holding Xarelto -repeat CBC at 7pm -GI consulted -transfuse if Hgb <8 -iron studies/b12/folate pending #Afib holding patients Xarelto in light of bleed c/w metoprolol 12.5 #HTN c/w metoprolol 12.5 holding patients amlodipine and lisinopril for now #DM ISS levemir 28 units in AM as pateints home dose BGMS #Hypothyroidism c/w levoxyl TSH pending #CHF not in acute exacerbation #HLD c/w lipitor 20 DVT PPX: scds in light of bleeding F/E/N not on fluids monitor electrolytes diabetic diet Visit type - Emergency Visit Emergency Visit: Yes ED Registration Date: 07/12/18 Care time: The patient presented to the Emergency Department on the above date and was hospitalized for further evaluation of their emergent condition. - New Patient This patient is new to me today: Yes Date on this admission: 07/12/18 - Critical Care Critical Care patient: No
--- NOTE | 2018-07-12 17:39 | PN ---
Teaching Attending Note Name of Resident: Steff Reyes ATTENDING PHYSICIAN STATEMENT I saw and evaluated the patient. I reviewed the resident's note and discussed the case with the resident. I agree with the resident's findings and plan as documented. SUBJECTIVE: CC: painless rectal bleed HPI: atrial fibrillation on xarelto, CAD, chronic diastolic CHF, HTN, DM, HLD, BPH, GIB 02/23, gout, hypothyroidism , CKD, mild aortic regurgitation, and other medical problems who presented with painless rectal bleed. he sat on toilet to urinate this afternoon and blood came out of his rectum. he denies having a BM today. he reports being constipated though and having to strain with defecation . he has sometimes to disimpact himself manually. in 02/23 he was here with painless GI bleed, was seen by Dr. Junior, he was though to have ischemic colitis depending on Ct scan findings. he ws dc on his AC to follow with GI for colonoscopy , but he never did. Med rec from [place] facility indicates aspirin, but it was not on his med list form last discharge. patient denies abd pain, rectal pain, N/V/or diarrhea. he has no light headedness or cp/SOB. OBJECTIVE: NAD, AAOx3 HEENT: dry lips, no JVD, no facial droop. EOMI, round equal pupils CV: irreg irreg , 2/6 Sm at RUSB with no radiation to carotids . Lungs: CTAB Abd: obese, soft, ND, NL BS . NT. Ext: 1+ edema . no erythema. no fungal infection in toes webs Rectal by resident : no fissures, hemorrhoids, or masses. bright red blood on examiner's finger. ASSESSMENT AND PLAN: atrial fibrillation on xarelto, CAD, chronic diastolic CHF, HTN, DM, HLD, BPH, GIB 02/23, gout, hypothyroidism , CKD, mild aortic regurgitation, and other medical problems who presented with painless rectal bleed. 1- Painless rectal bleed: DDx include diverticular Vs internal hemorroidal Vs AVM. - Hb is below his base line . no tachycardia ( n BB though) No hypotension . - repeat Hb. - GI consult. ? colonoscopy - hold 2/3 of his HTN meds. can hold third if needed. - hold lasix and xarelto and Asa - NPO for now - MCV is normal, which indicate either acute bleed or chronic mixed picture anemia: check iron studies and B12/folate - Not sure why aspirin was added to his meds in [place]. will need to confirm. 2- CKD: Cr at his base line. monitor and hold lasix 3- h/o diastolic heart failure. no decompensation. no signs of fluid overload despite slight Le edema. - hold lasix - if needed, can give IVF 4- HTN: hold norvasc and lisinopril, and cont BB given his A fib. 5- A fib: cont Bb and hold xarelto dispo: HLOC SCDS
--- NOTE | 2018-07-12 18:36 | CON.GI ---
Consult Consult Specialty:: GI Referred by:: Hospitalist Reason for Consultation:: rectal bleeding - History of Present Illness Chief Complaint: Rectal bleeding History of Present Illness: 83M admitetd for evalution of rectal bleeding. Blood was described as bright red and on toilet paper. No clots were noted. He states that the bleeding started after lunch. He Is on Xarelto and ASA. He is uncertain if he received xarelto this morning. He was admitted 04/25 for rectal bleeding and abdominal pain. This was felt to be ischemic colitis. CT scan at thst time showed concentric wall thickening of his descending colon as well as sigmoid diverticulosis. It also revealed cardiolmegaly and dilated pulmonary artery. No interventions were performed at that time. He did not follow-up to discuss colonoscopy. He complains of chronic constipation. He believes that he has had several colonoscopies, the last being possibly in the . There is no clear family history of colorectal cancer. Hgb 12.3 04/26. Today It's 9.5. - History Source History Provided By: Patient, Medical Record Limitations to Obtaining History: No Limitations - Past Medical History Cardio/Vascular: Yes: AFIB, HTN, Pulmonary Hypertension Gastrointestinal: Yes: Constipation, Diverticulosis Renal/: Yes: Renal Inusuff Rheumatology: Yes: Gout Endocrine: Yes: Diabetes Mellitus, Hypothyroidism - Past Surgical History Past Surgical History: Yes: Hernia Repair ([facility] ) - Alcohol/Substance Use Hx Alcohol Use: No History of Substance Use: reports: None - Smoking History Smoking history: Former smoker Have you smoked in the past 12 months: No - Social History Usual Living Arrangement: Long-Term ADL: Support Services Occupation: "Many Jobs" in the past Place of : [facility] History of Recent Travel: No Home Medications - Allergies Allergies/Adverse Reactions: Allergies Allergy/AdvReac Type Severity Reaction Status Date / Time Fish Containing Products Allergy Verified 07/12/18 13:15 - Home Medications Home Medications: Ambulatory Orders Amlodipine Besylate 5 mg PO DAILY 01/30/18 Atorvastatin Calcium [Lipitor] 20 mg PO DAILY 01/30/18 Cetirizine HCl [Zyrtec -] 10 mg PO DAILY 01/30/18 Colchicine 0.6 mg PO DAILY 01/30/18 Furosemide [Lasix] 20 mg PO DAILY 01/30/18 Gabapentin 300 mg PO BID 01/30/18 Lisinopril 5 mg PO DAILY 01/30/18 Rivaroxaban [Xarelto] 15 mg PO DAILY 01/30/18 Cholecalciferol (Vitamin D3) [Vitamin D3] 2,000 unit PO DAILY 01/31/18 Lactulose 20 gm PO PRN PRN 01/31/18 Levothyroxine Sodium [Levoxyl] 125 mcg PO ACBK 01/31/18 Polyethylene Glycol 3350 [Miralax 119 gm Btl -] 17 gm PO DAILY PRN 01/31/18 Tamsulosin HCl [Flomax -] 0.4 mg PO DAILY@0830 cap.er.24h 02/03/18 Pantoprazole Sodium [Protonix] 40 mg PO DAILY 04/08/18 Metoprolol Tartrate [Lopressor] 12.5 mg PO BID 04/11/18 Aspirin [ASA -] 81 mg PO DAILY 07/12/18 Glimepiride [Amaryl -] 1 mg PO DAILY 07/12/18 Insulin (Levemir) [Levemir Vial] 28 unit SQ AM 07/12/18 Oxybutynin Chloride [Ditropan Xl] 10 mg PO DAILY 07/12/18 Repaglinide [Prandin -] 1 mg PO TID 07/12/18 Family Disease History - Family Disease History Family Disease History: Other: Father (: 69: complications from smoking), Mother (Did not know her medical problems), Brother (1, unclear medical problems ) Other Family History: No children. No family history of colorectal cancer or other GI malignancy Review of Systems - Review of Systems Constitutional: denies: Unintentional Wgt. Loss Cardiovascular: denies: Chest Pain Respiratory: denies: Cough, SOB Gastrointestinal: reports: Constipation. denies: Abdominal Pain, Bloating, Diarrhea, Dysphagia, Melena, Nausea, Rectal Bleeding Physical Exam-GI Vital Signs: Vital Signs Temperature 07/12/18 1830 Pulse Rate 69 07/12/18 1830 Respiratory Rate 18 07/12/18 1830 Blood Pressure 147/80 07/12/18 1830 O2 Sat by Pulse Oximetry (%) 98 % on RA 07/12/18 1830 Constitutional: Yes: Calm Eyes: No: Sclera Icterus Cardiovascular: Yes: Pulse Irregular. No: Murmur Respiratory: Yes: CTA Bilaterally Gastrointestinal Inspection: No: Distention, Scars ...Auscultate: Yes: Normoactive Bowel Sounds ...Palpate: Yes: Soft. No: Hepatomegaly, Splenomegaly, Tenderness ...Rectal Exam: Yes: Other (No external lesions, no masses, scant johnston stool, no blood) Edema: Yes Edema: LLE: Trace, RLE: 1+ Neurological: Yes: Alert Labs: CBC, BMP 07/12/18 14:30 07/12/18 14:30 INR, PTT INR 1.74 (0.83-1.09) H 07/12/18 14:30 Hepatic Panel Total Bilirubin 0.6 mg/dL (0.2-1) 07/12/18 14:30 AST 32 U/L (15-37) 07/12/18 14:30 ALT 39 U/L (13-61) 07/12/18 14:30 Alkaline Phosphatase 96 U/L (45-117) 07/12/18 14:30 Albumin 3.4 g/dl (3.4-5.0) 07/12/18 14:30 Problem List - Problems (1) Rectal bleed Assessment/Plan: No overt bleeding currently and remains hemodynamically stable. Discussed option of colonoscopy with Mr. Herring to exclude alternate etiologies of bleeding aside from hemorrhoids such as bleeding blood vessels, polyps and tumors of the colon such as colon cancer. Discussed potential risks of the procedure like but not limited to bleeding, perforation requiring surgery to repair, infection, sedation medication effects all of which could be potentially life threatening. He has agreed to the procedure. For now: Monitor H/H Clear liquids Hold Xarelto, plan for colonoscopy later on saturday Monitored setting Need for ASA therapy as outpatient should be clarified. Do benefits outweigh risks? Code(s): K62.5 - HEMORRHAGE OF ANUS AND RECTUM
[2018-07-12 18:49] LABS: HEMOGLOBIN 10.1 GM/dL (11.7-16.9); MCH 25.9 pg (25.7-33.7); MCHC 31.4 g/dl (32.0-35.9); MEAN CELL VOLUME 82.6 fl (80-96); MEAN PLT VOLUME 7.8 fl (7.5-11.1); PLATELET COUNT 185 K/MM3 (134-434); RBC 3.88 M/mm3 (4.00-5.60); RDW 16.1 % (11.9-15.9); WHITE BLOOD COUNT 4.1 K/mm3 (4.0-10.0)
[2018-07-12] MEDS ORDERED: METOPROLOL TARTRATE 25 MG TABLET (FP) ONE (21:21)
[2018-07-12] MEDS ORDERED: METOPROLOL TARTRATE 50 MG TABLET (FP) ONE (21:21)
[2018-07-12] MEDS: INSULIN SLIDING SCALE (NOVOLOG) 1 VIAL SQ SCH (21:31)
[2018-07-12] MEDS: METOPROLOL TARTRATE 25 MG TABLET (FP) PO SCH (21:31)
[2018-07-13] MEDS: INSULIN SLIDING SCALE (NOVOLOG) 1 VIAL SQ SCH ×4 (06:05→21:05)
[2018-07-13] MEDS: LEVOTHYROXINE NA 125 MCG TABLET (FP) PO SCH (06:48)
[2018-07-13] MEDS: INSULIN (LEVEMIR) 100 UNITS/ML UNITS SQ SCH (06:56)
[2018-07-13 07:03] LABS: BASO % 0.5 % (0-2.0); HEMATOCRIT 29.2 % (35.4-49); HEMOGLOBIN 9.6 GM/dL (11.7-16.9); LYMPH % 24.9 % (8-40); MCH 26.4 pg (25.7-33.7); MCHC 32.7 g/dl (32.0-35.9); MEAN CELL VOLUME 80.6 fl (80-96); MEAN PLT VOLUME 7.9 fl (7.5-11.1); MONO % 12.1 % (3.8-10.2); NEUT % 58.5 % (42.8-82.8); PLATELET COUNT 173 K/MM3 (134-434); RBC 3.62 M/mm3 (4.00-5.60); RDW 16.2 % (11.9-15.9)
[2018-07-13 07:16] VITALS: BMI 32.8
[2018-07-13 07:36] LABS: ALBUMIN 3.3 g/dl (3.4-5.0); ALK PHOS 91 U/L (45-117); ANION GAP 5 MMOL/L (8-16); BILIRUBIN,TOTAL 0.6 mg/dL (0.2-1); BLOOD UREA NITROGEN 26 mg/dL (7-18); CALCIUM 8.2 mg/dL (8.5-10.1); CHLORIDE 108 mmol/L (98-107); CO2 31 mmol/L (21-32); CREATININE 1.5 mg/dL (0.55-1.3); GLUCOSE,RANDOM 123 mg/dL (74-106); MAGNESIUM 2.2 mg/dL (1.8-2.4); PHOSPHOROUS 4.1 mg/dL (2.5-4.9); POTASSIUM 4.5 mmol/L (3.5-5.1); SGOT/AST 22 U/L (15-37); SGPT/ALT 33 U/L (13-61); SODIUM 143 mmol/L (136-145); TOT PROT 5.9 g/dl (6.4-8.2)
[2018-07-13] MEDS: TAMSULOSIN HCL 0.4 MG CAP PO SCH (09:06)
[2018-07-13] MEDS: COLCHICINE 0.6 MG TABLET (FP) PO SCH (09:13)
[2018-07-13] MEDS: PANTOPRAZOLE 40 MG TABLET (FP) PO SCH (09:13)
[2018-07-13] MEDS: METOPROLOL TARTRATE 25 MG TABLET (FP) PO SCH ×2 (09:13→21:04)
[2018-07-13] MEDS ORDERED: ALBUTEROL SO4 2.5/IPRATROPIUM 0.5 INH SOL 3 ML VIAL.NEB. NEB ONE (09:16)
[2018-07-13] MEDS ORDERED: FUROSEMIDE 20 MG TABLET (FP) PO ONE ×2 (09:17→14:30)
[2018-07-13] MEDS ORDERED: BISACODYL 5 MG TABLET.DR (FP) PO ONE (13:00)
[2018-07-13] MEDS ORDERED: PEG 3350/NA SULF BICARB CL/KCL 4000 ML SOLN.RECON PO ONE (14:00)
--- NOTE | 2018-07-13 15:32 | PN ---
Progress Note (short form) - Note Progress Note: Subjective: no fever or chills. No abd pain, feels constipated Objective: Vital Signs: Last Vital Signs Temp Pulse Resp BP Pulse Ox 97.7 F 73 18 132/95 99 07/13/18 09:14 07/13/18 09:14 07/13/18 09:14 07/13/18 09:14 07/13/18 09:14 Laboratory Results - last 24 hr 07/12/18 07/12/18 07/12/18 14:30 18:41 21:25 WBC 4.1 RBC 3.88 L Hgb 10.1 L Hct 32.0 L MCV 82.6 MCH 25.9 MCHC 31.4 L RDW 16.1 H Plt Count 185 MPV 7.8 Absolute Neuts (auto) Neutrophils % Lymphocytes % Monocytes % Eosinophils % Basophils % Nucleated RBC % Sodium 145 Potassium 4.5 Chloride 110 H Carbon Dioxide 29 Anion Gap 5 L BUN 28 H Creatinine 1.4 H Creat Clearance w eGFR 48.40 POC Glucometer 70 Random Glucose 134 H Calcium 8.2 L Phosphorus Magnesium Ferritin 14.1 Total Bilirubin 0.6 AST 32 ALT 39 Alkaline Phosphatase 96 Total Protein 6.0 L Albumin 3.4 Vitamin B12 264 TSH Stool Occult Blood 07/12/18 07/13/18 07/13/18 23:29 05:44 06:00 WBC RBC Hgb Hct MCV MCH MCHC RDW Plt Count MPV Absolute Neuts (auto) Neutrophils % Lymphocytes % Monocytes % Eosinophils % Basophils % Nucleated RBC % Sodium Potassium Chloride Carbon Dioxide Anion Gap BUN Creatinine Creat Clearance w eGFR POC Glucometer 116 137 Random Glucose Calcium Phosphorus Magnesium Ferritin Total Bilirubin AST ALT Alkaline Phosphatase Total Protein Albumin Vitamin B12 TSH Stool Occult Blood Negative 07/13/18 07/13/18 07/13/18 06:30 06:30 12:36 WBC 4.0 RBC 3.62 L Hgb 9.6 L Hct 29.2 L MCV 80.6 MCH 26.4 MCHC 32.7 RDW 16.2 H Plt Count 173 MPV 7.9 Absolute Neuts (auto) 2.4 Neutrophils % 58.5 Lymphocytes % 24.9 Monocytes % 12.1 H Eosinophils % 4.0 Basophils % 0.5 Nucleated RBC % 0 Sodium 143 Potassium 4.5 Chloride 108 H Carbon Dioxide 31 Anion Gap 5 L BUN 26 H Creatinine 1.5 H Creat Clearance w eGFR 44.69 POC Glucometer 121 Random Glucose 123 H Calcium 8.2 L Phosphorus 4.1 Magnesium 2.2 Ferritin Total Bilirubin 0.6 AST 22 ALT 33 Alkaline Phosphatase 91 Total Protein 5.9 L Albumin 3.3 L Vitamin B12 TSH 2.22 D Stool Occult Blood Physical Exam: NAD, AAOx3 MMM CV: irreg irreg , 2/6 Sm at RUSB with no radiation to carotids . Lungs:scattered wheezes Abd: obese, soft, ND, NL BS . NT. Ext: 1+ edema . no erythema ASSESSMENT AND PLAN: atrial fibrillation on xarelto, CAD, chronic diastolic CHF, HTN, DM, HLD, BPH, GIB 02/23, gout, hypothyroidism , CKD, mild aortic regurgitation, and other medical problems who presented with painless rectal bleed. 1- Painless rectal bleed: DDx include diverticular Vs internal hemorroidal Vs AVM. - no active bleed. stable Hb - prep for colo tomorrow - iron studies , folate and B12 pending - As of today, the patient is at low risk for cardiac complications for this low risk procedure ( colonoscopy). he has no signs of unstable arrhythmias, overt heart failure, or ACS. last echo reviewed. has afib but not in RVR and medically optimized . no need for further work up 2- CKD: Cr at his base line. 3- h/o diastolic heart failure. - give a dose of lasix 20 po today due to wheezing 4- HTN: hold norvasc and lisinopril, and cont BB given his A fib. 5- A fib: cont Bb and hold xarelto will call assisted living tomorrow to confirm indication for ASA dispo: HLOC SCDS Visit type - Emergency Visit Emergency Visit: Yes ED Registration Date: 07/12/18 Care time: The patient presented to the Emergency Department on the above date and was hospitalized for further evaluation of their emergent condition. - New Patient This patient is new to me today: No - Critical Care Critical Care patient: No
--- NOTE | 2018-07-13 17:58 | EKG ---
Test Reason : Blood Pressure : / mmHG Vent. Rate : 074 BPM Atrial Rate : 082 BPM P-R Int : 000 ms QRS Dur : 156 ms QT Int : 450 ms P-R-T Axes : 000 040 -25 degrees QTc Int : 499 ms ATRIAL FIBRILLATION NON-SPECIFIC INTRA-VENTRICULAR CONDUCTION BLOCK ABNORMAL ECG WHEN COMPARED WITH ECG OF 08-APR-2018 04:34, VENT. RATE HAS INCREASED BY 26 BPM NON-SPECIFIC INTRA-VENTRICULAR CONDUCTION BLOCK HAS REPLACED RIGHT BUNDLE BRANCH BLOCK Confirmed by JESSICA CARTY MD ([id number]) on 07/13/2018 5:58:25 PM Referred By: Confirmed By:JESSICA CARTY MD
[2018-07-13] MEDS: ATORVASTATIN CA 20 MG TABLET (FP) PO SCH (21:04)
[2018-07-13 21:44] LABS: HEMATOCRIT 29.9 % (35.4-49); HEMOGLOBIN 9.7 GM/dL (11.7-16.9); MCH 26.4 pg (25.7-33.7); MCHC 32.5 g/dl (32.0-35.9); MEAN CELL VOLUME 81.3 fl (80-96); PLATELET COUNT 179 K/MM3 (134-434); RBC 3.68 M/mm3 (4.00-5.60); RDW 16.5 % (11.9-15.9); WHITE BLOOD COUNT 4.3 K/mm3 (4.0-10.0)
[2018-07-14] MEDS: INSULIN (LEVEMIR) 100 UNITS/ML UNITS SQ SCH (06:09)
[2018-07-14] MEDS: INSULIN SLIDING SCALE (NOVOLOG) 1 VIAL SQ SCH ×4 (06:09→21:21)
[2018-07-14] MEDS: LEVOTHYROXINE NA 125 MCG TABLET (FP) PO SCH (06:09)
[2018-07-14 07:39] LABS: HEMATOCRIT 29.9 % (35.4-49); HEMOGLOBIN 9.6 GM/dL (11.7-16.9); MCH 26.1 pg (25.7-33.7); MCHC 32.2 g/dl (32.0-35.9); MEAN CELL VOLUME 81.1 fl (80-96); MEAN PLT VOLUME 8.5 fl (7.5-11.1); PLATELET COUNT 198 K/MM3 (134-434); RBC 3.68 M/mm3 (4.00-5.60); RDW 16.2 % (11.9-15.9); WHITE BLOOD COUNT 3.8 K/mm3 (4.0-10.0)
[2018-07-14] MEDS: TAMSULOSIN HCL 0.4 MG CAP PO SCH (09:32)
[2018-07-14] MEDS: PANTOPRAZOLE 40 MG TABLET (FP) PO SCH (09:32)
[2018-07-14] MEDS: COLCHICINE 0.6 MG TABLET (FP) PO SCH (09:32)
[2018-07-14] MEDS: METOPROLOL TARTRATE 25 MG TABLET (FP) PO SCH ×2 (09:32→21:20)
--- NOTE | 2018-07-14 12:06 | PN ---
Progress Note (short form) - Note Progress Note: Brief colonoscopy report - see paper report in chart for details Large internal hemorrhoids Moderate left sided diverticulosis Diminutive AC polyp removed with cold forceps No etiology of anemia identified Recommend advancing diet Await biopsy results Await iron studies and ferritin - if iron deficient, would consider EGD to further assess anemia No further colonoscopies for screening; only if clinical scenario dictates
[2018-07-14] MEDS: amLODIPine BESYLATE 5 MG TABLET (FP) PO SCH (16:22)
--- NOTE | 2018-07-14 18:46 | PN ---
Teaching Attending Note Name of Resident: Tristin Middleton ATTENDING PHYSICIAN STATEMENT I saw and evaluated the patient. I reviewed the resident's note and discussed the case with the resident. I agree with the resident's findings and plan as documented. SUBJECTIVE: No fever or chills. No abd pain. had colonoscopy today OBJECTIVE: NAD, AAOx3 MMM CV: irreg irreg, 2/6 SM at RUSB with no radiation to carotids . Lungs: CTAB Abd: obese, soft, ND, NL BS. NT. Ext: 1+ edema. no erythema ASSESSMENT AND PLAN: atrial fibrillation on xarelto, CAD, chronic diastolic CHF, HTN, DM, HLD, BPH, GIB 02/23, gout, hypothyroidism , CKD, mild aortic regurgitation, and other medical problems who presented with painless rectal bleed. 1- Painless rectal bleed: - Colonoscopy with large hemorrhoids and diverticulosis with no source of bleed. polyp was removed - iron studies pending - patient is not interested in EGD . - cont to hold xarelto. - team spoke to his facility. AsA was added on 04/27 with no reason. will not resume at dc - will ask GI when it is safe to resume xarelto - will make NPO after mid night in case he changes his mind and agrees to EGD 2- CKD: Cr at his base line. 3- h/o diastolic heart failure. - resume Lasix at dc 4- HTN: resume norvasc and lisinopril, and cont BB 5- A fib: cont BB and hold xarelto Dispo : if he continues to refuse EGD, will dc to [place] tomorrow
--- NOTE | 2018-07-14 18:52 | PN ---
Physical Exam: SUBJECTIVE: Patient seen and examined this AM. No further episodes of bleeding with BM's. No new complaints. OBJECTIVE: Vital Signs Period Temp Pulse Resp BP Sys/Denson Pulse Ox Last 24 Hr 97.5 F-98.5 F 77-92 18-21 141-163/80-97 95-98 GENERAL: The patient is awake, alert, and fully oriented, in no acute distress. HEAD: Normal with no signs of trauma. EYES: PERRL, EOMI ENT: moist mucous membranes NECK: Supple. LUNGS: Diminished breath sounds at the bases, no wheezes, no crackles HEART: Irregularly Irregular, S1, S2, 2/6 murmur at the RUSN ABDOMEN: Obese, Soft, nontender, nondistended, + Bowel sounds, no guarding EXTREMITIES: Trace edema. RUE Hematoma NEUROLOGICAL: Cranial nerves II through XII grossly intact. SKIN: Warm, dry Laboratory Results - last 24 hr 07/13/18 07/13/18 07/14/18 21:03 21:25 05:51 WBC 4.3 RBC 3.68 L Hgb 9.7 L Hct 29.9 L MCV 81.3 MCH 26.4 MCHC 32.5 RDW 16.5 H Plt Count 179 MPV 8.0 POC Glucometer 159 125 07/14/18 07/14/18 07/14/18 06:45 10:44 16:16 WBC 3.8 L RBC 3.68 L Hgb 9.6 L Hct 29.9 L MCV 81.1 MCH 26.1 MCHC 32.2 RDW 16.2 H Plt Count 198 MPV 8.5 POC Glucometer 137 209 Active Medications Amlodipine Besylate (Norvasc -) 5 mg PO DAILY [facility] Last Admin: 07/14/18 16:22 Dose: 5 mg Atorvastatin Calcium (Lipitor -) 20 mg PO HS [facility] Last Admin: 07/13/18 21:04 Dose: 20 mg Colchicine (Colcrys -) 0.6 mg PO DAILY [facility] Last Admin: 07/14/18 09:32 Dose: 0.6 mg Insulin Aspart (Novolog Vial Sliding Scale -) 1 vial SQ [facility]; Protocol Last Admin: 07/14/18 16:18 Dose: 4 units Insulin Detemir (Levemir Vial) 28 units SQ AM [facility] Last Admin: 07/14/18 06:09 Dose: Not Given Levothyroxine Sodium (Synthroid -) 125 mcg PO ACBK [facility] Last Admin: 07/14/18 06:09 Dose: 125 mcg Metoprolol Tartrate (Lopressor -) 12.5 mg PO BID [facility] Last Admin: 07/14/18 09:32 Dose: 12.5 mg Pantoprazole Sodium (Protonix -) 40 mg PO DAILY [facility] Last Admin: 07/14/18 09:32 Dose: 40 mg Tamsulosin HCl (Flomax -) 0.4 mg PO DAILY@0830 [facility] Last Admin: 07/14/18 09:32 Dose: 0.4 mg IMAGING: -CXR: Single AP view of the chest has been submitted. There is a prominent heart , prominent knob and prominent neel. The lungs are clear. The angles are sharp. The bones and soft tissues are intact. There are some arthritic shoulder changes and right arm calcifications. Correlation recommended. Since 04/07/2018 , there is a better inspiration but no significant change. -EKG: AFib, Nonspecific intraventricular conduction block, VR 74, QTc 499 ASSESSMENT/PLAN: 83 y/o M with PMH of Afib (on xarelto), CAD, CHF, HTN, HLD, hypothyroidism, gout presents to the ED with a one day history of painless rectal bleed #Painless Rectal Bleed -Likely due to internal hemorrhoids vs Diverticular bleed--No further episodes of bleeding as per patient -GI (Dr. Connor) Consulted, Appreciate Rec's -Colonoscopy this AM found Large internal hemorrhoids, Moderate left sided diverticulosis, Diminutive AC polyp (removed) -Iron studies an Bx pending -Xarelto held; Will discuss the appropriate time to restart with GI -Monitor H&H; Transfuse if Hgb <8 -Pantoprazole #Afib, Controlled -Xarelto Held -Continue Metoprolol Tartrate 12.5mg BID #HTN -Continue home dose metoprolol Tartrate, Amlodipine -Lisinopril held in the setting of labile hemodynamics #DM -BGMs ISS ACHS -Continue Insulin Detemir 28u SQ AM #Diastolic CHF -Was given Lasix 20mg PO for wheezing -Currently not fluid overloaded--Continue to monitor #Hypothyroidism -Levothyroxine 125 mcg daily #HLD -Atorvastatin 20mg daily #PPX: -DVT: scds #FEN -not on standing fluids -monitor electrolytes -diabetic diet; NPO after midnight for possible EGD Visit type - Emergency Visit Emergency Visit: Yes ED Registration Date: 07/12/18 Care time: The patient presented to the Emergency Department on the above date and was hospitalized for further evaluation of their emergent condition. - New Patient This patient is new to me today: Yes Date on this admission: 07/14/18 - Critical Care Critical Care patient: No
[2018-07-14] MEDS ORDERED: INSULIN (NOVOLOG) ASPART 100 UNITS/ML 10ML VIAL ONE (20:44)
[2018-07-14] MEDS: ATORVASTATIN CA 20 MG TABLET (FP) PO SCH (21:20)
[2018-07-15 04:11] LABS: SERUM IRON SATURATION 13 % (15-55); TOTAL IRON BINDING CAPACITY 338 ug/dL (250-450); UIBC 294 ug/dL (111-343)
[2018-07-15] MEDS: LEVOTHYROXINE NA 125 MCG TABLET (FP) PO SCH ×2 (06:14→06:47)
[2018-07-15] MEDS: INSULIN SLIDING SCALE (NOVOLOG) 1 VIAL SQ SCH ×2 (06:14→14:34)
[2018-07-15 06:17] LABS: BASO % 0.7 % (0-2.0); EOS % 3.3 % (0-4.5); HEMATOCRIT 31.3 % (35.4-49); HEMOGLOBIN 10.3 GM/dL (11.7-16.9); LYMPH % 30.7 % (8-40); MCH 26.3 pg (25.7-33.7); MCHC 32.8 g/dl (32.0-35.9); MEAN CELL VOLUME 80.2 fl (80-96); MONO % 13.2 % (3.8-10.2); NEUT % 52.1 % (42.8-82.8); PLATELET COUNT 180 K/MM3 (134-434); RDW 16.1 % (11.9-15.9); WHITE BLOOD COUNT 3.3 K/mm3 (4.0-10.0)
[2018-07-15] MEDS: amLODIPine BESYLATE 5 MG TABLET (FP) PO SCH ×2 (06:44→09:18)
[2018-07-15] MEDS: METOPROLOL TARTRATE 25 MG TABLET (FP) PO SCH ×2 (06:44→09:18)
[2018-07-15] MEDS ORDERED: LISINOPRIL 5 MG TABLET (FP) PO SCH ×2 (07:00)
[2018-07-15] MEDS: PANTOPRAZOLE 40 MG TABLET (FP) PO SCH (09:16)
[2018-07-15] MEDS: TAMSULOSIN HCL 0.4 MG CAP PO SCH (09:16)
[2018-07-15] MEDS: COLCHICINE 0.6 MG TABLET (FP) PO SCH (09:16)
[2018-07-15 10:45] VITALS: BP 159/93; PULSE 84; TEMP 98
--- NOTE | 2018-07-15 13:44 | PN ---
Teaching Attending Note Name of Resident: Stephany Dominguez ATTENDING PHYSICIAN STATEMENT I saw and evaluated the patient. I reviewed the resident's note and discussed the case with the resident. I agree with the resident's findings and plan as documented. SUBJECTIVE: cursing and yelling. He does not want the EGD OBJECTIVE: could not examine due to attitude. ASSESSMENT AND PLAN: atrial fibrillation on xarelto, CAD, chronic diastolic CHF, HTN, DM, HLD, BPH, GIB 02/23, gout, hypothyroidism , CKD, mild aortic regurgitation, and other medical problems who presented with painless rectal bleed. 1- Painless rectal bleed: - Colonoscopy with large hemorrhoids and diverticulosis with no source of bleed. polyp was removed - iron studies inidcate iron def anemia. start iron - pt declined EGD. explained the need for it as he is on AC with no obvious source for bleed. I gave him the option to stop AC due to the risk for rebleed, and to take the risk for stroke. he chose to continue with AC and accepted the risk for bleed . - No aspirin at dc ( no indication) - timing of resuming Ac was d/w Dr. Connor. It was left to medicine preference. will ask patient to resume xarelto in 1 week if no bleeding 2- CKD: Cr at his base line. 3- h/o diastolic heart failure. - resume Lasix at dc 4- HTN:cont home meds 5- A fib: cont BB. xarelto as above Dispo :Dc back to [facility]
--- NOTE | 2018-07-15 15:03 | DS ---
Physical Exam: SUBJECTIVE: Patient seen and examined this AM. Was very agitated and refused EGD today. No new complaints. No acute overnight events as per nursing staff. OBJECTIVE: Vital Signs Period Temp Pulse Resp BP Sys/Denson Pulse Ox Last 24 Hr 98 F-98.4 F 76-84 20-20 139-182/78-112 95-95 PHYSICAL EXAM GENERAL: The patient is awake, alert, and fully oriented HEAD: Normal with no signs of trauma. EYES: PERRL, EOMI ENT: moist mucous membranes NECK: Supple. LUNGS: Diminished breath sounds at the bases, no wheezes, no crackles HEART: Irregularly Irregular, S1, S2, 2/6 murmur at the RUSB ABDOMEN: Obese, Soft, nontender, nondistended, + Bowel sounds, no guarding EXTREMITIES: Trace edema. RUE Hematoma NEUROLOGICAL: Cranial nerves II through XII grossly intact. SKIN: Warm, dry LABS Laboratory Results - last 24 hr 07/13/18 07/14/18 07/14/18 06:30 06:45 16:16 WBC RBC Hgb Hct MCV MCH MCHC RDW Plt Count MPV Absolute Neuts (auto) Neutrophils % Lymphocytes % Monocytes % Eosinophils % Basophils % Nucleated RBC % POC Glucometer 209 Iron 41 44 TIBC 338 Iron Saturation 13 L Ferritin 07/14/18 07/15/18 07/15/18 21:21 05:10 05:10 WBC 3.3 L RBC 3.90 L Hgb 10.3 L Hct 31.3 L MCV 80.2 MCH 26.3 MCHC 32.8 RDW 16.1 H Plt Count 180 MPV 8.0 Absolute Neuts (auto) 1.7 Neutrophils % 52.1 Lymphocytes % 30.7 D Monocytes % 13.2 H Eosinophils % 3.3 Basophils % 0.7 Nucleated RBC % 0 POC Glucometer 185 Iron TIBC Iron Saturation Ferritin 22.1 07/15/18 07/15/18 05:41 12:24 WBC RBC Hgb Hct MCV MCH MCHC RDW Plt Count MPV Absolute Neuts (auto) Neutrophils % Lymphocytes % Monocytes % Eosinophils % Basophils % Nucleated RBC % POC Glucometer 156 168 Iron TIBC Iron Saturation Ferritin IMAGING: -CXR: Single AP view of the chest has been submitted. There is a prominent heart , prominent knob and prominent neel. The lungs are clear. The angles are sharp. The bones and soft tissues are intact. There are some arthritic shoulder changes and right arm calcifications. Correlation recommended. Since 04/07/2018 , there is a better inspiration but no significant change. -EKG: AFib, Nonspecific intraventricular conduction block, VR 74, QTc 499 HOSPITAL COURSE: Date of Admission:07/12/18 Date of Discharge: 07/15/18 83 y/o M with PMH of Afib (on xarelto), CAD, CHF, HTN, HLD, hypothyroidism, gout was admitted for painless rectal bleed. His H&H remained stable and he underwent colonoscopy which found Large internal hemorrhoids, Moderate left sided diverticulosis, Diminutive AC polyp (removed). His Iron studies revealed Iron def. Anemia for which he was started on supplementation. Patient became very agitated today and declined to have EGD done--It was explained to him in great detail the need for the EGD given he is on anticoagulation for AFib and source for his bleed was not confirmed. Additionally we discussed the possibility of stopping AC at the risk for stroke--Patient chose to continue AC and continued to refuse EGD. Upon discharge, patient was advised to restart Xarelto in one week and to remain on PPI tx. Patients DM Regimen was optimized. Patient was discharged to SNF with strict instructions for Aspirin avoidance and Physician follow up. Minutes to complete discharge: 40 Discharge Summary Reason For Visit: ANEMIA, BRIGHT RED BLOOD PER RECTUM Current Active Problems Anemia (Acute) Bright red blood per rectum (Acute) Rectal bleed (Acute) DM type 2 (diabetes mellitus, type 2) (Chronic) HTN (hypertension) (Chronic) Condition: Improved - Instructions Diet, Activity, Other Instructions: You presented to the hospital for painless bleeding from your rectum. You underwent a colonoscopy which showed Large internal hemorrhoids, Moderate left sided diverticulosis, a removed Diminutive AC polyp. You were offered but refused to have an Endoscopy. Medication Changes: 1. PLEASE RESTART YOUR XARELTO IN 1 WEEK IF THERE IS NO BLEEDING. 15 mg daily 2. Continue Pantoprazole 40mg daily 3- No aspirin Follow up with the following physicians: 1. PCP in one week 2. Please schedule an appointment with GI (Dr. Connor) to further manage your bleeding. also to review biopsy results Please continue to monitor your diet as you need to intake more fiber to help prevent further hemorrhoids. Continue all your other medications as prescribed Please return to the ER if you have any signs or symptoms of chest pain, shortness of breath, uncontrollable fever, chills, nausea, vomiting, numbness, tingling, or weakness in any part of your body, changes in vision, or slurred speech. Please return to the ER if symptoms persist, worsen, or new symptoms arise. Referrals: Killian Connor DO [Staff Physician] - 1 Week Kevon Sibley MD [Primary Care Provider] - Disposition: ASSISTED FACILITY - Home Medications Comprehensive Discharge Medication List: Ambulatory Orders Amlodipine Besylate 5 mg PO DAILY 01/30/18 Atorvastatin Calcium [Lipitor] 20 mg PO DAILY 01/30/18 Colchicine 0.6 mg PO DAILY 01/30/18 Furosemide [Lasix] 20 mg PO DAILY 01/30/18 Gabapentin 300 mg PO BID 01/30/18 Lisinopril 5 mg PO DAILY 01/30/18 Cholecalciferol (Vitamin D3) [Vitamin D3] 2,000 unit PO DAILY 01/31/18 Lactulose 20 gm PO PRN PRN 01/31/18 Levothyroxine Sodium [Levoxyl] 125 mcg PO ACBK 01/31/18 Polyethylene Glycol 3350 [Miralax 119 gm Btl -] 17 gm PO DAILY PRN 01/31/18 Tamsulosin HCl [Flomax -] 0.4 mg PO DAILY@0830 cap.er.24h 02/03/18 Pantoprazole Sodium [Protonix] 40 mg PO DAILY 04/08/18 Metoprolol Tartrate [Lopressor] 12.5 mg PO BID 04/11/18 Oxybutynin Chloride [Ditropan Xl] 10 mg PO DAILY 07/12/18 Repaglinide [Prandin -] 1 mg PO TID 07/12/18 Ferrous Sulfate [Feosol] 325 mg PO BID #60 tablet 07/15/18 Insulin (Levemir) [Levemir Vial] 20 unit SQ AM #1 vial 07/15/18 Pantoprazole Sodium [Protonix -] 40 mg PO DAILY #30 tablet.ec 07/15/18 This patient is new to me today: No Emergency Visit: Yes ED Registration Date: 07/12/18 Care time: The patient presented to the Emergency Department on the above date and was hospitalized for further evaluation of their emergent condition. Critical Care patient: No - Discharge Referral Referred to [facility] Med P.C.: No
--- NOTE | 2018-07-15 16:43 | PATH ---
Surgical Pathology Report Patient Name: CORNELIUS RAMIREZ Med. Rec. #: [id number] /Age/Gender: 1935 (Age: 83) / M Account: [id number] Location: [facility] MED/SURG Taken: 07/14/2018 Received: 07/14/2018 Reported: 07/15/2018 Physicians: MD Alex Rocha M.D. Specimen(s) Received ASCENDING COLON POLYP Clinical History Anemia Postoperative diagnosis: Colon polyp, hemorrhoids Final Diagnosis ASCENDING COLON, POLYP, BIOPSY: TUBULAR ADENOMA. Electronically Signed Maya Du M.D. Gross Description Received in formalin, labeled "polyp ascending colon" is a johnston, irregular portion of soft tissue measuring 0.3 cm. in greatest dimension. The specimen is submitted in toto in one cassette. /07/14/201807/14/2018
== END 2018-07-15 17:16 | disposition home or self-care (01) | DRG 378 ==
LOC: JER 12:54 → JERBED 15:33 → J8W 07-13 05:04
PROVIDERS: ADMIT Internal Medicine; ATTEND Internal Medicine
PROC: 0DBK8ZZ Excision of Ascending Colon, Via Natural or Artificial Opening Endoscopic (ICD-10-PCS; principal; 2018-07-14 11:30)
DX: K62.5 Hemorrhage of anus and rectum (principal); I13.0 Hypertensive heart and chronic kidney disease with heart failure and stage 1 through stage 4 chronic kidney disease, or unspecified chronic kidney disease; I50.30 Unspecified diastolic (congestive) heart failure; I25.10 Atherosclerotic heart disease of native coronary artery without angina pectoris; E78.5 Hyperlipidemia, unspecified; E03.9 Hypothyroidism, unspecified; I48.91 Unspecified atrial fibrillation; E11.9 Type 2 diabetes mellitus without complications; N40.0 Benign prostatic hyperplasia without lower urinary tract symptoms; D50.9 Iron deficiency anemia, unspecified; K64.8 Other hemorrhoids; K57.90 Diverticulosis of intestine, part unspecified, without perforation or abscess without bleeding; K63.5 Polyp of colon; N18.9 Chronic kidney disease, unspecified
CPT/HCPCS: 36415; 71045-TC-FY; 80053; 82272; 82607; 82728; 82747; 82962; 83540; 83550; 83735; 84100; 84443; 85014; 85025; 85027; 85610; 85730; 86850; 86900; 86901; 88305-TC; 93005; 93010; 99284-25

== ENCOUNTER 2018-08-11 03:01 | Observation (INO) | payer OTHER ==
--- NOTE | 2018-08-11 03:15 | PDOC ---
History of Present Illness - General Chief Complaint: Rectal Bleed Stated Complaint: BLOOD IN STOOL Time Seen by Provider: 08/11/18 03:12 History Source: Patient - History of Present Illness Initial Comments: 08/11/18 03:19 afib (on xarelto)m CAD, CHF, HTN, HLD, DM, hypothyroidism, gout As per EMR patient evaluated in our ED in 07/2018 for painless rectal bleed. S/ p colonoscopy which showed internal hemorrhoids, diverticulosis. Refused EGG and discharged to SNF. 08/11/18 03:20 Past History - Past Medical History Allergies/Adverse Reactions: Allergies Allergy/AdvReac Type Severity Reaction Status Date / Time Fish Containing Products Allergy Verified 08/11/18 03:11 Home Medications: Ambulatory Orders Amlodipine Besylate 5 mg PO DAILY 01/30/18 Atorvastatin Calcium [Lipitor] 20 mg PO DAILY 01/30/18 Colchicine 0.6 mg PO DAILY 01/30/18 Furosemide [Lasix] 20 mg PO DAILY 01/30/18 Gabapentin 300 mg PO BID 01/30/18 Lisinopril 5 mg PO DAILY 01/30/18 Cholecalciferol (Vitamin D3) [Vitamin D3] 2,000 unit PO DAILY 01/31/18 Lactulose 20 gm PO PRN PRN 01/31/18 Levothyroxine Sodium [Levoxyl] 125 mcg PO ACBK 01/31/18 Polyethylene Glycol 3350 [Miralax 119 gm Btl -] 17 gm PO DAILY PRN 01/31/18 Tamsulosin HCl [Flomax -] 0.4 mg PO DAILY@0830 cap.er.24h 02/03/18 Pantoprazole Sodium [Protonix] 40 mg PO DAILY 04/08/18 Metoprolol Tartrate [Lopressor] 12.5 mg PO BID 04/11/18 Oxybutynin Chloride [Ditropan Xl] 10 mg PO DAILY 07/12/18 Repaglinide [Prandin -] 1 mg PO TID 07/12/18 Ferrous Sulfate [Feosol] 325 mg PO BID #60 tablet 07/15/18 Insulin (Levemir) [Levemir Vial] 20 unit SQ AM #1 vial 07/15/18 Pantoprazole Sodium [Protonix -] 40 mg PO DAILY #30 tablet.ec 07/15/18 Cancer: Yes (benign prostate CA) Cardiac Disorders: Yes (atrial fibrillation, coronary artery disease) COPD: No CHF: Yes Diabetes: Yes GI Disorders: Yes (constipation) HTN: Yes Hypercholesterolemia: Yes Thyroid Disease: Yes (hypothyroididsm gout) - Surgical History Abdominal Surgery: No Appendectomy: No Cardiac Surgery: No Cholecystectomy: No Lung Surgery: No Neurologic Surgery: No - Immunization History Immunization Up to Date: (Unknown) - Suicide/Smoking/Psychosocial Hx Smoking History: Never smoked Have you smoked in the past 12 months: No Cigars Per Day: 1 Hx Alcohol Use: No Drug/Substance Use Hx: No Substance Use Type: None Hx Substance Use Treatment: No *Physical Exam - Vital Signs Last Vital Signs Temp Pulse Resp BP Pulse Ox 97.9 F 74 18 146/82 94 L 08/11/18 03:03 08/11/18 03:03 08/11/18 03:03 08/11/18 03:03 08/11/18 03:03 *DC/Admit/Observation/Transfer - Referrals Referrals: Kevon Sibley MD [Primary Care Provider] - - Patient Instructions - Post Discharge Activity
--- NOTE | 2018-08-11 03:52 | PDOC ---
History of Present Illness - General Chief Complaint: Rectal Bleed Stated Complaint: BLOOD IN STOOL Time Seen by Provider: 08/11/18 03:12 History Source: Patient Exam Limitations: No Limitations - History of Present Illness Initial Comments: 08/11/18 03:37 83 y/o M with PMH of Afib (on xarelto), CAD, CHF, HTN, HLD, hypothyroidism, gout and recent admission (07/12/2018) for painless rectal bleed presents from assisted living facility for 1 day of BRBPR. Chart review shows on last admission colonoscopy which found Large internal hemorrhoids, Moderate left sided diverticulosis, Diminutive AC polyp (removed). However, patient declined EGD due to difficulty with sedation and was discharged. Pt currently on Xarelto. Pt states today he has had more than 3 episodes of BRBPR with some rectal pain on defecation due to hard stools (no laxatives given). Pt states the stool is well formed, blood fills the toilet and denies leakage of blood from the rectum. Denies abdominal pain, weakness, dizziness, F/C/N/V, back pain, CP, SOB , NSAID use, family hx colon cancer, baseline hemoglobin 12 in 04/26. Past History - Past Medical History Allergies/Adverse Reactions: Allergies Allergy/AdvReac Type Severity Reaction Status Date / Time Fish Containing Products Allergy Verified 08/11/18 03:11 Home Medications: Ambulatory Orders Amlodipine Besylate 5 mg PO DAILY 01/30/18 Atorvastatin Calcium [Lipitor] 20 mg PO DAILY 01/30/18 Colchicine 0.6 mg PO DAILY 01/30/18 Furosemide [Lasix] 20 mg PO DAILY 01/30/18 Gabapentin 300 mg PO BID 01/30/18 Lisinopril 5 mg PO DAILY 01/30/18 Cholecalciferol (Vitamin D3) [Vitamin D3] 2,000 unit PO DAILY 01/31/18 Lactulose 20 gm PO PRN PRN 01/31/18 Levothyroxine Sodium [Levoxyl] 125 mcg PO ACBK 01/31/18 Polyethylene Glycol 3350 [Miralax 119 gm Btl -] 17 gm PO DAILY PRN 01/31/18 Tamsulosin HCl [Flomax -] 0.4 mg PO DAILY@0830 cap.er.24h 02/03/18 Pantoprazole Sodium [Protonix] 40 mg PO DAILY 04/08/18 Metoprolol Tartrate [Lopressor] 12.5 mg PO BID 04/11/18 Oxybutynin Chloride [Ditropan Xl] 10 mg PO DAILY 07/12/18 Repaglinide [Prandin -] 1 mg PO TID 07/12/18 Ferrous Sulfate [Feosol] 325 mg PO BID #60 tablet 07/15/18 Insulin (Levemir) [Levemir Vial] 20 unit SQ AM #1 vial 07/15/18 Pantoprazole Sodium [Protonix -] 40 mg PO DAILY #30 tablet.ec 07/15/18 Cancer: Yes (benign prostate CA) Cardiac Disorders: Yes (atrial fibrillation, coronary artery disease) COPD: No CHF: Yes Diabetes: Yes GI Disorders: Yes (constipation) HTN: Yes Hypercholesterolemia: Yes Thyroid Disease: Yes (hypothyroididsm gout) - Surgical History Abdominal Surgery: No Appendectomy: No Cardiac Surgery: No Cholecystectomy: No Lung Surgery: No Neurologic Surgery: No - Immunization History Immunization Up to Date: (Unknown) - Suicide/Smoking/Psychosocial Hx Smoking History: Never smoked Have you smoked in the past 12 months: No Cigars Per Day: 1 Hx Alcohol Use: No Drug/Substance Use Hx: No Substance Use Type: None Hx Substance Use Treatment: No *Physical Exam - Vital Signs Last Vital Signs Temp Pulse Resp BP Pulse Ox 97.9 F 74 18 146/82 94 L 08/11/18 03:03 08/11/18 03:03 08/11/18 03:03 08/11/18 03:03 08/11/18 03:03 ED Treatment Course - LABORATORY CBC & Chemistry Diagram: 08/11/18 03:54 08/11/18 03:54 Medical Decision Making - Medical Decision Making H/H stable rectal exam shows blood surrounding anus. Pt is not symptomatic (no dizziness/ weakness) 08/11/18 07:03 spoke with SAIDA Bennett who agrees to have pt admitted for GI bleed, on AC Pt stable, NAD *DC/Admit/Observation/Transfer Diagnosis at time of Disposition: GI bleed Qualifiers: GI bleed type/associated pathology: unspecified gastrointestinal hemorrhage type Qualified Code(s): K92.2 - Gastrointestinal hemorrhage, unspecified - Discharge Dispostion Condition at time of disposition: Stable Decision to Admit order: Yes - Referrals - Patient Instructions - Post Discharge Activity
[2018-08-11 04:04] LABS: BASO % 0.7 % (0-2.0); EOS % 2.6 % (0-4.5); HEMATOCRIT 34.4 % (35.4-49); LYMPH % 20.9 % (8-40); MCH 26.9 pg (25.7-33.7); MCHC 31.9 g/dl (32.0-35.9); MEAN CELL VOLUME 84.3 fl (80-96); MEAN PLT VOLUME 8.5 fl (7.5-11.1); MONO % 12.2 % (3.8-10.2); NEUT % 63.6 % (42.8-82.8); PLATELET COUNT 159 K/MM3 (134-434); RBC 4.08 M/mm3 (4.00-5.60); RDW 19.3 % (11.9-15.9); WHITE BLOOD COUNT 3.6 K/mm3 (4.0-10.0)
[2018-08-11 04:21] LABS: INR 1.19 (0.83-1.09); PROTHROMBIN TIME (PATIENT) 14.1 SEC (9.7-13.0)
[2018-08-11 04:24] LABS: ACTIVATED PTT 33.7 SECONDS (25.2-36.5)
[2018-08-11 04:29] LABS: ALBUMIN 3.6 g/dl (3.4-5.0); ALK PHOS 106 U/L (45-117); ANION GAP 3 MMOL/L (8-16); BILIRUBIN,TOTAL 0.4 mg/dL (0.2-1); BLOOD UREA NITROGEN 38 mg/dL (7-18); CALCIUM 8.6 mg/dL (8.5-10.1); CHLORIDE 113 mmol/L (98-107); CO2 28 mmol/L (21-32); CREATININE 1.5 mg/dL (0.55-1.3); GLUCOSE,RANDOM 154 mg/dL (74-106); POTASSIUM 4.9 mmol/L (3.5-5.1); SGOT/AST 14 U/L (15-37); SGPT/ALT 19 U/L (13-61); SODIUM 144 mmol/L (136-145); TOT PROT 6.5 g/dl (6.4-8.2)
[2018-08-11] MEDS ORDERED: PANTOPRAZOLE SODIUM 80 MG/200 ML BAG IVPB ONE (05:22)
--- NOTE | 2018-08-11 05:34 | PDOC ---
Attending Attestation - Resident Resident Name: Logan Lantigua - ED Attending Attestation I have performed the following: I have examined & evaluated the patient, The case was reviewed & discussed with the resident, I agree w/resident's findings & plan - HPI HPI: 08/11/18 05:29 Pt comes with rectal bleeding. He has a hx of afib and he is on blood thinners. He will require admission. He has no abd pain or dizziness or CP at this time. - Physicial Exam PE: 08/11/18 05:30 Agree with resident exam. - Medical Decision Making 08/11/18 05:30 Admit to the hospitalist.
[2018-08-11] MEDS: PANTOPRAZOLE SODIUM 80 MG in SODIUM CHLORIDE 100 ML IVPB SCH ×2 (05:52→14:11)
[2018-08-11] MEDS ORDERED: METOPROLOL TARTRATE 5 MG/5 ML VIAL IVPUSH PRN (06:56)
--- NOTE | 2018-08-11 07:05 | HP ---
CHIEF COMPLAINT: Rectal bleeding PCP: HISTORY OF PRESENT ILLNESS: This is an 83 year old male with a past medical history of Afib on Eliquis, CAD , CHF, HTN, HLD, DM, hypothyroid and gout who presented to the ED with rectal bleeding. Pt reports that he was very constipated and "had to go in and get the stool out" which was followed by several BMs with bright red blood mixed with stool in toilet. Pt reports approximately 5 episodes. He denies abdominal pain but reports rectal pain. Denies CP, SOB, N/V, dysuria. Of note, pt was admitted from 07/12-07/15 for BRBPR; colonoscopy done revealing polyp which was removed, diverticulosis and large internal hemorrhoids. He refused EGD at the time. Pt reports taking fiber for his constipation but denies taking any other laxatives that he is aware of. ER course was notable for: (1) Hgb 11.0 up from 10.3 on previous admission Recent Travel: pt denies PAST MEDICAL HISTORY: Afib, CAD, CHF, HTN, HLD, DM, hypothyroid and gout PAST SURGICAL HISTORY: denies Social History: Smoking: former pipe and cigar smoker, quit age 80 Alcohol: pt denies Drugs: pt denies Family History: father in his early 60 due to smoking related lung disease; does not know rest of family Allergies Fish Containing Products Allergy (Verified 08/11/18 03:11) HOME MEDICATIONS: (not verified, pt unsure of home meds by name) 3 Medication Instructions Recorded Amlodipine Besylate 5 mg PO DAILY 01/30/18 Atorvastatin Calcium [Lipitor] 20 mg PO DAILY 01/30/18 Colchicine 0.6 mg PO DAILY 01/30/18 Furosemide [Lasix] 20 mg PO DAILY 01/30/18 Gabapentin 300 mg PO BID 01/30/18 Lisinopril 5 mg PO DAILY 01/30/18 Cholecalciferol (Vitamin D3) 2,000 unit PO DAILY 01/31/18 [Vitamin D3] Levothyroxine Sodium [Levoxyl] 125 mcg PO ACBK 01/31/18 Tamsulosin HCl [Flomax -] 0.4 mg PO DAILY@0830 cap.er.24h 02/03/18 Pantoprazole Sodium [Protonix] 40 mg PO DAILY 04/08/18 Metoprolol Tartrate [Lopressor] 12.5 mg PO BID 04/11/18 Oxybutynin Chloride [Ditropan Xl] 10 mg PO DAILY 07/12/18 Repaglinide [Prandin -] 1 mg PO TID 07/12/18 Ferrous Sulfate [Feosol] 325 mg PO BID #60 tablet 07/15/18 Insulin (Levemir) [Levemir Vial] 20 unit SQ AM #1 vial 07/15/18 Pantoprazole Sodium [Protonix -] 40 mg PO DAILY #30 tablet.ec 07/15/18 REVIEW OF SYSTEMS CONSTITUTIONAL: Absent: fever, chills, diaphoresis, generalized weakness, malaise, loss of appetite, weight change HEENT: Absent: rhinorrhea, nasal congestion, throat pain, throat swelling, difficulty swallowing, mouth swelling, ear pain, eye pain, visual changes CARDIOVASCULAR: Absent: chest pain, syncope, palpitations, irregular heart rate, lightheadedness , peripheral edema RESPIRATORY: Absent: cough, shortness of breath, dyspnea with exertion, orthopnea, wheezing, stridor, hemoptysis GASTROINTESTINAL: Present: constipation, hematochezia Absent: abdominal pain, abdominal distension, nausea, vomiting, diarrhea, melena GENITOURINARY: Absent: dysuria, frequency, urgency, hesitancy, hematuria, flank pain, genital pain MUSCULOSKELETAL: Absent: myalgia, arthralgia, joint swelling, back pain, neck pain SKIN: Absent: rash, itching, pallor HEMATOLOGIC/IMMUNOLOGIC: Absent: easy bleeding, easy bruising, lymphadenopathy, frequent infections ENDOCRINE: Absent: unexplained weight gain, unexplained weight loss, heat intolerance, cold intolerance NEUROLOGIC: Absent: headache, focal weakness or paresthesias, dizziness, unsteady gait, seizure, mental status changes, bladder or bowel incontinence PSYCHIATRIC: Absent: anxiety, depression, suicidal or homicidal ideation, hallucinations. PHYSICAL EXAMINATION Vital Signs - 24 hr 3 08/11/18 08/11/18 03:03 05:54 Temperature 97.9 F Pulse Rate 74 Respiratory 18 Rate Blood Pressure 146/82 O2 Sat by Pulse 94 L 95 Oximetry (%) GENERAL: Awake, alert, and fully oriented, in no acute distress. HEAD: Normal with no signs of trauma. EYES: Pupils equal, round and reactive to light, extraocular movements intact, sclera anicteric, conjunctiva clear. No lid lag. EARS, NOSE, THROAT: Ears normal, nares patent, oropharynx clear without exudates. Moist mucous membranes. NECK: Normal range of motion, supple without lymphadenopathy, JVD, or masses. LUNGS: Breath sounds equal, clear to auscultation bilaterally. No wheezes, and no crackles. No accessory muscle use. HEART: Regular rate and rhythm, normal S1 and S2 without murmur, rub or gallop. ABDOMEN: Soft, nontender, not distended, normoactive bowel sounds, no guarding, no rebound, no masses. No hepatomegaly or splenomegaly. MUSCULOSKELETAL: Normal range of motion at all joints. No bony deformities or tenderness. No CVA tenderness. UPPER EXTREMITIES: 2+ pulses, warm, well-perfused. No cyanosis. No clubbing. No peripheral edema. LOWER EXTREMITIES: 2+ pulses, warm, well-perfused. No calf tenderness. Tr peripheral edema. NEUROLOGICAL: Cranial nerves II-XII intact. Normal speech. PSYCHIATRIC: Cooperative. Good eye contact. Appropriate mood and affect. SKIN: Warm, dry, normal turgor, no rashes or lesions noted, normal capillary refill. Laboratory Results - last 24 hr 3 08/11/18 08/11/18 08/11/18 08/11/18 03:54 03:54 03:54 03:55 WBC 3.6 L RBC 4.08 Hgb 11.0 L Hct 34.4 L MCV 84.3 MCH 26.9 MCHC 31.9 L RDW 19.3 H Plt Count 159 MPV 8.5 Absolute Neuts (auto) 2.3 Neutrophils % 63.6 D Lymphocytes % 20.9 D Monocytes % 12.2 H Eosinophils % 2.6 Basophils % 0.7 Nucleated RBC % 0 PT with INR 14.10 H INR 1.19 H PTT (Actin FS) 33.7 Sodium 144 Potassium 4.9 Chloride 113 H Carbon Dioxide 28 Anion Gap 3 L BUN 38 H Creatinine 1.5 H Creat Clearance w eGFR 44.69 POC Glucometer Random Glucose 154 H Calcium 8.6 Total Bilirubin 0.4 AST 14 L ALT 19 Alkaline Phosphatase 106 Total Protein 6.5 Albumin 3.6 Stool Occult Blood Positive ASSESSMENT/PLAN: 83yM with PMH GI bleed, hemorrhoids, Afib, CAD, CHF, HTN, HLD, DM, hypothyroid, gout presented to the ED with 5 episodes BRBPR today after having constipation with manual self disimpaction. GI bleed - likely due to internal hemorrhoids in setting of constipation - monitor CBC, repeat @8am - GI consult ordered - cont protonix drip for now - NPO until GI eval; hold home po meds for now Afib - hold eliquis in setting of bright red blood per rectum - metoprolol IV PRN for elevated HR HTN/HLD/CAD - hold home po meds for now, restart when no longer NPO DM - Home lantus 20 decreased to 10 due to NPO status, resume 20 when eating - BGM qid with novolog sliding scale - po meds held hypothyroidism - home po 125mcg changed to IV 75mcg while npo gout - home po meds held, restart when no longer npo DVT PPX - held due to bleeding FEN - start ivf if remains npo for prolong period - BMP in am - NPO for now Dispo: Pt currently requires further observation and CBC monitoring. Visit type - Emergency Visit Emergency Visit: Yes ED Registration Date: 08/11/18 Care time: The patient presented to the Emergency Department on the above date and was hospitalized for further evaluation of their emergent condition. - New Patient This patient is new to me today: Yes Date on this admission: 08/11/18 - Critical Care Critical Care patient: No
[2018-08-11] MEDS: INSULIN SLIDING SCALE (NOVOLOG) 1 VIAL SQ SCH ×4 (07:12→21:44)
[2018-08-11] MEDS: INSULIN (LEVEMIR) 100 UNITS/ML UNITS SQ SCH (07:13)
--- NOTE | 2018-08-11 09:59 | EKG ---
Test Reason : Blood Pressure : / mmHG Vent. Rate : 072 BPM Atrial Rate : 202 BPM P-R Int : 000 ms QRS Dur : 162 ms QT Int : 440 ms P-R-T Axes : 000 043 -15 degrees QTc Int : 481 ms ATRIAL FIBRILLATION NON-SPECIFIC INTRA-VENTRICULAR CONDUCTION BLOCK ABNORMAL ECG WHEN COMPARED WITH ECG OF 12-JUL-2018 13:14, NO SIGNIFICANT CHANGE WAS FOUND Confirmed by GREGORIO ENG MD ([id number]) on 08/11/2018 9:59:13 AM Referred By: Confirmed By:GREGORIO ENG MD
[2018-08-11] MEDS ORDERED: LEVOTHYROXINE SODIUM 100 MCG VIAL IVPUSH SCH (10:00)
[2018-08-11] MEDS ORDERED: PT OWN MED DRAWER 7, Y5N ONE ×2 (10:23→17:11)
[2018-08-11] MEDS ORDERED: amLODIPine BESYLATE 5 MG TABLET (FP) ONE (11:00)
[2018-08-11] MEDS ORDERED: METOPROLOL TARTRATE 25 MG TABLET (FP) ONE (11:01)
[2018-08-11] MEDS ORDERED: LISINOPRIL 5 MG TABLET (FP) ONE (11:01)
[2018-08-11] MEDS: amLODIPine BESYLATE 5 MG TABLET (FP) PO SCH (11:05)
[2018-08-11] MEDS: LISINOPRIL 5 MG TABLET (FP) PO SCH (11:05)
[2018-08-11] MEDS: METOPROLOL TARTRATE 25 MG TABLET (FP) PO SCH ×2 (11:05→21:43)
[2018-08-11] MEDS: LEVOTHYROXINE NA 125 MCG TABLET (FP) PO SCH (11:26)
[2018-08-11] MEDS ORDERED: PANTOPRAZOLE SODIUM 40 MG/100 ML BAG IVPB ONE (12:05)
--- NOTE | 2018-08-11 12:33 | PN ---
Physical Exam: SUBJECTIVE: Patient seen and examined in the ED awaiting bed assignment. OBJECTIVE: This is an 83 year old male with a past medical history of Afib on Xarelto, CAD , CHF, HTN, HLD, DM, hypothyroid and gout who presented to the ED with rectal bleeding after self disempacting. Recently here for GI bleed. Vital Signs Period Temp Pulse Resp BP Sys/Denson Pulse Ox Last 24 Hr 97.9 F-98.6 F 74-82 16-18 146-154/73-97 94-98 GENERAL: Awake, alert, and fully oriented, in no acute distress. HEAD: Normal with no signs of trauma. EYES: Pupils equal, round and reactive to light, extraocular movements intact, sclera anicteric, conjunctiva clear. No lid lag. EARS, NOSE, THROAT: Ears normal, nares patent, oropharynx clear without exudates. Moist mucous membranes. NECK: Normal range of motion, supple without lymphadenopathy, JVD, or masses. LUNGS: Breath sounds equal, clear to auscultation bilaterally. No wheezes, and no crackles. No accessory muscle use. HEART: Regular rate and rhythm, normal S1 and S2 without murmur, rub or gallop. ABDOMEN: Soft, nontender, not distended, normoactive bowel sounds, no guarding, no rebound, no masses. No hepatomegaly or splenomegaly. MUSCULOSKELETAL: Normal range of motion at all joints. No bony deformities or tenderness. No CVA tenderness. UPPER EXTREMITIES: 2+ pulses, warm, well-perfused. No cyanosis. No clubbing. No peripheral edema. LOWER EXTREMITIES: 2+ pulses, warm, well-perfused. No calf tenderness. Tr peripheral edema. NEUROLOGICAL: Cranial nerves II-XII intact. Normal speech. PSYCHIATRIC: Cooperative. Good eye contact. Appropriate mood and affect. SKIN: Warm, dry, normal turgor, no rashes or lesions noted, normal capillary refill. Laboratory Results - last 24 hr 08/11/18 08/11/18 08/11/18 03:54 03:54 03:54 WBC 3.6 L RBC 4.08 Hgb 11.0 L Hct 34.4 L MCV 84.3 MCH 26.9 MCHC 31.9 L RDW 19.3 H Plt Count 159 MPV 8.5 Absolute Neuts (auto) 2.3 Neutrophils % 63.6 D Lymphocytes % 20.9 D Monocytes % 12.2 H Eosinophils % 2.6 Basophils % 0.7 Nucleated RBC % 0 Retic Count PT with INR 14.10 H INR 1.19 H PTT (Actin FS) 33.7 Sodium 144 Potassium 4.9 Chloride 113 H Carbon Dioxide 28 Anion Gap 3 L BUN 38 H Creatinine 1.5 H Creat Clearance w eGFR 44.69 POC Glucometer Random Glucose 154 H Calcium 8.6 Total Bilirubin 0.4 AST 14 L ALT 19 Alkaline Phosphatase 106 Total Protein 6.5 Albumin 3.6 Stool Occult Blood Blood Type Antibody Screen 08/11/18 08/11/18 08/11/18 03:55 06:20 07:45 WBC RBC Hgb Hct MCV MCH MCHC RDW Plt Count MPV Absolute Neuts (auto) Neutrophils % Lymphocytes % Monocytes % Eosinophils % Basophils % Nucleated RBC % Retic Count 1.10 PT with INR INR PTT (Actin FS) Sodium Potassium Chloride Carbon Dioxide Anion Gap BUN Creatinine Creat Clearance w eGFR POC Glucometer 110 Random Glucose Calcium Total Bilirubin AST ALT Alkaline Phosphatase Total Protein Albumin Stool Occult Blood Positive Blood Type Antibody Screen 08/11/18 08/11/18 07:45 10:05 WBC RBC Hgb Hct MCV MCH MCHC RDW Plt Count MPV Absolute Neuts (auto) Neutrophils % Lymphocytes % Monocytes % Eosinophils % Basophils % Nucleated RBC % Retic Count PT with INR INR PTT (Actin FS) Sodium Potassium Chloride Carbon Dioxide Anion Gap BUN Creatinine Creat Clearance w eGFR POC Glucometer 127 Random Glucose Calcium Total Bilirubin AST ALT Alkaline Phosphatase Total Protein Albumin Stool Occult Blood Blood Type O POSITIVE Antibody Screen Negative Active Medications Generic Name Dose Route Start Last Admin Trade Name Freq PRN Reason Stop Dose Admin Amlodipine Besylate 5 mg 08/11/18 10:30 08/11/18 11:05 Norvasc - PO 5 mg DAILY CODY Administration Pantoprazole Sodium 80 mg/ 100 mls @ 10 mls/hr 08/11/18 04:45 08/11/18 05:52 Sodium Chloride IVPB 10 mls/hr Q10H CODY Administration 8 MG/HR Insulin Aspart 1 vial 08/11/18 07:00 08/11/18 11:26 Novolog Vial Sliding Scale - SQ Not Given ACHS [facility] Protocol Insulin Detemir 10 units 08/11/18 07:00 08/11/18 07:13 Levemir Vial SQ Not Given AM [facility] Levothyroxine Sodium 125 mcg 08/11/18 11:15 08/11/18 11:26 Synthroid - PO 125 mcg ACBK CODY Administration Lisinopril 5 mg 08/11/18 10:30 08/11/18 11:05 Prinivil PO 5 mg DAILY CODY Administration Metoprolol Tartrate 12.5 mg 08/11/18 10:30 08/11/18 11:05 Lopressor - PO 12.5 mg BID CODY Administration ASSESSMENT/PLAN: 83yM with PMH GI bleed, hemorrhoids, Afib, CAD, CHF, HTN, HLD, DM, hypothyroid, gout presented to the ED with 5 episodes BRBPR today after having constipation with manual self disimpaction. GI bleed: likely secondary to internal hemorrhoids in setting of constipation. scant amt of blood in diaper on exam. hmg/hct stable. repeat CBC in a.m. Seen and evaluated by GI, notes reviewed. will start diet and monitor. If no further bleeding can be followed as an outpatient. Afib. On xarelto 15mg. Will restart today and monitor. on metoprolol po. HTN/HLD/CAD. continue home medications. Diabetes: On lantus and BGMs. hypothyroidism: continue Synthroid Gout: not in acute flare. re start meds. fen tolerating po diabetic diet monitor electrolytes prophy SCDs, protonis disposition: d/c back to assisted living tomorrow if no further bleeding episodes. Visit type - Emergency Visit Emergency Visit: Yes ED Registration Date: 08/11/18 Care time: The patient presented to the Emergency Department on the above date and was hospitalized for further evaluation of their emergent condition. - New Patient This patient is new to me today: Yes Date on this admission: 08/11/18 - Critical Care Critical Care patient: No - Discharge Referral Referred to [facility] No
--- NOTE | 2018-08-11 14:31 | CON.GI ---
Consult Consult Specialty:: GI Referred by:: medicine Reason for Consultation:: hematochezia - History of Present Illness Chief Complaint: BRBPR History of Present Illness: 83M with h/o AF on AC, HTN, HL, presenting for evaluation of hematochezia yesterday, reportedly 5x, after patient had constipation and had to self GATO to remove stool. Reports 5 episodes of BRB thereafter that then resolved. No abdominal pain, no N/V. Recent admission for anemia 07/2018, had colonoscopy with diverticulosis, hemorrhoids, and a diminutive TA that was removed. Pt refused upper endoscopy at that time. - History Source History Provided By: Patient Limitations to Obtaining History: No Limitations - Past Medical History Cardio/Vascular: Yes: AFIB, HTN, Pulmonary Hypertension Gastrointestinal: Yes: Constipation, Diverticulosis Renal/: Yes: Renal Inusuff Rheumatology: Yes: Gout Endocrine: Yes: Diabetes Mellitus, Hypothyroidism - Past Surgical History Past Surgical History: Yes: Hernia Repair ([facility] ) - Alcohol/Substance Use Hx Alcohol Use: No History of Substance Use: reports: None - Smoking History Smoking history: Never smoked Have you smoked in the past 12 months: No - Social History Usual Living Arrangement: Long Term ADL: Support Services Occupation: "Many Jobs" in the past History of Recent Travel: No Home Medications - Allergies Allergies/Adverse Reactions: Allergies Allergy/AdvReac Type Severity Reaction Status Date / Time Fish Containing Products Allergy Verified 08/11/18 03:11 - Home Medications Home Medications: Ambulatory Orders Amlodipine Besylate 5 mg PO DAILY 01/30/18 Atorvastatin Calcium [Lipitor] 20 mg PO DAILY 01/30/18 Colchicine 0.6 mg PO DAILY 01/30/18 Furosemide [Lasix] 20 mg PO DAILY 01/30/18 Gabapentin 300 mg PO BID 01/30/18 Lisinopril 5 mg PO DAILY 01/30/18 Cholecalciferol (Vitamin D3) [Vitamin D3] 2,000 unit PO DAILY 01/31/18 Lactulose 20 gm PO PRN PRN 01/31/18 Levothyroxine Sodium [Levoxyl] 125 mcg PO ACBK 01/31/18 Polyethylene Glycol 3350 [Miralax 119 gm Btl -] 17 gm PO DAILY PRN 01/31/18 Tamsulosin HCl [Flomax -] 0.4 mg PO DAILY@0830 cap.er.24h 02/03/18 Pantoprazole Sodium [Protonix] 40 mg PO DAILY 04/08/18 Metoprolol Tartrate [Lopressor] 12.5 mg PO BID 04/11/18 Oxybutynin Chloride [Ditropan Xl] 10 mg PO DAILY 07/12/18 Repaglinide [Prandin -] 1 mg PO TID 07/12/18 Ferrous Sulfate [Feosol] 325 mg PO BID #60 tablet 07/15/18 Insulin (Levemir) [Levemir Vial] 20 unit SQ AM #1 vial 07/15/18 Pantoprazole Sodium [Protonix -] 40 mg PO DAILY #30 tablet.ec 07/15/18 Family Disease History - Family Disease History Family Disease History: Other: Father (: 69: complications from smoking), Mother (Did not know her medical problems), Brother (1, unclear medical problems ) Review of Systems - Review of Systems Constitutional: reports: No Symptoms Eyes: reports: No Symptoms HENT: reports: No Symptoms Neck: reports: No Symptoms Cardiovascular: reports: No Symptoms Respiratory: reports: No Symptoms Gastrointestinal: reports: Constipation, Rectal Bleeding. denies: Abdominal Pain, Nausea, Vomiting Musculoskeletal: reports: No Symptoms Integumentary: reports: No Symptoms Neurological: reports: No Symptoms Endocrine: reports: No Symptoms Hematology/Lymphatic: reports: No Symptoms Physical Exam-GI Vital Signs: Vital Signs Temperature 98.5 F 08/11/18 09:40 Pulse Rate 82 08/11/18 09:40 Respiratory Rate 18 08/11/18 09:40 Blood Pressure 151/97 08/11/18 09:40 O2 Sat by Pulse Oximetry (%) 95 08/11/18 09:40 Constitutional: Yes: Well Nourished, No Distress Eyes: Yes: WNL, Conjunctiva Clear HENT: Yes: WNL Neck: Yes: WNL Cardiovascular: Yes: Regular Rate and Rhythm Respiratory: Yes: CTA Bilaterally ...Palpate: Yes: Soft. No: Firm/Rigid, Guarding, Tenderness ...Rectal Exam: Yes: Other (External exam unremarkable, GATO without blood or mass, hard brown stool palpated at fingertip) Musculoskeletal: Yes: WNL Extremities: Yes: WNL Neurological: Yes: Alert, Oriented Psychiatric: Yes: Alert, Oriented Labs: CBC, BMP 08/11/18 03:54 08/11/18 03:54 INR, PTT INR 1.19 (0.83-1.09) H 08/11/18 03:54 Assessment/Plan Hematochezia - likely from digital rectal exam on hemorrhoids, exacerbated by AC hgb stable Can stop PPI drip Trend hgb Defer endoscopic evaluation at this time No absolute contraindication to AC Would start Miralax 17g daily to avoid constipation so that this does not recur
[2018-08-11] MEDS ORDERED: POLYETHYLENE GLYCOL 3350 119 GM BTL PO PRN (15:02)
[2018-08-11] MEDS ORDERED: RIVAROXABAN 15 MG TABLET PO ONE (16:05)
[2018-08-11] MEDS: REPAGLINIDE 1 MG TABLET PO SCH (17:40)
[2018-08-11] MEDS: GABAPENTIN 300 MG CAPSULE (FP) PO SCH (21:44)
[2018-08-12 00:09] VITALS: BMI 35.0
[2018-08-12] MEDS ORDERED: LEVOTHYROXINE NA 125 MCG TABLET (FP) PO SCH (07:00)
[2018-08-12] MEDS: INSULIN SLIDING SCALE (NOVOLOG) 1 VIAL SQ SCH ×2 (07:09→12:04)
[2018-08-12] MEDS: INSULIN (LEVEMIR) 100 UNITS/ML UNITS SQ SCH (07:12)
[2018-08-12] MEDS: LEVOTHYROXINE NA 125 MCG TABLET (FP) PO SCH (07:12)
[2018-08-12 07:41] LABS: BASO % 0.8 % (0-2.0); EOS % 3.6 % (0-4.5); HEMOGLOBIN 11.6 GM/dL (11.7-16.9); LYMPH % 21.9 % (8-40); MCHC 32.4 g/dl (32.0-35.9); MEAN CELL VOLUME 83.6 fl (80-96); MEAN PLT VOLUME 8.2 fl (7.5-11.1); MONO % 10.2 % (3.8-10.2); NEUT % 63.5 % (42.8-82.8); PLATELET COUNT 162 K/MM3 (134-434); RBC 4.31 M/mm3 (4.00-5.60); RDW 19.2 % (11.9-15.9); WHITE BLOOD COUNT 4.4 K/mm3 (4.0-10.0)
[2018-08-12] MEDS: REPAGLINIDE 1 MG TABLET PO SCH ×2 (08:00→12:15)
[2018-08-12] MEDS ORDERED: TAMSULOSIN HCL 0.4 MG CAP PO SCH (08:30)
[2018-08-12 08:44] LABS: ALBUMIN 3.7 g/dl (3.4-5.0); ALK PHOS 87 U/L (45-117); ANION GAP 6 MMOL/L (8-16); BILIRUBIN,TOTAL 0.8 mg/dL (0.2-1); BLOOD UREA NITROGEN 27 mg/dL (7-18); CALCIUM 9.2 mg/dL (8.5-10.1); CHLORIDE 108 mmol/L (98-107); CO2 26 mmol/L (21-32); CREATININE 1.3 mg/dL (0.55-1.3); GLUCOSE,RANDOM 109 mg/dL (74-106); MAGNESIUM 2.3 mg/dL (1.8-2.4); PHOSPHOROUS 3.6 mg/dL (2.5-4.9); POTASSIUM 4.7 mmol/L (3.5-5.1); SGOT/AST 14 U/L (15-37); SGPT/ALT 18 U/L (13-61); SODIUM 140 mmol/L (136-145); TOT PROT 6.6 g/dl (6.4-8.2)
[2018-08-12] MEDS: LISINOPRIL 5 MG TABLET (FP) PO SCH (09:34)
[2018-08-12] MEDS: GABAPENTIN 300 MG CAPSULE (FP) PO SCH (09:34)
[2018-08-12] MEDS: amLODIPine BESYLATE 5 MG TABLET (FP) PO SCH (09:34)
[2018-08-12] MEDS ORDERED: CHOLECALCIFEROL (VITAMIN D3) 1,000 UNIT TABLET (FP) PO SCH (10:00)
[2018-08-12] MEDS ORDERED: ATORVASTATIN CA 20 MG TABLET (FP) PO SCH (10:00)
[2018-08-12] MEDS ORDERED: FUROSEMIDE 20 MG TABLET (FP) PO SCH (10:00)
[2018-08-12] MEDS ORDERED: SOLIFENACIN SUCCINATE 5 MG TAB (FP) PO SCH (10:00)
[2018-08-12] MEDS ORDERED: PANTOPRAZOLE 40 MG TABLET (FP) PO SCH ×2 (10:00)
[2018-08-12] MEDS ORDERED: PT OWN MED DRAWER 7, Y5N ONE (10:14)
[2018-08-12] MEDS: METOPROLOL TARTRATE 25 MG TABLET (FP) PO SCH (10:15)
--- NOTE | 2018-08-12 12:36 | DS ---
Physical Examination Vital Signs: Vital Signs Temperature 96.7 F L 08/12/18 09:00 Pulse Rate 87 08/12/18 09:00 Respiratory Rate 20 08/12/18 09:00 Blood Pressure 161/93 08/12/18 09:00 O2 Sat by Pulse Oximetry (%) 95 08/12/18 01:00 Findings/Remarks: Patient seen and examined, no acute events overnight. No further rectal bleeding , no complaints, ready to go back home. Denies CP, sob, palpitations, n/v/d. Constitutional: Yes: Well Nourished, No Distress, Calm Eyes: No: Sclera Icterus Cardiovascular: Yes: Pulse Irregular Respiratory: Yes: WNL, Regular, CTA Bilaterally Gastrointestinal: Yes: WNL, Normal Bowel Sounds, Soft, Abdomen, Obese Musculoskeletal: Yes: WNL Extremities: Yes: WNL Edema: No Psychiatric: Yes: WNL, Alert, Oriented Labs: CBC, BMP 08/12/18 06:45 08/12/18 06:45 Discharge Summary Reason For Visit: GASTROINTESTINAL HEMORRHAGE Current Active Problems GI bleed (Acute) Hospital Course: This is an 83 year old male with a past medical history of Afib on Xarelto, CAD , CHF, HTN, HLD, DM, hypothyroid and gout who presented to the ED with rectal bleeding. Pt. reports that he was very constipated and "had to go in and get the stool out" which was followed by several BMs with bright red blood mixed with stool in toilet. Pt. reports approximately 5 episodes. He denies abdominal pain but reports rectal pain. Denies CP, SOB, N/V, dysuria. Of note, pt was admitted from 07/12-07/15 for BRBPR; colonoscopy done revealing polyp which was removed, diverticulosis and large internal hemorrhoids. He refused EGD at the time. Pt. reports taking fiber for his constipation but denies taking any other laxatives that he is aware of. Hematochezia - secondary to disimpaction with internal hemorrhoids in setting of constipation - h/h stable - start miralax to avoid constipation and exacerbation of hemorrhoids - oral PPI - GI eval , no further workup at this time Afib - continue with xarelto - bb HTN/HLD/CAD - resume home meds DM - resume home meds hypothyroidism - synthroid gout - stable, on meds Condition: Stable - Instructions Disposition: [facility] - Home Medications Comprehensive Discharge Medication List: Ambulatory Orders Amlodipine Besylate 5 mg PO DAILY 01/30/18 Atorvastatin Calcium [Lipitor] 20 mg PO HS 01/30/18 Colchicine 0.6 mg PO DAILY 01/30/18 Furosemide [Lasix] 20 mg PO DAILY 01/30/18 Gabapentin 300 mg PO BID 01/30/18 Lisinopril 5 mg PO DAILY 01/30/18 Cholecalciferol (Vitamin D3) [Vitamin D3] 2,000 unit PO DAILY 01/31/18 Lactulose 20 gm PO PRN PRN 01/31/18 Levothyroxine Sodium [Levoxyl] 125 mcg PO ACBK 01/31/18 Polyethylene Glycol 3350 [Miralax 119 gm Btl -] 17 gm PO DAILY PRN 01/31/18 Tamsulosin HCl [Flomax -] 0.4 mg PO DAILY@0830 cap.er.24h 02/03/18 Metoprolol Tartrate [Lopressor] 12.5 mg PO BID 04/11/18 Oxybutynin Chloride [Ditropan Xl] 10 mg PO DAILY 07/12/18 Repaglinide [Prandin -] 1 mg PO TID 07/12/18 Ferrous Sulfate [Feosol] 325 mg PO BID #60 tablet 07/15/18 Insulin (Levemir) [Levemir Vial] 20 unit SQ AM #1 vial 07/15/18 Pantoprazole Sodium [Protonix -] 40 mg PO DAILY #30 tablet.ec 07/15/18 Acetaminophen [Mapap] 500 mg PO PRN PRN 08/11/18 Benzocaine/Menthol [Cepacol Sore Throat Lozenge] 1 each MM QID PRN 08/11/18 Clotrimazole/Betamethasone Dip [Clotrimazole-Betamethasone Crm] 45 gm TP DAILY 08/11/18 Menthol/Camphor [Dermasarra Anti-Itch Lotion] 222 ml TP DAILY 08/11/18 Methyl Salicylate/Menthol [Muscle Rub Cream] 85 gm TP HS 08/11/18 Psyllium Seed [Reguloid] 426 gm PO HS 08/11/18 Rivaroxaban [Xarelto] 15 mg PO DAILY 08/11/18 Silver Sulfadiazine [Ssd] 400 gm TP DAILY 08/11/18 Triamcinolone Acet/0.9%NaCl/Pf 1 applic TP BID 08/11/18
[2018-08-12 14:51] VITALS: BP 138/92; PULSE 77; TEMP 97.9
[2018-08-12] MEDS ORDERED: RIVAROXABAN 15 MG TABLET PO SCH (18:00)
== END 2018-08-12 15:01 ==
LOC: JER 03:01 → JERBED 05:13 → J5S 19:42
PROVIDERS: ADMIT Internal Medicine; ATTEND Internal Medicine
PROC: 3E033GC Introduction of Other Therapeutic Substance into Peripheral Vein, Percutaneous Approach (ICD-10-PCS; principal; 2018-08-11)
PROC: 3E013VG Introduction of Insulin into Subcutaneous Tissue, Percutaneous Approach (ICD-10-PCS; 2018-08-11)
DX: K92.2 Gastrointestinal hemorrhage, unspecified (principal); K92.1 Melena; I11.0 Hypertensive heart disease with heart failure; E78.5 Hyperlipidemia, unspecified; E11.9 Type 2 diabetes mellitus without complications; E03.9 Hypothyroidism, unspecified; I25.10 Atherosclerotic heart disease of native coronary artery without angina pectoris; I48.91 Unspecified atrial fibrillation; I50.9 Heart failure, unspecified; M10.9 Gout, unspecified; Z79.01 Long term (current) use of anticoagulants; Z91.013 Allergy to seafood; Z79.4 Long term (current) use of insulin
CPT/HCPCS: 36415; 71045-TC-FY; 80053; 82272; 82962; 83735; 84100; 85025; 85044; 85610; 85730; 86850; 86900; 86901; 93005; 93010; 96372; 96374; 99285-25; G0378

== ENCOUNTER 2018-08-17 10:31 | Observation (INO) | payer OTHER ==
--- NOTE | 2018-08-17 11:36 | PDOC ---
History of Present Illness - General Chief Complaint: Rectal Bleed Stated Complaint: RECTAL BLEEDING Time Seen by Provider: 08/17/18 11:35 - History of Present Illness Initial Comments: 08/17/18 11:36 Mr. Herring is an 83 yo male w/ pmh of afib (on xarelto), CAD, CHF, HTN, HLD, hypothyroidism, gout, and multiple rectal bleeds (most recent admission 08/11-08/12 ) who presents for evaluation of 1 day history of rectal bleeding. Patient reports he had to strain a lot on his bowel movement for the last day or two and reports that he noticed significant blood in the toilet after using the toilet today. Patient also reports he feels "sluggish" lately like "an engine with oil." Denies other complaints at this time. The patient denies chest pain, shortness of breath, headache and dizziness. Denies fever, chills, nausea, vomit, diarrhea and constipation. Denies dysuria, frequency, urgency and hematuria. Past History - Past Medical History Allergies/Adverse Reactions: Allergies Allergy/AdvReac Type Severity Reaction Status Date / Time Fish Containing Products Allergy Verified 08/11/18 03:11 Home Medications: Ambulatory Orders Amlodipine Besylate 5 mg PO DAILY 01/30/18 Atorvastatin Calcium [Lipitor] 20 mg PO HS 01/30/18 Colchicine 0.6 mg PO DAILY 01/30/18 Furosemide [Lasix] 20 mg PO DAILY 01/30/18 Gabapentin 300 mg PO BID 01/30/18 Lisinopril 5 mg PO DAILY 01/30/18 Cholecalciferol (Vitamin D3) [Vitamin D3] 2,000 unit PO DAILY 01/31/18 Lactulose 20 gm PO PRN PRN 01/31/18 Levothyroxine Sodium [Levoxyl] 125 mcg PO ACBK 01/31/18 Tamsulosin HCl [Flomax -] 0.4 mg PO DAILY@0830 cap.er.24h 02/03/18 Metoprolol Tartrate [Lopressor] 12.5 mg PO BID 04/11/18 Oxybutynin Chloride [Ditropan Xl] 10 mg PO DAILY 07/12/18 Repaglinide [Prandin -] 1 mg PO TID 07/12/18 Ferrous Sulfate [Feosol] 325 mg PO BID #60 tablet 07/15/18 Insulin (Levemir) [Levemir Vial] 20 unit SQ AM #1 vial 07/15/18 Pantoprazole Sodium [Protonix -] 40 mg PO DAILY #30 tablet.ec 07/15/18 Acetaminophen [Mapap] 500 mg PO PRN PRN 08/11/18 Benzocaine/Menthol [Cepacol Sore Throat Lozenge] 1 each MM QID PRN 08/11/18 Clotrimazole/Betamethasone Dip [Clotrimazole-Betamethasone Crm] 45 gm TP DAILY 08/11/18 Menthol/Camphor [Dermasarra Anti-Itch Lotion] 222 ml TP DAILY 08/11/18 Methyl Salicylate/Menthol [Muscle Rub Cream] 85 gm TP HS 08/11/18 Psyllium Seed [Reguloid] 426 gm PO HS 08/11/18 Rivaroxaban [Xarelto] 15 mg PO DAILY 08/11/18 Silver Sulfadiazine [Ssd] 400 gm TP DAILY 08/11/18 Triamcinolone Acet/0.9%NaCl/Pf 1 applic TP BID 08/11/18 Polyethylene Glycol 3350 [Miralax 119 gm Btl -] 17 gm PO DAILY #1 bottle Cancer: Yes (benign prostate CA) Cardiac Disorders: Yes (atrial fibrillation, coronary artery disease) COPD: No CHF: Yes Diabetes: Yes GI Disorders: Yes (constipation) HTN: Yes Hypercholesterolemia: Yes Thyroid Disease: Yes (hypothyroididsm gout) - Surgical History Abdominal Surgery: No Appendectomy: No Cardiac Surgery: No Cholecystectomy: No Lung Surgery: No Neurologic Surgery: No - Immunization History Immunization Up to Date: (Unknown) - Suicide/Smoking/Psychosocial Hx Smoking History: Unknown if ever smoked Have you smoked in the past 12 months: No Cigars Per Day: 1 Information on smoking cessation initiated: No Hx Alcohol Use: No Drug/Substance Use Hx: No Substance Use Type: None Hx Substance Use Treatment: No Review of Systems - Review of Systems Comments:: 08/17/18 12:22 GENERAL/CONSTITUTIONAL: +"Sluggish-ness." No fever or chills. HEAD, EYES, EARS, NOSE AND THROAT: No change in vision. No ear pain or discharge. No sore throat. CARDIOVASCULAR: No chest pain or shortness of breath RESPIRATORY: No cough, wheezing, or hemoptysis. GASTROINTESTINAL: +Blood in toilet as described. No nausea, vomiting, diarrhea or constipation. GENITOURINARY: No dysuria, frequency, or change in urination. MUSCULOSKELETAL: No joint or muscle swelling or pain. No neck or back pain. SKIN: No rash NEUROLOGIC: No headache, vertigo, loss of consciousness, or change in strength/ sensation. ENDOCRINE: No increased thirst. No abnormal weight change HEMATOLOGIC/LYMPHATIC: No anemia, easy bleeding, or history of blood clots. ALLERGIC/IMMUNOLOGIC: No hives or skin allergy. 08/17/18 12:23 *Physical Exam - Vital Signs Last Vital Signs Temp Pulse Resp BP Pulse Ox 98.4 F 88 16 141/72 100 08/17/18 10:35 08/17/18 10:35 08/17/18 10:35 08/17/18 10:35 08/17/18 10:35 - Physical Exam Comments: 08/17/18 12:23 GENERAL: Awake, alert, and fully oriented, in no acute distress HEAD: No signs of trauma, normocephalic, atraumatic EYES: PERRLA, EOMI, sclera anicteric, conjunctiva clear ENT: Auricles normal inspection, hearing grossly normal, nares patent, oropharynx clear without exudates. Moist mucosa NECK: Normal ROM, supple, no lymphadenopathy, JVD, or masses LUNGS: No distress, speaks full sentences, clear to auscultation bilaterally HEART: Regular rate and rhythm, normal S1 and S2, no murmurs, rubs or gallops, peripheral pulses normal and equal bilaterally. ABDOMEN: Soft, nontender, normoactive bowel sounds. No guarding, no rebound. No masses EXTREMITIES: Normal inspection, Normal range of motion, no edema. No clubbing or cyanosis. NEUROLOGICAL: Cranial nerves II through XII grossly intact. Normal speech, normal gait, no focal sensorimotor deficits SKIN: Warm, Dry, normal turgor, no rashes or lesions noted. RECTAL: Dried blood noted around rectum. No hemorrhoids or skin tags. Blood noted on glove following exam. ED Treatment Course - LABORATORY CBC & Chemistry Diagram: 08/17/18 12:25 08/17/18 13:30 Medical Decision Making - Medical Decision Making 08/17/18 14:30 Mr. Herring is an 83 yo male w/ pmh as described who presents for evaluation of symptoms of blood per rectum. Patient evaluated with GI bleed workup. Patient stable appearing at this time, rectal exam c/w GI bleed as aimee dark blood noted on glove. Patient labs significant for mild elevation of BUN/Cr from previous visit. Patient given 40 protonix prophylactically. Admitting patient for further GI workup. Laboratory Results - last 24 hr 08/17/18 08/17/18 08/17/18 12:06 12:25 12:25 WBC 3.8 L RBC 4.44 Hgb 11.8 Hct 37.7 MCV 84.9 MCH 26.6 MCHC 31.3 L RDW 19.3 H Plt Count 171 MPV 8.5 Absolute Neuts (auto) 2.7 Neutrophils % 70.6 Lymphocytes % 16.7 D Monocytes % 10.5 H Eosinophils % 1.8 Basophils % 0.4 Nucleated RBC % 0 Retic Count 1.09 PT with INR 13.40 H INR 1.13 H Sodium Potassium Chloride Carbon Dioxide Anion Gap BUN Creatinine Est GFR (CKD-EPI)AfAm Est GFR (CKD-EPI)NonAf Random Glucose Calcium Total Bilirubin AST ALT Alkaline Phosphatase Total Protein Albumin TSH Stool Occult Blood Positive Blood Type Antibody Screen 08/17/18 08/17/18 08/17/18 12:25 12:25 13:30 WBC RBC Hgb Hct MCV MCH MCHC RDW Plt Count MPV Absolute Neuts (auto) Neutrophils % Lymphocytes % Monocytes % Eosinophils % Basophils % Nucleated RBC % Retic Count PT with INR INR Sodium Cancelled 139 Potassium Cancelled 4.6 Chloride Cancelled 109 H Carbon Dioxide Cancelled 25 Anion Gap Cancelled 6 L BUN Cancelled 34 H Creatinine Cancelled 1.5 H Est GFR (CKD-EPI)AfAm Cancelled 49.19 Est GFR (CKD-EPI)NonAf Cancelled 42.44 Random Glucose Cancelled 178 H Calcium Cancelled 8.9 Total Bilirubin Cancelled 0.5 AST Cancelled 13 L ALT Cancelled 19 Alkaline Phosphatase Cancelled 104 Total Protein Cancelled 6.6 Albumin Cancelled 3.6 TSH Cancelled 2.63 D Stool Occult Blood Blood Type O POSITIVE Antibody Screen Negative *DC/Admit/Observation/Transfer Diagnosis at time of Disposition: GI bleed Qualifiers: GI bleed type/associated pathology: unspecified gastrointestinal hemorrhage type Qualified Code(s): K92.2 - Gastrointestinal hemorrhage, unspecified - Discharge Dispostion Decision to Admit order: Yes - Referrals - Patient Instructions - Post Discharge Activity
[2018-08-17 12:55] LABS: BASO % 0.4 % (0-2.0); EOS % 1.8 % (0-4.5); HEMATOCRIT 37.7 % (35.4-49); HEMOGLOBIN 11.8 GM/dL (11.7-16.9); LYMPH % 16.7 % (8-40); MCH 26.6 pg (25.7-33.7); MCHC 31.3 g/dl (32.0-35.9); MEAN CELL VOLUME 84.9 fl (80-96); MEAN PLT VOLUME 8.5 fl (7.5-11.1); MONO % 10.5 % (3.8-10.2); NEUT % 70.6 % (42.8-82.8); PLATELET COUNT 171 K/MM3 (134-434); RBC 4.44 M/mm3 (4.00-5.60); RDW 19.3 % (11.9-15.9); RETICULOCYTES 1.09 % (0.5-1.5); WHITE BLOOD COUNT 3.8 K/mm3 (4.0-10.0)
[2018-08-17 13:27] LABS: INR 1.13 (0.83-1.09); PROTHROMBIN TIME (PATIENT) 13.4 SEC (9.7-13.0)
[2018-08-17] MEDS ORDERED: PANTOPRAZOLE SODIUM 40 MG VIAL IVPUSH ONE (13:40)
[2018-08-17] MEDS ORDERED: PANTOPRAZOLE SODIUM 40 MG/100 ML BAG IVPB ONE (13:48)
[2018-08-17 14:15] LABS: ALBUMIN 3.6 g/dl (3.4-5.0); BILIRUBIN,TOTAL 0.5 mg/dL (0.2-1); CALCIUM 8.9 mg/dL (8.5-10.1); CREATININE 1.5 mg/dL (0.55-1.3); POTASSIUM 4.6 mmol/L (3.5-5.1); TOT PROT 6.6 g/dl (6.4-8.2)
--- NOTE | 2018-08-17 14:41 | PDOC ---
Documentation entered by Jacob Bernabe SCRIBE, acting as scribe for Mo Keita MD. Mo Keita MD: This documentation has been prepared by the Srinivasa lynch Daniel, SCRIBE, under my direction and personally reviewed by me in its entirety. I confirm that the documentation accurately reflects all work, treatment, procedures, and medical decision making performed by me. Attending Attestation - Resident Resident Name: Denver Carrington - ED Attending Attestation I have performed the following: I have examined & evaluated the patient, The case was reviewed & discussed with the resident, I agree w/resident's findings & plan, Exceptions are as noted - HPI HPI: 08/17/18 12:48 The patient is an 83 year old male with a past medical history of afib (on xarelto), CAD, CHF, HTN, HLD, gout, and hypothyroidism here today for evaluation of rectal bleeding. The patient has been seen multiple times in the past for rectal bleeding. He reports today that he had to strain while having a bowel movement and noted blood in the water after he had finished. He also reports that he has been feeling sluggish and generally weak lately. Patient denies headache, lightheadedness. Denies fever, chills. Denies chest pain, shortness of breath. Denies nausea, vomiting, diarrhea, abdominal pain. Allergies: fish containing products PCP: Dr. Sibley - Physicial Exam PE: 08/17/18 14:35 agree with resident exam - Medical Decision Making 08/17/18 14:36 83yo M with hx MMP including AF on xarelto presents to the ED with rectal bleeding. Pt hemodynamically stable. guaic + stool No abd ttp In light of anticoagulation and GIB, plan to admit for observation, GI c/s and further mgmt Case discussed with Dr. Mcmullen by Dr. Carrington, pt accepted for admission Case discussed in detail with admitting physician including history, physical exam and ancillary studies. Admitting physician has assumed care for the patient, will follow all pending diagnostics and will complete the evaluation and treatment. Heart Score/ECG Review #1 08/17/18 14:39 Twelve-lead EKG was performed and reviewed by me. Atrial fibrillation, rate 79. Normal axis. Right bundle branch block. When compared to EKG from 08/11/2018, no significant changes.
[2018-08-17] MEDS ORDERED: ACETAMINOPHEN 325 MG TABLET (FP) PO PRN (14:56)
--- NOTE | 2018-08-17 14:56 | HP ---
PCP: Dr. Sibley at [facility] CHIEF COMPLAINT: Rectal bleeding HISTORY OF PRESENT ILLNESS: This is an 83 year old man, resident of [facility], who comes to the ED because he noted bright red blood in the toilet after a bowel movement. He has been here several times with similar complaints since February 2018. He was last her August 11- for rectal bleeding after he attempted to manually disimpact himself. The bleeding was thought to be hemorrhoidal in origin, hemoglobin remained stable, and so no further intervention was necessary. He was discharged on MiraLax and Lactulose as needed. He says that once he returned to [facility], he received only Metamucil for constipation and he says he has remained constipated. This morning , he went to have a bowel movement and when he was done, he noted a small amount of stool and "a cup" of bright red blood. He denies abdominal pain, nausea, melena, dizziness. His last colonoscopy was in July 2018, showing diverticulosis, hemorrhoids, and a diminutive tubular adenoma which was removed. He did not want to have EGD at that time. PAST MEDICAL HISTORY Atrial fib CAD Chronic diastolic heart failure HTN Hyperlipidemia Type 2 DM Stage 3 CKD Hypothyroidism Gout Constipation Diverticulosis Hemorrhoids PAST SURGICAL HISTORY None Allergies Fish Containing Products Allergy (Verified 08/11/18 03:11) Home Medications Medication Instructions Recorded Amlodipine Besylate 5 mg PO DAILY 01/30/18 Atorvastatin Calcium [Lipitor] 20 mg PO HS 01/30/18 Colchicine 0.6 mg PO DAILY 01/30/18 Furosemide [Lasix] 20 mg PO DAILY 01/30/18 Gabapentin 300 mg PO BID 01/30/18 Lisinopril 5 mg PO DAILY 01/30/18 Cholecalciferol (Vitamin D3) 2,000 unit PO DAILY 01/31/18 [Vitamin D3] Lactulose 20 gm PO PRN PRN 01/31/18 Levothyroxine Sodium [Levoxyl] 125 mcg PO ACBK 01/31/18 Tamsulosin HCl [Flomax -] 0.4 mg PO DAILY@0830 cap.er.24h 02/03/18 Metoprolol Tartrate [Lopressor] 12.5 mg PO BID 04/11/18 Oxybutynin Chloride [Ditropan Xl] 10 mg PO DAILY 07/12/18 Repaglinide [Prandin -] 1 mg PO TID 07/12/18 Ferrous Sulfate [Feosol] 325 mg PO BID #60 tablet 07/15/18 Insulin (Levemir) [Levemir Vial] 20 unit SQ AM #1 vial 07/15/18 Pantoprazole Sodium [Protonix -] 40 mg PO DAILY #30 tablet.ec 07/15/18 Acetaminophen [Mapap] 500 mg PO PRN PRN 08/11/18 Benzocaine/Menthol [Cepacol Sore 1 each MM QID PRN 08/11/18 Throat Lozenge] Clotrimazole/Betamethasone Dip 45 gm TP DAILY 08/11/18 [Clotrimazole-Betamethasone Crm] Menthol/Camphor [Dermasarra 222 ml TP DAILY 08/11/18 Anti-Itch Lotion] Methyl Salicylate/Menthol [Muscle 85 gm TP HS 08/11/18 Rub Cream] Psyllium Seed [Reguloid] 426 gm PO HS 08/11/18 Rivaroxaban [Xarelto] 15 mg PO DAILY 08/11/18 Silver Sulfadiazine [Ssd] 400 gm TP DAILY 08/11/18 Triamcinolone Acet/0.9%NaCl/Pf 1 applic TP BID 08/11/18 Polyethylene Glycol 3350 [Miralax 17 gm PO DAILY #1 bottle 08/12/18 119 gm Btl -] Social History Smoking: Smoked pipe and cigars - quit 3 years ago Alcohol: Denies Drugs: Denies Recent Travel: No Family History Father - at age 69 from lung disease secondary to smoking REVIEW OF SYSTEMS CONSTITUTIONAL: Absent: fever, chills, diaphoresis, generalized weakness, malaise, loss of appetite, weight change HEENT: Absent: rhinorrhea, nasal congestion, throat pain, throat swelling, difficulty swallowing, mouth swelling, ear pain, eye pain, visual changes CARDIOVASCULAR: Absent: chest pain, syncope, palpitations, lightheadedness, peripheral edema RESPIRATORY: Absent: cough, shortness of breath, dyspnea with exertion, orthopnea, wheezing, stridor, hemoptysis GASTROINTESTINAL: Present: rectal bleeding, constipation. Absent: abdominal pain, abdominal distension, nausea, vomiting, diarrhea, melena GENITOURINARY: Absent: dysuria, frequency, urgency, hesitancy, hematuria, flank pain MUSCULOSKELETAL: Absent: myalgia, arthralgia, joint swelling, back pain, neck pain SKIN: Absent: rash, itching, pallor HEMATOLOGIC/IMMUNOLOGIC: Absent: easy bleeding, easy bruising, lymphadenopathy, frequent infections ENDOCRINE: Absent: unexplained weight gain, unexplained weight loss, heat intolerance, cold intolerance NEUROLOGIC: Absent: headache, focal weakness, paresthesias, dizziness, unsteady gait, seizure, mental status changes, bladder or bowel incontinence PSYCHIATRIC: Absent: anxiety, depression, suicidal or homicidal ideation, hallucinations. PHYSICAL EXAMINATION Vital Signs - 24 hr 08/17/18 08/17/18 10:35 12:37 Temperature 98.4 F Pulse Rate 88 Pulse Rate [ 80 Right Radial] Respiratory 16 20 Rate Blood Pressure 141/72 Blood Pressure 155/90 [Left Arm] O2 Sat by Pulse 100 99 Oximetry (%) GENERAL: Awake, alert, and fully oriented, in no acute distress. HEAD: Normal with no signs of trauma. EYES: Pupils equal, round and reactive to light, extraocular movements intact, sclerae anicteric, conjunctivae clear. EARS, NOSE, THROAT: Ears normal, nares patent, oropharynx clear without exudates. Moist mucous membranes. NECK: Normal range of motion, supple without lymphadenopathy, JVD, or masses. LUNGS: Breath sounds equal, clear to auscultation bilaterally. No wheezes, and no crackles. No accessory muscle use. HEART: Irregularly irregular without murmur, rub or gallop. ABDOMEN: Soft, obese, nontender, not distended, normoactive bowel sounds, no guarding, no rebound, no masses. MUSCULOSKELETAL: Normal range of motion at all joints. No bony deformities or tenderness. No CVA tenderness. UPPER EXTREMITIES: 2+ pulses, warm, well-perfused. No cyanosis. No clubbing. No peripheral edema. LOWER EXTREMITIES: 2+ pulses, warm, well-perfused. No calf tenderness. No peripheral edema. NEUROLOGICAL: Cranial nerves II-XII intact. Normal speech. Gait not observed. PSYCHIATRIC: Cooperative. Good eye contact. Appropriate mood and affect. SKIN: Warm, dry, normal turgor, no rashes or lesions noted, normal capillary refill. Laboratory Results - last 24 hr 08/17/18 08/17/18 08/17/18 12:06 12:25 12:25 WBC 3.8 L RBC 4.44 Hgb 11.8 Hct 37.7 MCV 84.9 MCH 26.6 MCHC 31.3 L RDW 19.3 H Plt Count 171 MPV 8.5 Absolute Neuts (auto) 2.7 Neutrophils % 70.6 Lymphocytes % 16.7 D Monocytes % 10.5 H Eosinophils % 1.8 Basophils % 0.4 Nucleated RBC % 0 Retic Count 1.09 PT with INR 13.40 H INR 1.13 H Sodium Potassium Chloride Carbon Dioxide Anion Gap BUN Creatinine Est GFR (CKD-EPI)AfAm Est GFR (CKD-EPI)NonAf Random Glucose Calcium Total Bilirubin AST ALT Alkaline Phosphatase Total Protein Albumin TSH Stool Occult Blood Positive Blood Type Antibody Screen 08/17/18 08/17/18 08/17/18 12:25 12:25 13:30 WBC RBC Hgb Hct MCV MCH MCHC RDW Plt Count MPV Absolute Neuts (auto) Neutrophils % Lymphocytes % Monocytes % Eosinophils % Basophils % Nucleated RBC % Retic Count PT with INR INR Sodium Cancelled 139 Potassium Cancelled 4.6 Chloride Cancelled 109 H Carbon Dioxide Cancelled 25 Anion Gap Cancelled 6 L BUN Cancelled 34 H Creatinine Cancelled 1.5 H Est GFR (CKD-EPI)AfAm Cancelled 49.19 Est GFR (CKD-EPI)NonAf Cancelled 42.44 Random Glucose Cancelled 178 H Calcium Cancelled 8.9 Total Bilirubin Cancelled 0.5 AST Cancelled 13 L ALT Cancelled 19 Alkaline Phosphatase Cancelled 104 Total Protein Cancelled 6.6 Albumin Cancelled 3.6 TSH Cancelled 2.63 D Stool Occult Blood Blood Type O POSITIVE Antibody Screen Negative ASSESSMENT/PLAN: This is an 83 year old man with a history of atrial fib, CAD, HTN, hyperlipidemia, chronic diastolic heart failure, type 2 DM, hypothyroidism, gout , constipation, diverticulosis, internal hemorrhoids, and multiple recent episodes of rectal bleeding who presented to the ED with rectal bleeding. 1. Rectal bleeding - Likely hemorrhoidal secondary to constipation and anticoagulation - Possibly diverticular - Hold Eliquis for now - Hemoglobin 11.8 today, was 11.6 on 08/12 - will monitor - Clear liquid diet 2. Constipation - Resume MiraLax daily and start Colace/Senna at bedtime 3. Acute kidney injury on stage 3 CKD - Will hydrate cautiously given history of CHF - Monitor BUN, creatinine 4. Internal hemorrhoids 5. Diverticulosis 6. Permanent atrial fib - Rate controlled - Continue Lopressor - Hold Eliquis secondary to rectal bleeding - would resume tomorrow if no further bleeding and hemoglobin remains stable 7. CAD - Continue Lopresor, Lipitor 8. HTN - Continue lisinopril, Lopressor, Lasix 9. Hyperlipidemia - Continue Lipitor 10. Chronic diastolic heart failure - Stable - Continue lasix 11. Type 2 DM - Continue Levemir at reduced dose and hold Prandin while on clear liquids - Fingersticls with Novolog sliding scale 12. Hypothyroidism - Continue Synthroid 13. History of gout - Continue Colchicine Visit type - Emergency Visit Emergency Visit: Yes ED Registration Date: 08/17/18 Care time: The patient presented to the Emergency Department on the above date and was hospitalized for further evaluation of their emergent condition. - New Patient This patient is new to me today: Yes Date on this admission: 08/17/18 - Critical Care Critical Care patient: No
[2018-08-17] MEDS ORDERED: LACTULOSE 20 GM/30 ML UDC (FOR ORAL USE ONLY) PO PRN (15:00)
[2018-08-17] MEDS ORDERED: SODIUM CHLORIDE 1,000 ML IV SCH (15:00)
[2018-08-17 16:13] VITALS: BMI 34.9
[2018-08-17] MEDS: DOCUSATE SODIUM 100 MG CAPSULE (FP) PO SCH (21:03)
[2018-08-17] MEDS: GABAPENTIN 300 MG CAPSULE (FP) PO SCH (21:04)
[2018-08-17] MEDS: FERROUS SO4 325 MG TABLET (FP) PO SCH (21:04)
[2018-08-17] MEDS: SENNOSIDES 8.6MG TABLET (FP) PO SCH (21:04)
[2018-08-17] MEDS: ATORVASTATIN CA 20 MG TABLET (FP) PO SCH (21:04)
[2018-08-17] MEDS: METOPROLOL TARTRATE 25 MG TABLET (FP) PO SCH (21:05)
[2018-08-18] MEDS: INSULIN SLIDING SCALE (NOVOLOG) 1 VIAL SQ SCH ×3 (06:28→17:11)
[2018-08-18] MEDS: LEVOTHYROXINE NA 125 MCG TABLET (FP) PO SCH (06:30)
[2018-08-18] MEDS: INSULIN (LEVEMIR) 100 UNITS/ML UNITS SQ SCH (06:30)
[2018-08-18 06:37] LABS: HEMOGLOBIN 11.4 GM/dL (11.7-16.9); MCH 27.2 pg (25.7-33.7); MCHC 32.5 g/dl (32.0-35.9); MEAN CELL VOLUME 83.7 fl (80-96); MEAN PLT VOLUME 8.3 fl (7.5-11.1); PLATELET COUNT 172 K/MM3 (134-434); RBC 4.18 M/mm3 (4.00-5.60); RDW 19.3 % (11.9-15.9)
[2018-08-18] MEDS ORDERED: INSULIN (LEVEMIR) 100 UNITS/ML UNITS SQ ONE (07:02)
[2018-08-18] MEDS ORDERED: INSULIN (NOVOLOG) ASPART 100 UNITS/ML 10ML VIAL ONE (07:02)
[2018-08-18 07:12] LABS: CALCIUM 8.7 mg/dL (8.5-10.1); CREATININE 1.3 mg/dL (0.55-1.3); POTASSIUM 4.4 mmol/L (3.5-5.1)
[2018-08-18] MEDS ORDERED: PT OWN MED DRAWER 7, Y5N ONE (09:36)
--- NOTE | 2018-08-18 09:54 | EKG ---
Test Reason : Blood Pressure : / mmHG Vent. Rate : 079 BPM Atrial Rate : 080 BPM P-R Int : 000 ms QRS Dur : 162 ms QT Int : 436 ms P-R-T Axes : 000 059 -22 degrees QTc Int : 499 ms ATRIAL FIBRILLATION RIGHT BUNDLE BRANCH BLOCK T WAVE ABNORMALITY, CONSIDER INFEROLATERAL ISCHEMIA ABNORMAL ECG WHEN COMPARED WITH ECG OF 11-AUG-2018 03:27, NO SIGNIFICANT CHANGE WAS FOUND Confirmed by GREGORIO ENG MD ([id number]) on 08/18/2018 9:54:21 AM Referred By: Confirmed By:GREGORIO ENG MD
[2018-08-18] MEDS: CHOLECALCIFEROL (VITAMIN D3) 1,000 UNIT TABLET (FP) PO SCH (10:05)
[2018-08-18] MEDS: PANTOPRAZOLE 40 MG TABLET (FP) PO SCH (10:05)
[2018-08-18] MEDS: COLCHICINE 0.6 MG TABLET (FP) PO SCH (10:06)
[2018-08-18] MEDS: POLYETHYLENE GLYCOL 3350 119 GM BTL PO SCH (10:06)
[2018-08-18] MEDS: FERROUS SO4 325 MG TABLET (FP) PO SCH ×2 (10:06→21:10)
[2018-08-18] MEDS: SOLIFENACIN SUCCINATE 5 MG TAB (FP) PO SCH (10:06)
[2018-08-18] MEDS: FUROSEMIDE 20 MG TABLET (FP) PO SCH (10:06)
[2018-08-18] MEDS: METOPROLOL TARTRATE 25 MG TABLET (FP) PO SCH ×2 (10:06→21:10)
[2018-08-18] MEDS: amLODIPine BESYLATE 5 MG TABLET (FP) PO SCH (10:06)
[2018-08-18] MEDS: TAMSULOSIN HCL 0.4 MG CAP PO SCH (10:06)
[2018-08-18] MEDS: GABAPENTIN 300 MG CAPSULE (FP) PO SCH ×2 (10:07→21:09)
[2018-08-18] MEDS: LISINOPRIL 5 MG TABLET (FP) PO SCH (10:07)
[2018-08-18] MEDS ORDERED: RIVAROXABAN 15 MG TABLET PO SCH ×2 (12:45→18:00)
--- NOTE | 2018-08-18 14:56 | PN ---
Progress Note, Physician Chief Complaint: rectal bleeding History of Present Illness: Feeling well, seen and examined at bedside. no further episodes of rectal bleeding. no cp, sob, palpitations - Current Medication List Current Medications: Active Medications Acetaminophen (Tylenol -) 650 mg PO Q4H PRN PRN Reason: PAIN Amlodipine Besylate (Norvasc -) 5 mg PO DAILY [facility] Last Admin: 08/18/18 10:06 Dose: 5 mg Atorvastatin Calcium (Lipitor -) 20 mg PO HS [facility] Last Admin: 08/17/18 21:04 Dose: 20 mg Cholecalciferol (Vitamin D3 -) 2,000 unit PO DAILY [facility] Last Admin: 08/18/18 10:05 Dose: 2,000 unit Colchicine (Colcrys -) 0.6 mg PO DAILY [facility] Last Admin: 08/18/18 10:06 Dose: 0.6 mg Docusate Sodium (Colace -) 300 mg PO HS [facility] Last Admin: 08/17/18 21:03 Dose: 300 mg Ferrous Sulfate (Feosol -) 325 mg PO BID [facility] Last Admin: 08/18/18 10:06 Dose: 325 mg Furosemide (Lasix -) 20 mg PO DAILY [facility] Last Admin: 08/18/18 10:06 Dose: 20 mg Gabapentin (Neurontin -) 300 mg PO BID [facility] Last Admin: 08/18/18 10:07 Dose: 300 mg Insulin Aspart (Novolog Vial Sliding Scale -) 1 vial SQ TIDAC [facility]; Protocol Last Admin: 08/18/18 12:23 Dose: 2 units Insulin Detemir (Levemir Vial) 20 units SQ AM [facility] Last Admin: 08/18/18 06:30 Dose: 20 units Lactulose (Cephulac (Oral Use)) 20 gm PO TID PRN PRN Reason: CONSTIPATION Levothyroxine Sodium (Synthroid -) 125 mcg PO ACBK [facility] Last Admin: 08/18/18 06:30 Dose: 125 mcg Lisinopril (Prinivil) 5 mg PO DAILY [facility] Last Admin: 08/18/18 10:07 Dose: 5 mg Metoprolol Tartrate (Lopressor -) 12.5 mg PO BID [facility] Last Admin: 08/18/18 10:06 Dose: 12.5 mg Pantoprazole Sodium (Protonix -) 40 mg PO DAILY [facility] Last Admin: 08/18/18 10:05 Dose: 40 mg Polyethylene Glycol (Miralax (For Daily Use) -) 17 gm PO DAILY [facility] Last Admin: 08/18/18 10:06 Dose: 17 gm Rivaroxaban (Xarelto) 15 mg PO DAILY@1800 [facility] Senna (Senna -) 2 tab PO HS [facility] Last Admin: 08/17/18 21:04 Dose: 2 tab Solifenacin (Vesicare -) 5 mg PO DAILY [facility] Last Admin: 08/18/18 10:06 Dose: 5 mg Tamsulosin HCl (Flomax -) 0.4 mg PO DAILY@0830 [facility] Last Admin: 08/18/18 10:06 Dose: 0.4 mg - Objective Vital Signs: Vital Signs Temperature 97.6 F 08/18/18 06:00 Pulse Rate 65 08/18/18 06:00 Respiratory Rate 20 08/18/18 06:00 Blood Pressure 131/82 08/18/18 06:00 O2 Sat by Pulse Oximetry (%) 98 08/17/18 22:57 Constitutional: Yes: Well Nourished, No Distress, Calm Eyes: Yes: WNL, Conjunctiva Clear, EOM Intact Cardiovascular: Yes: Pulse Irregular. No: Bradycardia, Tachycardia Respiratory: Yes: WNL, Regular, CTA Bilaterally Gastrointestinal: Yes: WNL, Normal Bowel Sounds, Soft, Abdomen, Obese Musculoskeletal: Yes: WNL Extremities: Yes: WNL Edema: No Labs: CBC, BMP 08/18/18 05:30 08/18/18 05:30 INR, PTT INR 1.13 (0.83-1.09) H 08/17/18 12:25 - ....Imaging Chest X-ray: Report Reviewed EKG: Report Reviewed, Image Reviewed Problem List - Problems (1) Anemia Code(s): D64.9 - ANEMIA, UNSPECIFIED Qualifiers: Anemia type: unspecified type Qualified Code(s): D64.9 - Anemia, unspecified (2) Rectal bleed Code(s): K62.5 - HEMORRHAGE OF ANUS AND RECTUM (3) BPH (benign prostatic hyperplasia) Code(s): N40.0 - BENIGN PROSTATIC HYPERPLASIA WITHOUT LOWER URINRY TRACT SYMP Qualifiers: Lower urinary tract symptom presence: unspecified whether lower urinary tract symptoms present Qualified Code(s): N40.0 - Benign prostatic hyperplasia without lower urinary tract symptoms (4) DM type 2 (diabetes mellitus, type 2) Code(s): E11.9 - TYPE 2 DIABETES MELLITUS WITHOUT COMPLICATIONS Qualifiers: Diabetes mellitus fci insulin use: without intermediate frame tender use Diabetes mellitus complication status: with unspecified complications Qualified Code(s) : E11.8 - Type 2 diabetes mellitus with unspecified complications (5) HTN (hypertension) Code(s): I10 - ESSENTIAL (PRIMARY) HYPERTENSION Qualifiers: Hypertension type: essential hypertension Qualified Code(s): I10 - Essential (primary) hypertension Assessment/Plan 83 year old male with a past medical history of multiple episodes of rectal bleeding, Afib on Xarelto, CAD, CHF, HTN, HLD, DM, hypothyroid and gout who presented to the ED with rectal bleeding. Hematochezia - known internal hemorrhoids, exacerbated by constipation - h/h stable, restart xarelto - patient needs a strict bowel regimen to be followed at intermediate frame tender facility! colace/senna/miralax daily - oral PPI - dc IVF - GI eval last admit, no further intervention, if continues to bleed may need to be rescoped Afib - restart xarelto, h/h stable - bb HTN/HLD/CAD - c/w current regimen DM - ISS for coverage, c/w current regimen Hypothyroidism - synthroid Gout - stable, on meds PT eval
[2018-08-18] MEDS: SENNOSIDES 8.6MG TABLET (FP) PO SCH (21:09)
[2018-08-18] MEDS: ATORVASTATIN CA 20 MG TABLET (FP) PO SCH (21:09)
[2018-08-18] MEDS: DOCUSATE SODIUM 100 MG CAPSULE (FP) PO SCH (21:10)
[2018-08-19] MEDS: INSULIN SLIDING SCALE (NOVOLOG) 1 VIAL SQ SCH ×2 (06:05→12:01)
[2018-08-19] MEDS: LEVOTHYROXINE NA 125 MCG TABLET (FP) PO SCH (06:24)
[2018-08-19 06:27] LABS: BASO % 0.6 % (0-2.0); EOS % 3.3 % (0-4.5); HEMATOCRIT 35.6 % (35.4-49); HEMOGLOBIN 11.7 GM/dL (11.7-16.9); LYMPH % 26.7 % (8-40); MCH 27.2 pg (25.7-33.7); MCHC 32.9 g/dl (32.0-35.9); MEAN CELL VOLUME 82.7 fl (80-96); MONO % 11.9 % (3.8-10.2); NEUT % 57.5 % (42.8-82.8); PLATELET COUNT 189 K/MM3 (134-434); RBC 4.31 M/mm3 (4.00-5.60); RDW 19.1 % (11.9-15.9)
[2018-08-19 06:48] LABS: CREATININE 1.4 mg/dL (0.55-1.3); POTASSIUM 4.4 mmol/L (3.5-5.1)
[2018-08-19] MEDS: INSULIN (LEVEMIR) 100 UNITS/ML UNITS SQ SCH (06:53)
[2018-08-19] MEDS: TAMSULOSIN HCL 0.4 MG CAP PO SCH (08:40)
[2018-08-19] MEDS: METOPROLOL TARTRATE 25 MG TABLET (FP) PO SCH (09:48)
[2018-08-19] MEDS: PANTOPRAZOLE 40 MG TABLET (FP) PO SCH (09:49)
[2018-08-19] MEDS: FUROSEMIDE 20 MG TABLET (FP) PO SCH (09:49)
[2018-08-19] MEDS: CHOLECALCIFEROL (VITAMIN D3) 1,000 UNIT TABLET (FP) PO SCH (09:49)
[2018-08-19] MEDS: FERROUS SO4 325 MG TABLET (FP) PO SCH (09:49)
[2018-08-19] MEDS: SOLIFENACIN SUCCINATE 5 MG TAB (FP) PO SCH (09:49)
[2018-08-19] MEDS: COLCHICINE 0.6 MG TABLET (FP) PO SCH (09:49)
[2018-08-19] MEDS: amLODIPine BESYLATE 5 MG TABLET (FP) PO SCH (09:49)
[2018-08-19] MEDS: POLYETHYLENE GLYCOL 3350 119 GM BTL PO SCH (09:50)
[2018-08-19] MEDS: GABAPENTIN 300 MG CAPSULE (FP) PO SCH (09:50)
[2018-08-19] MEDS: LISINOPRIL 5 MG TABLET (FP) PO SCH (09:50)
--- NOTE | 2018-08-19 12:55 | DS ---
Physical Exam: SUBJECTIVE: Patient seen and examined at the bedside. eating lunch, feels well. OBJECTIVE: discharge back to his facility. recommend GI follow up as an outpatient Vital Signs Period Temp Pulse Resp BP Sys/Denson Pulse Ox Last 24 Hr 97.8 F-98.6 F 67-84 16-20 109-147/72-93 95-96 PHYSICAL EXAM Patient seen and examined, no acute events overnight. No further rectal bleeding , no complaints, ready to go back home. Denies CP, sob, palpitations, n/v/d. Constitutional: Yes: Well Nourished, No Distress, Calm Eyes: No: Sclera Icterus Cardiovascular: Yes: Pulse Irregular Respiratory: Yes: WNL, Regular, CTA Bilaterally Gastrointestinal: Yes: WNL, Normal Bowel Sounds, Soft, Abdomen, Obese Musculoskeletal: Yes: WNL Extremities: Yes: WNL Edema: No Psychiatric: Yes: WNL, Alert, Oriented Labs: LABS Laboratory Results - last 24 hr 08/18/18 08/18/18 08/19/18 17:07 20:42 05:20 WBC 4.0 RBC 4.31 Hgb 11.7 Hct 35.6 MCV 82.7 MCH 27.2 MCHC 32.9 RDW 19.1 H Plt Count 189 MPV 8.0 Absolute Neuts (auto) 2.3 Neutrophils % 57.5 Lymphocytes % 26.7 D Monocytes % 11.9 H Eosinophils % 3.3 D Basophils % 0.6 Nucleated RBC % 0 Sodium Potassium Chloride Carbon Dioxide Anion Gap BUN Creatinine Est GFR (CKD-EPI)AfAm Est GFR (CKD-EPI)NonAf POC Glucometer 132 193 Random Glucose Calcium 08/19/18 08/19/18 08/19/18 05:20 05:36 12:00 WBC RBC Hgb Hct MCV MCH MCHC RDW Plt Count MPV Absolute Neuts (auto) Neutrophils % Lymphocytes % Monocytes % Eosinophils % Basophils % Nucleated RBC % Sodium 139 Potassium 4.4 Chloride 105 Carbon Dioxide 29 Anion Gap 5 L BUN 28 H Creatinine 1.4 H Est GFR (CKD-EPI)AfAm 53.47 Est GFR (CKD-EPI)NonAf 46.13 POC Glucometer 141 161 Random Glucose 137 H Calcium 9.0 HOSPITAL COURSE: Date of Admission:08/17/18 Date of Discharge: 08/19/18 Hospital Course: This is an 83 year old man, resident of [facility], who comes to the ED because he noted bright red blood in the toilet after a bowel movement. He has been here several times with similar complaints since February 2018. He was last her August 11- for rectal bleeding after he attempted to manually disimpact himself. The bleeding was thought to be hemorrhoidal in origin, hemoglobin remained stable, and so no further intervention was necessary. He was discharged on MiraLax and Lactulose as needed. He says that once he returned to [facility], he received only Metamucil for constipation and he says he has remained constipated. He went to have a bowel movement and when he was done , he noted a small amount of stool and "a cup" of bright red blood. He denies abdominal pain, nausea, melena, dizziness. His last colonoscopy was in July 2018, showing diverticulosis, hemorrhoids, and a diminutive tubular adenoma which was removed. He did not want to have EGD at that time. Hematochezia -likely secondary to constipation - h/h stable - start miralax, colace and senna to avoid constipation and exacerbation of hemorrhoids. he should be having 1 BM per day. - oral protonix - GI eval as an outpatient recommended. Afib - continue with xarelto - metoprolol HTN/HLD/CAD - resume home meds DM - resume home meds hypothyroidism - synthroid gout - stable, on meds Minutes to complete discharge: 60 Discharge Summary Reason For Visit: GASTROINTESTINAL HEMORRHAGE Current Active Problems GI bleed (Acute) Condition: Improved - Instructions Diet, Activity, Other Instructions: Mr. Herring: You will be discharged back to your facility today. Please continue taking the medications a prescribed in your discharge instructions. It is important that you have follow up with a advertising sales agent for follow up. A referral to a GI specialist is in your discharge instructions. Please follow up with the GI specialist by calling to make an appointment. thank you Referrals: Vanessa Linares MD [Staff Physician] - (GI specialist. call for an appointment.) Disposition: ALF FACILITY - Home Medications Comprehensive Discharge Medication List: Ambulatory Orders Amlodipine Besylate 5 mg PO DAILY 01/30/18 Atorvastatin Calcium [Lipitor] 20 mg PO HS 01/30/18 Colchicine 0.6 mg PO DAILY 01/30/18 Furosemide [Lasix] 20 mg PO DAILY 01/30/18 Gabapentin 300 mg PO BID 01/30/18 Lisinopril 5 mg PO DAILY 01/30/18 Cholecalciferol (Vitamin D3) [Vitamin D3] 2,000 unit PO DAILY 01/31/18 Lactulose 20 gm PO PRN PRN 01/31/18 Levothyroxine Sodium [Levoxyl] 125 mcg PO ACBK 01/31/18 Tamsulosin HCl [Flomax -] 0.4 mg PO DAILY@0830 cap.er.24h 02/03/18 Metoprolol Tartrate [Lopressor] 12.5 mg PO BID 04/11/18 Oxybutynin Chloride [Ditropan Xl] 10 mg PO DAILY 07/12/18 Repaglinide [Prandin -] 1 mg PO TID 07/12/18 Ferrous Sulfate [Feosol] 325 mg PO BID #60 tablet 07/15/18 Insulin (Levemir) [Levemir Vial] 20 unit SQ AM #1 vial 07/15/18 Pantoprazole Sodium [Protonix -] 40 mg PO DAILY #30 tablet.ec 07/15/18 Acetaminophen [Mapap] 500 mg PO PRN PRN 08/11/18 Benzocaine/Menthol [Cepacol Sore Throat Lozenge] 1 each MM QID PRN 08/11/18 Clotrimazole/Betamethasone Dip [Clotrimazole-Betamethasone Crm] 45 gm TP DAILY 08/11/18 Menthol/Camphor [Dermasarra Anti-Itch Lotion] 222 ml TP DAILY 08/11/18 Methyl Salicylate/Menthol [Muscle Rub Cream] 85 gm TP HS 08/11/18 Psyllium Seed [Reguloid] 426 gm PO HS 08/11/18 Rivaroxaban [Xarelto] 15 mg PO DAILY 08/11/18 Silver Sulfadiazine [Ssd] 400 gm TP DAILY 08/11/18 Triamcinolone Acet/0.9%NaCl/Pf 1 applic TP BID 08/11/18 Polyethylene Glycol 3350 [Miralax 119 gm Btl -] 17 gm PO DAILY #1 bottle Docusate Sodium [Colace -] 100 mg PO TID #120 capsule 08/19/18 Sennosides [Senna -] 2 tab PO HS #100 tablet 08/19/18 This patient is new to me today: No Emergency Visit: Yes ED Registration Date: 08/17/18 Care time: The patient presented to the Emergency Department on the above date and was hospitalized for further evaluation of their emergent condition. Critical Care patient: No - Discharge Referral Referred to [facility] No
[2018-08-19 14:08] VITALS: BP 135/69; PULSE 74; TEMP 98.1
== END 2018-08-19 16:24 ==
LOC: JER 10:31 → JERBED 14:32 → J8W 15:53
PROVIDERS: ADMIT Internal Medicine; ATTEND Nurse Practitioner Family
PROC: 3E033GC Introduction of Other Therapeutic Substance into Peripheral Vein, Percutaneous Approach (ICD-10-PCS; principal; 2018-08-17)
PROC: 3E013VG Introduction of Insulin into Subcutaneous Tissue, Percutaneous Approach (ICD-10-PCS; 2018-08-17)
DX: K62.5 Hemorrhage of anus and rectum (principal); K92.2 Gastrointestinal hemorrhage, unspecified; K59.00 Constipation, unspecified; D64.9 Anemia, unspecified; I11.0 Hypertensive heart disease with heart failure; I50.32 Chronic diastolic (congestive) heart failure; I48.2 Chronic atrial fibrillation; I25.10 Atherosclerotic heart disease of native coronary artery without angina pectoris; E11.22 Type 2 diabetes mellitus with diabetic chronic kidney disease; I13.0 Hypertensive heart and chronic kidney disease with heart failure and stage 1 through stage 4 chronic kidney disease, or unspecified chronic kidney disease; N18.3 Chronic kidney disease, stage 3 (moderate); N17.9 Acute kidney failure, unspecified; Z79.4 Long term (current) use of insulin; E78.5 Hyperlipidemia, unspecified; E03.9 Hypothyroidism, unspecified; M10.9 Gout, unspecified; K64.8 Other hemorrhoids; N40.0 Benign prostatic hyperplasia without lower urinary tract symptoms
CPT/HCPCS: 36415; 71045-TC-FY; 80048; 80053; 82272; 82962; 84443; 85025; 85027; 85044; 85610; 86850; 86900; 86901; 93005; 93010; 96372; 96374; 97116-GP; 97161-GP; 99285-25; G0378; J7030

== ENCOUNTER 2018-08-27 09:43 | Emergency (ER) | payer OTHER | END 2018-08-27 15:02 | LOC: JER 09:43 ==

== ENCOUNTER 2018-09-12 12:02 | Emergency (ER) | payer OTHER | END 2018-09-12 19:35 | disposition home or self-care (01) | LOC: JER 12:02 ==

== ENCOUNTER 2018-09-13 12:42 | Emergency (ER) | payer OTHER | END 2018-09-13 20:21 | disposition home or self-care (01) | LOC: JER 12:42 ==

== ENCOUNTER 2018-10-06 00:20 | Emergency (ER) | payer OTHER ==
--- NOTE | 2018-10-06 00:36 | PDOC ---
History of Present Illness - General Stated Complaint: FALL Time Seen by Provider: 10/06/18 00:35 - History of Present Illness Initial Comments: 10/06/18 00:36 Mr. Herring is an 83 yo male w/ pmh of afib on Xarelto, CAD, CHF, HTN, HLD, gout , hypothyroidism, and hemorrhoids who presents for evaluation after fall. Patient was in bed when he reportedly rolled out and hit his head on the ground. Patient denies any LOC and has no complaints at this time. The patient denies chest pain, shortness of breath, headache and dizziness. Denies fever, chills, nausea, vomit, diarrhea and constipation. Denies dysuria, frequency, urgency and hematuria. Past History - Past Medical History Allergies/Adverse Reactions: Allergies Allergy/AdvReac Type Severity Reaction Status Date / Time Fish Containing Products Allergy Verified 10/06/18 00:52 Home Medications: Ambulatory Orders Amlodipine Besylate 5 mg PO DAILY 01/30/18 Atorvastatin Calcium [Lipitor] 20 mg PO HS 01/30/18 Colchicine 0.6 mg PO DAILY 01/30/18 Furosemide [Lasix] 20 mg PO DAILY 01/30/18 Gabapentin 300 mg PO BID 01/30/18 Lisinopril 5 mg PO DAILY 01/30/18 Cholecalciferol (Vitamin D3) [Vitamin D3] 2,000 unit PO DAILY 01/31/18 Lactulose 20 gm PO PRN PRN 01/31/18 Levothyroxine Sodium [Levoxyl] 125 mcg PO ACBK 01/31/18 Tamsulosin HCl [Flomax -] 0.4 mg PO DAILY@0830 cap.er.24h 02/03/18 Oxybutynin Chloride [Ditropan Xl] 10 mg PO DAILY 07/12/18 Repaglinide [Prandin -] 1 mg PO TID 07/12/18 Ferrous Sulfate [Feosol] 325 mg PO BID #60 tablet 07/15/18 Insulin (Levemir) [Levemir Vial] 20 unit SQ AM #1 vial 07/15/18 Pantoprazole Sodium [Protonix -] 40 mg PO DAILY #30 tablet.ec 07/15/18 Psyllium Seed [Reguloid] 426 gm PO HS 08/11/18 Rivaroxaban [Xarelto] 15 mg PO DAILY 08/11/18 Silver Sulfadiazine [Ssd] 400 gm TP DAILY 08/11/18 Triamcinolone Acet/0.9%NaCl/Pf 1 applic TP BID 08/11/18 Polyethylene Glycol 3350 [Miralax 119 gm Btl -] 17 gm PO DAILY #1 bottle Docusate Sodium [Colace -] 100 mg PO TID #120 capsule 08/19/18 Metoprolol Tartrate [Lopressor -] 12.5 mg PO BID tablet 09/01/18 Quetiapine Fumarate [Seroquel -] 12.5 mg PO HS #30 tablet 09/01/18 Sennosides [Senna -] 2 tab PO HS tablet 09/01/18 Aspirin [ASA -] 81 mg PO DAILY 09/13/18 Potassium Chloride [K-Dur -] 10 meq PO DAILY 09/13/18 Cancer: Yes (benign prostate CA) Cardiac Disorders: Yes (atrial fibrillation, CAD) COPD: No CHF: Yes Diabetes: Yes GI Disorders: Yes (constipation) HTN: Yes Hypercholesterolemia: Yes Thyroid Disease: Yes (hypothyroididsm gout) - Surgical History Abdominal Surgery: No Appendectomy: No Cardiac Surgery: No Cholecystectomy: No Lung Surgery: No Neurologic Surgery: No - Immunization History Immunization Up to Date: (Unknown) - Suicide/Smoking/Psychosocial Hx Smoking History: Former smoker Have you smoked in the past 12 months: No If you are a former smoker, when did you quit?: 2 YEARS Cigars Per Day: 1 Hx Alcohol Use: No Drug/Substance Use Hx: No Substance Use Type: None Hx Substance Use Treatment: No Review of Systems - Review of Systems Comments:: 10/06/18 00:36 GENERAL/CONSTITUTIONAL: +Fall out of bed as reported w/ head strike. No fever or chills. No weakness. HEAD, EYES, EARS, NOSE AND THROAT: No change in vision. No ear pain or discharge. No sore throat. CARDIOVASCULAR: No chest pain or shortness of breath RESPIRATORY: No cough, wheezing, or hemoptysis. GASTROINTESTINAL: No nausea, vomiting, diarrhea or constipation. GENITOURINARY: No dysuria, frequency, or change in urination. MUSCULOSKELETAL: No joint or muscle swelling or pain. No neck or back pain. SKIN: No rash NEUROLOGIC: No headache, vertigo, loss of consciousness, or change in strength/ sensation. ENDOCRINE: No increased thirst. No abnormal weight change HEMATOLOGIC/LYMPHATIC: No anemia, easy bleeding, or history of blood clots. ALLERGIC/IMMUNOLOGIC: No hives or skin allergy. *Physical Exam - Physical Exam Comments: 10/06/18 00:36 GENERAL: Awake, alert, and fully oriented, in no acute distress HEAD: No signs of trauma, normocephalic, atraumatic EYES: PERRLA, EOMI, sclera anicteric, conjunctiva clear ENT: Auricles normal inspection, hearing grossly normal, nares patent, oropharynx clear without exudates. Moist mucosa NECK: Normal ROM, supple, no lymphadenopathy, JVD, or masses LUNGS: No distress, speaks full sentences, clear to auscultation bilaterally HEART: +Irregular rhythm c/w afib, regular rate, normal S1 and S2, no murmurs, rubs or gallops, peripheral pulses normal and equal bilaterally. ABDOMEN: Soft, nontender, normoactive bowel sounds. No guarding, no rebound. No masses EXTREMITIES: +Hematoma noted to L forearm. Otherwise normal inspection, normal range of motion, no edema. No clubbing or cyanosis. NEUROLOGICAL: Cranial nerves II through XII grossly intact. Normal speech, normal gait, no focal sensorimotor deficits SKIN: Warm, Dry, normal turgor, no rashes or lesions noted. Medical Decision Making - Medical Decision Making 10/06/18 00:46 Mr. Herring is an 83 yo male w/ pmh as described who presents for evaluation following fall. Patient has no complaints at this time and is oriented to baseline however given patient's anticoagulation status, will evaluate with Head CT to evaluate for sequelae from fall. 10/06/18 02:[address] negative. No concern for acute process at this time. Patient remains alert and oriented at baseline. Discharging to home. *DC/Admit/Observation/Transfer Diagnosis at time of Disposition: Fall Qualifiers: Encounter type: initial encounter Qualified Code(s): W19.XXXA - Unspecified fall, initial encounter - Discharge Dispostion Disposition: HOME Condition at time of disposition: Fair - Referrals - Patient Instructions Printed Discharge Instructions: How to Prevent Falls Additional Instructions: Osito was evaluated today in the ER after his fall. We performed head CT which was negative. He did not require any pain medicine. We believe he is safe for return home. He may take tylenol per package instructions for pain control as needed. Follow-up with primary care provider in 2-3 days for further evaluation. Return to ER if any fever, chills, altered mental status, or other concerning symptoms. - Post Discharge Activity
[2018-10-06 01:03] VITALS: TEMP 97.9; BMI 34.2
--- NOTE | 2018-10-06 01:20 | PDOC ---
Attending Attestation - Resident Resident Name: Denver Carrington - ED Attending Attestation I have performed the following: I have examined & evaluated the patient, The case was reviewed & discussed with the resident, I agree w/resident's findings & plan, Exceptions are as noted - HPI HPI: 10/06/18 01:16 83-year-old male with past medical history of atrial fibrillation on Xarelto, coronary disease, congestive heart failure, hypertension, hyperlipidemia, gout, hypothyroidism, hemorrhoids brought in by EMS for mechanical fall. The patient is from [facility]. He was in his bed when he rolled over and landed on the ground. It was approximately 3 feet. Patient reports hitting his head but denies loss of consciousness. Does take an anticoagulant, Xa inhibitor. Denies recent illnesses, fevers, chills, cough, vomiting. Denies chest pain. Patient was sent to the ER for an evaluation. - Physicial Exam PE: 10/06/18 01:16 GENERAL: Awake, alert, and fully oriented, in no acute distress HEAD: No signs of trauma EYES: EOMI, sclera anicteric, conjunctiva clear ENT: Auricles normal inspection, hearing grossly normal, nares patent, Moist mucosa NECK: Normal ROM, supple, no c-spine tenderness. EXTREMITIES: Normal range of motion, no edema. No clubbing or cyanosis. No cords, erythema, or tenderness. Small hematoma on left forearm but no tenderness. NEUROLOGICAL: Cranial nerves II through XII grossly intact. Normal speech SKIN: Warm, Dry, normal turgor, no rashes or lesions noted. - Medical Decision Making 10/06/18 01:17 Vital Signs Temp Pulse Resp BP Pulse Ox 97.9 F 78 21 H 146/82 98 10/06/18 00:20 10/06/18 00:20 10/06/18 00:20 10/06/18 00:20 10/06/18 00:20 Pt appears nontoxic and without symptoms. However, given that he is on anticoagulant, will obtain CT head. I have low suspicion for forearm fracture given no tenderness. Will apply PAMELA wrap to the forearm for the hematoma. If the head CT is negative, pt can be discharged to his facility with frequent neuro checks at the facility and strict return precautions for headache, persistent vomiting, lethargy and/or neuro deficits. Pt feels comfortable with the plan and agrees.
[2018-10-06 04:36] VITALS: BP 148/79; PULSE 64
--- NOTE | 2018-10-06 09:34 | EKG ---
Test Reason : Blood Pressure : / mmHG Vent. Rate : 076 BPM Atrial Rate : 083 BPM P-R Int : 000 ms QRS Dur : 158 ms QT Int : 436 ms P-R-T Axes : 000 046 -25 degrees QTc Int : 490 ms ATRIAL FIBRILLATION RIGHT BUNDLE BRANCH BLOCK T WAVE ABNORMALITY, CONSIDER INFERIOR ISCHEMIA ABNORMAL ECG WHEN COMPARED WITH ECG OF 12-SEP-2018 12:18, NO SIGNIFICANT CHANGE WAS FOUND Confirmed by VELASQUEZ GARIBAY, GREGORIO ([id number]) on 10/06/2018 9:33:46 AM Referred By: Confirmed By:GREGORIO ENG MD
== END 2018-10-06 04:36 | disposition home or self-care (01) ==
LOC: JER 00:20
DX: S09.8XXA Other specified injuries of head, initial encounter (principal); S50.12XA Contusion of left forearm, initial encounter; W06.XXXA Fall from bed, initial encounter; Y93.89 Activity, other specified; Y92.122 Bedroom in nursing home as the place of occurrence of the external cause; Y99.8 Other external cause status; I25.10 Atherosclerotic heart disease of native coronary artery without angina pectoris; I25.83 Coronary atherosclerosis due to lipid rich plaque; I11.0 Hypertensive heart disease with heart failure; I50.9 Heart failure, unspecified; E11.9 Type 2 diabetes mellitus without complications; Z79.4 Long term (current) use of insulin; E03.9 Hypothyroidism, unspecified; I48.91 Unspecified atrial fibrillation; Z79.01 Long term (current) use of anticoagulants; M10.9 Gout, unspecified; K64.9 Unspecified hemorrhoids
CPT/HCPCS: 70450-TC; 93005; 93010; 99281-25

== ENCOUNTER 2019-03-27 14:13 | Emergency (ER) | payer OTHER ==
[2019-03-27 14:28] VITALS: BMI 39.5
[2019-03-27] MEDS ORDERED: ACETAMINOPHEN 325 MG TABLET (FP) PO ONE (15:52)
--- NOTE | 2019-03-27 16:13 | PDOC ---
History of Present Illness - General Chief Complaint: Injury Stated Complaint: FALL Time Seen by Provider: 03/27/19 15:08 History Source: Patient, Old Records Exam Limitations: No Limitations - History of Present Illness Initial Comments: HPI: 84 y/o male presenting to [facility] ER from [facility] assisted living complaining of pain and wound to left knee. Pt reports he was outside of the residential facility smoking a cigar when he accidentally tripped on a patch of ice earlier today. Fell forward onto his knees. Denies striking his head or neck. Denies LOC. Assisted to his feet by a bystander. Able to walk a ways back to the building with his walker. PCP: Dr. Sibley Social Hx: - Former smoker, quit 2 years ago - Non-drinker Medical Hx: - Atrial fibrillation (No longer on AC) - CAD - CHF - HTN - DM - HLD - BPH - GIB - Gout - Hypothyroidism Review of Systems: In addition to that documented in the HPI above, the additional ROS was obtained : Constitutional- Denies fevers ENMT- Denies sore throat CV- Denies chest pain Resp- Denies SOB GI- Denies vomiting Neruo- Denies syncope MSK- per HPI Physical Examination: Vital signs and nursing notes reviewed. Constitutional- Well-developed, well-nourished adult male in no acute distress or obvious discomfort. Found semi-fowlers on hospital bed. Answered all questions appropriately and completely. Head- Normocephalic. No obvious external signs of trauma. Neck- No c-spine tenderness. No step off. Cardiovascular / Chest- Irregularly irregular rate and rhythm. No murmur, rubs, clicks, or gallops. Peripheral pulses- radial pulses full. 2+ DPL on left foot. Respiratory- Breathing unlabored. Equal chest rise and fall. Clear to auscultation bilaterally. No stridor, no wheezing, no rhonchi. Gastrointestinal- abdomen is soft, non-tender, non-distended. Neuro- Alert and oriented x4. Moving all four extremities spontaneously. MSK / Skin- abrasion and hematoma to inferior aspect of left knee. No active bleeding. Pt able to flex and extend the left knee and hip without obvious difficulty, but reports pain with the knee movements. Pelvis stable and non- tender with lateral compression. Psych- Affect- appropriate. Mood- normal. Speech was non-labored, non- pressured. MDM: 84 y/o male presenting with left knee pain s/p mechanical fall on ice. Afebrile. Vitals unremarkable for hypotension or tachycardia. Physical exam as described above. Suspect likely soft tissue vs mild msk strain. Low suspicion for acute fracture or dislocation. Will evaluate with plain films of left knee, as well as hip and pelvis. Reviewed plain films. No acute fracture or dislocation. Pt reassessed. Found sitting up on hospital chair. Questioned if he could be sent home. Helped to his feet. Able to walk with minimal assistance. Pt does not have his walker at bedside. Discussed radiology findings with pt. Answered all questions. Provided return precautions. pt expressed verbal understanding and agreement with plan to discharge home with outpatient follow up. Provided copies of todays results. Pt to return to assisted living residence. Jarrett Guo M.D., PGY2 Emergency Medicine Resident Past History - Past Medical History Allergies/Adverse Reactions: Allergies Allergy/AdvReac Type Severity Reaction Status Date / Time Fish Containing Products Allergy Verified 03/27/19 14:28 Home Medications: Ambulatory Orders Amlodipine Besylate 5 mg PO DAILY 01/30/18 Atorvastatin Calcium [Lipitor] 20 mg PO HS 01/30/18 Colchicine 0.6 mg PO DAILY 01/30/18 Furosemide [Lasix] 20 mg PO DAILY 01/30/18 Gabapentin 300 mg PO BID 01/30/18 Lisinopril 5 mg PO DAILY 01/30/18 Cholecalciferol (Vitamin D3) [Vitamin D3] 2,000 unit PO DAILY 01/31/18 Lactulose 20 gm PO PRN PRN 01/31/18 Levothyroxine Sodium [Levoxyl] 125 mcg PO ACBK 01/31/18 Tamsulosin HCl [Flomax -] 0.4 mg PO DAILY@0830 cap.er.24h 02/03/18 Oxybutynin Chloride [Ditropan Xl] 10 mg PO DAILY 07/12/18 Repaglinide [Prandin -] 1 mg PO TID 07/12/18 Ferrous Sulfate [Feosol] 325 mg PO BID #60 tablet 07/15/18 Insulin (Levemir) [Levemir Vial] 20 unit SQ AM #1 vial 07/15/18 Pantoprazole Sodium [Protonix -] 40 mg PO DAILY #30 tablet.ec 07/15/18 Psyllium Seed [Reguloid] 426 gm PO HS 08/11/18 Rivaroxaban [Xarelto] 15 mg PO DAILY 08/11/18 Silver Sulfadiazine [Ssd] 400 gm TP DAILY 08/11/18 Triamcinolone Acet/0.9%NaCl/Pf 1 applic TP BID 08/11/18 Polyethylene Glycol 3350 [Miralax 119 gm Btl -] 17 gm PO DAILY #1 bottle Docusate Sodium [Colace -] 100 mg PO TID #120 capsule 08/19/18 Metoprolol Tartrate [Lopressor -] 12.5 mg PO BID tablet 09/01/18 Quetiapine Fumarate [Seroquel -] 12.5 mg PO HS #30 tablet 09/01/18 Sennosides [Senna -] 2 tab PO HS tablet 09/01/18 Aspirin [ASA -] 81 mg PO DAILY 09/13/18 Potassium Chloride [K-Dur -] 10 meq PO DAILY 09/13/18 Cancer: Yes (benign prostate CA) Cardiac Disorders: Yes (atrial fibrillation, CAD) COPD: No CHF: Yes Diabetes: Yes GI Disorders: Yes (constipation) HTN: Yes Hypercholesterolemia: Yes Thyroid Disease: Yes (hypothyroididsm gout) - Surgical History Abdominal Surgery: No Appendectomy: No Cardiac Surgery: No Cholecystectomy: No Lung Surgery: No Neurologic Surgery: No - Immunization History Immunization Up to Date: (Unknown) - Psycho Social/Smoking Cessation Hx Smoking History: Current every day smoker Have you smoked in the past 12 months: Yes Number of Cigarettes Smoked Daily: 0 If you are a former smoker, when did you quit?: 2 YEARS Cigars Per Day: 1 Information on smoking cessation initiated: Yes Hx Alcohol Use: No Drug/Substance Use Hx: No Substance Use Type: None Hx Substance Use Treatment: No *Physical Exam - Vital Signs Last Vital Signs Temp Pulse Resp BP Pulse Ox 98.4 F 90 18 138/72 93 L 03/27/19 14:26 03/27/19 14:26 03/27/19 14:26 03/27/19 14:26 03/27/19 14:26 ED Treatment Course - RADIOLOGY Radiology Studies Ordered: Category Date Time Status HIP & PELVIS-LEFT [RAD] Stat Radiology 03/27/19 15:53 Ordered KNEE 3 POS-LEFT [RAD] Stat Radiology 03/27/19 15:53 Ordered Discharge - Discharge Information Problems reviewed: Yes Clinical Impression/Diagnosis: Left knee pain Qualifiers: Chronicity: acute Qualified Code(s): M25.562 - Pain in left knee Fall due to ice or snow Qualifiers: Encounter type: initial encounter Qualified Code(s): W00.9XXA - Unspecified fall due to ice and snow, initial encounter Condition: Good Disposition: HOME - Admission No - Follow up/Referral Referrals: Kevon Sibley MD [Primary Care Provider] - - Patient Discharge Instructions Patient Printed Discharge Instructions: DI for Knee Pain, DI for Blunt Trauma Additional Instructions: You were seen today for left knee pain after falling on the ice. Your xrays did not show a fracture or dislocation. You were able to walk in the ED. You may continue to be sore for the next few days. You can take over the counter Tylenol as needed for pain. Take as directed on the package insert. Do not exceed the recommended dosage. Follow up with your primary care doctor in the next week. You will need to call to make an appointment. Go to the nearest emergency department if your condition worsens or you feel like you need additional emergency evaluation. Print Language: LITHUANIAN - Post Discharge Activity
[2019-03-27] MEDS ORDERED: ACETAMINOPHEN 325 MG TABLET (FP) ONE (16:25)
--- NOTE | 2019-03-27 17:11 | PDOC ---
Attending Attestation - Resident Resident Name: Jarrett Guo - ED Attending Attestation I have performed the following: I have examined & evaluated the patient, The case was reviewed & discussed with the resident, I agree w/resident's findings & plan, Exceptions are as noted - HPI HPI: 03/27/19 17:06 84 M presenting to ED with L knee pain after slipping and falling. Pt was outside of his assisted living facility when he slipped on ice, landing onto his knees. Pt denies headstrike. Denies LOC. Was able to ambulate back to the building with his walker. - Physicial Exam PE: 03/27/19 17:07 See resident exam - Medical Decision Making 03/27/19 17:11 84 M with mechanical fall, now with L knee pain. - XR - Pain control 03/27/19 18:27 XRs negative Pt ambulatory in ED with steady gait. Pt is well appearing, with normal vitals. Clinically stable for DC at this time. I discussed the physical exam findings, ancillary test results and final diagnoses with the patient. I answered all of the patient's questions. The patient was satisfied with the care received and felt comfortable with the discharge plan and treatment plan. The patient agrees to follow up with the primary care physician within 24-72 hours.
[2019-03-27 18:49] VITALS: TEMP 98.7
[2019-03-27 20:46] VITALS: BP 172/90; PULSE 76
== END 2019-03-27 20:32 | disposition home or self-care (01) ==
LOC: JER 14:13
DX: M25.562 Pain in left knee (principal); W00.2XXA Other fall from one level to another due to ice and snow, initial encounter; Y93.89 Activity, other specified; Y92.098 Other place in other non-institutional residence as the place of occurrence of the external cause; Y99.8 Other external cause status; I25.10 Atherosclerotic heart disease of native coronary artery without angina pectoris; I11.0 Hypertensive heart disease with heart failure; F17.290 Nicotine dependence, other tobacco product, uncomplicated; I48.91 Unspecified atrial fibrillation; I50.9 Heart failure, unspecified; E11.9 Type 2 diabetes mellitus without complications; E03.9 Hypothyroidism, unspecified; E78.5 Hyperlipidemia, unspecified; Z91.013 Allergy to seafood
CPT/HCPCS: 73523-TC-FY; 73562-TC-LT-FY; 99282-25

== ENCOUNTER 2019-04-17 08:25 | Emergency (ER) | payer OTHER ==
--- NOTE | 2019-04-17 08:41 | PDOC ---
History of Present Illness - General Chief Complaint: Shortness of Breath Stated Complaint: Shortness of Breath - History of Present Illness Initial Comments: The pt is an 84M w/ a history of CAD, a-fib, DM, HLD who presents for evaluation of 4 days of congestion and intermittently productive cough. The pt denies fevers/chills, chest pain, MATTHEWS, vision change, dysuria, hematuria, rash, fall. He has not tried taking anything for his symptoms. Pt states he has not received a flu shot this year. PCP: Dr. Sibley Social Hx: - Former smoker, quit 2 years ago - Non-drinker Medical Hx: - Atrial fibrillation (No longer on AC) - CAD - CHF - HTN - DM - HLD - BPH - GIB - Gout - Hypothyroidism 04/17/19 08:41 Past History - Past Medical History Allergies/Adverse Reactions: Allergies Allergy/AdvReac Type Severity Reaction Status Date / Time Fish Containing Products Allergy Verified 04/17/19 08:59 Home Medications: Ambulatory Orders Amlodipine Besylate 5 mg PO DAILY 01/30/18 Atorvastatin Calcium [Lipitor] 20 mg PO HS 01/30/18 Colchicine 0.6 mg PO DAILY 01/30/18 Furosemide [Lasix] 20 mg PO DAILY 01/30/18 Gabapentin 300 mg PO BID 01/30/18 Lisinopril 5 mg PO DAILY 01/30/18 Cholecalciferol (Vitamin D3) [Vitamin D3] 2,000 unit PO DAILY 01/31/18 Lactulose 20 gm PO PRN PRN 01/31/18 Levothyroxine Sodium [Levoxyl] 125 mcg PO ACBK 01/31/18 Tamsulosin HCl [Flomax -] 0.4 mg PO DAILY@0830 cap.er.24h 02/03/18 Oxybutynin Chloride [Ditropan Xl] 10 mg PO DAILY 07/12/18 Repaglinide [Prandin -] 1 mg PO TID 07/12/18 Ferrous Sulfate [Feosol] 325 mg PO BID #60 tablet 07/15/18 Insulin (Levemir) [Levemir Vial] 20 unit SQ AM #1 vial 07/15/18 Pantoprazole Sodium [Protonix -] 40 mg PO DAILY #30 tablet.ec 07/15/18 Psyllium Seed [Reguloid] 426 gm PO HS 08/11/18 Rivaroxaban [Xarelto] 15 mg PO DAILY 08/11/18 Silver Sulfadiazine [Ssd] 400 gm TP DAILY 08/11/18 Triamcinolone Acet/0.9%NaCl/Pf 1 applic TP BID 08/11/18 Polyethylene Glycol 3350 [Miralax 119 gm Btl -] 17 gm PO DAILY #1 bottle Docusate Sodium [Colace -] 100 mg PO TID #120 capsule 08/19/18 Metoprolol Tartrate [Lopressor -] 12.5 mg PO BID tablet 09/01/18 Quetiapine Fumarate [Seroquel -] 12.5 mg PO HS #30 tablet 09/01/18 Sennosides [Senna -] 2 tab PO HS tablet 09/01/18 Aspirin [ASA -] 81 mg PO DAILY 09/13/18 Potassium Chloride [K-Dur -] 10 meq PO DAILY 09/13/18 Cancer: Yes (benign prostate CA) Cardiac Disorders: Yes (atrial fibrillation, CAD) COPD: No CHF: Yes Diabetes: Yes GI Disorders: Yes (constipation) HTN: Yes Hypercholesterolemia: Yes Thyroid Disease: Yes (hypothyroididsm gout) - Surgical History Abdominal Surgery: No Appendectomy: No Cardiac Surgery: No Cholecystectomy: No Lung Surgery: No Neurologic Surgery: No - Immunization History Immunization Up to Date: (Unknown) - Psycho Social/Smoking Cessation Hx Smoking History: Current every day smoker Have you smoked in the past 12 months: Yes Number of Cigarettes Smoked Daily: 0 If you are a former smoker, when did you quit?: 2 YEARS Cigars Per Day: 1 Hx Alcohol Use: No Drug/Substance Use Hx: No Substance Use Type: None Hx Substance Use Treatment: No Review of Systems - Review of Systems Able to Perform ROS?: Yes Comments:: GENERAL/CONSTITUTIONAL: No fever or chills. No weakness HEAD, EYES, EARS, NOSE AND THROAT: No change in vision. No change in hearing CARDIOVASCULAR: No chest pain RESPIRATORY: +cough; Denies hemoptysis GASTROINTESTINAL: No nausea, vomiting, diarrhea or constipation GENITOURINARY: No dysuria, frequency, or change in urination MUSCULOSKELETAL: No joint or muscle swelling or pain. No neck or back pain SKIN: No rash NEUROLOGIC: No headache, loss of consciousness, or change in strength/sensation ENDOCRINE: No increased thirst. No abnormal weight change HEMATOLOGIC/LYMPHATIC: No anemia, easy bleeding, or history of blood clots ALLERGIC/IMMUNOLOGIC: No hives or skin allergy 04/17/19 08:39 Is the patient limited Welsh proficient: No *Physical Exam - Vital Signs Initial Vital Signs Temp Pulse Resp BP Pulse Ox 98.3 F 86 16 150/96 95 04/17/19 08:25 04/17/19 08:25 04/17/19 08:25 04/17/19 08:25 04/17/19 08:25 - Physical Exam GENERAL: Awake, alert, and oriented to person/place/time, in no acute distress HEAD: No signs of trauma, normocephalic, atraumatic EYES: PERRLA, EOMI, sclera anicteric, conjunctiva clear ENT: Hearing grossly normal, nasal congestion, oropharynx clear without exudates. Moist mucosa LUNGS: No distress, speaks in full sentences, clear to auscultation bilaterally HEART: Irregularly irregular, regular rate, normal S1 and S2, no murmurs appreciated, peripheral pulses normal and equal bilaterally ABDOMEN: Soft, nontender, normoactive bowel sounds. No guarding, no rebound EXTREMITIES: Normal inspection, Normal range of motion, no edema. No clubbing or cyanosis NEUROLOGICAL: Cranial nerves II through XII grossly intact. Normal speech, no focal sensorimotor deficits SKIN: Warm, Dry 04/17/19 08:40 ED Treatment Course - LABORATORY CBC & Chemistry Diagram: 04/17/19 09:16 04/17/19 09:16 - RADIOLOGY Radiograph Interpretation: RAD/CHEST X-RAY PORTABLE Single AP view of the chest reveals a weak inspiration with widened mediastinum , previous valve surgery, prominent knob and some increased markings at the bases. The angles are sharp and the soft tissues are intact. There are degenerative changes. Correlation and followup recommended. 04/17/19 10:02 Medical Decision Making - Medical Decision Making The pt is an 84M w/ a history of CAD, a-fib, DM, HLD who presents for evaluation of days of congestion and intermittently productive cough. ED Course Labs sent CXR w/o PNA ECG 04/17/19 09:18 No leukocytosis No anemia Influenza neg ECG w/ a-fib, RBBB, HR 81; QTc 490, no axis deviation, similar to previous 04/17/19 09:59 Labs unremarkable Pt w/ likely viral URI Plan for D/C w/ PCP f/u Discharge instructions and return precautions given Patient in agreement and verbalized understanding Dispo: Home Discharge - Discharge Information Problems reviewed: Yes Clinical Impression/Diagnosis: URI (upper respiratory infection) Qualifiers: URI type: unspecified URI Qualified Code(s): J06.9 - Acute upper respiratory infection, unspecified Condition: Stable Disposition: HOME - Admission No - Follow up/Referral Referrals: Kevon Sibley MD [Primary Care Provider] - - Patient Discharge Instructions Patient Printed Discharge Instructions: DI for Viral Syndrome Additional Instructions: You were seen in the Emergency Department for evaluation of congestion and cough. Your symptoms are likely due to a virus. Review the handout provided at discharge. Follow up with your primary care provider within the weeks. Return to the Emergency Department if you develop fevers, chest pain, trouble breathing, worsening symptoms, or any new/concerning symptoms. - Post Discharge Activity
[2019-04-17 08:59] VITALS: TEMP 98.3; BMI 38.5
[2019-04-17] MEDS ORDERED: guaiFENesin 200 MG/10 ML 10 ML UNIT-DOSE CUPS PO ONE (09:18)
[2019-04-17] MEDS ORDERED: guaiFENesin/CODEINE 5 ML UNIT-DOSE CUPS PO ONE (09:21)
[2019-04-17 09:30] LABS: BASO % 0.5 % (0-2.0); EOS % 2.4 % (0-4.5); HEMATOCRIT 42.9 % (35.4-49); HEMOGLOBIN 14.1 GM/dL (11.7-16.9); LYMPH % 13.6 % (8-40); MCHC 32.9 g/dl (32.0-35.9); MEAN CELL VOLUME 87.9 fl (80-96); MEAN PLT VOLUME 8.3 fl (7.5-11.1); MONO % 13.9 % (3.8-10.2); NEUT % 69.6 % (42.8-82.8); PLATELET COUNT 147 K/MM3 (134-434); RBC 4.88 M/mm3 (4.00-5.60); RDW 15.8 % (11.9-15.9); WHITE BLOOD COUNT 4.1 K/mm3 (4.0-10.0)
[2019-04-17 10:21] LABS: ALBUMIN 3.6 g/dl (3.4-5.0); ALK PHOS 95 U/L (45-117); ANION GAP 5 MMOL/L (8-16); BILIRUBIN,TOTAL 0.5 mg/dL (0.2-1); BLOOD UREA NITROGEN 25.6 mg/dL (7-18); CALCIUM 8.7 mg/dL (8.5-10.1); CHLORIDE 106 mmol/L (98-107); CO2 29 mmol/L (21-32); CREATININE 1.5 mg/dL (0.55-1.3); GLUCOSE,RANDOM 141 mg/dL (74-106); N-TERMINAL BNP 1228.3 pg/ml (5-450); POTASSIUM 4.3 mmol/L (3.5-5.1); SGOT/AST 15 U/L (15-37); SGPT/ALT 20 U/L (13-61); SODIUM 140 mmol/L (136-145); TOT PROT 6.5 g/dl (6.4-8.2)
--- NOTE | 2019-04-17 10:24 | PDOC ---
Attending Attestation - Resident Resident Name: BrandeeVinayak - ED Attending Attestation I have performed the following: I have examined & evaluated the patient, The case was reviewed & discussed with the resident, I agree w/resident's findings & plan, Exceptions are as noted - HPI HPI: 04/17/19 10:29 Mr. Herring is an 83 yo M h/o HTN, DM, BPH, CAD, CHF, A-fib, HLD, GOUT, hypothyroid, benign prostate cancer, and chronic constipation, who presents to the emergency department today complaining of cough, congestion and shortness of breath Pt reports that he has had symptoms for several days No fever or chills that he is aware of He was seen by the facility physician who reportedly told him that he did not have the flu or pneumonia Pt denies nausea, vomiting, diarrhea Pt denies chest pain 04/17/19 11:50 - Physicial Exam PE: 04/17/19 10:30 GENERAL: The patient is in no acute distress. ENT: Edentous, Ears normal, nares patent, oropharynx clear without exudates. Moist mucous membranes. NECK: Normal range of motion, supple LUNGS: Breath sounds equal, clear to auscultation bilaterally. No wheezes, and no crackles. HEART:Regular rate and rhythm, normal S1 and S2 without murmur, rub or gallop. ABDOMEN: Soft, nontender, normoactive bowel sounds. EXTREMITIES: Normal range of motion, no edema. NEUROLOGICAL: Cranial nerves II through XII grossly intact. Normal speech. No focal neurological deficits. SKIN: Warm, Dry, normal turgor, no rashes or lesions noted. 04/17/19 11:54 - Medical Decision Making 04/17/19 10:30 EKG: Atrial fibrillation, rate of 81 bpm, right bundle branch block, no ST elevation or depression 04/17/19 10:30 Laboratory Tests 09/13/18 04/17/19 04/17/19 14:03 09:16 09:16 WBC 4.1 Hgb 14.1 Hct 42.9 D Plt Count 147 D BUN 43.5 H 25.6 H Creatinine 1.7 H 1.5 H Troponin I < 0.02 B-Natriuretic Peptide 1228.3 H Influenza A (Rapid) Influenza B (Rapid) 04/17/19 09:16 WBC Hgb Hct Plt Count BUN Creatinine Troponin I B-Natriuretic Peptide Influenza A (Rapid) Negative Influenza B (Rapid) Negative 04/17/19 10:31 CXR: increased markings at the base 04/17/19 11:56 will plan to discharge back to the [place] [facility]
--- NOTE | 2019-04-17 11:57 | EKG ---
Test Reason : Blood Pressure : / mmHG Vent. Rate : 081 BPM Atrial Rate : 086 BPM P-R Int : 000 ms QRS Dur : 166 ms QT Int : 422 ms P-R-T Axes : 000 056 -39 degrees QTc Int : 490 ms ATRIAL FIBRILLATION RIGHT BUNDLE BRANCH BLOCK NONSPECIFIC T WAVE ABNORMALITY ABNORMAL ECG Confirmed by MARLYS BARNEY MD ([id number]) on 04/17/2019 11:57:00 AM Referred By: Confirmed By:MARLYS BARNEY MD
[2019-04-17 14:24] VITALS: BP 155/78; PULSE 84
== END 2019-04-17 14:00 | disposition home or self-care (01) ==
LOC: JER 08:25
DX: J06.9 Acute upper respiratory infection, unspecified (principal); Z91.013 Allergy to seafood; I25.10 Atherosclerotic heart disease of native coronary artery without angina pectoris
CPT/HCPCS: 36415; 71045-TC-FY; 80053; 83880; 84484; 85025; 87804; 93005; 93010; 99283-25

== ENCOUNTER 2020-05-27 12:11 | Emergency (ER) | payer OTHER ==
[2020-05-27 12:24] VITALS: TEMP 98.1; BMI 36.1
[2020-05-27] MEDS ORDERED: diphenhydrAMINE HCL 25 MG CAPSULE (FP) PO ONE ×2 (13:19→13:22)
[2020-05-27] MEDS ORDERED: predniSONE 20 MG TABLET (UD) PO ONE (13:19)
[2020-05-27] MEDS ORDERED: predniSONE 20 MG TABLET (UD) ONE (13:22)
[2020-05-27 15:02] VITALS: BP 147/88; PULSE 84
== END 2020-05-27 15:03 | disposition home or self-care (01) ==
LOC: JER 12:11
DX: B86 Scabies (principal); R21 Rash and other nonspecific skin eruption
CPT/HCPCS: 99283-25

== ENCOUNTER 2020-08-09 12:20 | Emergency (ER) | payer OTHER ==
[2020-08-09 13:29] LABS: EPI CELLS 6 /uL (0-25.1); HYALINE CASTS 0 /uL (0-3.1); PH,URINE 5.5 (5.0-8.0); URINE APPEARANCE CLOUDY; URINE BACTERIA 887 /uL (0-1359); URINE BILIRUBIN NEGATIVE (NEGATIVE); URINE COLOR YELLOW; URINE GLUCOSE (UA) NEGATIVE (NEGATIVE); URINE KETONE NEGATIVE (NEGATIVE); URINE LEUK ESTERASE 3+ (NEGATIVE); URINE NITRITE NEGATIVE (NEGATIVE); URINE PROTEIN NEGATIVE (NEGATIVE); URINE RBC 53 /uL (0-23.9); URINE UROBILINOGEN 0.2 mg/dL (0.2-1.0); URINE WBC 1080 /uL (0-25.8)
[2020-08-09 13:40] VITALS: TEMP 98; BMI 42.5
[2020-08-09] MEDS ORDERED: SULFAMETHOXAZOLE/TRIMETHOPRIM 800MG/160MG D.S. TABLET PO ONE (14:00)
[2020-08-09] MEDS ORDERED: SULFAMETHOXAZOLE/TRIMETHOPRIM 800MG/160MG D.S. TABLET ONE (14:06)
[2020-08-09 14:45] VITALS: BP 145/87; PULSE 80
== END 2020-08-09 14:50 ==
LOC: JER 12:20
DX: R30.0 Dysuria (principal); R35.0 Frequency of micturition
CPT/HCPCS: 81003; 87086; 87186; 99284-25

== ENCOUNTER 2020-10-25 23:57 | Emergency (ER) | payer OTHER ==
[2020-10-26 00:32] VITALS: PULSE 78; BMI 43.3
[2020-10-26 05:45] VITALS: BP 157/78; TEMP 97.7
== END 2020-10-26 05:54 | disposition home or self-care (01) ==
LOC: JER 23:57
DX: S00.83XA Contusion of other part of head, initial encounter (principal)
CPT/HCPCS: 70450-TC; 73564-TC-RT-FY; 99284-25

== ENCOUNTER 2020-11-17 19:36 | Emergency (ER) | payer OTHER ==
[2020-11-17 20:03] VITALS: TEMP 98.2; BMI 35.9
[2020-11-17 21:32] LABS: BASO % 0.7 % (0-2.0); EOS % 2.8 % (0-4.5); HEMOGLOBIN 13.1 GM/dL (11.7-16.9); LYMPH % 25.4 % (8-40); MCH 29.6 pg (25.7-33.7); MCHC 33.5 g/dl (32.0-35.9); MEAN CELL VOLUME 88.3 fl (80-96); MONO % 10.1 % (3.8-10.2); PLATELET COUNT 155 10^3/uL (134-434); RBC 4.42 M/mm3 (4.00-5.60); RDW 16.6 % (11.9-15.9); WHITE BLOOD COUNT 3.7 K/mm3 (4.0-10.0)
[2020-11-17 21:40] LABS: INR 1.22 (0.83-1.09); PROTHROMBIN TIME (PATIENT) 14.7 SEC (9.7-13.0)
[2020-11-17 21:42] LABS: ACTIVATED PTT 31.5 SECONDS (25.2-36.5)
[2020-11-17 21:53] LABS: CHLORIDE 105 mmol/L (98-107); SODIUM 142 mmol/L (136-145)
[2020-11-17 21:55] LABS: CALCIUM 8.5 mg/dL (8.5-10.1)
[2020-11-17 21:56] LABS: ALBUMIN 3.7 g/dl (3.4-5.0); ANION GAP 8 MMOL/L (8-16); BLOOD UREA NITROGEN 38.8 mg/dL (7-18); CO2 29 mmol/L (21-32); GLUCOSE,RANDOM 260 mg/dL (74-106)
[2020-11-17 21:58] LABS: SGPT/ALT 46 U/L (13-61)
[2020-11-17 21:59] LABS: CHOLESTEROL 132 mg/dL (50-200); CREATININE 1.7 mg/dL (0.55-1.3); SGOT/AST 24 U/L (15-37); TRIGLYCERIDES 126 mg/dL (0-150)
[2020-11-17 22:00] LABS: LDL CHOLESTEROL (ONLY SJRH) 70 mg/dL (5-100)
[2020-11-17 22:01] LABS: ALK PHOS 115 U/L (45-117)
[2020-11-17 22:02] LABS: BILIRUBIN,TOTAL 0.5 mg/dL (0.2-1); HDL CHOLESTEROL 41 mg/dL (40-60)
[2020-11-18 02:50] VITALS: BP 132/76; PULSE 78
== END 2020-11-18 02:50 | disposition left against medical advice (07) ==
LOC: JER 19:36
DX: R29.810 Facial weakness (principal); S09.90XA Unspecified injury of head, initial encounter; W19.XXXA Unspecified fall, initial encounter; Y92.9 Unspecified place or not applicable
CPT/HCPCS: 36415; 70450-TC; 72125-TC; 80053; 80061; 82550; 82962; 84484; 85025; 85610; 85730; 86850; 86900; 86901; 93005; 93010; 99284-25